=== PATIENT | female | born 1945 | race Caucasian/White ===

== ENCOUNTER 2020-12-08 10:28 | Inpatient (IN) | payer MEDICARE, BC, SELFPAY ==
[2020-12-08] VITALS (13 sets, daily range): BP systolic 113–149; BP diastolic 56–76; PULSE 54–79; RESP 14–18; TEMP 36.4–36.5; O2SAT 93–100; BMI 27.1
--- NOTE | 2020-12-08 | SCC_ITS ---
Procedure Done: Close reduction percutaneous screw fixation of right femoral neck fracture. 56.6 seconds of fluoroscopic guidance, for a cumulative dose of 3.97 mGy, was provided to Dr. Chadwick by the radiology department. C-arm images of the RIGHT hip were saved for the patient's permanent record. [employer]
--- NOTE | 2020-12-08 10:31 | ED_ITS ---
HPI - Fall General: Stated Complaint: RIGHT HIP PAIN S/P FALL Time Seen by Provider: 12/08/20 10:30 Coding Level of Care Code ED Store Assistant for Darshan Perez
--- NOTE | 2020-12-08 10:54 | ECG_ITS ---
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 Measurements Intervals [place] Rate: 53 P: -30 AK: 131 QRS: 72 QRSD: 101 T: 127 QT: 462 QTc: 434 Interpretive Statements SINUS BRADYCARDIA WITH OCCASIONAL SUPRAVENTRICULAR PREMATURE COMPLEXES NONSPECIFIC T-WAVE ABNORMALITY No previous ECG available for comparison Electronically Signed On 12-08-2020 15:29:36 CDT by Alejandro Warren M.D. [email or web address]/[email or web address]/[id number]
--- NOTE | 2020-12-08 10:58 | ED_ITS ---
HPI - Fall General: Chief Complaint: Fall Stated Complaint: RIGHT HIP PAIN S/P FALL Time Seen by Provider: 12/08/20 10:30 History of Present Illness: HPI Narrative: The patient is a 75-year-old female who was at [employer] today and tripped going up a step to her seat and fell. She complains of severe right hip pain since the fall. She did not blackout them but parishioners got her up in a chair and the pain was so severe she passed out for a few seconds. She has a history of vagal episodes in the past and she recovered spontaneously. EMS noted a systolic pressure of 90 and gave her a small fluid bolus. On arrival to the ER she is alert and oriented x4 with blood pressure 148/73. She complains of severe right hip pain with any movement at all. MD complaint: fall Fall from: standing Fall witnessed: yes, by family Prolonged down time: no Symptoms prior to fall: none Context: tripped/slipped Severity scale (1-10): 10 Quality: sharp Associated symptoms-after fall: Reports no associated symptoms; Denies abdominal pain, chest pain, confusion, difficulty walking, headache(s) or neck pain Review of Systems General: Reports: 10 or more systems reviewed and unremarkable except in HPI and below Const: Denies: fatigue Eyes: Denies: change in vision, blurry vision or eye redness ENMT: Denies: throat pain, swelling of lips/tongue, ear or mastoid pain or nasal congestion Card: Denies: chest pain, palpitations, irregular heart rhythm, edema, dyspnea on exertion or orthopnea Resp: Denies: dyspnea, productive cough or non-productive cough GI: Denies: abdominal pain, diarrhea or GI cramping : Denies: flank pain, difficulty voiding, urinary frequency or urinary urg ency Musc: Reports: joint pain; Denies: neck pain, back pain, extremity pain, joint redness, limited range of motion or muscle weakness Skin/Breast: Denies: rash, pruritus, erythema, skin pain or skin tenderness Neuro: Denies: headache(s), numbness in extremities, weakness in extremities, sensory changes, difficulty walking, dizziness, confusion or Slurred speech present Psych: Denies: anxiety or depression Endo: Denies: polyuria All/Imm: Denies: urticaria, throat swelling or tongue swelling PFS ED PFSH: Social History (Updated 12/08/20 @ 10:40 by Jorge L Naidu RN) Smoking and tobacco status: never smoked Alcohol intake: never Substance/Drug Use: never Physical Exam Const: COMMON NORMALS: no acute distress, average body habitus, patient oriented x3, no limitations, healthy appearing, alert and well nourished GENERAL APPEARANCE: cooperative, comfortable, well kempt and well developed ORIENTATION/CONSCIOUSNESS: Yes awake, Yes oriented to person, Yes oriented to place and Yes oriented to time HENMT: COMMON NORMALS: normocephalic, external ears normal and Normal external nose present HEAD & SCALP: normal to inspection and normocephalic NOSE: Normal external nose present EXTERNAL EAR: Yes external ears normal MOUTH: Normal oral and palatal mucosa present THROAT: posterior oropharynx normal Eye: COMMON NORMALS: Equal, round and reactive pupils present and EOMs intact bilaterally GENERAL EYE: appearance normal, both eyes and all related structures PUPIL: Yes Equal, round and reactive pupils present Neck/C-Spine: COMMON NORMALS: full ROM, no lymphadenopathy, no meningeal signs and no JVD GENERAL: Yes normal visual inspection Lymph: LYMPHATIC: no lymphadenopathy noted Chest: COMMONS NORMALS: normal inspection of the chest and normal palpation of entire chest wall Resp: COMMON NORMALS: normal respiratory effort, No retractions, No use of accessory muscles, clear to auscultation bilaterally and percussion normal EFFORT & INSPECTION: Yes able to speak in complete sentences AUSCULTATION: clear to auscultation bilaterally PERCUSSION: percussion normal Cardio: COMMON NORMALS: no JVD, regular rate, regular rhythm, S1 normal heart sound present, S2 normal heart sound present and Peripheral pulses 2+ throughout RATE: regular rate RHYTHM: regular rhythm HEART SOUNDS: S1 normal heart sound present and S2 normal heart sound present PERIPHERAL PULSES: Peripheral pulses 2+ throughout GI: COMMON NORMALS: Normal to inspection, nondistended, normoactive bowel sounds present, Soft to palpation, non-tender and no masses INSPECTION: Yes normal to inspection PALPATION: Yes Soft to palpation : COMMON NORMALS: Yes no CVA tenderness BLADDER/KIDNEY EXAM: Yes no CVA tenderness Back/Pelvis: COMMON NORMALS: no CVA tenderness, thoracic and lumbar spine normal to inspection, no thoracic nor lumbar tenderness and thoraco-lumbar ROM normal Extremity: COMMON NORMALS: normal to inspection, full ROM, capillary refill normal, no joint enlargement and no pedal edema NARRATIVE EXTREMITY EXAM: Severe right hip pain with any movement. Did not examine in depth because of her severe pain. Will view the x-ray GENERAL: Yes normal exam except as noted Neuro: COMMON NORMALS: patient oriented x3, CN's II-XII intact bilaterally, moves all extremities, no focal motor deficits, no sensory deficits noted and gait normal SENSORIUM/ORIENTATION: Yes alert, Yes oriented to person, Yes oriented to place and Yes oriented to time MENINGEAL SIGNS: Yes no meningeal signs Psych: COMMON NORMALS: mental status grossly normal, Normal thought process present, cooperative, normal affect and speech normal APPEARANCE: Yes well kempt ATTITUDE: Yes calm SPEECH: Yes normal speech THOUGHT PROCESS: Normal thought process present Skin: COMMON NORMALS: no rashes or lesions noted GENERAL SKIN EXAM: no rashes or lesions noted Course Vital Signs: Vital signs: Vital Signs Temperature 97.5 F L 12/08/20 10:33 Pulse Rate 55 L 12/08/20 12:51 Respiratory Rate 15 12/08/20 10:33 Blood Pressure 148/73 12/08/20 10:33 Pulse Oximetry 95 12/08/20 12:51 MDM - Fall MDM Narrative: Medical decision making narrative: The patient has a right hip fracture seen on x-ray. She was given pain control in the ED and discussed with Dr. Chadwick who will likely operate this afternoon. She is n.p.o. Last eating or drinking at approximately 8:[address] Lomeli who accepts for admission Lab Data: Labs: Lab Results 12/08/20 12/08/20 12/08/20 Range/Units 10:16 10:16 10:16 WBC 7.6 (4.0-10.0) 10^3/ uL RBC 4.37 (4.1-5.3) 10^6/u L Hgb 13.8 (11.5-15.3) g/dL Hct 43.0 (37.0-47.0) % MCV 98.4 (81-99) fL MCH 31.6 (28.0-34.0) pg MCHC 32.1 (30.0-36.0) g/dL RDW 12.9 (12.1-15.1) % Plt Count 176 (130-400) 10^3/c mm MPV 12.9 H (7.4-10.4) fL Neut % (Auto) 61.0 % Lymph % (Auto) 27.0 % [place] % (Auto) 8.9 % Eos % (Auto) 1.8 % Baso % (Auto) 0.9 % Neut # (Auto) 4.65 (1.8-7.7) 10^3/u L Lymph # (Auto) 2.1 (0.8-4.8) 10^3/u L [place] # (Auto) 0.7 (0.2-0.9) 10^3/u L Eos # (Auto) 0.1 (0.0-0.8) 10^3/u L Baso # (Auto) 0.1 (0.0-0.1) 10^3/u L Nucleated RBC % (a uto) 0 % Nucleated RBCs # 0.0 /100WBC Sodium 137 (136-145) mmol/L Potassium 5.0 (3.5-5.1) mmol/L Chloride 101 (98-107) mmol/L Carbon Dioxide 26 (22-29) mmol/L Anion Gap 15.0 (5-19) BUN 28 H (8-23) mg/dL Creatinine 1.0 H (0.5-0.9) mg/dL GFR Calculation Not Reportable Glucose 90 (65-115) mg/dL Calculated Osmolal ity 289 (285-295) mOsm/k g Calcium 9.2 (8.5-10.5) mg/dL Total Bilirubin 0.4 (0.15-1.2) mg/dL AST 16 (0-32) U/L ALT 15 (0-33) U/L Alkaline Phosphata se 63 (35-105) IU/L Troponin T Baselin e 71 H (0-10) ng/L Total Protein 6.2 L (6.6-8.7) g/dL Albumin 4.5 (3.5-5.2) g/dL Globulin 1.7 (1.3-4.6) g/dL Discharge Plan Discharge Patient Disposition: Admitted As Inpatient Admit Provider: Jose Alberto Lomeli Clinical Impression: Closed fracture of right hip Condition: Stable Coding Level of Care Code ED Sas Developer Analyst for g Fwd Exam Comprehensive
[2020-12-08 11:13] LABS: Basophils # 0.1 10^3/uL (0.0-0.1); Basophils % 0.9 %; Eosinophils # 0.1 10^3/uL (0.0-0.8); Eosinophils % 1.8 %; Hemoglobin 13.8 g/dL (11.5-15.3); Lymphocytes # 2.1 10^3/uL (0.8-4.8); Mean Corpuscular HGB Conc 32.1 g/dL (30.0-36.0); Mean Corpuscular Hemoglobin 31.6 pg (28.0-34.0); Mean Corpuscular Volume 98.4 fL (81-99); Mean Platelet Volume 12.9 fL (7.4-10.4); Monocytes # 0.7 10^3/uL (0.2-0.9); Monocytes % 8.9 %; Neutrophils # 4.65 10^3/uL (1.8-7.7); Nucleated Red Blood Cells % 0 %; Platelet Count 176 10^3/cmm (130-400); Red Blood Count 4.37 10^6/uL (4.1-5.3); Red Cell Distribution Width 12.9 % (12.1-15.1); White Blood Count 7.6 10^3/uL (4.0-10.0)
[2020-12-08] MEDS: HYDROmorphone 1 mg/mL INJ 1 mL 0.4 MG IVP (11:18)
--- NOTE | 2020-12-08 11:18 | XRR_ITS ---
PROCEDURE INFORMATION: Exam: XR Right Hip Exam date and time: 12/08/2020 11:32 AM Age: 75 years old Clinical indication: Injury or trauma; Fall; Blunt trauma (contusions or hematomas); Right; Hip; Additional info: Right hip pain TECHNIQUE: Imaging protocol: XR Right hip. Views: 1 view hip with pelvis when performed. COMPARISON: No relevant prior studies available. FINDINGS: Bones/joints: Irregularity of the capital/subcapital region of the right hip concerning for an impacted fracture. Consider CT if indicated. XR/XR hip RT 2-3V wo/w pel* [id number] IMPRESSION: Irregularity of the capital/subcapital region of the right hip concerning for an impacted fracture. Consider CT if indicated.
[2020-12-08 11:24] LABS: Alanine Aminotransferase 15 U/L (0-33); Albumin Level 4.5 g/dL (3.5-5.2); Alkaline Phosphatase 63 IU/L (35-105); Aspartate Amino Transferase 16 U/L (0-32); Blood Urea Nitrogen 28 mg/dL (8-23); Calcium 9.2 mg/dL (8.5-10.5); Carbon Dioxide 26 mmol/L (22-29); Chloride 101 mmol/L (98-107); Globulin 1.7 g/dL (1.3-4.6); Glucose 90 mg/dL (65-115); Osmolality Calculated 289 mOsm/kg (285-295); Sodium 137 mmol/L (136-145); Total Bilirubin 0.4 mg/dL (0.15-1.2); Total Protein 6.2 g/dL (6.6-8.7)
[2020-12-08 11:26] LABS: Troponin(5th) Baseline 71 ng/L (0-10)
[2020-12-08] MEDS: HYDROmorphone 1 mg/mL INJ 1 mL 0.5 MG IVP ×2 (12:33→14:02)
--- NOTE | 2020-12-08 13:30 | USCV_ITS ---
Narcisa Valle Age: 75 Gender: F : 1945 Exam Date: 12/08/2020 13:53 Ordering Phys: Jose Alberto Lomeli MD Technologist: Cornelia Jacinto Exam Location: [facility] [place] Indication: Preop, chest pain BP: 148 / 76 HR: 50 Rhythm: Sinus Technical Quality: Fair MEASUREMENTS (Male / Female) Normal Values 2D ECHO LV Diastolic Diameter PLAX 4.1 cm 4.2 - 5.9 / 3.9 - 5.3 cm LV Systolic Diameter PLAX 2.8 cm LV Chamber Size 4.0 cm IVS Diastolic Thickness 1.4 cm 0.6 - 1.0 / 0.6 - 0.9 cm IVS Systolic Thickness 1.6 cm LVPW Diastolic Thickness 0.8 cm 0.6 - 1.0 / 0.6 - 0.9 cm LVPW Systolic Thickness 1.3 cm RV Chamber Size 2.2 cm LVOT Diameter 1.8 cm LV Ejection Fraction 2D Teich 62.5 % LV Ejection Fraction MOD 2C 65.8 % LV Ejection Fraction 2C AL 67.3 % LA Diameter 2.4 cm LA Width 2.9 cm LA Height 4.2 cm RA Width 2.9 cm RA Height 3.7 cm Aorta at Sinotubular Diameter 2.0 cm M-MODE LV Diastolic Diameter MM 4.3 cm 4.2 - 5.9 / 3.9 - 5.3 cm LV Systolic Diameter MM 2.5 cm LV Ejection Fraction MM Teich 72.5 % IVS Diastolic Thickness MM 1.3 cm 0.6 - 1.0 / 0.6 - 0.9 cm IVS Systolic Thickness MM 1.5 cm LVPW Diastolic Thickness MM 0.9 cm 0.6 - 1.0 / 0.6 - 0.9 cm LVPW Systolic Thickness MM 1.5 cm Aortic Annulus Diameter 2.8 cm LA Ao Ratio MM 1.1 MV E Point Septal Separation 0.5 cm DOPPLER AV Peak Velocity 119.0 cm/s LVOT Peak Velocity 126.0 cm/s AV Area Cont Eq vti 2.7 cm squared AV Area Cont Eq pk 2.8 cm squared MV Area PHT 2.6 cm squared Mitral E to A Ratio 0.8 MV E' Velocity 44.5 cm/s Mitral E to MV E' Ratio 15.6 Mitral E to LV E' Lateral Ratio 17.6 Mitral E to LV E' Septal Ratio 14.1 TR Peak Velocity 283.5 cm/s TR Peak Gradient 32.1 mmHg TV Peak E Velocity 47.0 cm/s Right Atrial Pressure 8.0 mmHg Pulmonary Artery Systolic Pressu 40.1 mmHg PV Peak Velocity 68.0 cm/s RV Acceleration Time 0.2 s RV Ejection Time 0.3 s RV AcT/ET 0.5 FINDINGS Left Ventricle Normal left ventricular size. LV systolic function is normal with EF of 55-60%. No regional wall motion abnormalities. Grade 1 diastolic dysfunction Right Ventricle The right ventricle is normal in size and function. Right Atrium The right atrium is normal in size. Left Atrium The left atrium is normal in size. Mitral Valve Structurally normal mitral valve without significant stenosis or prolapse. There is no mitral regurgitation. Aortic Valve Structurally normal aortic valve without significant sclerosis or stenosis. There is no aortic regurgitation. Tricuspid Valve Structurally normal tricuspid valve without significant stenosis. Mild tricuspid regurgitation. RVSP is 35-40mmHg. Mild pulmonary hypertension Pulmonic Valve Structurally normal pulmonic valve without significant stenosis. There is no pulmonic regurgitation. Pericardium Normal pericardium without effusion. Aorta Normal ascending aorta dimension. CONCLUSIONS LV systolic function is normal with EF of 55-60% Grade 1 diastolic dysfunction Mild tricuspid regurgitation Mild pulmonary hypertension No comparison studies are available Alejandro Warren MD (Electronically Signed) Final Date: 08 December 2020 15:44 S
[2020-12-08 13:33] LABS: Glucose Urine UA Norm (Normal); Protein Urine Neg (Negative); Urine Appearance Clear (CLEAR); Urine Color Yellow (Yellow); pH Urine 8 (5-7)
[2020-12-08 13:34] LABS: Add Urine Culture? Yes; Add Urine Microscopic? YES; Bacteria Urine 2+ /hpf; Bilirubin Urine Neg (Negative); Blood Urine Neg (Negative); Ketones Urine 1+ (Negative); Leukocyte Esterase Urine 1+ (Negative); Nitrate Urine Negative (Negative); Urobilinogen Urine Norm (Negative); WBC Urine 15-25 /hpf (0-5)
[2020-12-08 13:44] LABS: Troponin 5 2HR 56.44 ng/L (0-10)
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
[2020-12-08 13:51] LABS: Troponin 5 2HR Delta -14.56 ABS# (0-10)
[2020-12-08] MEDS: ondansetron 2 mg/ML SDV 2 mL 4 MG IVP (14:02)
[2020-12-08] MEDS: heparin 5,000 unit/mL INJ 1 mL 5000 UNIT SUBCUT (14:03)
[2020-12-08] MEDS: dextrose 5%-sod chloride 0.45% 1,000 ML 75 ML IV ×2 (14:15→21:53)
[2020-12-08 14:28] LABS: NT Pro B Type Natriuretic Pept 1214 pg/mL (0-450)
--- NOTE | 2020-12-08 14:38 | PC.NURSE ---
surgery pt was taken to surgery.
--- NOTE | 2020-12-08 14:41 | P.ANESASSM_ITS ---
Pre-Anesthetic Assessment Pre-Anesthetic Assessment: Height/Weight: Height 1.55 m Weight 65.317 kg Temp Pulse Resp BP Pulse Ox 97.5 F L 56 L 18 148/76 95 12/08/20 10:33 12/08/20 13:16 12/08/20 14:02 12/08/20 13:16 12/08/20 13:16 Proposed Procedure: Operation Date: 12/08/20 15:00 Proposed Procedures p Hip Screw(Right) - Sanford H Netta, DO Was Beta Giselle taken within 24 hours: N/A Was Clonidine taken within 24 hours: N/A Last intake: 0900 coffee with cream and yogurt. Social: Social History: No alcohol and No tobacco Exam: Pre-Anes Outpt Exam: alert, oriented x 3, clear to auscultation bilaterally and regular rate & rhythm Airway: Submandibular: WNL Cervical ROM: WNL MP: 2 Dentition: Caps History/ROS: No significant history except as noted Pulmonary: Pulmonary: Sleep apnea (non-compliant) CV/HEM: CV/HEM: Arrythmia (bradycardia at times 48-52 range per daughter.) : : Chronic renal Insufficiency (stage 3) Hepatic: Hepatic: None reported GI: Comments: gastric ulcers Metabolic: Metabolic: Thyroid Comments: Shakeel's Disease Musc/skel: Musc/skel: Fibromyalgia and Lower Back Pain Neuropsych: Neuropsych: Anxiety, Depression, Neuropathy (lower extremity) and Syncope (vaso-vagal response for years.) Anesthetic Plan: ASA status: 3E Anesthesia: Anesthesia Evaluation and General Meds/Allergies Current Medications: Current Medications Generic Name Dose Route Start Last Admin Trade Name Freq PRN Reason Stop Dose Admin Heparin Sodium (Be ef Lung) 5,000 unit 12/08/20 13:48 12/08/20 14:03 Heparin 5,000 Un it/Ml Inj 1 Ml SUBCUT 5,000 unit Q12H ALAINA Administration Hydromorphone HCl 0.5 mg 12/08/20 13:48 12/08/20 14:02 Hydromorphone 1 Mg/Ml Inj 1 Ml IVP 0.5 mg Q4H PRN Administration pain Dextrose/Sodium Ch loride 1,000 mls @ 75 ml s/hr 12/08/20 13:48 12/08/20 14:15 Dextrose 5%-Sod Chloride 0.45% IV 75 mls/hr .[id number] ALAINA Administration Ondansetron HCl 4 mg 12/08/20 13:48 12/08/20 14:02 Ondansetron 2 Mg /Ml Sdv 2 Ml IVP 4 mg Q8H PRN Administration vomiting, or N/V if npo PFSH Anesthesia PFSH: Medical History (Updated 12/08/20 @ 13:50 by Jose Alberto Lomeli MD) Chronic kidney disease Mesenteric cyst Vasovagal syncope Surgical History (Updated 12/08/20 @ 13:50 by Jose Alberto Lomeli MD) History of laminectomy History of laparotomy Family History (Updated 12/08/20 @ 13:50 by Jose Alberto Lomeli MD) Father CAD (coronary artery disease) Alcoholism Mother CAD (coronary artery disease) Brother CAD (coronary artery disease) Social History (Updated 12/08/20 @ 13:50 by Jose Alberto Lomeli MD) Smoking and tobacco status: former smoker Alcohol intake: never Substance/Drug Use: never Data Anesthesia CBC & Chem 7: 12/08/20 10:16 12/08/20 10:16 Other Labs: Laboratory Results - last 48 hr 12/08/20 12/08/20 12/08/20 10:16 10:16 10:16 WBC 7.6 RBC 4.37 Hgb 13.8 Hct 43.0 MCV 98.4 MCH 31.6 MCHC 32.1 RDW 12.9 Plt Count 176 MPV 12.9 H Neut % (Auto) 61.0 Lymph % (Auto) 27.0 [place] % (Auto) 8.9 Eos % (Auto) 1.8 Baso % (Auto) 0.9 Neut # (Auto) 4.65 Lymph # (Auto) 2.1 [place] # (Auto) 0.7 Eos # (Auto) 0.1 Baso # (Auto) 0.1 Nucleated RBC % (auto) 0 Nucleated RBCs # 0.0 Sodium 137 Potassium 5.0 Chloride 101 Carbon Dioxide 26 Anion Gap 15.0 BUN 28 H Creatinine 1.0 H GFR Calculation Not Reportable Glucose 90 Calculated Osmolality 289 Calcium 9.2 Total Bilirubin 0.4 AST 16 ALT 15 Alkaline Phosphatase 63 Troponin T Baseline 71 H Troponin T 120 Minute Delta Troponin T NT-Pro-B Natriuret Pep Total Protein 6.2 L Albumin 4.5 Globulin 1.7 Urine Color Urine Appearance Urine pH Ur Specific [place] Urine Protein Urine Glucose (UA) Urine Ketones Urine Blood Urine Nitrate Urine Bilirubin Urine Urobilinogen Ur Leukocyte Esterase Urine RBC Urine WBC Ur Squamous Epith Cells Amorphous Sediment Urine Bacteria 12/08/20 12/08/20 12/08/20 12:48 13:00 13:15 WBC RBC Hgb Hct MCV MCH MCHC RDW Plt Count MPV Neut % (Auto) Lymph % (Auto) [place] % (Auto) Eos % (Auto) Baso % (Auto) Neut # (Auto) Lymph # (Auto) [place] # (Auto) Eos # (Auto) Baso # (Auto) Nucleated RBC % (auto) Nucleated RBCs # Sodium Potassium Chloride Carbon Dioxide Anion Gap BUN Creatinine GFR Calculation Glucose Calculated Osmolality Calcium Total Bilirubin AST ALT Alkaline Phosphatase Troponin T Baseline Troponin T 120 Minute 56.44 H Delta Troponin T -14.56 L NT-Pro-B Natriuret Pep 1214 H Total Protein Albumin Globulin Urine Color Yellow Urine Appearance Clear Urine pH 8 H Ur Specific [place] 1.010 Urine Protein Neg Urine Glucose (UA) Norm Urine Ketones 1+ H Urine Blood Neg Urine Nitrate Negative Urine Bilirubin Neg Urine Urobilinogen Norm Ur Leukocyte Esterase 1+ H Urine RBC None Urine WBC 15-25 H Ur Squamous Epith Cells 5-10 H Amorphous Sediment Not Reportable Urine Bacteria 2+ H Cardiac Studies: No Data to Display
[2020-12-08 14:53] LABS: Thyroid Stimulating Hormone 1.48 uIU/mL (0.27-4.20)
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
--- NOTE | 2020-12-08 15:04 | W.PM.OPSUD ---
Surgery/Procedure H&P Update DATE OF PROCEDURE: December 08, 2020 DATE H&P PERFORMED: 12/08/20 PLANNED PROCEDURE: Operation Date: 12/08/20 15:00 Proposed Procedures p Hip Screw(Right) - Sanford Chadwick DO
--- NOTE | 2020-12-08 16:03 | PM.OP ---
Operative Report Date of procedure: December 08, 2020 Pre-op Diagnosis: right femoral neck fracture Post-op diagnosis: same Procedure Done: Close reduction percutaneous screw fixation of right femoral neck fracture. Procedure: Close reduction percutaneous screw fixation of right femoral neck fractur Patient is brought to the operative suite placed in the supine position after undergoing spinal anesthesia patient was positioned on the Maxwell table. All areas impingement were well-padded. C-arm was brought in to ensure the fracture was in good position. It was. At this point patient was prepped and draped normal sterile fashion. Skin is made in the lateral aspect of the lateral thigh. Guidewires inserted in the center inferior position as well as anterior and posterior superior position. In a reverse triangle. Guidewires were measured and 3 screws were placed partially-threaded. AP lateral fluoroscopy ensured fracture and hardware were in preposition. Wounds were irrigated. Wound was then closed with Vicryl and feli. And patient was transferred to the PACU in stable condition.
--- NOTE | 2020-12-08 16:05 | ANE.PACU2 ---
Inpatient post-anesthesia follow up: Airway intact: Yes Vital signs: Temperature 97.5 F Pulse Rate [Left R adial] 57 Pulse Rate 74 Respiratory Rate 14 Blood Pressure [Le ft Arm] 148/73 Blood Pressure 130/56 Pulse Oximetry 98 Oxygen Delivery Me thod Room Air Oxygen Flow Rate Fraction of Inspir ed Oxygen Hydration adequate: No Nausea and vomiting: No Pain level: 1 Mental status: Baseline
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
--- NOTE | 2020-12-08 17:37 | ECG_ITS ---
[facility] ED Test Date: 2020-12-08 Pat Name: Narcisa Valle Department: Room: 272 Gender: Female Non Destructive Testing Inspector: : 1945 Requested By: Khang Vargas Order Number: [id number] Sommer MD: Heena Holland M.D. Measurements Intervals [place] Rate: 70 P: 79 WV: 164 QRS: 58 QRSD: 97 T: 150 QT: 406 QTc: 441 Interpretive Statements SINUS RHYTHM [address] DEVIATION AND MODERATE T-WAVE ABNORMALITY, CONSIDER ANTERIOR ISCHEMIA [-0.1+ mV T WAVE IN V3/V4] Compared to ECG 12/08/2020 12:46:26 Possible ischemia now present Sinus bradycardia no longer present T-wave abnormality still present Electronically Signed On 12-15-2020 10:58:46 CDT by Heena Holland M.D. [email or web address] olive branch hospitalInform Technologieskettering health – so[facility] medical center.[place]/store/OM/[id number]
[2020-12-08] MEDS: LORazepam 0.5 mg Tablet PO (17:41)
[2020-12-08 18:41] LABS: Troponin 5 6HR 44.44 ng/L (0-10)
[2020-12-08] MEDS: ketorolac 30 mg/mL INJ IVP (19:12)
[2020-12-08] MEDS: baclofen 10 mg Tablet PO (21:12)
[2020-12-08] MEDS: buPROPion SR (12 HR) 100 mg Tablet PO (21:12)
[2020-12-09] VITALS (11 sets, daily range): BP systolic 116–175; BP diastolic 64–85; PULSE 40–52; RESP 16–18; TEMP 36.2–37.2; O2SAT 95–98
[2020-12-09] MEDS: heparin 5,000 unit/mL INJ 1 mL 5000 UNIT SUBCUT ×2 (01:24→14:52)
[2020-12-09] MEDS: ketorolac 30 mg/mL INJ IVP (04:02)
--- NOTE | 2020-12-09 07:07 | PM.PN ---
Subjective Subjective: Interval history: pain controlled doing well Vitals/I&O/Wt Last Vital Signs Temp 98.4 F 12/09/20 04:00 Pulse 49 L 12/09/20 06:00 Resp 18 12/09/20 04:00 BP 125/73 12/09/20 04:00 Pulse Ox 97 12/09/20 04:00 12/08/20 12/09/20 12/09/20 22:59 06:59 14:59 Intake Total 622.5 / 622.5 50 / 672.5 Output Total 200 / 205 Balance 617.5 / 617.5 -150 / 467.5 Weight last 48 hrs Weight 144 lb Physical Exam Narrative: EXAM NARRATIVE: resting in bed able to range hip with minimal pain Urinary Catheter Management^: Barbour: Cath Placed During This Visit: yes, but has since been removed by the nurse Reason for Continuing Indwelling Catheter: Decision to DC Catheter Urinary Catheter Date of Insertion: 12/08/20 Urinary Catheter Time of Insertion: 12:45 Date Urinary Catheter Removed: 12/09/20 Time Urinary Catheter Discontinued: 06:29 Data : 12/08/20 10:16 12/08/20 10:16 A&P Assessment and plan (1) Closed fracture of right hip: POD #1 CRPP UP with PT Status: Acute Attestations Medical Necessity Statement*: medical management of syncope Coding Level of Care Code Acute Civil Engineering Project Manager for Darshan Peerz Diagnoses Closed fracture of right hip S72.001A
[2020-12-09 07:59] LABS: Basophils % 0.4 %; Eosinophils # 0.1 10^3/uL (0.0-0.8); Eosinophils % 1.8 %; Hematocrit 35.9 % (37.0-47.0); Hemoglobin 11.7 g/dL (11.5-15.3); Lymphocytes # 0.9 10^3/uL (0.8-4.8); Lymphocytes % 12.8 %; Mean Corpuscular HGB Conc 32.6 g/dL (30.0-36.0); Mean Corpuscular Hemoglobin 31.8 pg (28.0-34.0); Mean Corpuscular Volume 97.6 fL (81-99); Monocytes # 0.7 10^3/uL (0.2-0.9); Monocytes % 9.4 %; Neutrophils # 5.56 10^3/uL (1.8-7.7); Neutrophils % 75.5 %; Nucleated Red Blood Cells % 0 %; Platelet Count 129 10^3/cmm (130-400); Red Blood Count 3.68 10^6/uL (4.1-5.3); White Blood Count 7.4 10^3/uL (4.0-10.0)
[2020-12-09 08:21] LABS: Alanine Aminotransferase 12 U/L (0-33); Albumin Level 3.6 g/dL (3.5-5.2); Alkaline Phosphatase 43 IU/L (35-105); Anion Gap 12.6 (5-19); Aspartate Amino Transferase 14 U/L (0-32); Blood Urea Nitrogen 22 mg/dL (8-23); Calcium 8.1 mg/dL (8.5-10.5); Carbon Dioxide 24 mmol/L (22-29); Chloride 100 mmol/L (98-107); Glucose 106 mg/dL (65-115); Magnesium 2.1 mg/dL (1.7-2.3); Osmolality Calculated 280 mOsm/kg (285-295); Phosphorus 2.9 mg/dL (2.5-4.5); Potassium 3.6 mmol/L (3.5-5.1); Sodium 133 mmol/L (136-145); Total Bilirubin 0.5 mg/dL (0.15-1.2); Total Protein 5.6 g/dL (6.6-8.7)
--- NOTE | 2020-12-09 08:50 | ECG_ITS ---
[facility] ED Test Date: 2020-12-09 Pat Name: Narcisa Valle Department: Room: 272 Gender: Female Grocery Deliverer: : 1945 Requested By: Roxana Stein Order Number: [id number] Kemal MD: Heena Holland M.D. Measurements Intervals [place] Rate: 50 P: 72 RI: 155 QRS: 47 QRSD: 92 T: 147 QT: 449 QTc: 412 Interpretive Statements SINUS BRADYCARDIA ST DEVIATION AND MODERATE T-WAVE ABNORMALITY, CONSIDER ANTERIOR ISCHEMIA Compared to ECG 12/08/2020 16:31:25 Sinus rhythm no longer present Electronically Signed On 12-15-2020 10:40:14 CDT by Heena Holland M.D. [email or web address] sunflower medical centerYingke Industrialohiohealth [facility].[employer]/store/OM/[id number]/ecg/[id number]
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
[2020-12-09] MEDS: docusate sodium 100 mg Capsule PO ×2 (09:22→17:36)
[2020-12-09] MEDS: calcium carbonate 500 mg Chew Tablet 1000 MG PO ×2 (09:48→20:38)
[2020-12-09 10:17] LABS: Troponin(5th) Baseline 59 ng/L (0-10)
[2020-12-09] MEDS: LORazepam 0.5 mg Tablet PO (14:52)
[2020-12-09] MEDS: dextrose 5%-sod chloride 0.45% 1,000 ML 75 ML IV (16:06)
[2020-12-09] MEDS: acetaminophen 325 mg Tablet 650 MG PO (17:36)
[2020-12-09] MEDS: baclofen 10 mg Tablet PO (20:39)
[2020-12-09] MEDS: sennosides 8.6 mg Tablet PO (20:40)
[2020-12-09] MEDS: oxyCODONE-APAP 5-325 mg Tablet 1 TAB PO (20:41)
[2020-12-09] MEDS: buPROPion SR (12 HR) 100 mg Tablet PO (20:48)
[2020-12-10] VITALS (12 sets, daily range): BP systolic 96–157; BP diastolic 58–83; PULSE 45–69; RESP 16–18; TEMP 36.5–36.7; O2SAT 95–100
[2020-12-10] MEDS: heparin 5,000 unit/mL INJ 1 mL 5000 UNIT SUBCUT ×2 (01:23→12:28)
[2020-12-10 02:27] LABS: Basophils % 0.6 %; Eosinophils # 0.3 10^3/uL (0.0-0.8); Eosinophils % 5.3 %; Hematocrit 34.6 % (37.0-47.0); Hemoglobin 11.2 g/dL (11.5-15.3); Lymphocytes # 1.4 10^3/uL (0.8-4.8); Lymphocytes % 21.3 %; Mean Corpuscular HGB Conc 32.4 g/dL (30.0-36.0); Mean Corpuscular Hemoglobin 31.5 pg (28.0-34.0); Mean Corpuscular Volume 97.5 fL (81-99); Mean Platelet Volume 12.3 fL (7.4-10.4); Monocytes # 0.7 10^3/uL (0.2-0.9); Monocytes % 10.5 %; Neutrophils # 4.02 10^3/uL (1.8-7.7); Neutrophils % 62.1 %; Nucleated Red Blood Cells % 0 %; Platelet Count 118 10^3/cmm (130-400); Red Blood Count 3.55 10^6/uL (4.1-5.3); Red Cell Distribution Width 12.8 % (12.1-15.1); White Blood Count 6.5 10^3/uL (4.0-10.0)
[2020-12-10] MEDS: oxyCODONE-APAP 5-325 mg Tablet 1 TAB PO ×4 (04:30→23:33)
[2020-12-10] MEDS: dextrose 5%-sod chloride 0.45% 1,000 ML 75 ML IV ×2 (06:17→17:31)
[2020-12-10] MEDS: docusate sodium 100 mg Capsule PO ×2 (08:35→17:10)
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
--- NOTE | 2020-12-10 10:48 | PM.DCS ---
Discharge Providers Date of Admission: 12/08/20 12:22 Date of Discharge: December 11, 2020 Attending Provider at Admission: Jose Alberto Lomeli MD Attending Provider at Discharge: Roxana Stein MD Consults: Dr. Chadwick Primary Care Provider: Tess Breen DO Diagnoses at Discharge Discharge Diagnosis (1) Fall: Status: Resolved Qualifiers: Encounter type: initial encounter Qualified Code(s): W19.XXXA - Unspecified fall, initial encounter (2) Vasovagal syncope: Status: Resolved (3) Elevated troponin: Status: Acute (4) History of reduction of closed fracture: Status: Acute (5) Closed fracture of right hip: Status: Resolved Qualifiers: Encounter type: initial encounter Qualified Code(s): S72.001A - Fracture of unspecified part of neck of right femur, initial encounter for closed fracture (6) Bradycardia: Status: Acute (7) Depression: Status: Chronic Qualifiers: Depression Type: unspecified Qualified Code(s): F32.9 - Major depressive disorder, single episode, unspecified (8) History of stress test: Status: Chronic Permanent problem details: 1. Small size perfusion abnormality of mild severity of apical loredo with subtle reversibility in apical septal wall on stress images. 2. This may represent old myocardial infarction or scarring in left anterior descending artery territory with minimal uche-infarct ischemia. 3. Overall left ventricular systolic function is normal with apical hypokinesis 4. The left ventricular ejection fraction is normal with a value of 63%. Reason for Visit Reason for Visit: RIGHT HIP PAIN S/P FALL Hospital Course Hospital Course Mrs. Valle had a mechanical fall at [facility]. This was followed by a syncopal episode with attempted movement. Was described as having a vasovagal event per EMS and ER as well as eyewitness descriptions. She sustained right femoral neck fracture. Work-up in the emergency room revealed an elevated troponin and EKG with some nonspecific changes. Echocardiogram showed normal ejection fraction without any wall motion abnormalities. Patient was taken to surgery and had spinal anesthesia. She tolerated closed reduction with screw fixation of the femoral neck fracture well. Postoperatively she actually did remarkably well with therapy. She continued to have some intermittent nausea. Review of EKG showed continued changes in V2 to V4 that were nonspecific. In addition it was noted that she was bradycardic. She did not complain of chest pain and did not have increase in symptoms with exertion. No prior history of cardiac disease. Looking at the complete picture decision was made to proceed with stress testing prior to discharge to ensure she would be safe for ongoing rehabilitation. This did show a small size perfusion abnormality as described below. Thought is that she may have had a previous myocardial infarction or scarring in the LAD distribution with some minimal uche-infarct changes noted. Without any changes to medical management, her nausea improved. Repeat cardiac enzymes showed a troponin in the low 30s. It did not fully normalize. EKG did not show any progression of changes. Recommendation was for initiation of some aspirin therapy along with some isosorbide. Prescriptions were provided for these. She will follow-up with cardiology in a couple of weeks. She will also be following up with Dr. Chadwick from an orthopedic standpoint. All of this was discussed with both the patient and her daughter. Both were given an opportunity to ask questions. The daughter did note that the bradycardia is longstanding. She has also had previous vasovagal events although not many. Physical Exam Narrative: EXAM NARRATIVE: Awake and alert. No acute distress. Lungs are clear. Regular rhythm currently in the 60s. Abdomen is soft. Large bruise around the area where she fell more posteriorly. Dressing is clean without expansion of marked areas of bleeding, remains intact. Doing well with position changes. Urinary Catheter Management^: Barbour: Cath Placed During This Visit: yes, but has since been removed by the nurse Reason for Continuing Indwelling Catheter: Decision to DC Catheter Urinary Catheter Date of Insertion: 12/08/20 Urinary Catheter Time of Insertion: 12:45 Date Urinary Catheter Removed: 12/09/20 Time Urinary Catheter Discontinued: 06:29 Discharge Data Data Completed and Pending: Completed Studies During Hospitalization Category Date Time Status XR hip RT 2-3V wo /w pel* [id number] Rout ine Exams 12/08/20 16:46 Completed XR hip RT 2-3V wo /w pel* [id number] Stat Exams 12/08/20 11:18 Completed CV echo complete* [id number] Stat Ultrasound 12/08/20 13:30 Completed Had stress test Myocardial perfusion portion 1. Small size perfusion abnormality of mild severity of apical loredo with subtle reversibility in apical septal wall on stress images. 2. This may represent old myocardial infarction or scarring in left anterior descending artery territory with minimal uche-infarct ischemia. 3. Overall left ventricular systolic function is normal with apical hypokinesis 4. The left ventricular ejection fraction is normal with a value of 63%. 5. No prior similar studies to compare. EKG portion Blood pressure at the end of the recovery phase was 175/90 mmHg, oxygen saturation 98% with a heart rate of 84 beats per minute. CONCLUSION: 1. No significant EKG changes with the LexiScan infusion. 2. No LexiScan induced chest pain or cardiac arrhythmia. 3. Normal blood pressure and heart rate response. 4. Sestamibi/sestamibi perfusion scan pending; see separate report. Laboratory Last Values WBC 5.9 10^3/uL (4.0- 10.0) 12/11/20 02:25 RBC 3.48 10^6/uL (4.1 -5.3) L 12/11/20 02:25 Hgb 11.1 g/dL (11.5-1 5.3) L 12/11/20 02:25 Hct 34.9 % (37.0-47.0 ) L 12/11/20 02:25 MCV 100.3 fL (81-99) H 12/11/20 02:25 MCH 31.9 pg (28.0-34. 0) 12/11/20 02:25 MCHC 31.8 g/dL (30.0-3 6.0) 12/11/20 02:25 RDW 13.1 % (12.1-15.1 ) 12/11/20 02:25 Plt Count 120 10^3/cmm (130 -400) L 12/11/20 02:25 MPV 12.1 fL (7.4-10.4 ) H 12/11/20 02:25 Neut % (Auto) 49.9 % 12/11/20 02:25 Lymph % (Auto) 29.5 % 12/11/20 02:25 [place] % (Auto) 13.5 % 12/11/20 02:25 Eos % (Auto) 6.2 % 12/11/20 02:25 Baso % (Auto) 0.7 % 12/11/20 02:25 Neut # (Auto) 2.97 10^3/uL (1.8 -7.7) 12/11/20 02:25 Lymph # (Auto) 1.8 10^3/uL (0.8- 4.8) 12/11/20 02:25 [place] # (Auto) 0.8 10^3/uL (0.2- 0.9) 12/11/20 02:25 Eos # (Auto) 0.4 10^3/uL (0.0- 0.8) 12/11/20 02:25 Baso # (Auto) 0.0 10^3/uL (0.0- 0.1) 12/11/20 02:25 Nucleated RBC % (a uto) 0 % 12/11/20 02:25 Nucleated RBCs # 0.0 /100WBC 12/11/20 02:25 Sodium 133 mmol/L (136-1 45) L 12/09/20 06:24 Potassium 3.6 mmol/L (3.5-5 .1) 12/09/20 06:24 Chloride 100 mmol/L (98-10 7) 12/09/20 06:24 Carbon Dioxide 24 mmol/L (22-29) 12/09/20 06:24 Anion Gap 12.6 (5-19) 12/09/20 06:24 BUN 22 mg/dL (8-23) 12/09/20 06:24 Creatinine 0.7 mg/dL (0.5-0. 9) 12/09/20 06:24 GFR Calculation Not Reportable 12/09/20 06:24 Glucose 106 mg/dL (65-115 ) 12/09/20 06:24 Calculated Osmolal ity 280 mOsm/kg (285- 295) L 12/09/20 06:24 Calcium 8.1 mg/dL (8.5-10 .5) L 12/09/20 06:24 Phosphorus 2.9 mg/dL (2.5-4. 5) 12/09/20 06:24 Magnesium 2.1 mg/dL (1.7-2. 3) 12/09/20 06:24 Total Bilirubin 0.5 mg/dL (0.15-1 .2) 12/09/20 06:24 AST 14 U/L (0-32) 12/09/20 06:24 ALT 12 U/L (0-33) 12/09/20 06:24 Alkaline Phosphata se 43 IU/L (35-105) 12/09/20 06:24 Troponin T Baselin e 35 ng/L (0-10) H 12/10/20 13:17 Troponin T 120 Min [place] 36.75 ng/L (0-10) H 12/10/20 15:25 Delta Troponin T 1.75 ABS# (0-10) 12/10/20 15:25 Troponin T Hi Sens 6Hr 37.52 ng/L (0-10) H 12/10/20 19:07 Troponin T Hi Sens 6Hr Delta 2.52 ng/L (0-12) 12/10/20 19:07 NT-Pro-B Natriuret Pep 1214 pg/mL (0-450 ) H 12/08/20 13:00 Total Protein 5.6 g/dL (6.6-8.7 ) L 12/09/20 06:24 Albumin 3.6 g/dL (3.5-5.2 ) 12/09/20 06:24 Globulin 2.0 g/dL (1.3-4.6 ) 12/09/20 06:24 Triglycerides 68 mg/dL (0-150) 12/11/20 02:25 Cholesterol 155 mg/dL (0-200) 12/11/20 02:25 LDL Cholesterol, C alc 83 mg/dL (50-129) 12/11/20 02:25 HDL Cholesterol 58 mg/dL (60-100) L 12/11/20 02:25 LDL/HDL Ratio 1.43 RATIO (0.00- 3.22) 12/11/20 02:25 Cholesterol/HDL Ra john 2.67 mg/dL (0.0-4 .40) 12/11/20 02:25 TSH 1.48 uIU/mL (0.27 -4.20) 12/08/20 13:00 Urine Color Yellow (Yellow) 12/08/20 12:48 Urine Appearance Clear (CLEAR) 12/08/20 12:48 Urine pH 8 (5-7) H 12/08/20 12:48 Ur Specific Gravit y 1.010 (1.005-1.0 30) 12/08/20 12:48 Urine Protein Neg (Negative) 12/08/20 12:48 Urine Glucose (UA) Norm (Normal) 12/08/20 12:48 Urine Ketones 1+ (Negative) H 12/08/20 12:48 Urine Blood Neg (Negative) 12/08/20 12:48 Urine Nitrate Negative (Negati ve) 12/08/20 12:48 Urine Bilirubin Neg (Negative) 12/08/20 12:48 Urine Urobilinogen Norm mg/dL (Negat tuan) 12/08/20 12:48 Ur Leukocyte Natasha ase 1+ (Negative) H 12/08/20 12:48 Urine RBC None /hpf (0-2) 12/08/20 12:48 Urine WBC 15-25 /hpf (0-5) H 12/08/20 12:48 Ur Squamous Epith Cells 5-10 /hpf (0-5) H 12/08/20 12:48 Amorphous Sediment Not Reportable 12/08/20 12:48 Urine Bacteria 2+ /hpf (NONE) H 12/08/20 12:48 Blood Type O Positive 12/08/20 13:00 Rho(D) Type Positive / 4+ 12/08/20 13:00 Antibody Screen Negative 12/08/20 13:00 Imaging^: Echo: Radiologist's impression: CONCLUSIONS LV systolic function is normal with EF of 55-60% Grade 1 diastolic dysfunction Mild tricuspid regurgitation Mild pulmonary hypertension Vitals: Last Vital Signs Temp 98.0 F 12/10/20 07:39 Pulse 51 L 12/10/20 07:39 Resp 18 12/10/20 07:39 BP 149/81 12/10/20 07:39 Pulse Ox 96 12/10/20 07:39 Discharge Plan Discharge Patient Disposition: Home Condition: Stable Prescriptions: New Senna Lax 8.6 mg Tablet 8.6 mg PO BEDTIME Qty: 30 RF: 0 acetaminophen 325 mg Tablet 650 mg PO Q6H PRN (Reason: Mild Pain) Qty: 100 RF: 0 oxycodone-acetaminophen 5-325 mg Tablet 1 tab PO Q6H PRN (Reason: Moderate To Severe Pain) Qty: 20 RF: 0 DOK 100 mg Capsule 100 mg PO BID Qty: 60 RF: 0 Lovenox 40 mg/0.4 mL syringe 40 mg SUBCUT DAILY Qty: 5.6 RF: 0 Adult Low Dose Aspirin 81 mg tablet,delayed release (DR/EC) 81 mg PO DAILY Qty: 30 RF: 0 isosorbide mononitrate 10 mg tablet 10 mg PO BID Qty: 60 RF: 0 Continued bupropion HCl 100 mg tablet sustained-release 12 hr 100 mg PO DAILY@2130 RF: 0 lorazepam 0.5 mg tablet 0.5 mg PO DAILY PRN (Reason: Anxiety) RF: 0 Discontinued baclofen 10 mg tablet 10 mg PO DAILY@2129 RF: 0 Discharge Orders: Discharge Order (Routine); Ordered 12/11/20 Ordered By: Roxana Stein Other Ambulatory Orders: Complete Blood Count w/Auto (Routine) Timeframe: 3 Days Location: Determined by Patient Ordered By: Roxana Stein DME: Walker (Order) Location: None Selected Ordered By: Roxana Stein Referrals: [facility] [Outside] [facility] [Outside] Sanford Chadwick DO [Physician] - 12/24/20 2:30 pm Adam Blankenship MD [Physician] - 2 weeks (Case discussed with Dr. Blankenship while patient in hospital and he recommended follow up outpatient in couple weeks) Tess Breen DO [Primary Care Provider] - 12/13/20 11:00 am (CBC) Discharge Diet: Advance as tolerated Discharge Activity: As per PT/OT instructions Patient Instructions: Oxycodone/Acetaminophen (By mouth), Aspirin (By mouth), Laxative, Stool Softeners (By mouth), Enoxaparin (Injection), Isosorbide Mononitrate (By mouth), Opioid Safety Activity Restrictions/Additional Instructions: You are being discharged from the hospital today during which time you have been under the care of Dr. Chadwick. You had a femoral neck fracture on the right. You were treated for this injury with cannulated screws percutaneously. You may resume you normal diet (including any special diets as directed by your primary doctor) as well as your home medications. You should follow up with you primary doctor if you have any questions regarding medication you took prior to your stay in the hospital. You may take your pain medication as prescribed. After the first few days, take your pain medication as needed. Do not drive or drink alcohol while taking your pain medication. Your injury may increase your risk of developing a blood clot,or DVT, in your arm or leg. This could potentially dislodge and travel to your lungs and become a life threatening condition called a pulmonary embolus,or PE. You have been prescribed Lovenox to be taken to prevent this. Frequent movement of the knees and ankles will also help prevent this from occurring. If you develop any new or worsening cough, chest pain, bloody sputum or shortness of breath, call 911 or go to the EmergencyRoom. Always keep your surgical incision/dressing clean and dry. If you experience increasing pain at your incision site, redness, swelling, increasing discharge, foul odors, or fevers (greater than 100.4), night sweats or chills you should call the office at the above number. If you feel this is an emergency you should be evaluated in the Emergency Department of a nearby hospital. Orthopedic Patient Instructions Summary: Weight Bearing: Weight-bear as tolerated on the right lower extremity Activity: Weight-bear as tolerated. Diet: Regular. Splint Care: Keep splint clean and dry. Cover with a plastic bag for bathing. Wound Care: Keep dressing clean and dry. Anticoagulation: Lovenox Pain Medication: Take only as needed. Ice, rest and elevation will be of great benefit. Please plan to follow[facility] Chadwick in 2 weeks. You will need to call the clinic [phone] to schedule this visit. Thank you far allowing me to participate in your care. Do not hesitate to call the office with any questions or concerns. Hospitalist instructions: As noted above in Dr. Chadwick's instructions, you have been prescribed Lovenox. I will be for the next 2 weeks. It is at prophylactic dosing to prevent formation of DVTs or blood clots after surgery. Your platelet count was around 120 which is low prior to discharge. Your blood count her hemoglobin dropped a little bit while here but it is not unexpected after surgery. Should you start to notice any bleeding or excessive bruising, stop Lovenox. I have ordered for a CBC to be rechecked later this week. Physical therapy has been ordered. A walker has been ordered. You did have a syncopal episode brief described after your fall when you sustained her injury. You had some elevation in heart enzymes. He also had some nonspecific changes on EKGs. Echocardiogram was normal. He did not complain of any chest pain. You did have some nausea while here. I suspect that some of this is a combination of pain medications and constipation. Consideration was given to cardiac source of your symptoms. Echocardiogram was done and showed normal ejection fraction without wall motion abnormalities. Ultimately stress testing was done. There was a small perfusion abnormality of mild severity at the apical loredo with very subtle reversibility in the apical septal wall on stress images. [place] to likely represent an old infarction or scarring in the left anterior descending artery territory. This was discussed with cardiology who at this point in time based on lack of exertional symptoms recommended initiation of aspirin and some isosorbide and follow-up to cardiology. No indication for cardiac catheterization at this point in time. Should you have chest pain, recurrent episode of syncope, dizziness, unexplained events, increasing shortness of breath, persistent nausea and vomiting without another etiology, please return to the emergency room. Baclofen had recently been started due to discomfort after that accident. I have held this presently since it was a new medication. I ordered some oxycodone for moderate to severe pain. You can take [id number] Tylenol for mild pain. I would currently avoid NSAIDs such as ibuprofen, Motrin, Aleve while you are on anticoagulation. Discharge Attestations Time Spent in Discharge Care*: greater than 30 min Specific Discharge Activities: educating patient, educating and/or supporting family/caregiver, discussing with pcp/other providers, discussing with case packer and sealer/social workers/dc planners, documenting/other paperwork and evaluating patient/reviewing data Status at Discharge: Cognitive status at discharge: cognitively intact, Behavioral status at discharge: cooperative, Functional status at discharge: uses cane/walker Overall status at discharge: patient is progressing back to baseline Quality Metrics Clinical Quality Measures During this hospital stay, did patient experience: None Coding Level of Care Code Acute g DC note Diagnoses Fall W19.XXXA Encounter type: initial encounter Vasovagal syncope R55 Elevated troponin R77.8 History of reduction of closed fracture Z87.81 Closed fracture of right hip S72.001A Encounter type: initial encounter Bradycardia R00.1 Depression F32.9 Depression Type: unspecified History of stress test Z92.89
--- NOTE | 2020-12-10 11:58 | ECG_ITS ---
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 Interpretive Statements NAME OF STUDY: LEXISCAN SESTAMIBI STRESS TEST INDICATION: Positive Troponin; Syncope; EKG changes; Persistent Nausea PROCEDURE: At the baseline, the blood pressure was 202/90 mmHg, oxygen saturation 97% with a heart rate of 54 beats per. The electrocardiogram showed sinus bradycardia, normal axis. T wave inversion in anterior leads, consider anterior ischemia. The Lexiscan was infused over a period of 20 seconds. A total of 0.4 milligrams of Lexiscan was infused. The stress phase was continued for a total of 5 minutes. Heart rate at the end of the stress phase was 88 bpm, oxygen saturation 98% with a blood pressure of 177/89 mmHg. The EKG at the peak infusion revealed sinus rhythm with no significant ST-T wave changes. The study was terminated due to protocol completion. Sestamibi was injected 20 seconds after the Lexiscan infusion. Blood pressure at the end of the recovery phase was 175/90 mmHg, oxygen saturation 98% with a heart rate of 84 beats per minute. CONCLUSION: 1. No significant EKG changes with the LexiScan infusion. 2. No LexiScan induced chest pain or cardiac arrhythmia. 3. Normal blood pressure and heart rate response. 4. Sestamibi/sestamibi perfusion scan pending; see separate report. Electronically Signed On 12-11-2020 15:08:00 CDT by Heena Holland M.D. [email or web address]
--- NOTE | 2020-12-10 12:05 | P.PN_ITS ---
Subjective Subjective: Interval history: Patient has had some persistent nausea today. She has not eaten very much. States that she is not fond of the food here. She did have a bowel movement this morning. She is doing well with therapy and has been standby assist. Denies chest pain or shortness of breath, even with exertion. Original plan today had been for discharge home. During my discussion with her she had multiple episodes of belching and persistent nausea. Frankly I am concerned that there might be an underlying cardiac abnormality. Repeat troponin yesterday was consistent with prior values however above normal in a patient without significant history known. Review of all EKGs shows nonspecific changes in V2 to V4. She has had a couple of events over the last few weeks that are unusual. While she denies any preceding symptoms cannot rule out that there is something going on. She was better yesterday afternoon clinically but has been in more consistent bradycardia. That along with the GI symptoms today have me even more concerned about possibility of an anginal equivalent in this 75-year-old female. I discussed all of this with Mrs. Valle and she is in agree ment. Vitals/I&O/Wt Last Vital Signs Temp 97.8 F 12/10/20 11:26 Pulse 69 12/10/20 11:26 Resp 16 12/10/20 11:34 BP 96/58 12/10/20 11:26 Pulse Ox 100 12/10/20 11:26 12/09/20 12/10/20 12/10/20 22:59 06:59 14:59 Intake Total 170 / 1220 1000 / 2220 240 / 240 Output Total 1100 / 1100 550 / 1650 300 / 300 Balance -930 / 120 450 / 570 -60 / -60 Physical Exam Narrative: EXAM NARRATIVE: Awake and alert, nauseated, some belching, Lungs are clear to auscultation bilaterally Cardiovascular exam reveals a bradycardic but regular rhythm Abdomen is soft Surgical site looks good with same degree of swelling around it Able to sit stand from a sitting position with standby assist using walker remarkably well given her recent surgery Urinary Catheter Management^: Barbour: Cath Placed During This Visit: yes, but has since been removed by the nurse Reason for Continuing Indwelling Catheter: Decision to DC Catheter Urinary Catheter Date of Insertion: 12/08/20 Urinary Catheter Time of Insertion: 12:45 Date Urinary Catheter Removed: 12/09/20 Time Urinary Catheter Discontinued: 06:29 Data : 12/10/20 02:12 12/09/20 06:24 Micro: Microbiology 12/08/20 12:48 Urine Culture - Final Urine,Clean Catch A&P Assessment and plan (1) Fall: Mechanical without any preceding symptoms reported, tripped over stairs Status: Acute Qualifiers: Encounter type: initial encounter Qualified Code(s): W19.XXXA - Unspecified fall, initial encounter (2) Vasovagal syncope: After getting up from fall, did have transient loss of consciousness, hypotension Status: Acute (3) Elevated troponin: Currently of unclear significance. Initially was suspected to be due to vasovagal event and hypotension, likely type II process under the circumstances but with much more clear evidence of bradycardia, persistent GI symptoms and such we could be looking at something else. Perioperatively she had a spinal and was awake during the procedure rather than being placed under general anesthesia. No personal or family history of known coronary artery disease. Echocardiogram is really unremarkable. EKG combined with troponins and nonspecific signs and symptoms plus accidental events last couple of weeks create a concerning picture Status: Acute (4) History of reduction of closed fracture: Postop day 2 from closed reduction and screw fixation of right femoral neck fracture Status: Acute (5) Closed fracture of right hip: Status: Acute Qualifiers: Encounter type: initial encounter Qualified Code(s): S72.001A - Fracture of unspecified part of neck of right femur, initial encounter for closed fracture Additional A&P Information Drop in platelets noted Persistent nausea Urinalysis looks consistent with contamination Continue telemetry monitoring Add baby aspirin Check lipid panel Repeat serial cardiac enzymes Stress test ordered for in the morning as long as troponins do not show contin ued elevation and EKGs do not show additional changes Add Pepcid, has times Continue occupational and physical therapy Continue pain control Subcu heparin ordered for DVT prophylaxis Watch platelets for further drop, cbc in the morning Supportive care otherwise Plans were discussed with patient and she was given an opportunity to ask questions Also reviewed with nursing staff and case management Home health versus outpatient physical therapy will be required upon discharge Walker has been ordered Disposition pending stress test tomorrow Attestations Medical Necessity Statement*: Requires ongoing inpatient stay to definitively evaluate potential cardiac abnormalities. She is actually doing well from a postoperative standpoint orthopedically but continues to have GI symptoms and bradycardia suspicious for potential indicators of coronary artery disease, particularly in light of elevated troponins and EKG changes noted. Her lack of classic symptoms in the setting of several accidents last few weeks which are concerning combined with nonspecific abnormalities here and lack of any comparative studies necessitates further evaluation to ensure clinical stability after discharge and ability to continue good recovery after the surgery. Coding Level of Care Code Acute Tape Cutting Machine Operator for Chg Fwd Diagnoses Fall W19.XXXA Encounter type: initial encounter Vasovagal syncope R55 Elevated troponin R77.8 History of reduction of closed fracture Z87.81 Closed fracture of right hip S72.001A Encounter type: initial encounter
--- NOTE | 2020-12-10 12:16 | ECG_ITS ---
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 Measurements Intervals [place] Rate: 54 P: 71 LA: 146 QRS: 60 QRSD: 86 T: 94 QT: 488 QTc: 465 Interpretive Statements SINUS BRADY[address]IA ST DEVIATION AND MODERATE T-WAVE ABNORMALITY, CONSIDER ANTERIOR ISCHEMIA [-0.1+ mV T WAVE IN V3/V4] Compared to ECG 12/09/2020 09:07:44 Possible ischemia now present T-wave abnormality still present Electronically Signed On 12-15-2020 10:39:36 CDT by Heena Holland M.D. [email or web address]/store/[id number]
[2020-12-10] MEDS: famotidine 20 mg Tablet PO ×2 (12:28→17:10)
[2020-12-10] MEDS: aspirin 81 mg EC Tablet PO (12:29)
[2020-12-10 13:55] LABS: Troponin(5th) Baseline 35 ng/L (0-10)
--- NOTE | 2020-12-10 14:16 | ECG_ITS ---
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 Measurements Intervals [place] Rate: 49 P: 76 CO: 152 QRS: 61 QRSD: 79 T: 62 QT: 512 QTc: 464 Interpretive Statements SINUS BRADYCARDIA MODERATE T-WAVE ABNORMALITY, CONSIDER ANTERIOR ISCHEMIA [-0.1+ mV T WAVE IN V3/V4] Compared to ECG 12/10/2020 12:43:17 No significant changes Electronically Signed On 12-15-2020 10:56:56 CDT by Heena Holland M.D. [email or web address].[email or web address]/store/[id number]
[2020-12-10] MEDS: ondansetron 2 mg/ML SDV 2 mL 4 MG IVP (15:20)
[2020-12-10 16:08] LABS: Troponin 5 2HR 36.75 ng/L (0-10); Troponin 5 2HR Delta 1.75 ABS# (0-10)
[2020-12-10] MEDS: calcium carbonate 500 mg Chew Tablet 1000 MG PO (17:10)
--- NOTE | 2020-12-10 18:31 | PC.NURSE ---
SHIFT SUMMARY PATIENT HAS DONE WELL TODAY. PAIN WELL CONTROLLED. PATIENT AMBULATED AND WORKED WITH PT AND OT. GOOD URINE OUTPUT. PATIENT BRADYCARDIC, BUT ASYMPTOMATIC. PATIENT REQUIRED NAUSEA MEDICINE ONCE TODAY AND TUMS ONCE TODAY. PLAN FOR STRESS TEST TOMORROW.
[2020-12-10 19:36] LABS: Troponin 5 6HR 37.52 ng/L (0-10); Troponin 5 6HR Delta 2.52 ng/L (0-12)
[2020-12-10] MEDS: sennosides 8.6 mg Tablet PO (20:14)
[2020-12-10] MEDS: baclofen 10 mg Tablet PO (20:14)
[2020-12-10] MEDS: buPROPion SR (12 HR) 100 mg Tablet PO (21:48)
[2020-12-11] VITALS (10 sets, daily range): BP systolic 137–175; BP diastolic 68–90; PULSE 50–84; RESP 16–18; TEMP 36.4–36.8; O2SAT 96–98
[2020-12-11] MEDS: heparin 5,000 unit/mL INJ 1 mL 5000 UNIT SUBCUT ×2 (01:52→14:24)
[2020-12-11 02:32] LABS: Basophils % 0.7 %; Eosinophils # 0.4 10^3/uL (0.0-0.8); Eosinophils % 6.2 %; Hematocrit 34.9 % (37.0-47.0); Hemoglobin 11.1 g/dL (11.5-15.3); Lymphocytes # 1.8 10^3/uL (0.8-4.8); Lymphocytes % 29.5 %; Mean Corpuscular HGB Conc 31.8 g/dL (30.0-36.0); Mean Corpuscular Hemoglobin 31.9 pg (28.0-34.0); Mean Corpuscular Volume 100.3 fL (81-99); Mean Platelet Volume 12.1 fL (7.4-10.4); Monocytes # 0.8 10^3/uL (0.2-0.9); Monocytes % 13.5 %; Neutrophils # 2.97 10^3/uL (1.8-7.7); Neutrophils % 49.9 %; Nucleated Red Blood Cells % 0 %; Platelet Count 120 10^3/cmm (130-400); Red Blood Count 3.48 10^6/uL (4.1-5.3); Red Cell Distribution Width 13.1 % (12.1-15.1); White Blood Count 5.9 10^3/uL (4.0-10.0)
[2020-12-11 02:53] LABS: Chol HDL Ratio 2.67 mg/dL (0.0-4.40); Cholesterol 155 mg/dL (0-200); HDL Cholesterol 58 mg/dL (60-100); LDL Cholesterol Calculated 83 mg/dL (50-129); LDL HDL Ratio 1.43 RATIO (0.00-3.22); Triglycerides 68 mg/dL (0-150)
--- NOTE | 2020-12-11 08:35 | PC.OT ---
OT note: Attempted OT but pt is going to have stress test today. She requested hold as she has not been able to eat in preparation for this and doesn't feel well due to this.
--- NOTE | 2020-12-11 11:00 | NMCV_ITS ---
NM brien perf SPECT r/s* [id number] Narcisa Valle Age: 75 Gender: F : 1945 Exam Date: 12/11/2020 11:00 Ordering Phys: Roxana Stein MD Technologist: JAMIE Singh Exam Location: [facility] Indications: Abnormal troponins STRESS TEST Please see separate stress test report in [facility] for full findings IMAGE PROTOCOL Rest/Stress 1 Lexiscan Day Radiopharmaceutical Dose (mCi) Administration Site Administered by Rest: Tc-99m 10.9 IV JAMIE Ng Sestamibi Stress:Tc-99m 32.0 IV JAMIE Singh Sestamijuan Rest: 11-Dec-2020 60 Discovery 630 Stress: 11-Dec-2020 45 Discovery 630 0.4mg Lexiscan. Supine position only as patient was unable to lay prone. SPECT RESULTS Technical Quality: Good Raw Data Analysis: Normal Image Corrections: No attenuation or motion correction applied Summed Stress Score: 4 Summed Rest Score: 5 Summed Difference Score: 1 PERFUSION FINDINGS Small size perfusion abnormality of mild severity of apical anterior, inferior, septal and apical loredo on rest images with subtle reversibility in apical septal wall on stress images. FUNCTIONAL RESULTS (calculated via Gated SPECT) Stress Image LV EF (%): 63 Stress EDV (mL):91 TID: 0.89 Stress ESV (mL):34 FUNCTIONAL FINDINGS: The left ventricle is normal in size. Transient Ischemia Dilatation of 0.89. There is normal left ventricular systolic function. The left ventricular ejection fraction is normal with a value of 63%. There is normal left ventricular wall thickening with apical hypokinesis. IMPRESSIONS 1. Small size perfusion abnormality of mild severity of apical loredo with subtle reversibility in apical septal wall on stress images. 2. This may represent old myocardial infarction or scarring in left anterior descending artery territory with minimal uche-infarct ischemia. 3. Overall left ventricular systolic function is normal with apical hypokinesis 4. The left ventricular ejection fraction is normal with a value of 63%. 5. No prior similar studies to compare. Heena Holland MD (Electronically Signed) Final Date: 11 December 2020 17:29 S
--- NOTE | 2020-12-11 11:04 | PC.SOCIAL ---
IMM Update Pg.2 of IMM updated and reviewed with patient who verbalized understanding. Copy provided.
[2020-12-11] MEDS: regadenoson 0.4 Mg/5 ml Syringe IVP (13:25)
[2020-12-11] MEDS: aspirin 81 mg EC Tablet PO (14:24)
[2020-12-11] MEDS: famotidine 20 mg Tablet PO ×2 (14:24→17:43)
[2020-12-11] MEDS: docusate sodium 100 mg Capsule PO ×2 (14:24→17:43)
[2020-12-11] MEDS: oxyCODONE-APAP 5-325 mg Tablet 1 TAB PO (14:33)
[2020-12-11] MEDS: LORazepam 0.5 mg Tablet PO (15:21)
--- NOTE | 2020-12-11 18:25 | PC.NURSE ---
Discharge instructions given to patient and daughter, verbalize understanding and all questions answered. IV catheter removed, tip intact. Patient tolerated well. Discharged at this time in stable condition.
== END 2020-12-11 18:26 | disposition home or self-care (01) | DRG 482 ==
LOC: ER 11:45 → MEDSURG 13:01
PROVIDERS: Orthopaedic Surgery; Admitting Provider Family Medicine; Emergency Provider Family Medicine; PCP Family Medicine; Visit Provider Hospitalist
PROC: 0QS604Z Reposition Right Upper Femur with Internal Fixation Device, Open Approach (ICD-10-PCS; CPT 27236; principal; 2020-12-08 15:00)
DX: S72.001A Fracture of unspecified part of neck of right femur, initial encounter for closed fracture (principal); W01.0XXA Fall on same level from slipping, tripping and stumbling without subsequent striking against object, initial encounter; F32.9 Major depressive disorder, single episode, unspecified; N18.9 Chronic kidney disease, unspecified; Z87.891 Personal history of nicotine dependence; R55 Syncope and collapse; K66.8 Other specified disorders of peritoneum; Z82.49 Family history of ischemic heart disease and other diseases of the circulatory system; I25.2 Old myocardial infarction; R00.1 Bradycardia, unspecified; R77.8 Other specified abnormalities of plasma proteins
CPT/HCPCS: 36415; 51702; 73502; 76000; 78452; 80053; 80061; 81001; 83735; 83880; 84100; 84443; 84484; 85025; 86850; 86900; 87086; 93005; 93017; 93306; 94664; 96372; 96374; 96376; 97110; 97161; 97165; 97530; 97535; 99285; A9281; A9500; C1713; J0690; J1170; J1644; J1885; J2405; J2704; J2785; J3490; J7799

== ENCOUNTER 2020-12-13 13:19 | Outpatient (CLI) | payer MEDICARE, BC, SELFPAY ==
--- NOTE | 2020-12-13 13:26 | USCV_ITS ---
Leonard Narcisa Age: 75 Gender: F : 1945 Exam Date: 12/13/2020 13:43 Ordering Phys: Ritu Cedeno Technologist: Nicki Flood Exam Location: [facility] [place] Indication: SWELLING HISTORY: Lower extremity swelling. PROCEDURES: Venous duplex imaging was performed in only the right lower extremity. The following venous structures were evaluated: common femoral vein, profunda vein, proximal portion of the greater saphenous vein, superficial femoral vein, and the popliteal vein. In addition, the posterior tibial and peroneal trunk were evaluated. Serial compression, augmentation maneuvers, and spectral Doppler flow evaluation were performed. FINDINGS: Normal 2-D Doppler and augmentation and compressibility throughout the lower extremity venous structures. Additional imaging through the proximal calf veins also reveals no thrombus. Limited evaluation of the greater saphenous vein is patent with no thrombus. CONCLUSIONS No DVT right lower extremity. Dr. Yee Busch DO (Electronically Signed) Final Date: 13 December 2020 16:25 S
== END 2020-12-13 13:20 | disposition home or self-care (01) ==
LOC: RAD 13:23
PROVIDERS: PCP Family Medicine; Visit Provider Registered Nurse
DX: Z98.890 Other specified postprocedural states (principal); R10.31 Right lower quadrant pain; M25.561 Pain in right knee; M79.604 Pain in right leg; M79.89 Other specified soft tissue disorders
CPT/HCPCS: 93971

== ENCOUNTER 2021-01-03 00:59 | Emergency (ER) | payer MEDICARE, BC, SELFPAY ==
[2021-01-03 01:01] VITALS: BMI 23.8
--- NOTE | 2021-01-03 01:04 | ECG_ITS ---
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 Measurements Intervals [place] Rate: 55 P: 30 [place]: 145 QRS: 69 QRSD: 94 T: 108 QT: 497 QTc: 478 Interpretive Statements SINUS BRADYCARDIA ST DEVIATION AND MODERATE T-WAVE ABNORMALITY, CONSIDER ANTERIOR ISCHEMIA [-0.1+ mV T WAVE IN V3/V4] Compared to ECG 12/10/2020 14:46:10 No significant changes Electronically Signed On 01-05-2021 12:15:27 CDT by Heena Holland M.D. [id number]
--- NOTE | 2021-01-03 01:04 | XRR_ITS ---
PROCEDURE INFORMATION: Exam: XR Chest Exam date and time: 01/03/2021 1:05 AM Age: 75 years old Clinical indication: Patient HX: Chest pain with indigestion. ; Additional info: Cp TECHNIQUE: Imaging protocol: XR of the chest. Views: 1 view. COMPARISON: No relevant prior studies available. FINDINGS: Lungs: Unremarkable. No consolidation. Pleural spaces: Unremarkable. No pleural effusion. No pneumothorax. Heart/Mediastinum: There is mild cardiomegaly. Bones/joints: Unremarkable. XR/XR chest 1V portable [id number] IMPRESSION: Mild cardiomegaly.
--- NOTE | 2021-01-03 01:05 | ED_ITS ---
HPI - Chest Pain General: Chief Complaint: Chest Pain Stated Complaint: CHEST PAIN Time Seen by Provider: 01/03/21 01:00 Source: patient and EMS Mode of arrival: EMS Limitations: no limitations History of Present Illness: HPI narrative: 75-year-old female states that tonight it 9:00 she ate a pizza roughly 1 hour later she started having epigastric bowel pain that radiated to her chest. She states she is concerned about the pain in her chest. She is it was a sharp pain that initially started epigastric and did radiate. She called EMS and by time EMS arrived she has been pain-free. States she feels fine currently. She denies any vomiting or diarrhea. She states she has had indigestion in the past. She had a stress test here after a hip surgery 3 weeks ago. MD complaint: chest pain Associated symptoms: Deny abdominal pain, dyspnea, fever(s), nausea or vomiting Review of Systems Const: Denies: fever(s), chills, body aches or change in appetite Eyes: Denies: blurry vision or eye discomfort ENMT: Denies: throat pain or dental pain Card: Reports: chest pain Resp: Denies: dyspnea GI: Denies: abdominal pain, nausea, vomiting or diarrhea : Denies: dysuria Musc: Denies: neck pain or back pain Skin/Breast: Denies: rash Neuro: Denies: headache(s) Psych: Denies: depression Zbigniew/Lymph: Denies: easy bruising All/Imm: Denies: urticaria PFSH ED PFSH: Medical History Anxiety Bradycardia Chronic kidney disease by history Closed fracture of right hip Depression History of stress test (12/11/20) 1. Small size perfusion abnormality of mild severity of apical loredo with subtle reversibility in apical septal wall on stress images. 2. This may represent old myocardial infarction or scarring in left anterior descending artery territory with minimal uche-infarct ischemia. 3. Overall left ventricular systolic function is normal with apical hypokinesis 4. The left ventricular ejection fraction is normal with a value of 63%. Mesenteric cyst Surgical History History of laminectomy History of laparotomy History of reduction of closed fracture (~11/2020) Family History Father CAD (coronary artery disease) Alcoholism Mother CAD (coronary artery disease) Brother CAD (coronary artery disease) Social History Smoking and tobacco status: former smoker Alcohol intake: never Physical Exam Const: COMMON NORMALS: no acute distress, patient oriented x3 and healthy appearing HENMT: COMMON NORMALS: normocephalic and atraumatic HEAD & SCALP: normocephalic and atraumatic Eye: COMMON NORMALS: Equal, round and reactive pupils present and EOMs intact bilaterally PUPIL: Yes Equal, round and reactive pupils present Neck/C-Spine: COMMON NORMALS: full ROM and supple Chest: COMMONS NORMALS: normal inspection of the chest and normal palpation of entire chest wall Resp: COMMON NORMALS: normal respiratory effort, No retractions, No use of accessory muscles and clear to auscultation bilaterally AUSCULTATION: clear to auscultation bilaterally Cardio: COMMON NORMALS: regular rate, regular rhythm and No murmurs present (Cardio) RATE: regular rate RHYTHM: regular rhythm GI: COMMON NORMALS: Normal to inspection, nondistended, normoactive bowel sounds present, Soft to palpation, non-tender and no masses PALPATION: Yes Soft to palpation Extremity: COMMON NORMALS: normal to inspection and full ROM Neuro: COMMON NORMALS: patient oriented x3, moves all extremities and no focal motor deficits Psych: COMMON NORMALS: mental status grossly normal, Normal thought process present and cooperative THOUGHT PROCESS: Normal thought process present Skin: COMMON NORMALS: no rashes or lesions noted and no wounds GENERAL SKIN EXAM: no rashes or lesions noted Course Vital Signs: Vital signs: Vital Signs Temperature 98.4 F 01/03/21 01:06 Pulse Rate 66 01/03/21 03:15 Respiratory Rate 24 H 01/03/21 03:15 Blood Pressure 154/71 01/03/21 03:15 Pulse Oximetry 100 01/03/21 03:15 MDM - Chest Pain MDM Narrative: Medical decision making narrative: Patient presents here with chest pain is very atypical in nature. Is likely indigestion and her repeat troponin here shows no change. She been well-appearing has no signs of acute coronary syndrome. She is stable for discharge return if worsening. Lab Data: Labs: Lab Results 01/03/21 01/03/21 01/03/21 Range/Units 01:04 01:04 01:04 WBC 6.9 (4.0-10.0) 10^3/ uL RBC 3.86 L (4.1-5.3) 10^6/u L Hgb 12.4 (11.5-15.3) g/dL Hct 38.8 (37.0-47.0) % MCV 100.5 H (81-99) fL MCH 32.1 (28.0-34.0) pg MCHC 32.0 (30.0-36.0) g/dL RDW 13.0 (12.1-15.1) % Plt Count 160 (130-400) 10^3/c mm MPV 12.2 H (7.4-10.4) fL Neut % (Auto) 51.5 % Lymph % (Auto) 31.7 % [place] % (Auto) 10.8 % Eos % (Auto) 4.8 % Baso % (Auto) 0.9 % Neut # (Auto) 3.58 (1.8-7.7) 10^3/u L Lymph # (Auto) 2.2 (0.8-4.8) 10^3/u L [place] # (Auto) 0.8 (0.2-0.9) 10^3/u L Eos # (Auto) 0.3 (0.0-0.8) 10^3/u L Baso # (Auto) 0.1 (0.0-0.1) 10^3/u L Nucleated RBC % (a uto) 0 % Nucleated RBCs # 0.0 /100WBC Sodium 139 (136-145) mmol/L Potassium 4.1 (3.5-5.1) mmol/L Chloride 104 (98-107) mmol/L Carbon Dioxide 27 (22-29) mmol/L Anion Gap 12.1 (5-19) BUN 30 H (8-23) mg/dL Creatinine 0.9 (0.5-0.9) mg/dL GFR Calculation Not Reportable Glucose 89 (65-115) mg/dL Calculated Osmolal ity 294 (285-295) mOsm/k g Calcium 9.5 (8.5-10.5) mg/dL Total Bilirubin 0.4 (0.15-1.2) mg/dL AST 13 (0-32) U/L ALT 10 (0-33) U/L Alkaline Phosphata se 79 (35-105) IU/L Troponin T Baselin e 27 H (0-10) ng/L Troponin T 120 Min yocha dehe (0-10) ng/L Delta Troponin T (0-10) ABS# Total Protein 5.7 L (6.6-8.7) g/dL Albumin 3.9 (3.5-5.2) g/dL Globulin 1.8 (1.3-4.6) g/dL Lipase (13-60) U/L 01/03/21 01/03/21 Range/Units 01:04 02:42 WBC (4.0-10.0) 10^3/ uL RBC (4.1-5.3) 10^6/u L Hgb (11.5-15.3) g/dL Hct (37.0-47.0) % MCV (81-99) fL MCH (28.0-34.0) pg MCHC (30.0-36.0) g/dL RDW (12.1-15.1) % Plt Count (130-400) 10^3/c mm MPV (7.4-10.4) fL Neut % (Auto) % Lymph % (Auto) % [place] % (Auto) % Eos % (Auto) % Baso % (Auto) % Neut # (Auto) (1.8-7.7) 10^3/u L Lymph # (Auto) (0.8-4.8) 10^3/u L Berrien # (Auto) (0.2-0.9) 10^3/u L Eos # (Auto) (0.0-0.8) 10^3/u L Baso # (Auto) (0.0-0.1) 10^3/u L Nucleated RBC % (a uto) % Nucleated RBCs # /100WBC Sodium (136-145) mmol/L Potassium (3.5-5.1) mmol/L Chloride (98-107) mmol/L Carbon Dioxide (22-29) mmol/L Anion Gap (5-19) BUN (8-23) mg/dL Creatinine (0.5-0.9) mg/dL GFR Calculation Glucose (65-115) mg/dL Calculated Osmolal ity (285-295) mOsm/k g Calcium (8.5-10.5) mg/dL Total Bilirubin (0.15-1.2) mg/dL AST (0-32) U/L ALT (0-33) U/L Alkaline Phosphata se (35-105) IU/L Troponin T Baselin e (0-10) ng/L Troponin T 120 Min yocha dehe 28.38 H (0-10) ng/L Delta Troponin T 1.38 (0-10) ABS# Total Protein (6.6-8.7) g/dL Albumin (3.5-5.2) g/dL Globulin (1.3-4.6) g/dL Lipase 26 (13-60) U/L Imaging Data^: CXR: Attestation: I personally reviewed and interpreted this imaging study as follows: My impression: no acute abnormality EKG Data^: EKG 1: Attestation: I personally reviewed and interpreted this EKG as follows: EKG interpretation date: 01/03/21 EKG interpretation time: 01:05 Interpretation: sinus segundo hr [address] elevation t wave inversion v1-v3 unchanged from previous qrs 94 qtc 486 Discharge Plan Discharge Patient Disposition: Home Clinical Impression: Chest pain Qualifiers: Chest pain type: unspecified Qualified Code(s): R07.9 - Chest pain, unspecified Condition: Stable Prescriptions: New Protonix 40 mg tablet,delayed release (DR/EC) 40 mg PO DAILY Qty: 60 RF: 0 No Action oxybutynin chloride 5 mg tablet 5 mg PO DAILY RF: 0 cholecalciferol (vitamin D3) 25 mcg (1,000 unit) capsule 25 mcg PO DAILY RF: 0 coenzyme Q10 [Co Q-10] 100 mg capsule 100 mg PO DAILY RF: 0 hydroxychloroquine 200 mg tablet 200 mg PO BID RF: 0 oxycodone-acetaminophen 5-325 mg tablet 1 tab PO Q6H PRN (Reason: Moderate To Severe Pain) 7 Days Qty: 30 RF: 0 bupropion HCl 100 mg tablet sustained-release 12 hr 100 mg PO DAILY@2130 RF: 0 lorazepam 0.5 mg tablet 0.5 mg PO DAILY PRN (Reason: Anxiety) RF: 0 acetaminophen 325 mg Tablet 650 mg PO Q6H PRN (Reason: Mild Pain) Qty: 100 RF: 0 DOK 100 mg Capsule 100 mg PO BID Qty: 60 RF: 0 Adult Low Dose Aspirin 81 mg tablet,delayed release (DR/EC) 81 mg PO DAILY Qty: 30 RF: 0 isosorbide mononitrate 10 mg tablet 10 mg PO BID Qty: 60 RF: 0 Discharge Orders: Discharge ED (Routine); Ordered 01/03/21 Ordered By: Lyndsay Neely Referrals: Tess Breen DO [Primary Care Provider] - 1-3 days Discharge Diet: Advance as tolerated Discharge Activity: Resume usual activity Patient Instructions: Chest Pain (ED) Coding Level of Care Code ED Nicker And Breaker for Darshan Fwkiran Exam Comprehensive
[2021-01-03 01:06] VITALS: BP 198/115; PULSE 57; RESP 17; TEMP 36.9; O2SAT 100
[2021-01-03 01:14] LABS: Basophils # 0.1 10^3/uL (0.0-0.1); Basophils % 0.9 %; Eosinophils # 0.3 10^3/uL (0.0-0.8); Eosinophils % 4.8 %; Hematocrit 38.8 % (37.0-47.0); Hemoglobin 12.4 g/dL (11.5-15.3); Lymphocytes # 2.2 10^3/uL (0.8-4.8); Lymphocytes % 31.7 %; Mean Corpuscular Hemoglobin 32.1 pg (28.0-34.0); Mean Corpuscular Volume 100.5 fL (81-99); Mean Platelet Volume 12.2 fL (7.4-10.4); Monocytes # 0.8 10^3/uL (0.2-0.9); Monocytes % 10.8 %; Neutrophils # 3.58 10^3/uL (1.8-7.7); Neutrophils % 51.5 %; Nucleated Red Blood Cells % 0 %; Platelet Count 160 10^3/cmm (130-400); Red Blood Count 3.86 10^6/uL (4.1-5.3); White Blood Count 6.9 10^3/uL (4.0-10.0)
[2021-01-03 01:27] LABS: Alanine Aminotransferase 10 U/L (0-33); Albumin Level 3.9 g/dL (3.5-5.2); Alkaline Phosphatase 79 IU/L (35-105); Anion Gap 12.1 (5-19); Aspartate Amino Transferase 13 U/L (0-32); Blood Urea Nitrogen 30 mg/dL (8-23); Calcium 9.5 mg/dL (8.5-10.5); Carbon Dioxide 27 mmol/L (22-29); Chloride 104 mmol/L (98-107); Globulin 1.8 g/dL (1.3-4.6); Glucose 89 mg/dL (65-115); Osmolality Calculated 294 mOsm/kg (285-295); Potassium 4.1 mmol/L (3.5-5.1); Sodium 139 mmol/L (136-145); Total Bilirubin 0.4 mg/dL (0.15-1.2); Total Protein 5.7 g/dL (6.6-8.7)
[2021-01-03 01:30] LABS: Troponin(5th) Baseline 27 ng/L (0-10)
[2021-01-03 01:42] LABS: Lipase 26 U/L (13-60)
[2021-01-03 02:35] VITALS: BP 139/67; PULSE 66; RESP 17; O2SAT 98
[2021-01-03 03:15] VITALS: BP 154/71; PULSE 66; RESP 24; O2SAT 100
[2021-01-03 03:18] LABS: Troponin 5 2HR 28.38 ng/L (0-10); Troponin 5 2HR Delta 1.38 ABS# (0-10)
[2021-01-03 03:33] VITALS: BP 154/71; PULSE 55; RESP 24; TEMP 36.9; O2SAT 97
== END 2021-01-03 03:35 | disposition home or self-care (01) ==
PROVIDERS: Emergency Provider Emergency Medicine; PCP Family Medicine
DX: R07.9 Chest pain, unspecified (principal); Z79.82 Long term (current) use of aspirin; Z87.891 Personal history of nicotine dependence
CPT/HCPCS: 71045; 80053; 83690; 84484; 85025; 93005; 99284

== ENCOUNTER → 2021-01-14 16:23 | Outpatient (BNVA) | payer MEDICARE, BC, SELFPAY | PROVIDERS: PCP Family Medicine; Visit Provider Orthopaedic Surgery | DX: Z87.81 Personal history of (healed) traumatic fracture (principal) | CPT/HCPCS: 73502 ==

== ENCOUNTER → 2021-02-25 08:52 | Outpatient (BNVA) | payer MEDICARE, BC, SELFPAY | PROVIDERS: PCP Family Medicine; Visit Provider Orthopaedic Surgery | DX: Z47.89 Encounter for other orthopedic aftercare (principal); S72.009A Fracture of unspecified part of neck of unspecified femur, initial encounter for closed fracture; Z87.81 Personal history of (healed) traumatic fracture; X58.XXXA Exposure to other specified factors, initial encounter | CPT/HCPCS: 73502 ==

== ENCOUNTER 2021-07-03 08:07 | Emergency (ER) | payer MEDICARE, BC, SELFPAY ==
--- NOTE | 2021-07-03 08:15 | XR_ITS ---
WS: [id number] Portable AP upright chest, 07/03/2021 Clinical Data: weakness Comparison: Portable chest, 01/03/2021. Findings: No nodules, masses or effusions are seen. The heart is normal. The pulmonary vascularity is not increased. No pneumonia or pneumothorax is seen. The aortic arch and descending thoracic aorta s hows mild tortuosity. XR/XR chest 1V portable [id number] Impression: Atherosclerosis.
[2021-07-03 08:17] VITALS: BP 148/83; PULSE 56; RESP 16; TEMP 36.6; O2SAT 100
--- NOTE | 2021-07-03 08:28 | CT_ITS ---
WS: [id number] CT ABDOMEN PELVIS TECHNIQUE: Contrast-enhanced CT of the abdomen and pelvis with coronal and sagittal reformatted image s. CLINICAL INFORMATION: L abdominal pain; black stools COMPARISON: None. DLP: 972.[address] scans at [facility] use at least one of these dose optimization techniques: automated e xposure control; mA and/or kV adjustment per patient size (includes targeted exams where dose is matc hed to clinical indication); or iterative reconstruction. FINDINGS: Normal liver. Normal gallbladder. Normal portal vein and splenic vein. Normal pancreatic parenchymal enhancement. Normal gallbladder. Adrenal glands are normal. Normal renal parenchymal enhancement. No hydronephrosis. Left renal atrophy. Small bilateral renal cysts. Lung bases are well aerated. Normal sigmoid colon. Mild sigmoid constipation. Mild transverse colon c onstipation. Celiac and SMA are patent. No periaortic lymphadenopathy. No pelvic or inguinal lymphade nopathy. Mild disc space narrowing L4-L5 and L5-S1. Cannulated screw fixation right hip CT/CT abdomen pelvis w con* [id number] IMPRESSION: 1. No acute abdominal or pelvic findings. 2. Mild sigmoid and transverse colon constipation. No evidence of high-grade s mall or large bowel obstruction. 3. Mild left renal cortical atrophy. 4. Small bilateral renal cysts.
--- NOTE | 2021-07-03 08:29 | W.ED.GIBLEED ---
Documented by User: DAVID Paiz 07/03/21 10:54 HPI - GI Bleed General: Chief complaint: Abdominal Pain Stated complaint: BLACK STOOL,WEAKNESS,HX BLEEDING ULCERS,PALE Time Seen by Provider: 07/03/21 08:15 Source: patient and family (daughter) Mode of arrival: ambulatory Limitations: no limitations History of Present Illness: HPI Narrative: Patient is a nice 75-year-old female who presents to ED today along with her daughter for concerns of dark/black stools. Patient tells me in the middle of the night she went to the restroom and noticed black stools. She states she has subsequently had 3 more stools similar. She describes the stool as mostly watery. Daughter is concerned because several years ago she was diagnosed with gastric ulcers and had similar symptoms at that time. She underwent endoscopy and was subsequently placed on Protonix and Nexium. Daughter states she has not had any issues in several years. She has had some intermittent mild discomfort to her left abdomen over the past few days. No nausea or vomiting. No fevers. Patient states she does not take any NSAIDs. No alcohol use. She is not on anticoagulation. She states she has felt weak and fatigued since she awoke this morning. complaint: melena Onset (ago): hour(s) Pain Consistency: intermittent Severity: mild Context: history of GI bleed Associated symptoms: Reports abdominal pain; Denies chills, fever(s), headache(s), nausea, rash or vomiting Review of Systems Const: Denies: fever(s), chills or body aches Eyes: Denies: change in vision Card: Denies: chest pain Resp: Denies: dyspnea GI: Reports: abdominal pain and other (reports black watery stool); Denies: nausea, vomiting, hematemesis, pain on defecation or white/light colored stool : Denies: flank pain or dysuria Musc: Denies: neck pain or back pain Skin/Breast: Denies: rash Neuro: Denies: headache(s) or dizziness PFS ED PFSH: Medical History Anxiety Bradycardia Chronic kidney disease by history Closed fracture of right hip Depression History of stress test (12/11/20) 1. Small size perfusion abnormality of mild severity of apical loredo with subtle reversibility in apical septal wall on stress images. 2. This may represent old myocardial infarction or scarring in left anterior descending artery territory with minimal uche-infarct ischemia. 3. Overall left ventricular systolic function is normal with apical hypokinesis 4. The left ventricular ejection fraction is normal with a value of 63%. Mesenteric cyst Surgical History History of laminectomy History of laparotomy History of reduction of closed fracture (~11/2020) Family History Father CAD (coronary artery disease) Alcoholism Mother CAD (coronary artery disease) Brother CAD (coronary artery disease) Social History Smoking and tobacco status: former smoker Alcohol intake: never Physical Exam Const: COMMON NORMALS: no acute distress, average body habitus, patient oriented x3, no limitations, healthy appearing, alert and well nourished Resp: COMMON NORMALS: normal respiratory effort GI: COMMON NORMALS: Normal to inspection, nondistended, normoactive bowel sounds present, Soft to palpation, No hepatosplenomegaly present and no masses PALPATION: Yes Soft to palpation, Yes Tenderness to palpation present (GI) (very mild throughout L side) and Yes No hepatosplenomegaly present RECTAL EXAM: heme negative stool and other (skin tags) OTHER: midline previous surgical scar-reports previous large mesenteric cyst : COMMON NORMALS: Yes no CVA tenderness BLADDER/KIDNEY EXAM: Yes no CVA tenderness Back/Pelvis: COMMON NORMALS: no CVA tenderness Neuro: COMMON NORMALS: patient oriented x3 SENSORIUM/ORIENTATION: Yes alert Skin: COMMON NORMALS: no rashes or lesions noted NARRATIVE SKIN EXAM: patient is not pale or diaphoretic GENERAL SKIN EXAM: no rashes or lesions noted Course Vital Signs: Vital signs: Vital Signs Temperature 97.9 F 07/03/21 08:17 Pulse Rate 51 L 07/03/21 11:16 Respiratory Rate 16 07/03/21 08:17 Blood Pressure 174/85 07/03/21 11:16 Pulse Oximetry 99 07/03/21 11:16 MDM - GI Bleed MDM Narrative: Medical decision making narrative: Patient is a pleasant 75-year-old female here with her daughter for concerns of diarrhea that was dark/possibly black in color and concern for a GI bleed as she has had a GI bleed several years/decades ago. Daughter states she does take Dexilant daily. Clinically patient appears in no acute distress. Her hemoccult was negative. She has a normal hemoglobin. Vital signs are stable. Daughter does report patient chronically has bradycardia. She has normal coags. Remainder of labs are overall non-concerning. She has very mild elevations to her LFTs that they were made aware of and can be rechecked through PCP. She has not had any episodes of diarrhea or stool while here. CT essentially normal. At this time I think patient is stable for discharge with follow-up with PCP. Strict return to ED precautions given. Lab Data: Labs: Lab Results 07/03/21 07/03/21 07/03/21 08:40 08:40 08:40 WBC 5.9 10^3/uL 10^3/ uL (4.0-10.0) RBC 4.01 10^6/uL L 10 ^6/uL (4.1-5.3) Hgb 13.4 g/dL g/dL (11.5-15.3) Hct 40.4 % % (37.0-47.0) MCV 100.7 fl H fl (81-99) MCH 33.4 pg pg (28.0-34.0) MCHC 33.2 g/dL g/dL (30.0-36.0) RDW 14.3 % % (12.1-15.1) Plt Count 177 10^3/cmm 10^3 /cmm (130-400) MPV 11.9 fL H fL (7.4-10.4) Neut % (Auto) 63.7 % % Lymph % (Auto) 22.4 % % Mercer % (Auto) 10.1 % % Eos % (Auto) 2.6 % % Baso % (Auto) 0.9 % % Neut # (Auto) 3.73 10^3/uL 10^3 /uL (1.8-7.7) Lymph # (Auto) 1.3 10^3/uL 10^3/ uL (0.8-4.8) Mercer # (Auto) 0.6 10^3/uL 10^3/ uL (0.2-0.9) Eos # (Auto) 0.2 10^3/uL 10^3/ uL (0.0-0.8) Baso # (Auto) 0.1 10^3/uL 10^3/ uL (0.0-0.1) Nucleated RBC % (a uto) 0 % % Nucleated RBCs # 0.0 /100WBC /100W BC PT Cancelled INR Cancelled APTT Cancelled Sodium Cancelled Potassium Cancelled Chloride Cancelled Carbon Dioxide Cancelled Anion Gap Cancelled BUN Cancelled Creatinine Cancelled GFR Calculation Cancelled Glucose Cancelled Calculated Osmolal ity Cancelled Calcium Cancelled Total Bilirubin Cancelled AST Cancelled ALT Cancelled Alkaline Phosphata se Cancelled Total Protein Cancelled Albumin Cancelled Globulin Cancelled Urine Color Urine Appearance Urine pH Ur Specific Gravit y Urine Protein Urine Glucose (UA) Urine Ketones Urine Blood Urine Nitrate Urine Bilirubin Urine Urobilinogen Ur Leukocyte Natasha ase Urine RBC Urine WBC Ur Squamous Epith Cells Amorphous Sediment Urine Bacteria 07/03/21 07/03/21 07/03/21 08:58 09:11 09:11 WBC RBC Hgb Hct MCV MCH MCHC RDW Plt Count MPV Neut % (Auto) Lymph % (Auto) Mercer % (Auto) Eos % (Auto) Baso % (Auto) Neut # (Auto) Lymph # (Auto) Mercer # (Auto) Eos # (Auto) Baso # (Auto) Nucleated RBC % (a uto) Nucleated RBCs # PT 12.90 SECONDS SEC ONDS (12.1-14.9) INR 0.95 (0.8-1.2) APTT 25.9 SECONDS SECO NDS (23.9-36.7) Sodium 139 mmol/L mmol/L (136-145) Potassium 4.2 mmol/L mmol/L (3.5-5.1) Chloride 102 mmol/L mmol/L (98-107) Carbon Dioxide 25 mmol/L mmol/L (22-29) Anion Gap 16.2 (5-19) BUN 25 mg/dL H mg/dL (8-23) Creatinine 0.6 mg/dL mg/dL (0.5-0.9) GFR Calculation Not Reportable Glucose 80 mg/dL mg/dL (65-115) Calculated Osmolal ity 291 mOsm/kg mOsm/ kg (285-295) Calcium 9.6 mg/dL mg/dL (8.5-10.5) Total Bilirubin 0.7 mg/dL mg/dL (0.15-1.2) AST 42 U/L H U/L (0-32) ALT 60 U/L H U/L (0-33) Alkaline Phosphata se 56 IU/L IU/L (35-105) Total Protein 6.1 g/dL L g/dL (6.6-8.7) Albumin 4.2 g/dL g/dL (3.5-5.2) Globulin 1.9 g/dL g/dL (1.3-4.6) Urine Color Yellow (Yellow) Urine Appearance Clear (CLEAR) Urine pH 5 (5-7) Ur Specific Gravit y 1.015 (1.005-1.030) Urine Protein Neg (Negative) Urine Glucose (UA) Norm (Normal) Urine Ketones Negative (Negative) Urine Blood Neg (Negative) Urine Nitrate Negative (Negative) Urine Bilirubin Neg (Negative) Urine Urobilinogen Norm mg/dL mg/dL (Negative) Ur Leukocyte Natasha ase Trace H (Negative) Urine RBC 5-10 /hpf H /hpf (0-2) Urine WBC 0-4 /hpf H /hpf (0-5) Ur Squamous Epith Cells 5-10 /hpf H /hpf (0-5) Amorphous Sediment Not Reportable Urine Bacteria Trace /hpf /hpf (NONE) Imaging Data^: CXR: Radiologist's impression: [address] [address]BBfa ReportSigned Patient: Narcisa Valle #: [id number]: 5Acct#:[id number]/Sex: 75 / FADM Date: 07/03/21Loc: ERRoom/Bed:Attending Dr: Ordering Provider/Ordering MD: Ting Enriquez Date of Service: 07/03/21 Procedure(s): XR chest 1V portable [id number] Accession Number(s): [id number] Report Number: [id number] WS: [id number] Portable AP upright chest, 07/03/2021 Clinical Data: weakness Comparison: Portable chest, 01/03/2021. Findings: No nodules, masses or effusions are seen. The heart is normal. The pulmonary vascularity is not increased. No pneumonia or pneumothorax is seen. The aortic arch and descending thoracic aorta shows mild tortuosity. XR/XR chest 1V portable [id number] Impression: Atherosclerosis. Dictated By:Isela Buckley MDSigned By:Isela Buckley MDSigned Date/Time:07/03/2132DD/ 0 CT Abd/Pel: Radiologist's impression: [facility] [place], [place] [address]BO Scan ReportSigned Patient: Narcisa Valel #: [id number]: [id number]#:[id number]/Sex: 75 / FADM Date: 07/03/21Loc: ERRoom/Bed:Attending Dr: Ordering Provider/Ordering MD: Ting Enriquez Date of Service: 07/03/21 Procedure(s): CT abdomen pelvis w con* [id number] Accession Number(s): [id number] Report Number: [id number] WS: [id number] CT ABDOMEN PELVIS TECHNIQUE: Contrast-enhanced CT of the abdomen and pelvis with coronal and sagittal reformatted images. CLINICAL INFORMATION: L abdominal pain; black stools COMPARISON: None. DLP: 972.[address] scans at [facility] use at least one of these dose optimization techniques: automated exposure control; mA and/or kV adjustment per patient size (includes targeted exams where dose is matched to clinical indication); or iterative reconstruction. FINDINGS: Normal liver. Normal gallbladder. Normal portal vein and splenic vein. Normal pancreatic parenchymal enhancement. Normal gallbladder. Adrenal glands are normal. Normal renal parenchymal enhancement. No hydronephrosis. Left renal atrophy. Small bilateral renal cysts. Lung bases are well aerated. Normal sigmoid colon. Mild sigmoid constipation. Mild transverse colon constipation. Celiac and SMA are patent. No periaortic lymphadenopathy. No pelvic or inguinal lymphadenopathy. Mild disc space narrowing L4-L5 and L5-S1. Cannulated screw fixation right hip CT/CT abdomen pelvis w con* [id number] IMPRESSION: 1. No acute abdominal or pelvic findings. 2. Mild sigmoid and transverse colon constipation. No evidence of high-grade small or large bowel obstruction. 3. Mild left renal cortical atrophy. 4. Small bilateral renal cysts. Dictated By:Justin Colmenares MDSigned By:Justin Colmenares MDSigned Date/Time:07/03/21 1032DD/ 1025 Discharge Plan Discharge Patient Disposition: Home Clinical Impression: Diarrhea Qualifiers: Diarrhea type: unspecified type Qualified Code(s): R19.7 - Diarrhea, unspecified Condition: Stable Prescriptions: No Action oxybutynin chloride 5 mg tablet 5 mg PO DAILY RF: 0 cholecalciferol (vitamin D3) 25 mcg (1,000 unit) capsule 25 mcg PO DAILY RF: 0 coenzyme Q10 [Co Q-10] 100 mg capsule 100 mg PO DAILY RF: 0 hydroxychloroquine 200 mg tablet 200 mg PO BID RF: 0 oxycodone-acetaminophen 5-325 mg tablet 1 tab PO Q6H PRN (Reason: Moderate To Severe Pain) 7 Days Qty: 30 RF: 0 Protonix 40 mg tablet,delayed release (DR/EC) 40 mg PO DAILY Qty: 60 RF: 0 bupropion HCl 100 mg tablet sustained-release 12 hr 100 mg PO DAILY@2130 RF: 0 lorazepam 0.5 mg tablet 0.5 mg PO DAILY PRN (Reason: Anxiety) RF: 0 acetaminophen 325 mg Tablet 650 mg PO Q6H PRN (Reason: Mild Pain) Qty: 100 RF: 0 DOK 100 mg Capsule 100 mg PO BID Qty: 60 RF: 0 Adult Low Dose Aspirin 81 mg tablet,delayed release (DR/EC) 81 mg PO DAILY Qty: 30 RF: 0 isosorbide mononitrate 10 mg tablet 10 mg PO BID Qty: 60 RF: 0 Discharge Orders: Discharge ED (Routine); Ordered 07/03/21 Ordered By: Ting Enriquez Referrals: Tess Breen DO [Primary Care Provider] - Activity Restrictions/Additional Instructions: As we discussed patient may follow-up with her primary care provider. Return to the emergency department for worsening or severe abdominal pain, severe diarrhea, obviously bloody diarrhea, continued or darkening stools, severe fatigue/weakness, fevers, or any other concerns you may have. Coding Level of Care Code ED Pedicurist for Chg Fwd Exam Detailed Documented by User: Juan Carlos Cole DO 07/04/21 17:53 HPI - GI Bleed General: Chief complaint: Abdominal Pain Stated complaint: BLACK STOOL,WEAKNESS,HX BLEEDING ULCERS,PALE Time Seen by Provider: 07/03/21 08:15 PFSH ED PFSH: Medical History Anxiety Bradycardia Chronic kidney disease by history Closed fracture of right hip Depression History of stress test (12/11/20) 1. Small size perfusion abnormality of mild severity of apical loredo with subtle reversibility in apical septal wall on stress images. 2. This may represent old myocardial infarction or scarring in left anterior descending artery territory with minimal uche-infarct ischemia. 3. Overall left ventricular systolic function is normal with apical hypokinesis 4. The left ventricular ejection fraction is normal with a value of 63%. Mesenteric cyst Surgical History History of laminectomy History of laparotomy History of reduction of closed fracture (~11/2020) Family History Father CAD (coronary artery disease) Alcoholism Mother CAD (coronary artery disease) Brother CAD (coronary artery disease) Social History Smoking and tobacco status: former smoker Alcohol intake: never Course Vital Signs: Vital signs: Vital Signs Temperature 97.9 F 07/03/21 08:17 Pulse Rate 51 L 07/03/21 11:16 Respiratory Rate 16 07/03/21 08:17 Blood Pressure 174/85 07/03/21 11:16 Pulse Oximetry 99 07/03/21 11:16 MDM - GI Bleed MDM Narrative: Medical decision making narrative: Chart reviewed with midlevel agree with assessment and plan Lab Data: Labs: Lab Results 07/03/21 07/03/21 07/03/21 08:40 08:40 08:40 WBC 5.9 10^3/uL 10^3/ uL (4.0-10.0) RBC 4.01 10^6/uL L 10 ^6/uL (4.1-5.3) Hgb 13.4 g/dL g/dL (11.5-15.3) Hct 40.4 % % (37.0-47.0) MCV 100.7 fl H fl (81-99) MCH 33.4 pg pg (28.0-34.0) MCHC 33.2 g/dL g/dL (30.0-36.0) RDW 14.3 % % (12.1-15.1) Plt Count 177 10^3/cmm 10^3 /cmm (130-400) MPV 11.9 fL H fL (7.4-10.4) Neut % (Auto) 63.7 % % Lymph % (Auto) 22.4 % % Mercer % (Auto) 10.1 % % Eos % (Auto) 2.6 % % Baso % (Auto) 0.9 % % Neut # (Auto) 3.73 10^3/uL 10^3 /uL (1.8-7.7) Lymph # (Auto) 1.3 10^3/uL 10^3/ uL (0.8-4.8) Mercer # (Auto) 0.6 10^3/uL 10^3/ uL (0.2-0.9) Eos # (Auto) 0.2 10^3/uL 10^3/ uL (0.0-0.8) Baso # (Auto) 0.1 10^3/uL 10^3/ uL (0.0-0.1) Nucleated RBC % (a uto) 0 % % Nucleated RBCs # 0.0 /100WBC /100W BC PT Cancelled INR Cancelled APTT Cancelled Sodium Cancelled Potassium Cancelled Chloride Cancelled Carbon Dioxide Cancelled Anion Gap Cancelled BUN Cancelled Creatinine Cancelled GFR Calculation Cancelled Glucose Cancelled Calculated Osmolal ity Cancelled Calcium Cancelled Total Bilirubin Cancelled AST Cancelled ALT Cancelled Alkaline Phosphata se Cancelled Total Protein Cancelled Albumin Cancelled Globulin Cancelled Urine Color Urine Appearance Urine pH Ur Specific Gravit y Urine Protein Urine Glucose (UA) Urine Ketones Urine Blood Urine Nitrate Urine Bilirubin Urine Urobilinogen Ur Leukocyte Natasha ase Urine RBC Urine WBC Ur Squamous Epith Cells Amorphous Sediment Urine Bacteria 07/03/21 07/03/21 07/03/21 08:58 09:11 09:11 WBC RBC Hgb Hct MCV MCH MCHC RDW Plt Count MPV Neut % (Auto) Lymph % (Auto) Mercer % (Auto) Eos % (Auto) Baso % (Auto) Neut # (Auto) Lymph # (Auto) Mercer # (Auto) Eos # (Auto) Baso # (Auto) Nucleated RBC % (a uto) Nucleated RBCs # PT 12.90 SECONDS SEC ONDS (12.1-14.9) INR 0.95 (0.8-1.2) APTT 25.9 SECONDS SECO NDS (23.9-36.7) Sodium 139 mmol/L mmol/L (136-145) Potassium 4.2 mmol/L mmol/L (3.5-5.1) Chloride 102 mmol/L mmol/L (98-107) Carbon Dioxide 25 mmol/L mmol/L (22-29) Anion Gap 16.2 (5-19) BUN 25 mg/dL H mg/dL (8-23) Creatinine 0.6 mg/dL mg/dL (0.5-0.9) GFR Calculation Not Reportable Glucose 80 mg/dL mg/dL (65-115) Calculated Osmolal ity 291 mOsm/kg mOsm/ kg (285-295) Calcium 9.6 mg/dL mg/dL (8.5-10.5) Total Bilirubin 0.7 mg/dL mg/dL (0.15-1.2) AST 42 U/L H U/L (0-32) ALT 60 U/L H U/L (0-33) Alkaline Phosphata se 56 IU/L IU/L (35-105) Total Protein 6.1 g/dL L g/dL (6.6-8.7) Albumin 4.2 g/dL g/dL (3.5-5.2) Globulin 1.9 g/dL g/dL (1.3-4.6) Urine Color Yellow (Yellow) Urine Appearance Clear (CLEAR) Urine pH 5 (5-7) Ur Specific Gravit y 1.015 (1.005-1.030) Urine Protein Neg (Negative) Urine Glucose (UA) Norm (Normal) Urine Ketones Negative (Negative) Urine Blood Neg (Negative) Urine Nitrate Negative (Negative) Urine Bilirubin Neg (Negative) Urine Urobilinogen Norm mg/dL mg/dL (Negative) Ur Leukocyte Natasha ase Trace H (Negative) Urine RBC 5-10 /hpf H /hpf (0-2) Urine WBC 0-4 /hpf H /hpf (0-5) Ur Squamous Epith Cells 5-10 /hpf H /hpf (0-5) Amorphous Sediment Not Reportable Urine Bacteria Trace /hpf /hpf (NONE) Discharge Plan Discharge Patient Disposition: Home Clinical Impression: Diarrhea Qualifiers: Diarrhea type: unspecified type Qualified Code(s): R19.7 - Diarrhea, unspecified Condition: Stable Prescriptions: No Action oxybutynin chloride 5 mg tablet 5 mg PO DAILY RF: 0 cholecalciferol (vitamin D3) 25 mcg (1,000 unit) capsule 25 mcg PO DAILY RF: 0 coenzyme Q10 [Co Q-10] 100 mg capsule 100 mg PO DAILY RF: 0 hydroxychloroquine 200 mg tablet 200 mg PO BID RF: 0 oxycodone-acetaminophen 5-325 mg tablet 1 tab PO Q6H PRN (Reason: Moderate To Severe Pain) 7 Days Qty: 30 RF: 0 Protonix 40 mg tablet,delayed release (DR/EC) 40 mg PO DAILY Qty: 60 RF: 0 bupropion HCl 100 mg tablet sustained-release 12 hr 100 mg PO DAILY@2130 RF: 0 lorazepam 0.5 mg tablet 0.5 mg PO DAILY PRN (Reason: Anxiety) RF: 0 acetaminophen 325 mg Tablet 650 mg PO Q6H PRN (Reason: Mild Pain) Qty: 100 RF: 0 DOK 100 mg Capsule 100 mg PO BID Qty: 60 RF: 0 Adult Low Dose Aspirin 81 mg tablet,delayed release (DR/EC) 81 mg PO DAILY Qty: 30 RF: 0 isosorbide mononitrate 10 mg tablet 10 mg PO BID Qty: 60 RF: 0 Discharge Orders: Discharge ED (Routine); Ordered 07/03/21 Ordered By: Ting Enriquez Referrals: Tess Breen DO [Primary Care Provider] - Activity Restrictions/Additional Instructions: As we discussed patient may follow-up with her primary care provider. Return to the emergency department for worsening or severe abdominal pain, severe diarrhea, obviously bloody diarrhea, continued or darkening stools, severe fatigue/weakness, fevers, or any other concerns you may have. Coding Level of Care Code ED Pedicurist for Chg Fwd Exam Detailed
[2021-07-03 08:37] VITALS: BP 177/88; PULSE 50; O2SAT 99
[2021-07-03 08:53] LABS: Basophils # 0.1 10^3/uL (0.0-0.1); Basophils % 0.9 %; Eosinophils # 0.2 10^3/uL (0.0-0.8); Eosinophils % 2.6 %; Hematocrit 40.4 % (37.0-47.0); Hemoglobin 13.4 g/dL (11.5-15.3); Lymphocytes # 1.3 10^3/uL (0.8-4.8); Lymphocytes % 22.4 %; Mean Corpuscular HGB Conc 33.2 g/dL (30.0-36.0); Mean Corpuscular Hemoglobin 33.4 pg (28.0-34.0); Mean Corpuscular Volume 100.7 fl (81-99); Mean Platelet Volume 11.9 fL (7.4-10.4); Monocytes # 0.6 10^3/uL (0.2-0.9); Monocytes % 10.1 %; Neutrophils # 3.73 10^3/uL (1.8-7.7); Neutrophils % 63.7 %; Nucleated Red Blood Cells % 0 %; Platelet Count 177 10^3/cmm (130-400); Red Blood Count 4.01 10^6/uL (4.1-5.3); Red Cell Distribution Width 14.3 % (12.1-15.1); White Blood Count 5.9 10^3/uL (4.0-10.0)
[2021-07-03 09:01] VITALS: BP 151/90; PULSE 52; O2SAT 99
[2021-07-03 09:28] LABS: Add Urine Microscopic? YES; Bilirubin Urine Neg (Negative); Blood Urine Neg (Negative); Glucose Urine UA Norm (Normal); Ketones Urine Negative (Negative); Leukocyte Esterase Urine Trace (Negative); Nitrate Urine Negative (Negative); Protein Urine Neg (Negative); Specific Gravity, Urine 1.015 (1.005-1.030); Urine Appearance Clear (CLEAR); Urine Color Yellow (Yellow); Urobilinogen Urine Norm (Negative); pH Urine 5 (5-7)
[2021-07-03 09:29] LABS: WBC Urine 0-4 /hpf (0-5)
[2021-07-03 09:30] LABS: Add Urine Culture? No; Bacteria Urine TRACE /hpf
[2021-07-03 09:37] VITALS: BP 135/71; PULSE 51; O2SAT 96
[2021-07-03 09:49] LABS: INR 0.95 (0.8-1.2); Partial Thromboplastin Time 25.9 SECONDS (23.9-36.7)
[2021-07-03 09:53] LABS: Alanine Aminotransferase 60 U/L (0-33); Albumin Level 4.2 g/dL (3.5-5.2); Alkaline Phosphatase 56 IU/L (35-105); Anion Gap 16.2 (5-19); Aspartate Amino Transferase 42 U/L (0-32); Blood Urea Nitrogen 25 mg/dL (8-23); Calcium 9.6 mg/dL (8.5-10.5); Carbon Dioxide 25 mmol/L (22-29); Chloride 102 mmol/L (98-107); Globulin 1.9 g/dL (1.3-4.6); Glucose 80 mg/dL (65-115); Osmolality Calculated 291 mOsm/kg (285-295); Potassium 4.2 mmol/L (3.5-5.1); Sodium 139 mmol/L (136-145); Total Bilirubin 0.7 mg/dL (0.15-1.2); Total Protein 6.1 g/dL (6.6-8.7)
[2021-07-03 10:03] VITALS: BP 155/74; PULSE 47; O2SAT 95
[2021-07-03] MEDS: iodixanol 320 mg/mL 100mL Btl IV (10:13)
[2021-07-03 11:16] VITALS: BP 174/85; PULSE 51; O2SAT 99
== END 2021-07-03 11:20 | disposition home or self-care (01) ==
PROVIDERS: Emergency Provider Physician Assistant; PCP Family Medicine
DX: R19.7 Diarrhea, unspecified (principal); Z79.891 Long term (current) use of opiate analgesic; Z79.82 Long term (current) use of aspirin; Z87.891 Personal history of nicotine dependence
CPT/HCPCS: 71045; 74177; 80053; 81001; 85025; 85610; 85730; 99283; Q9967

== ENCOUNTER → 2022-01-20 14:58 | Outpatient (BNVA) | payer MEDICARE, BC, SELFPAY | PROVIDERS: PCP Family Medicine; Referring Provider Registered Nurse; Visit Provider Orthopaedic Surgery | DX: M54.6 Pain in thoracic spine (principal); M48.062 Spinal stenosis, lumbar region with neurogenic claudication; M85.88 Other specified disorders of bone density and structure, other site | CPT/HCPCS: 72072; 72100; 99203; 99204 ==

== ENCOUNTER → 2022-02-10 07:54 | Outpatient (BNVA) | payer MEDICARE, BC, SELFPAY | PROVIDERS: PCP Family Medicine; Visit Provider Otolaryngology | DX: T17.320A Food in larynx causing asphyxiation, initial encounter (principal); K21.9 Gastro-esophageal reflux disease without esophagitis; X58.XXXA Exposure to other specified factors, initial encounter | CPT/HCPCS: 31575; 99204 ==

== ENCOUNTER 2022-03-04 06:00 | Outpatient (RCR) | payer MEDICARE, BC, SELFPAY | END 2022-03-29 23:59 | disposition home or self-care (01) | LOC: SPT 06:00 | PROVIDERS: PCP Family Medicine; Referring Provider Orthopaedic Surgery; Visit Provider Orthopaedic Surgery | DX: M54.50 Low back pain, unspecified (principal) | CPT/HCPCS: 97161 ==

== ENCOUNTER 2022-03-12 15:32 | Outpatient (CLI) | payer MEDICARE, BC, SELFPAY ==
--- NOTE | 2022-03-12 16:00 | MR_ITS ---
WS: [id number] MRI LUMBAR SPINE NONCONTRAST TECHNIQUE: Sagittal T1, T2 and STIR imaging. Axial T1 and T2 imaging. CLINICAL INFORMATION: back pain COMPARISON: None. FINDINGS: Mild lumbar curve. No acute compression. No high-grade central canal stenosis. Slight anterolisthesis L4 on L5. L1-L2: Normal. L2-L3: Mild disc bulging with slight effacement of ventral thecal sac. Slight impingement traversing L3 nerve roots bilaterally. Mild facet arthropathy. LEFT foraminal protrusion impinges the exiting LE FT L2 nerve root with moderate LEFT foraminal narrowing. RIGHT foramen is patent. Mild facet arthropa thy. L3-L4: Mild annular bulging with slight impingement on the subarticular recess bilaterally and catia sing L4 nerve roots. Mild facet arthropathy. Mild LEFT greater than RIGHT foraminal narrowing. L4-L5: Mild disc bulging and osteophytic ridging. Slight impingement traversing L5 nerve roots bilate rally. Mild facet arthropathy. RIGHT foraminal protrusion impinges the exiting RIGHT L4 nerve root wi th moderate RIGHT foraminal narrowing. Mild LEFT foraminal narrowing. L5-S1: Shallow central disc protrusion with tiny annular fissure. Slight effacement of ventral thecal sac. LEFT eccentric disc osteophyte complex with mild LEFT foraminal narrowing. RIGHT foramen is pat ent. Mild facet arthropathy. Small RIGHT renal cysts. MR/MR lumbar spine wo con* [id number] IMPRESSION: 1. Mild lumbar curve. No acute compression. No high-grade central canal stenos is. 2. RIGHT foraminal protrusion L4-L5 impinges the exiting RIGHT L4 nerve root w ith moderate RIGHT foraminal narrowing. Correlation for RIGHT L4 nerve root sym ptoms. 3. Small LEFT foraminal protrusion L2-L3 impinges the exiting LEFT L2 nerve ro ot with moderate LEFT foraminal narrowing. 4. Mild LEFT L5-S1 bony foraminal narrowing. 5. Mild disc bulging with narrowing of the subarticular recess L2-L3, L3-L4, a nd L4-L5 described above.
== END 2022-03-12 15:33 | disposition home or self-care (01) ==
LOC: RAD 15:33
PROVIDERS: PCP Family Medicine; Visit Provider Orthopaedic Surgery
DX: M54.6 Pain in thoracic spine (principal); M48.062 Spinal stenosis, lumbar region with neurogenic claudication; N28.1 Cyst of kidney, acquired
CPT/HCPCS: 72148

== ENCOUNTER → 2022-04-13 07:38 | Outpatient (BNVA) | payer MEDICARE, BC, SELFPAY | PROVIDERS: PCP Family Medicine; Visit Provider Otolaryngology | DX: H69.83 Other specified disorders of Eustachian tube, bilateral (principal); K21.9 Gastro-esophageal reflux disease without esophagitis; R05.3 Chronic cough; J31.0 Chronic rhinitis; R09.82 Postnasal drip | CPT/HCPCS: 99214 ==

== ENCOUNTER 2022-04-29 03:55 | Inpatient (IN) | payer MEDICARE, BC, SELFPAY ==
[2022-04-29] VITALS (26 sets, daily range): BP systolic 109–200; BP diastolic 55–130; PULSE 43–66; RESP 9–24; TEMP 36.5–37.1; O2SAT 96–100; BMI 29.0; BMI 27.6
--- NOTE | 2022-04-29 04:04 | CTR_ITS ---
PROCEDURE INFORMATION: Exam: CT Head Without Contrast Exam date and time: 04/29/2022 4:14 AM Age: 76 years old Clinical indication: Pain; Headache; Patient HX: SHANKS with BP of 200 systolic on monitor. TECHNIQUE: Imaging protocol: Computed tomography of the head without contrast. Radiation optimization: All CT scans at this facility use at least one of these dose optimization techniques: automated exposure control; mA and/or kV adjustment per patient size (includes targeted exams where dose is matched to clinical indication); or iterative reconstruction. COMPARISON: No relevant prior studies available. RADIATION DOSE METRICS: Total DLP (mGy-cm): 954.48 FINDINGS: Brain: No acute intracranial hemorrhage identified. No large territorial ischemic infarcts identified. Focal area of hypoattenuation in the anterior limb of the right internal capsule along the lateral margin of the right caudate head (series 4 image 18-19), measuring up to 12 mm. Somewhat oval-shaped area of in the posteroinferior right frontal lobe (series 4, image 14) 9 mm. Subcortical and periventricular white matter hypoattenuation likely consistent with mild chronic microvascular ischemic disease. Cerebral ventricles: The ventricles are within normal limits. Paranasal sinuses: The visualized sinuses are unremarkable. Mastoid air cells: The visualized mastoid air cells are well aerated. Bones/joints: The osseous structures are intact. Soft tissues: Unremarkable. CT/CT head wo con* [id number] IMPRESSION: 1. No acute intracranial hemorrhage identified. 2. No large territorial infarcts. 3. Focal area of hypoattenuation in the anterior limb of the right internal capsule concerning for possible focal infarct versus chronic microvascular ischemic disease. Recommend MRI for further evaluation.
--- NOTE | 2022-04-29 04:04 | ECG_ITS ---
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 Measurements Intervals [place] Rate: 44 P: 76 AR: 154 QRS: 43 QRSD: 93 T: 41 QT: 529 QTc: 454 Interpretive Statements SINUS BRADYCARDIA POSSIBLE RIGHT VENTRICULAR CONDUCTION DELAY [RSR (QR) IN V1/V2] PROLONGED QT INTERVAL Compared to ECG 01/03/2021 01:05:10 Prolonged QT interval now present T-wave abnormality no longer present Possible ischemia no longer present Electronically Signed On 04-29-2022 16:21:33 CDT by Heena Holland M.D. [email or web address]/[id number] f
--- NOTE | 2022-04-29 04:04 | XRR_ITS ---
PROCEDURE INFORMATION: Exam: XR Chest Exam date and time: 04/29/2022 4:07 AM Age: 76 years old Clinical indication: Other: Weakness/bradycardia; Patient HX: General weakness with bradycardia on monitor. TECHNIQUE: Imaging protocol: Radiologic exam of the chest. Views: 1 view. COMPARISON: CR XR chest 1V portable [id number] 07/03/2021 8:25 AM FINDINGS: Lungs: The lung parenchyma is clear. Pleural spaces: No pneumothorax. No pleural effusion. Heart/Mediastinum: The cardiomediastinal silhouette is within normal limits. Bones/joints: Unremarkable. XR/XR chest 1V portable [id number] IMPRESSION: No acute cardiopulmonary abnormality.
--- NOTE | 2022-04-29 04:06 | W.ED.WEAKNES ---
HPI - Weakness General: Chief complaint: Weakness Stated complaint: WEAKNESS Time Seen by Provider: 04/29/22 03:56 Source: patient and EMS Mode of arrival: EMS Limitations: no limitations History of Present Illness: 76-year-old female states that over the last 2 to 3 days she has been having some weakness noticing that her heart rate has been slow. States she also has a headache but states she has chronic headaches headaches currently 7 out of 10. Patient is bradycardic here in the 40s she has had a history of bradycardia along with near syncope in the past. She denies any chest pain denies any abdominal pain denies any fever or cough. Associated symptoms: Reports headache(s); Denies chest pain, dysuria, easy bruising, nausea or vomiting Review of Systems Const: Reports: fatigue and malaise Eyes: Denies: blurry vision or eye discomfort ENMT: Denies: throat pain or dental pain Card: Denies: chest pain Resp: Denies: dyspnea GI: Denies: abdominal pain, nausea, vomiting or diarrhea : Denies: dysuria Musc: Denies: neck pain or back pain Skin/Breast: Denies: rash Neuro: Reports: headache(s) Psych: Denies: depression Zbigniew/Lymph: Denies: easy bruising All/Imm: Denies: urticaria PFSH ED PFSH: Medical History Anxiety Bradycardia Chronic kidney disease by history Closed fracture of right hip Dementia Depression History of stress test (12/11/20) 1. Small size perfusion abnormality of mild severity of apical loredo with subtle reversibility in apical septal wall on stress images. 2. This may represent old myocardial infarction or scarring in left anterior descending artery territory with minimal uche-infarct ischemia. 3. Overall left ventricular systolic function is normal with apical hypokinesis 4. The left ventricular ejection fraction is normal with a value of 63%. Mesenteric cyst Surgical History History of laminectomy History of laparotomy History of reduction of closed fracture (~11/2020) Family History Father CAD (coronary artery disease) Alcoholism Mother CAD (coronary artery disease) Brother CAD (coronary artery disease) Social History Smoking and tobacco status: never smoked Alcohol intake: never Physical Exam Const: COMMON NORMALS: patient oriented x3 HENMT: COMMON NORMALS: normocephalic and atraumatic HEAD & SCALP: normocephalic and atraumatic Eye: COMMON NORMALS: Equal, round and reactive pupils present and EOMs intact bilaterally PUPIL: Yes Equal, round and reactive pupils present Neck/C-Spine: COMMON NORMALS: full ROM and supple Chest: COMMONS NORMALS: normal inspection of the chest and normal palpation of entire chest wall Resp: COMMON NORMALS: normal respiratory effort, No retractions, No use of accessory muscles and clear to auscultation bilaterally AUSCULTATION: clear to auscultation bilaterally Cardio: COMMON NORMALS: regular rhythm and No murmurs present (Cardio) RATE: bradycardic RHYTHM: regular rhythm GI: COMMON NORMALS: Normal to inspection, nondistended, normoactive bowel sounds present, Soft to palpation, non-tender and no masses PALPATION: Yes Soft to palpation Extremity: COMMON NORMALS: normal to inspection and full ROM Neuro: COMMON NORMALS: patient oriented x3, moves all extremities and no focal motor deficits Psych: COMMON NORMALS: mental status grossly normal, Normal thought process present and cooperative THOUGHT PROCESS: Normal thought process present Skin: COMMON NORMALS: no rashes or lesions noted and no wounds GENERAL SKIN EXAM: no rashes or lesions noted Course Vital Signs: Vital signs: Vital Signs Temperature 98.8 F 04/29/22 04:00 Pulse Rate 44 L 04/29/22 04:35 Respiratory Rate 18 04/29/22 04:35 Blood Pressure 160/130 04/29/22 04:35 Pulse Oximetry 98 04/29/22 04:00 Oxygen Delivery Me thod 04/29/22 04:00 MDM - Weakness Medical Decision Making Patient presents with generalized weakness along with bradycardia when she first got here her heart rate was in the 30s family states that she has been dipping the 30s at home and been symptomatic and having lightheadedness and weakness. Her heart rate here is improve family is quite concerned will admit for observation at this time. Lab Data : 04/29/22 04:05 04/29/22 04:05 Radiology Impressions Chest X-Ray 04/29/22 04:04 IMPRESSION: No acute cardiopulmonary abnormality. Head CT 04/29/22 04:04 IMPRESSION: 1. No acute intracranial hemorrhage identified. 2. No large territorial infarcts. 3. Focal area of hypoattenuation in the anterior limb of the right internal capsule concerning for possible focal infarct versus chronic microvascular ischemic disease. Recommend MRI for further evaluation. ADDENDUM: 04/29/22 0509 THIS REPORT CONTAINS FINDINGS THAT MAY BE CRITICAL TO PATIENT CARE. The findings were verbally communicated via telephone conference with HOA Cooper at 5:07 AM CDT on 04/29/2022. The findings were acknowledged and understood. Laboratory Results WBC 6.4 10^3/uL (4.0-10.0) 04/29/22 04:05 RBC 3.47 10^6/uL (4.1-5.3) L 04/29/22 04:05 Hgb 11.9 g/dL (11.5-15.3) 04/29/22 04:05 Hct 35.9 % (37.0-47.0) L 04/29/22 04:05 MCV 103.5 fl (81-99) H 04/29/22 04:05 MCH 34.3 pg (28.0-34.0) H 04/29/22 04:05 MCHC 33.1 g/dL (30.0-36.0) 04/29/22 04:05 RDW 13.8 % (12.1-15.1) 04/29/22 04:05 Plt Count 148 10^3/cmm (130-400) 04/29/22 04:05 MPV 11.9 fL (7.4-10.4) H 04/29/22 04:05 Neut % (Auto) 49.1 % 04/29/22 04:05 Lymph % (Auto) 37.0 % 04/29/22 04:05 [place] % (Auto) 9.9 % 04/29/22 04:05 Eos % (Auto) 3.0 % 04/29/22 04:05 Baso % (Auto) 0.8 % 04/29/22 04:05 Neut # (Auto) 3.14 10^3/uL (1.8-7.7) 04/29/22 04:05 Lymph # (Auto) 2.4 10^3/uL (0.8-4.8) 04/29/22 04:05 [place] # (Auto) 0.6 10^3/uL (0.2-0.9) 04/29/22 04:05 Eos # (Auto) 0.2 10^3/uL (0.0-0.8) 04/29/22 04:05 Baso # (Auto) 0.1 10^3/uL (0.0-0.1) 04/29/22 04:05 Nucleated RBC % (auto) 0 % 04/29/22 04:05 Nucleated RBCs # 0.0 /100WBC 04/29/22 04:05 PT 12.50 SECONDS (12.1-14.9) 04/29/22 04:05 INR 0.90 (0.8-1.2) 04/29/22 04:05 Sodium 139 mmol/L (136-145) 04/29/22 04:05 Potassium 4.2 mmol/L (3.5-5.1) 04/29/22 04:05 Chloride 105 mmol/L (98-107) 04/29/22 04:05 Carbon Dioxide 26 mmol/L (22-29) 04/29/22 04:05 Anion Gap 12.2 (5-19) 04/29/22 04:05 BUN 21 mg/dL (8-23) 04/29/22 04:05 Creatinine 0.9 mg/dL (0.5-0.9) 04/29/22 04:05 GFR Calculation Not Reportable 04/29/22 04:05 Glucose 75 mg/dL (65-115) 04/29/22 04:05 Calculated Osmolality 290 mOsm/kg (285-295) 04/29/22 04:05 Calcium 9.1 mg/dL (8.5-10.5) 04/29/22 04:05 Total Bilirubin 0.4 mg/dL (0.15-1.2) 04/29/22 04:05 AST 20 U/L (0-32) 04/29/22 04:05 ALT 16 U/L (0-33) 04/29/22 04:05 Alkaline Phosphatase 72 U/L (35-105) 04/29/22 04:05 Troponin T Baseline 11 ng/L (0-10) H 04/29/22 04:05 Total Protein 5.8 g/dL (6.6-8.7) L 04/29/22 04:05 Albumin 3.6 g/dL (3.5-5.2) 04/29/22 04:05 Globulin 2.2 g/dL (1.3-4.6) 04/29/22 04:05 TSH 2.49 uIU/mL (0.27-4.20) 04/29/22 04:05 Urine Color Colorless (Yellow) 04/29/22 04:30 Urine Appearance Clear (CLEAR) 04/29/22 04:30 Urine pH 8 (5-7) H 04/29/22 04:30 Ur Specific [place] 1.015 (1.005-1.030) 04/29/22 04:30 Urine Protein Neg (Negative) 04/29/22 04:30 Urine Glucose (UA) Norm (Normal) 04/29/22 04:30 Urine Ketones Negative (Negative) 04/29/22 04:30 Urine Blood Trace (Negative) H 04/29/22 04:30 Urine Nitrate Negative (Negative) 04/29/22 04:30 Urine Bilirubin Neg (Negative) 04/29/22 04:30 Prot Sulfosalicylic Acd Negative (Negative) 04/29/22 04:30 Urine Urobilinogen Norm mg/dL (Negative) 04/29/22 04:30 Ur Leukocyte Esterase Negative (Negative) 04/29/22 04:30 Urine RBC 0-4 /hpf (0-2) H 04/29/22 04:30 Urine WBC None /hpf (0-5) 04/29/22 04:30 Ur Squamous Epith Cells 0-4 /hpf (0-5) H 04/29/22 04:30 Ur Transition Epith Cell None /hpf 04/29/22 04:30 Ur Renal Epithelial Cell N /hpf 04/29/22 04:30 Calcium Oxalate Crystal None /hpf 04/29/22 04:30 Amorphous Sediment Not Reportable 04/29/22 04:30 Urine Bacteria None /hpf (NONE) 04/29/22 04:30 Urine Mucus N /hpf 04/29/22 04:30 EKG Data EKG 1: I personally reviewed and interpreted this EKG as follows: EKG interpretation date: 04/29/22 EKG interpretation time: 04:01 Interpretation: sinus segundo hr [address] or t wave abnormalities qrs 93 qtc 479 Discharge Plan Discharge Patient Disposition: Placed in Observation Clinical Impression: Bradycardia, Weakness Coding Level of Care Code ED 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
[2022-04-29 04:13] LABS: Basophils # 0.1 10^3/uL (0.0-0.1); Basophils % 0.8 %; Eosinophils # 0.2 10^3/uL (0.0-0.8); Hematocrit 35.9 % (37.0-47.0); Hemoglobin 11.9 g/dL (11.5-15.3); Lymphocytes # 2.4 10^3/uL (0.8-4.8); Mean Corpuscular HGB Conc 33.1 g/dL (30.0-36.0); Mean Corpuscular Hemoglobin 34.3 pg (28.0-34.0); Mean Corpuscular Volume 103.5 fl (81-99); Mean Platelet Volume 11.9 fL (7.4-10.4); Monocytes # 0.6 10^3/uL (0.2-0.9); Monocytes % 9.9 %; Neutrophils # 3.14 10^3/uL (1.8-7.7); Neutrophils % 49.1 %; Nucleated Red Blood Cells % 0 %; Platelet Count 148 10^3/cmm (130-400); Red Blood Count 3.47 10^6/uL (4.1-5.3); Red Cell Distribution Width 13.8 % (12.1-15.1); White Blood Count 6.4 10^3/uL (4.0-10.0)
[2022-04-29] MEDS: hyDRALAzine 20 mg/mL INJ 1 mL 10 MG IVP (04:29)
[2022-04-29 04:38] LABS: Troponin(5th) Baseline 11 ng/L (0-10)
[2022-04-29 04:49] LABS: Alanine Aminotransferase 16 U/L (0-33); Albumin Level 3.6 g/dL (3.5-5.2); Alkaline Phosphatase 72 U/L (35-105); Aspartate Amino Transferase 20 U/L (0-32); Blood Urea Nitrogen 21 mg/dL (8-23); Calcium 9.1 mg/dL (8.5-10.5); Carbon Dioxide 26 mmol/L (22-29); Chloride 105 mmol/L (98-107); Globulin 2.2 g/dL (1.3-4.6); Glucose 75 mg/dL (65-115); Osmolality Calculated 290 mOsm/kg (285-295); Sodium 139 mmol/L (136-145); Thyroid Stimulating Hormone 2.49 uIU/mL (0.27-4.20); Total Bilirubin 0.4 mg/dL (0.15-1.2); Total Protein 5.8 g/dL (6.6-8.7)
[2022-04-29 04:50] LABS: Add Urine Microscopic? YES; Bilirubin Urine Neg (Negative); Blood Urine Trace (Negative); Glucose Urine UA Norm (Normal); Ketones Urine Negative (Negative); Leukocyte Esterase Urine Negative (Negative); Nitrate Urine Negative (Negative); Protein Urine Neg (Negative); Specific Gravity, Urine 1.015 (1.005-1.030); Sulfosalicylic Acid Urine Negative (Negative); Urine Appearance Clear (CLEAR); Urine Color Colorless (Yellow); Urobilinogen Urine Norm (Negative); pH Urine 8 (5-7)
[2022-04-29 04:51] LABS: Add Urine Culture? No; Mucus Urine N /hpf; RBC Urine 0-4 /hpf (0-2); Renal Epithelial Cells Urine N /hpf; Squamous Epithelial Cell Urine 0-4 /hpf (0-5)
[2022-04-29 04:55] LABS: Anion Gap 12.2 (5-19); Potassium 4.2 mmol/L (3.5-5.1)
--- NOTE | 2022-04-29 05:38 | ECG_ITS ---
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 Measurements Intervals [place] Rate: 60 P: 86 CA: 151 QRS: 71 QRSD: 80 T: 25 QT: 472 QTc: 472 Interpretive Statements SINUS RHYTHM PROLONGED QT INTERVAL Compared to ECG 04/29/2022 04:01:44 Sinus bradycardia no longer present Electronically Signed On 04-29-2022 16:37:39 CDT by Heena Holland M.D. [email or web address]
--- NOTE | 2022-04-29 06:23 | PM.HP ---
Providers/Chief Complaint Admitting Physician: Adam Prasad MD Primary Care Provider: Tess Breen DO Chief Complaint: WEAKNESS History of Present Illness Narcisa Valle is a 76 year old female who was supposed to see Dr. Diamond on this Wednesday, was seeing Dr. Lange for bradycardia she has finished her Holter monitoring, she was not experiencing any symptoms with her bradycardia however in last few days she has been experiencing recurrent falls chest discomfort, fatigue, shortness of breath on exertion, generalized weakness. She lives in the basement of her daughter's home, daughter stating that now she is not able to take stairs and, up stairs without getting short of breath. She extremely fatigued and tired. She is getting very anxious and get tremulous sometimes with anxiety. Today around midnight she started experiencing chest discomfort along diaphoresis when she called her daughter who called 911 At that time her heart rate was in low 30s however in the ER her heart rate has been between 50s to low 60s blood pressure is stable she is very anxious, I had to give her 0.5 mg IV Ativan she is complaining of chest discomfort EKG showing sinus bradycardia, troponin not significantly elevated She will be monitored in ICU cardiology will be consulted ER physician spoke with Dr. Holland QTc 472 with bradycardia Review of Systems Const: Reports: chills, body aches and fatigue Eyes: Denies: change in vision ENMT: Denies: throat pain Card: Reports: chest pain Resp: Reports: dyspnea GI: Denies: abdominal pain : Denies: flank pain Musc: Denies: neck pain Skin/Breast: Denies: rash Neuro: Denies: headache(s) Psych: Reports: anxiety Endo: Denies: polyuria Zbigniew/Lymph: Denies: easy bruising All/Imm: Denies: urticaria Medications/Allergies Home Medications Medication Instructions Recorded Confirmed Last Taken Type lorazepam 0.5 mg tablet 0.5 mg PO DAILY PRN Anxiety 12/08/20 04/13/22 12/07/20 History acetaminophen 325 mg tablet 650 mg PO Q6H PRN Mild Pain #100 12/10/20 04/13/22 Unknown Rx tabs cholecalciferol (vitamin D3) 25 25 mcg PO DAILY 12/26/20 04/13/22 Unknown History mcg (1,000 unit) capsule coenzyme Q10 100 mg capsule (Co 100 mg PO DAILY 12/26/20 04/13/22 Unknown History Q-10) dexlansoprazole 30 mg 30 mg PO DAILY 07/08/21 04/13/22 Unknown History capsule,biphase delayed release (Dexilant) methotrexate sodium 2.5 mg tablet 2.5 mg PO .MTRF 07/08/21 04/13/22 Unknown History vitamin B complex (B 1 tab PO DAILY 07/08/21 04/13/22 Unknown History Complex-Vitamin B12) eszopiclone 2 mg tablet (Lunesta) 2 mg PO .HS PRN 09/04/21 04/13/22 Unknown History cephalexin 250 mg capsule 250 mg PO BID 02/10/22 04/13/22 Unknown History omeprazole 20 mg capsule,delayed 20 mg PO DAILY 3 months #90 caps 02/10/22 04/13/22 Unknown Rx release amitriptyline 10 mg tablet 10 mg PO DAILY #300 tabs 04/13/22 04/13/22 Unknown Rx donepezil 5 mg tablet (Aricept) 5 mg PO DAILY 04/13/22 04/13/22 Unknown History fluticasone propionate 50 2 spray intranasal DAILY 6 months 04/13/22 04/13/22 Unknown Rx mcg/actuation nasal #16 grams spray,suspension Allergies Allergy/AdvReac Type Severity Reaction Status Date / Time codeine Allergy Intermediate ALGY-Rash Verified 04/13/22 07:58 PFSH Acute PFSH: Medical History Anxiety Bradycardia Chronic kidney disease by history Closed fracture of right hip Dementia Depression History of stress test (12/11/20) 1. Small size perfusion abnormality of mild severity of apical loredo with subtle reversibility in apical septal wall on stress images. 2. This may represent old myocardial infarction or scarring in left anterior descending artery territory with minimal uche-infarct ischemia. 3. Overall left ventricular systolic function is normal with apical hypokinesis 4. The left ventricular ejection fraction is normal with a value of 63%. Mesenteric cyst Surgical History History of laminectomy History of laparotomy History of reduction of closed fracture (~11/2020) Family History Father CAD (coronary artery disease) Alcoholism Mother CAD (coronary artery disease) Brother CAD (coronary artery disease) Social History Smoking and tobacco status: never smoked Alcohol intake: never Vitals/I&O/Wt Last Vital Signs Temp 97.7 F 04/29/22 05:43 Pulse 66 04/29/22 05:43 Resp 20 H 04/29/22 05:43 BP 159/80 04/29/22 05:43 Pulse Ox 98 04/29/22 05:43 O2 Del Method 04/29/22 05:43 Weight last 48 hrs Weight 69.853 kg Physical Exam Narrative: Anxious appearing female Hemodynamically stable Heart rate in low 50s S1, S2 Breath sounds are clear Currently on room air Abdomen soft No signs of dehydration of fluid overload Nonfocal neuro exam EOMI, RACHAEL Daughter is at the bedside Data : 04/29/22 04:05 04/29/22 04:05 A&P Assessment and plan (1) Bradycardia: Status: Acute (2) Weakness: Status: Acute (3) Chronic GERD: Status: Acute (4) Chronic cough: Status: Acute (5) Lumbar stenosis with neurogenic claudication: Status: Acute Plan Symptomatic bradycardia QTC prolonged Sinus bradycardia Will request magnesium, TSH Troponin not significantly elevated Patient is endorsing chest discomfort, fatigue, lethargy I will discontinue her amitriptyline that can also cause bradycardia I will hold her donepezil for now We will keep her n.p.o. in case she would require pacemaker Although she is symptomatic currently she is hemodynamically stable Dr. Holland has been consulted by the ER physician DVT prophylaxis with SCDs Full code N.p.o. for now Monitor in ICU By pacer pads Atropine for as needed use no need of dopamine for now Cardiac stress test 2020 unremarkable Attestations Medical Necessity Statement*: Anticipating discharge within 48 hours if she does not require a pacemaker Time Spent in Patient Care: 40 Coding Level of Care Code Acute Mental Health Therapist for Chg Fwd Diagnoses Bradycardia R00.1 Weakness R53.1 Chronic GERD K21.9 Chronic cough R05.3 Lumbar stenosis with neurogenic claudication M48.062
--- NOTE | 2022-04-29 06:24 | USCV_ITS ---
Narcisa Valle Age: 76 Gender: F : 1945 Exam Date: 04/29/2022 06:50 Ordering Phys: Adam Prasad MD Technologist: Star Mast [place] [facility] [place]: chest pain BP: 139 / 74 HR: 62 Rhythm: Sinus Technical Quality: Adequate MEASUREMENTS (Male / Female) Normal Values 2D ECHO LV Diastolic Diameter PLAX 3.3 cm 4.2 - 5.9 / 3.9 - 5.3 cm LV Systolic Diameter PLAX 2.3 cm IVS Diastolic Thickness 1.0 cm 0.6 - 1.0 / 0.6 - 0.9 cm IVS Systolic Thickness 1.5 cm LVPW Diastolic Thickness 0.9 cm 0.6 - 1.0 / 0.6 - 0.9 cm LVPW Systolic Thickness 1.2 cm LVOT Diameter 2.0 cm LV Ejection Fraction 2D Teich 56.5 % LV Ejection Fraction MOD 2C 71.0 % LV Ejection Fraction 2C AL 70.8 % LA Diameter 3.6 cm Aorta at Sinotubular Diameter 2.0 cm IVC Diameter 1.7 cm M-MODE Aortic Annulus Diameter 2.9 cm LA Ao Ratio MM 1.4 MV E Point Septal Separation 0.8 cm DOPPLER AV Peak Velocity 147.0 cm/s LVOT Peak Velocity 140.0 cm/s AV Area Cont Eq vti 2.8 cm squared AV Area Cont Eq pk 3.0 cm squared MV Area PHT 5.0 cm squared Mitral E to A Ratio 1.0 MV E' Velocity 55.5 cm/s Mitral E to MV E' Ratio 12.3 Mitral E to LV E' Lateral Ratio 12.9 Mitral E to LV E' Septal Ratio 11.7 TR Peak Velocity 131.0 cm/s TR Peak Gradient 6.9 mmHg TV Peak E Velocity 77.0 cm/s Right Atrial Pressure 3.0 mmHg Pulmonary Artery Systolic Pressu 9.9 mmHg PV Peak Velocity 115.0 cm/s FINDINGS Left Ventricle Normal left ventricular size, systolic function and wall thickness, with no regional wall motion abnormalities. Left ventricular ejection fraction is estimated at 60 %. Grade I/IV diastolic dysfunction (abnormal relaxation filling pattern), normal to mildly elevated filling pressures. Right Ventricle Normal right ventricular size and systolic function. Right Atrium The right atrium is normal in size. Left Atrium The left atrium is normal in size. Mitral Valve Structurally normal mitral valve without significant stenosis or prolapse. There is no mitral regurgitation. Aortic Valve Structurally normal aortic valve without significant sclerosis or stenosis. There is no aortic regurgitation. Tricuspid Valve Structurally normal tricuspid valve without significant stenosis or regurgitation. Pulmonary artery systolic pressure is normal. Pulmonic Valve Pulmonic valve not well visualized. Pericardium Normal pericardium without effusion. Aorta Normal ascending aorta dimension. IVC The inferior vena cava appears normal. CONCLUSIONS Normal left ventricular size, systolic function and wall thickness, with no regional wall motion abnormalities. Left ventricular ejection fraction is estimated at 60 %. Grade I/IV diastolic dysfunction (abnormal relaxation filling pattern), normal to mildly elevated filling pressures. No significant change since the prior echocardiogram study of 12/08/20 Dr. Maurice Ventura MD (Electronically Signed) Final Date: 29 April 2022 07:40 S
[2022-04-29] MEDS: sodium chloride 0.9% 1,000 ML 75 ML IV ×2 (06:48→21:05)
[2022-04-29] MEDS: LORazepam 0.5 mg Tablet PO (06:48)
[2022-04-29 06:49] LABS: Troponin 5 2HR 10.93 ng/L (0-10)
[2022-04-29 06:53] LABS: Troponin 5 2HR Delta -0.07 ABS# (0-10)
--- NOTE | 2022-04-29 08:02 | PC.NURSE ---
HR dropped to the 30s, became very nauseous and lethargic. HR improved without intervention and patient improved
[2022-04-29] MEDS: sennosides-docusate Tablet 1 TAB PO (08:21)
[2022-04-29] MEDS: ondansetron 2 mg/ML SDV 2 mL 4 MG IVP (08:21)
[2022-04-29] MEDS: pantoprazole DR 40 mg Tablet PO (08:21)
--- NOTE | 2022-04-29 08:59 | PC.PHAR ---
pts daughter rafa madrigal [phone] verified pts medications-states on 04/17/22 they dced the amitriptyline-notes are made in the pharmacy comments
--- NOTE | 2022-04-29 09:35 | PM.CONSULT ---
Providers/Reason For Consult Consulting Physician/Specialty*: Dr. Holland, Cardiology Reason for Consult*: Bradycardia. evaluation for PPM Attending Physician: Radha Lopez MD Primary Care Provider: eTss Breen DO History of Present Illness History of Present Illness Narcisa Valle is a 76 year old female with h/o vasovagal syncope, h/o chronic bradycardia, Shakeel's thyroiditis, laryngal pharyngeal reflux found on flexible laryngoscopy, GERD, ?h/o esophageal narrowing on prior EGD per patient and recurrent bouts of prolonged coughing and anxiety/depression and dementia. She was evaluated by Dr. Blankenship for bradycardia and wore monitor in 07/2021 that did not reveal any pauses. HR 38-120 and avg HR 57 bpm. She has had recurrent vasovagal syncope over past several years in different situations and places. Patient's daughter is at bedside today at the time of evaluation. For last 2 weeks, she has been experiencing chest discomfort retrosternal 4/10 described as pressure like without radiation, fatigue, exertional SOB and generalized weakness and near syncopal episodes. No traumas. She was at [facility] ER about 10 days back with similar symptoms and CT head and MRI brain did not show any acute infarcts. She lives in the basement of her daughter's home, daughter stating that now she is not able to take stairs and, up stairs without getting short of breath.? Yesterday midnight, she started experiencing chest discomfort when she called her daughter who called 911. Lowest heart rate at home has been in mid 30s. Heart rate in ICU has been between 50s - 70s and occasionally dipping in 30's. Episode of near syncope last night and nausea and vomiting this morning with no correlating bradyarrhythmias. Baseline troponin T 11-->10.9-->10. Normal TSH, UA negative. EKG showed sinus bradycardia with PAC's with no significant ST-T wave changes. Review of Systems Const: Reports: fatigue Eyes: Denies: change in vision ENMT: Denies: throat pain Card: Reports: chest pain, lightheadedness, pre-syncope and dyspnea on exertion; Denies: irregular heart rhythm, edema, swelling of feet/ankles, syncope or orthopnea Resp: Reports: dyspnea; Denies: productive cough, non-productive cough or wheezing GI: Denies: abdominal pain, hematochezia or melena : Denies: flank pain or hematuria Musc: Denies: neck pain Skin/Breast: Denies: rash Neuro: Denies: headache(s) Psych: Reports: anxiety and depression Endo: Denies: polyuria Zbigniew/Lymph: Denies: easy bruising, easy bleeding, petechiae or purpura All/Imm: Denies: urticaria Medications/Allergies Home Medications Medication Instructions Recorded Confirmed Last Taken Type lorazepam 0.5 mg tablet 0.5 mg PO DAILY PRN Anxiety 12/08/20 04/29/22 12/07/20 History methotrexate sodium 2.5 mg tablet See Rx Instructions .Route .COMPLEX 07/08/21 04/29/22 Unknown History eszopiclone 2 mg tablet (Lunesta) 2 mg PO BEDTIME 09/04/21 04/29/22 Unknown History fluticasone propionate 50 2 spray intranasal DAILY 6 months 04/13/22 04/29/22 Unknown Rx mcg/actuation nasal #16 grams spray,suspension acetaminophen 500 mg tablet 500 - 1,000 mg PO .UP TO TWICE A 04/29/22 04/29/22 Unknown History DAY calcium carbonate 200 mg calcium 400 mg PO BEDTIME 04/29/22 04/29/22 Unknown History (500 mg) chewable tablet (Tums) cholecalciferol (vitamin D3) 1,250 50,000 unit PO Q7D 04/29/22 04/29/22 Unknown History mcg (50,000 unit) tablet citalopram 20 mg tablet 20 mg PO BEDTIME 04/29/22 04/29/22 Unknown History cyanocobalamin (vitamin B-12) 1,000 mcg PO QAM 04/29/22 04/29/22 Unknown History 1,000 mcg tablet (Vitamin B-12) donepezil 10 mg tablet (Aricept) 10 mg PO QAM 04/29/22 04/29/22 Unknown History omeprazole 20 mg capsule,delayed 20 mg PO QAM 04/29/22 04/29/22 Unknown History release pantoprazole 40 mg tablet,delayed 40 mg PO DAILY PRN Acid Reflux 04/29/22 04/29/22 Unknown History release tacrolimus 0.03 % topical ointment See Rx Instructions .Route .COMPLEX 04/29/22 04/29/22 Unknown History Allergies Allergy/AdvReac Type Severity Reaction Status Date / Time codeine Allergy Intermediate ALGY-Rash Verified 04/29/22 08:38 amitriptyline Allergy Unknown Verified 04/29/22 08:58 Current Medications Generic Name Dose Route Start Last Admin Trade Name Freq PRN Reason Stop Dose Admin Sodium Chloride 1,000 mls @ 75 mls/hr 04/29/22 06:30 04/29/22 06:48 Sodium Chloride 0.9% IV 75 mls/hr .[id number] ALAINA Administration Lorazepam 0.5 mg 04/29/22 06:31 04/29/22 06:48 Lorazepam 0.5 Mg Tablet PO 0.5 mg DAILY PRN Administration Anxiety Ondansetron HCl 4 mg 04/29/22 06:23 04/29/22 08:21 Ondansetron 2 Mg/Ml Sdv 2 Ml IVP 4 mg Q6H PRN Administration NAUSEA AND VOMITING Pantoprazole Sodium 40 mg 04/29/22 09:00 04/29/22 08:[address] 40 Mg Tablet PO 40 mg DAILY ALAINA Administration Senna/Docusate Sodium 1 tab 04/29/22 09:00 04/29/22 08:21 Sennosides-Docusate Tablet PO 1 tab DAILY ALAINA Administration PFSH Acute PFSH: Medical History (Updated 04/29/22 @ 19:42 by Heena Holland MD) Anxiety Bradycardia Chronic kidney disease by history Closed fracture of right hip Dementia Depression History of stress test (12/11/20) 1. Small size perfusion abnormality of mild severity of apical loredo with subtle reversibility in apical septal wall on stress images. 2. This may represent old myocardial infarction or scarring in left anterior descending artery territory with minimal uche-infarct ischemia. 3. Overall left ventricular systolic function is normal with apical hypokinesis 4. The left ventricular ejection fraction is normal with a value of 63%. Mesenteric cyst Surgical History History of laminectomy History of laparotomy History of reduction of closed fracture (~11/2020) Family History Father CAD (coronary artery disease) Alcoholism Mother CAD (coronary artery disease) Brother CAD (coronary artery disease) Social History Smoking and tobacco status: never smoked Alcohol intake: never Vitals/I&O/Wt Last Vital Signs Temp 97.7 F 04/29/22 05:43 Pulse 49 L 04/29/22 08:49 Resp 18 04/29/22 08:49 BP 159/80 04/29/22 05:43 Pulse Ox 100 04/29/22 08:49 O2 Del Method 04/29/22 08:49 O2 Flow Rate 2 04/29/22 08:49 Weight last 48 hrs Weight 146 lb 9.6 oz Weight 154 lb Physical Exam Narrative: Gen: elderly woman sitting in bed, NAD HEENT: EOMI, No pallor or icterus RS: CTAB/L, No wheezes or rales CVS: S1, S2 regular, No murmur, rub or gallop PA: soft, NTND, BS2+ ALLIANCE CONSULTANT: AAOx3, No FND Ext: No edema, cyanosis or clubbing Data : 04/29/22 04:05 04/29/22 04:05 Other data: Lexiscan sestamibi Stress test (12/11/20) 1. Small size perfusion abnormality of mild severity of apical loredo with subtle reversibility in apical septal wall on stress images. 2.? This may represent old myocardial infarction or scarring in left anterior descending artery territory with minimal uche-infarct ischemia. 3. Overall left ventricular systolic function is normal with apical hypokinesis 4. The left ventricular ejection fraction is normal with a value of 63%. TTE (04/28/22) CONCLUSIONS ?Normal left ventricular size, systolic function and wall ?thickness, with no regional wall motion abnormalities. Left ?ventricular ejection fraction is estimated at 60 %. Grade I/IV ?diastolic dysfunction (abnormal relaxation filling pattern), ?normal to mildly elevated filling pressures. ?No significant change since the prior echocardiogram study of ?12/08/20 CT head (04/28/22) IMPRESSION: 1. No acute intracranial hemorrhage identified. 2. No large territorial infarcts. 3. Focal area of hypoattenuation in the anterior limb of the right internal capsule concerning for possible focal infarct versus chronic microvascular ischemic disease. Recommend MRI for further evaluation. A&P Assessment and plan (1) Dizziness: Orthostatic negative. Status: Acute (2) Bradycardia: Lowest HR is 30's. No pauses since arrival or on last monitor. Will plan for exercise sestamibi stress test to assess for chronotropic incompetence and CAD. Further recommendations, based on further testing and clinical progression. Status: Acute (3) Chest pressure: Status: Acute (4) Chronic GERD: Status: Acute (5) Lumbar stenosis with neurogenic claudication: Status: Acute (6) Chronic cough: Status: Acute (7) Dementia: Status: Acute Consult Attestations Time Spent in Patient Care: Greater than 35 minutes Coding Level of Care Code Acute [facility] Fwd Diagnoses Dizziness R42 Bradycardia R00.1 Chest pressure R07.89 Chronic GERD K21.9 Lumbar stenosis with neurogenic claudication M48.062 Chronic cough R05.3 Dementia F03.90
[2022-04-29 10:45] LABS: Troponin 5 6HR 10.12 ng/L (0-10)
[2022-04-29 10:50] LABS: Troponin 5 6HR Delta -0.88 ng/L (0-12)
--- NOTE | 2022-04-29 11:05 | ECG_ITS ---
[facility] Test Date: 2022-04-29 Pat Name: Narcisa Valle Department: Room: ICU09 Gender: Female Business Consult: : 1945 Requested By: Lyndsay Neely Order Number: [id number] Kemal MD: Heena Holland M.D. Measurements Intervals [place] Rate: 52 P: MS: QRS: 62 QRSD: 89 T: 48 QT: 494 QTc: 463 Interpretive Statements SINUS BRADYCARDIA WITH FREQUENT ECTOPIC ATRIAL BEATS POSSIBLE RIGHT VENTRICULAR CONDUCTION DELAY [RSR (QR) IN V1/V2] PROLONGED QT INTERVAL Compared to ECG 04/29/2022 05:38:07 Sinus rhythm no longer present Electronically Signed On 04-29-2022 16:29:28 CDT by Heena Holland M.D. [id number]
--- NOTE | 2022-04-29 11:16 | ECG_ITS ---
[facility] Test Date: 2022-04-30 Pat Name: Narcisa Valle Department: Room: ICU09 Gender: Female Osd Clerk: : 1945 Requested By: Heena Holland Order Number: [id number] Kemal MD: Heena Holland M.D. Interpretive Statements NAME OF STUDY: LEXISCAN SESTAMIBI STRESS TEST INDICATION: Chest Pressure PROCEDURE: At the baseline, the blood pressure was 100/59 mmHg with a heart rate of 41 bpm and oxygen saturation 93%. The electrocardiogram showed sinus bradycardia at 41 bpm, normal axis with normal ST and T's. The Lexiscan was infused over a period of 20 seconds. A total of 0.4 milligrams of Lexiscan was infused. The stress phase was continued for a total of 5 minutes. Heart rate at the end of the stress phase was 63 bpm, oxygen saturation 98% with a blood pressure of 96/45 mmHg. The EKG at the peak infusion revealed sinus rhythm with no significant ST-T wave changes. The study was terminated due to protocol completion. Intermittent frequent junctional/low atrial beats noted during Lexiscan infusion. Sestamibi was injected 20 seconds after the Lexiscan infusion. Blood pressure at the end of the recovery phase was 118/58 mmHg, oxygen saturation 98% with a heart rate of 54 beats per minute. CONCLUSION: 1. No significant EKG changes with the LexiScan infusion. 2. No LexiScan induced chest pain or cardiac arrhythmia. 3. Normal blood pressure and heart rate response. Heart rate ranged from 41- 79 bpm with frequent junctional/low atrial beats. 4. Sestamibi/sestamibi perfusion scan pending; see separate report. Electronically Signed On 04-30-2022 18:10:16 CDT by Heena Holland M.D. [id number]
--- NOTE | 2022-04-29 13:23 | PC.CHAP ---
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 stove bottom worker visit [] Patient/Family/Request visit [] Outpatient visit [] Follow-up visit [] Physician referral [] Code/Alert [x] Routine visit [] Staff referral [] Actively dying [] Patient sleeping [] Family support [] [] Out of room [] Palliative care [] [] Receiving care in room [] Pre-surgical visit [] Trauma [] Long length of stay [x] ICU visit [] Other: Relational/Emotional Strength [] Patient feels connected with others/family/visitors/staff [] Distress [] Loneliness/isolation [] Abandonment Spirituality of Patient [] Person of Unique [] Attends Mu-Ism of their Unique [] Believes in Prayer [] Reads Bible or Christianity materials [] There are Spiritual issues to be addressed Dental Internship Interventions [x] Prayer [] Active listening [] Non-anxious presence [] Spiritual/emotional support [] Crisis/trauma care [] Spiritual counseling [] Bereavement support [] Provided bereavement packet [] Provided Bible/devotional materials [] Provided toy/stuffed animal, coloring book to patient or family member [] Provided Communion [] Anointing/[place] [] Salvation [x] Completed spiritual assessment [] Other: Impact on Illness or Injury [] Angry [] Fearful [] Anxious [] Often cries [] Exhaustion [] Unable to work [] Unable to attend roman catholic [] Unable to walk/stand [] Unable to read [] Unable to drive [] Unable to eat/drink [] Unable to sleep [] Unable to be with family [] Patient intubated [] Other: Summary Time spent with patient5 min
[2022-04-29] MEDS: acetaminophen 500 mg Tablet PO (18:11)
[2022-04-29] MEDS: morphine IR 15 mg Tablet PO (23:15)
[2022-04-30] VITALS (23 sets, daily range): BP systolic 118–166; BP diastolic 58–85; PULSE 40–67; RESP 13–23; TEMP 36.6–36.8; O2SAT 93–99
[2022-04-30 03:59] LABS: Basophils % 0.6 %; Eosinophils # 0.1 10^3/uL (0.0-0.8); Eosinophils % 1.8 %; Hematocrit 34.7 % (37.0-47.0); Hemoglobin 11.3 g/dL (11.5-15.3); Lymphocytes # 2.4 10^3/uL (0.8-4.8); Lymphocytes % 34.8 %; Mean Corpuscular HGB Conc 32.6 g/dL (30.0-36.0); Mean Corpuscular Hemoglobin 34.1 pg (28.0-34.0); Mean Corpuscular Volume 104.8 fl (81-99); Mean Platelet Volume 12.1 fL (7.4-10.4); Monocytes # 0.7 10^3/uL (0.2-0.9); Monocytes % 9.7 %; Nucleated Red Blood Cells % 0 %; Platelet Count 135 10^3/cmm (130-400); Red Blood Count 3.31 10^6/uL (4.1-5.3); Red Cell Distribution Width 14.1 % (12.1-15.1); White Blood Count 6.8 10^3/uL (4.0-10.0)
[2022-04-30 04:23] LABS: Anion Gap 8.3 (5-19); Blood Urea Nitrogen 20 mg/dL (8-23); Calcium 8.8 mg/dL (8.5-10.5); Carbon Dioxide 26 mmol/L (22-29); Chloride 105 mmol/L (98-107); Glucose 90 mg/dL (65-115); Osmolality Calculated 282 mOsm/kg (285-295); Potassium 4.3 mmol/L (3.5-5.1); Sodium 135 mmol/L (136-145)
--- NOTE | 2022-04-30 07:02 | PC.NURSE ---
patient off unit with Nuc Med
--- NOTE | 2022-04-30 07:47 | P.PN_ITS ---
Subjective Subjective: Patient had stress test today. Results are pending. She has not had any more symptoms. She feels well otherwise today. Daughter will be updated via phone on stress test results. Vitals/I&O/Wt Last Vital Signs Temp 98.1 F 04/30/22 04:00 Pulse 43 L 04/30/22 05:04 Resp 22 H 04/30/22 01:15 BP 133/65 04/30/22 01:15 Pulse Ox 93 04/30/22 01:15 O2 Del Method 04/29/22 08:49 O2 Flow Rate 2 04/29/22 08:49 04/29/22 04/30/22 04/30/22 22:59 06:59 14:59 Intake Total 1480 / 1780 260 / 2040 480 / 480 Balance 1480 / 1780 260 / 2040 480 / 480 Weight last 48 hrs Weight 66.497 kg Weight 69.853 kg Physical Exam Narrative: Gen: elderly woman laying in bed, NAD HEENT: EOMI RS: CTAB/L, No wheezes or rales CVS: S1, S2 regular, No murmur Abdomen: soft, NTND, BS2+ PRODUCT ACCOUNTANT: AAOx3, No FND Ext: No edema, cyanosis or clubbing Data : 04/30/22 03:47 04/30/22 03:47 A&P Assessment and plan (1) Lumbar stenosis with neurogenic claudication: Status: Acute (2) Bradycardia: Status: Acute (3) Dementia: Status: Acute (4) Chronic GERD: Status: Acute (5) Depression: Status: Chronic Qualifiers: Depression Type: unspecified Qualified Code(s): F32.9 - Major depressive disorder, single episode, unspecified Plan #Symptomatic bradycardia #Weakness #GERD #Chronic cough #Lumbar stenosis, chronic #History of lacunar infarct #History of Shakeel's thyroiditis #Dementia ? TSH normal. Troponin not significantly elevated. Delta Trope negative ? Stress test today. Further recommendations to be made by cardiology after results. ? Manage electrolytes ? Continue to monitor on telemetry ? Cardiology consult appreciated. ? Hold donepezil for now ? Continue citalopram, Protonix DVT prophylaxis: Heparin subcu Attestations Medical Necessity Statement*: Requires continued hospitalization for work-up and management of symptomatic bradycardia. Stress test results are pending. Coding Level of Care Code Acute Technical Proposal Writer for [facility] Fwd Diagnoses Lumbar stenosis with neurogenic claudication M48.062 Bradycardia R00.1 Dementia F03.90 Chronic GERD K21.9 Depression F32.9 Depression Type: unspecified
[2022-04-30] MEDS: regadenoson 0.4 Mg/5 ml Syringe IVP (07:55)
[2022-04-30] MEDS: morphine IR 15 mg Tablet PO (09:08)
[2022-04-30] MEDS: pantoprazole DR 40 mg Tablet PO (09:08)
--- NOTE | 2022-04-30 10:28 | PC.CHAP ---
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 chef saucier visit [] Patient/Family/Request visit [] Outpatient visit [] Follow-up visit [] Physician referral [] Code/Alert [x] Routine visit [] Staff referral [] Actively dying [] Patient sleeping [x] Family support [] [] Out of room [] Palliative care [] [] Receiving care in room [] Pre-surgical visit [] Trauma [] Long length of stay [x] ICU visit [] Other: Relational/Emotional Strength [] Patient feels connected with others/family/visitors/staff [] Distress [] Loneliness/isolation [] Abandonment Spirituality of Patient [] Person of Unique [] Attends Catholic of their Unique [] Believes in Prayer [] Reads Bible or Nondenominational materials [] There are Spiritual issues to be addressed Seedling Sorter Interventions [x] Prayer [] Active listening [] Non-anxious presence [] Spiritual/emotional support [] Crisis/trauma care [] Spiritual counseling [] Bereavement support [] Provided bereavement packet [] Provided Bible/devotional materials [] Provided toy/stuffed animal, coloring book to patient or family member [] Provided Communion [] Anointing/[place] [] Salvation [x] Completed spiritual assessment [] Other: Impact on Illness or Injury [] Angry [] Fearful [] Anxious [] Often cries [] Exhaustion [] Unable to work [] Unable to attend spiritism [] Unable to walk/stand [] Unable to read [] Unable to drive [] Unable to eat/drink [] Unable to sleep [] Unable to be with family [] Patient intubated [] Other: Summary Time spent with patient
--- NOTE | 2022-04-30 11:16 | NMCV_ITS ---
NM brien perf SPECT r/s* [id number] Narcisa Valle Age: 76 Gender: F : 1945 Exam Date: 04/30/2022 06:50 Ordering Phys: Heena Holland MD ([email or web address]) Technologist: JAMIE Ng Exam Location: [facility] Indications: CHEST PAIN STRESS TEST Please see separate stress test report in [facility] for full findings IMAGE PROTOCOL Rest/Stress 1 Lexiscan Day Radiopharmaceutical Dose (mCi) Administration Site Administered by Rest: Tc-99m 10.7 IV JAIME Singh Sestamibi Stress:Tc-99m 32.8 IV JAMIE Singh Sestamibi Rest: 30-Apr-2022 60 Discovery 630 Stress: 30-Apr-2022 30 Discovery 630 0.4mg Lexiscan. Supine position only as patient was unable to lay prone. SPECT RESULTS Technical Quality: Excellent Raw Data Analysis: Breast attenuation artifact Image Corrections: No attenuation or motion correction applied Summed Stress Score: 1 Summed Rest Score: 0 Summed Difference Score: 1 PERFUSION FINDINGS SPECT images demonstrate homogeneous tracer distribution throughout the myocardium. FUNCTIONAL RESULTS (calculated via Gated SPECT) Stress Image LV EF (%): 84 Stress EDV (mL):77 TID: 1.07 Stress ESV (mL):12 FUNCTIONAL FINDINGS: The left ventricle is normal in size. Transient Ischemia Dilatation of 1.1. The left ventricular ejection fraction is normal with a value of 84%. There is hyperdynamic left ventricular wall thickening. IMPRESSIONS 1. Myocardial perfusion imaging is normal. Breast attenuation artifact noted. 2. Overall left ventricular systolic function is normal without regional wall motion abnormalities, LVEF=84%. 3. EKG portion of the study will be reported separately. Heena Holland MD (Electronically Signed) Final Date: 30 April 2022 13:00 S
[2022-04-30] MEDS: heparin 5,000 unit/mL INJ 1 mL 5000 UNIT SUBCUT (12:54)
--- NOTE | 2022-04-30 13:02 | PM.PN ---
Subjective Subjective: Patient underwent stress test this morning. She stated she got tired while she was getting resting pictures and hence she could not walk for the stress test. Lowest HR noted was 38-39 bpm. No pauses noted. intermittent junctional beats. BP stable Medications: Reviewed: Yes Vitals/I&O/Wt Last Vital Signs Temp 98.1 F 04/30/22 04:00 Pulse 54 L 04/30/22 08:05 Resp 20 H 04/30/22 09:08 BP 118/85 04/30/22 08:05 Pulse Ox 99 04/30/22 09:08 O2 Del Method 04/29/22 08:49 O2 Flow Rate 2 04/29/22 08:49 04/29/22 04/30/22 04/30/22 22:59 06:59 14:59 Intake Total 1480 / 1780 260 / 2040 480 / 480 Balance 1480 / 1780 260 / 2040 480 / 480 Weight last 48 hrs Weight 146 lb 9.6 oz Weight 154 lb Physical Exam Narrative: Gen: elderly woman sitting in bed, NAD HEENT: EOMI, No pallor or icterus RS: CTAB/L, No wheezes or rales CVS: S1, S2 regular, No murmur, rub or gallop PA: soft, NTND, BS2+ CARDIAC EXERCISE PHYSIOLOGIST: AAOx3, No FND Ext: No edema, cyanosis or clubbing Data : 04/30/22 03:47 05/01/22 03:13 A&P Assessment and plan (1) Dizziness: Orthostatic negative. Unclear etiology. I am not seeing a clear cut correlation between bradycardia and symptoms at this time. Sometime HR in 40's and she is asymptomatic and on another occasion she states she is feeling dizzy. Status: Acute (2) Bradycardia: Lowest HR is high 30's. No pauses since arrival or on last monitor. No ischemia on sestamibi stress test. Did not exercise to assess for chronotropic incompetence. I discussed with her that she does not qualify for PPM at this time. I will discharge her on 30 day event monitor. She is agreeable with the plan. -Follow up with me in 6-8 weeks Status: Acute (3) Chest pressure: None today normal stress test Status: Acute (4) Chronic GERD: Status: Acute (5) Lumbar stenosis with neurogenic claudication: Status: Acute (6) Chronic cough: More so after eating per patient. she is being evaluated by ENT Status: Acute (7) Dementia: Status: Acute Attestations Medical Necessity Statement*: As per primary team Coding Level of Care Code Acute Personal Care Aid for [place] Fwd Diagnoses Dizziness R42 Bradycardia R00.1 Chest pressure R07.89 Chronic GERD K21.9 Lumbar stenosis with neurogenic claudication M48.062 Chronic cough R05.3 Dementia F03.90
[2022-04-30] MEDS: sodium chloride 0.9% 1,000 ML 75 ML IV (22:11)
[2022-04-30] MEDS: LORazepam 0.5 mg Tablet PO (22:11)
[2022-05-01] VITALS (12 sets, daily range): BP systolic 136–178; BP diastolic 59–84; PULSE 40–65; RESP 12–20; TEMP 36.6–36.7; O2SAT 92–98
[2022-05-01] MEDS: heparin 5,000 unit/mL INJ 1 mL 5000 UNIT SUBCUT (00:39)
[2022-05-01 03:44] LABS: Anion Gap 10.9 (5-19); Blood Urea Nitrogen 17 mg/dL (8-23); Calcium 8.7 mg/dL (8.5-10.5); Carbon Dioxide 26 mmol/L (22-29); Chloride 106 mmol/L (98-107); Glucose 87 mg/dL (65-115); Magnesium 1.8 mg/dL (1.7-2.3); Osmolality Calculated 289 mOsm/kg (285-295); Potassium 3.9 mmol/L (3.5-5.1); Sodium 139 mmol/L (136-145)
--- NOTE | 2022-05-01 08:16 | PM.DCS ---
Discharge Providers Date of Admission: 04/30/22 18:55 Date of Discharge: May 01, 2022 Attending Provider at Admission: Adam Prasad MD Attending Provider at Discharge: Radha Lopez MD Primary Care Provider: Tess Breen DO Diagnoses at Discharge Discharge Diagnosis (1) Dizziness: Status: Acute (2) Bradycardia: Status: Acute (3) Chest pressure: Status: Acute (4) Chronic GERD: Status: Acute (5) Lumbar stenosis with neurogenic claudication: Status: Acute (6) Chronic cough: Status: Acute (7) Dementia: Status: Acute Reason for Visit Reason for Visit: WEAKNESS Brief History: Narcisa Valle is a 76 year old female who was supposed to see Dr. Diamond on this Wednesday, was seeing Dr. Lange for bradycardia she has finished her Holter monitoring, she was not experiencing any symptoms with her bradycardia however in last few days she has been experiencing recurrent falls chest discomfort, fatigue, shortness of breath on exertion, generalized weakness.? She lives in the basement of her daughter's home, daughter stating that now she is not able to take stairs and, up stairs without getting short of breath.? She extremely fatigued and tired.? She is getting very anxious and get tremulous sometimes with anxiety.? Today around midnight she started experiencing chest discomfort along diaphoresis when she called her daughter who called 911 At that time her heart rate was in low 30s however in the ER her heart rate has been between 50s to low 60s blood pressure is stable she is very anxious, I had to give her 0.5 mg IV Ativan she is complaining of chest discomfort EKG showing sinus bradycardia, troponin not significantly elevated She will be monitored in ICU cardiology will be consulted ER physician spoke with Dr. Holland QTc 472 with bradycardia Hospital Course Hospital Course Patient was admitted for symptomatic bradycardia. She has not had any more symptoms during hospital stay. She was seen by cardiology in consultation. Patient had a stress test on which did not show any evidence of ischemia. Cardiology recommended to place an event monitor for her and to follow-up as an outpatient. All of this was communicated to the patient and her daughter and they demonstrate understanding. The manager general Dr. Holland also discussed all of the above with the daughter and they are okay with the plan moving forward. Patient will be discharged home in stable condition. 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 echo complete* [id number] Routine Ultrasound 04/29/22 06:24 Completed Radiology Impressions Chest X-Ray 04/29/22 04:04 IMPRESSION: No acute cardiopulmonary abnormality. Head CT 04/29/22 04:04 IMPRESSION: 1. No acute intracranial hemorrhage identified. 2. No large territorial infarcts. 3. Focal area of hypoattenuation in the anterior limb of the right internal capsule concerning for possible focal infarct versus chronic microvascular ischemic disease. Recommend MRI for further evaluation. ADDENDUM: 04/29/22 0509 THIS REPORT CONTAINS FINDINGS THAT MAY BE CRITICAL TO PATIENT CARE. The findings were verbally communicated via telephone conference with HOA Cooper at 5:07 AM CDT on 04/29/2022. The findings were acknowledged and understood. Laboratory Results WBC 6.8 10^3/uL (4.0-10.0) 04/30/22 03:47 RBC 3.31 10^6/uL (4.1-5.3) L 04/30/22 03:47 Hgb 11.3 g/dL (11.5-15.3) L 04/30/22 03:47 Hct 34.7 % (37.0-47.0) L 04/30/22 03:47 MCV 104.8 fl (81-99) H 04/30/22 03:47 MCH 34.1 pg (28.0-34.0) H 04/30/22 03:47 MCHC 32.6 g/dL (30.0-36.0) 04/30/22 03:47 RDW 14.1 % (12.1-15.1) 04/30/22 03:47 Plt Count 135 10^3/cmm (130-400) 04/30/22 03:47 MPV 12.1 fL (7.4-10.4) H 04/30/22 03:47 Neut % (Auto) 53.0 % 04/30/22 03:47 Lymph % (Auto) 34.8 % 04/30/22 03:47 [place] % (Auto) 9.7 % 04/30/22 03:47 Eos % (Auto) 1.8 % 04/30/22 03:47 Baso % (Auto) 0.6 % 04/30/22 03:47 Neut # (Auto) 3.60 10^3/uL (1.8-7.7) 04/30/22 03:47 Lymph # (Auto) 2.4 10^3/uL (0.8-4.8) 04/30/22 03:47 [place] # (Auto) 0.7 10^3/uL (0.2-0.9) 04/30/22 03:47 Eos # (Auto) 0.1 10^3/uL (0.0-0.8) 04/30/22 03:47 Baso # (Auto) 0.0 10^3/uL (0.0-0.1) 04/30/22 03:47 Nucleated RBC % (auto) 0 % 04/30/22 03:47 Nucleated RBCs # 0.0 /100WBC 04/30/22 03:47 PT 12.50 SECONDS (12.1-14.9) 04/29/22 04:05 INR 0.90 (0.8-1.2) 04/29/22 04:05 Sodium 139 mmol/L (136-145) 05/01/22 03:13 Potassium 3.9 mmol/L (3.5-5.1) 05/01/22 03:13 Chloride 106 mmol/L (98-107) 05/01/22 03:13 Carbon Dioxide 26 mmol/L (22-29) 05/01/22 03:13 Anion Gap 10.9 (5-19) 05/01/22 03:13 BUN 17 mg/dL (8-23) 05/01/22 03:13 Creatinine 0.8 mg/dL (0.5-0.9) 05/01/22 03:13 GFR Calculation Not Reportable 05/01/22 03:13 Glucose 87 mg/dL (65-115) 05/01/22 03:13 Calculated Osmolality 289 mOsm/kg (285-295) 05/01/22 03:13 Calcium 8.7 mg/dL (8.5-10.5) 05/01/22 03:13 Magnesium 1.8 mg/dL (1.7-2.3) 05/01/22 03:13 Total Bilirubin 0.4 mg/dL (0.15-1.2) 04/29/22 04:05 AST 20 U/L (0-32) 04/29/22 04:05 ALT 16 U/L (0-33) 04/29/22 04:05 Alkaline Phosphatase 72 U/L (35-105) 04/29/22 04:05 Troponin T Baseline 11 ng/L (0-10) H 04/29/22 04:05 Troponin T 120 Minute 10.93 ng/L (0-10) H 04/29/22 06:17 Delta Troponin T -0.07 ABS# (0-10) L 04/29/22 06:17 Troponin T Hi Sens 6Hr 10.12 ng/L (0-10) H 04/29/22 10:15 Troponin T Hi Sens 6Hr Delta -0.88 ng/L (0-12) L 04/29/22 10:15 Total Protein 5.8 g/dL (6.6-8.7) L 04/29/22 04:05 Albumin 3.6 g/dL (3.5-5.2) 04/29/22 04:05 Globulin 2.2 g/dL (1.3-4.6) 04/29/22 04:05 TSH 2.49 uIU/mL (0.27-4.20) 04/29/22 04:05 Urine Color Colorless (Yellow) 04/29/22 04:30 Urine Appearance Clear (CLEAR) 04/29/22 04:30 Urine pH 8 (5-7) H 04/29/22 04:30 Ur Specific [place] 1.015 (1.005-1.030) 04/29/22 04:30 Urine Protein Neg (Negative) 04/29/22 04:30 Urine Glucose (UA) Norm (Normal) 04/29/22 04:30 Urine Ketones Negative (Negative) 04/29/22 04:30 Urine Blood Trace (Negative) H 04/29/22 04:30 Urine Nitrate Negative (Negative) 04/29/22 04:30 Urine Bilirubin Neg (Negative) 04/29/22 04:30 Prot Sulfosalicylic Acd Negative (Negative) 04/29/22 04:30 Urine Urobilinogen Norm mg/dL (Negative) 04/29/22 04:30 Ur Leukocyte Esterase Negative (Negative) 04/29/22 04:30 Urine RBC 0-4 /hpf (0-2) H 04/29/22 04:30 Urine WBC None /hpf (0-5) 04/29/22 04:30 Ur Squamous Epith Cells 0-4 /hpf (0-5) H 04/29/22 04:30 Ur Transition Epith Cell None /hpf 04/29/22 04:30 Ur Renal Epithelial Cell N /hpf 04/29/22 04:30 Calcium Oxalate Crystal None /hpf 04/29/22 04:30 Amorphous Sediment Not Reportable 04/29/22 04:30 Urine Bacteria None /hpf (NONE) 04/29/22 04:30 Urine Mucus N /hpf 04/29/22 04:30 Vitals Last Vital Signs Temp 98.1 F 05/01/22 04:00 Pulse 40 L 05/01/22 07:00 Resp 15 05/01/22 07:00 BP 158/70 05/01/22 07:00 Pulse Ox 94 05/01/22 07:00 O2 Del Method 05/01/22 07:00 O2 Flow Rate 2 04/29/22 08:49 Discharge Plan Discharge Patient Disposition: Home Condition: Stable Prescriptions: Continued eszopiclone [Lunesta] 2 mg tablet 2 mg PO BEDTIME methotrexate sodium 2.5 mg tablet See Rx Instructions .ROUTE .COMPLEX Rx Instructions: 2.5 mg orally on mon,,wed and fluticasone propionate 50 mcg/actuation spray,suspension 2 spray intranasal DAILY 180 Days Qty: 16 5RF Rx Instructions: administer into each nostril lorazepam 0.5 mg tablet 0.5 mg PO DAILY PRN (Reason: Anxiety) omeprazole 20 mg capsule,delayed release(DR/EC) 20 mg PO QAM donepezil [Aricept] 10 mg Tablet 10 mg PO QAM Vitamin B-12 1,000 mcg Tablet 1,000 mcg PO QAM acetaminophen 500 mg Tablet 500 - 1,000 mg PO .UP TO TWICE A DAY citalopram 20 mg tablet 20 mg PO BEDTIME pantoprazole 40 mg tablet,delayed release (DR/EC) 40 mg PO DAILY PRN (Reason: Acid Reflux) tacrolimus 0.03 % ointment See Rx Instructions .ROUTE .COMPLEX Rx Instructions: apply thin layer topically prn Tums 200 mg calcium (500 mg) Tablet,Chewable 400 mg PO BEDTIME Discontinued cholecalciferol (vitamin D3) 1,250 mcg (50,000 unit) Tablet 50,000 unit PO Q7D Rx Instructions: on wed Discharge Orders: Discharge Order (Routine); Ordered 05/01/22 Ordered By: Radha Lopez Other Ambulatory Orders: MCT/Event Monitor 21 Days (Routine) Timeframe: 1 Day Facility: [facility] - Location: Radiology Ordered By: Radha Lopez Referrals: Alejandro Warren M.D [Physician] - (will schedule appointment when seen by Linda Thomas APN nurse after visit) Linda Thomas FNP [Nurse Practitioner] - 4-7 days (Linda Thomas APN nurse appointment date april time of 12:45 pm . ) Tess Breen DO [Primary Care Provider] - 4-7 days (appointment scheduled : date: May 05, 2022, time of 1:00 pm ) Discharge Diet: Cardiac Discharge Activity: Increase activity as tolerated Patient Instructions: Syncope (DC), Fall Prevention for Older Adults (DC), Bradycardia (DC), Near Syncope (DC), Fall Prevention (DC), Chest Pain Stoplight, Opioid Safety Activity Restrictions/Additional Instructions: Please wear your event monitor and follow up with cardiology as outpatient. Please follow up with your primary care doctor within 4-7 days of discharge. Please return to ER if worsening symptoms occur including but not limited to dizziness, fainting, lightheadedness, chest pain, shortness of breath. upon discharge you are to go to medical office building for placement of event monitor Discharge Attestations Time Spent in Discharge Care*: greater than 30 min Status at Discharge: Cognitive status at discharge: cognitively intact, Behavioral status at discharge: cooperative, Quality Metrics Clinical Quality Measures [ No reported AMI, CVA or VTE this stay] Coding Level of Care Code Acute Chg FW DC note Diagnoses Dizziness R42 Bradycardia R00.1 Chest pressure R07.89 Chronic GERD K21.9 Lumbar stenosis with neurogenic claudication M48.062 Chronic cough R05.3 Dementia F03.90
[2022-05-01] MEDS: pantoprazole DR 40 mg Tablet PO (09:39)
[2022-05-01] MEDS: sennosides-docusate Tablet 1 TAB PO (09:39)
--- NOTE | 2022-05-01 10:34 | PC.CHAP ---
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 spiritual care coordinator visit [] Patient/Family/Request visit [] Outpatient visit [] Follow-up visit [] Physician referral [] Code/Alert [x] Routine visit [] Staff referral [] Actively dying [] Patient sleeping [] Family support [] [] Out of room [] Palliative care [] [] Receiving care in room [] Pre-surgical visit [] Trauma [] Long length of stay [x] ICU visit [] Other: Relational/Emotional Strength [] Patient feels connected with others/family/visitors/staff [] Distress [] Loneliness/isolation [] Abandonment Spirituality of Patient [] Person of Unique [] Attends Quaker of their Unique [] Believes in Prayer [] Reads Bible or Sikh materials [] There are Spiritual issues to be addressed Consumer Services Advisor Interventions [x] Prayer [] Active listening [] Non-anxious presence [] Spiritual/emotional support [] Crisis/trauma care [] Spiritual counseling [] Bereavement support [] Provided bereavement packet [] Provided Bible/devotional materials [] Provided toy/stuffed animal, coloring book to patient or family member [] Provided Communion [] Anointing/[place] [] Salvation [x] Completed spiritual assessment [] Other: Impact on Illness or Injury [] Angry [] Fearful [] Anxious [] Often cries [] Exhaustion [] Unable to work [] Unable to attend yarsani [] Unable to walk/stand [] Unable to read [] Unable to drive [] Unable to eat/drink [] Unable to sleep [] Unable to be with family [] Patient intubated [] Other: Summary PT feeling much better excited about being discharged and going home Time spent with patient
--- NOTE | 2022-05-01 12:29 | PM.PN ---
Subjective Subjective: No complains. Lowest HR 35 sinus bradycardia in telemetry Patient feels well. Medications: Reviewed: Yes Vitals/I&O/Wt Last Vital Signs Temp 98.1 F 05/01/22 04:00 Pulse 46 L 05/01/22 10:00 Resp 20 H 05/01/22 10:00 BP 143/84 05/01/22 10:00 Pulse Ox 98 05/01/22 09:00 O2 Del Method 05/01/22 10:00 O2 Flow Rate 2 04/29/22 08:49 04/30/22 05/01/22 05/01/22 22:59 06:59 14:59 Intake Total 520 / 2000 750 / 2750 1000 / 1000 Output Total 120 / 120 150 / 270 Balance 400 / 1880 600 / 2480 1000 / 1000 Weight last 48 hrs Weight 154 lb Physical Exam Narrative: Gen: elderly woman laying in bed, NAD HEENT: EOMI RS: CTAB/L, No wheezes or rales CVS: S1, S2 regular, No murmur Abdomen: soft, NTND, BS2+ APPLICATION SECURITY ENGINEER: AAOx3, No FND Ext: No edema, cyanosis or clubbing Data : 04/30/22 03:47 05/01/22 03:13 A&P Assessment and plan (1) Dizziness: Orthostatic negative. Unclear etiology. I am not seeing a clear cut correlation between bradycardia and symptoms at this time. Sometime HR in 40's and she is asymptomatic and on another occasion she states she is feeling dizzy. Status: Acute (2) Bradycardia: Lowest HR is mid 30's. No pauses since arrival or on last monitor. No ischemia on sestamibi stress test. Did not exercise to assess for chronotropic incompetence. I discussed with her that she does not qualify for PPM at this time. I will discharge her on 30 day event monitor. She is agreeable with the plan. -Follow up with Dr. Arvizu in 6 weeks per patient's daughter wishes to discuss about PPM. Status: Acute (3) Chest pressure: None today normal stress test Status: Acute (4) Chronic GERD: Status: Acute (5) Lumbar stenosis with neurogenic claudication: Status: Acute (6) Chronic cough: More so after eating per patient. she is being evaluated by ENT Status: Acute (7) Dementia: Status: Acute Attestations Medical Necessity Statement*: As per primary team Coding Level of Care Code Acute Lmsw for Chg Fwd Diagnoses Dizziness R42 Bradycardia R00.1 Chest pressure R07.89 Chronic GERD K21.9 Lumbar stenosis with neurogenic claudication M48.062 Chronic cough R05.3 Dementia F03.90
== END 2022-05-01 10:51 | disposition home or self-care (01) | DRG 310 ==
LOC: ER 05:08 → ICU 05:48
PROVIDERS: Admitting Provider Internal Medicine; Emergency Provider Emergency Medicine; PCP Family Medicine; Visit Provider Internal Medicine
DX: R00.1 Bradycardia, unspecified (principal); R42 Dizziness and giddiness; R07.89 Other chest pain; K21.9 Gastro-esophageal reflux disease without esophagitis; F41.9 Anxiety disorder, unspecified; R53.1 Weakness; F03.90 Unspecified dementia, unspecified severity, without behavioral disturbance, psychotic disturbance, mood disturbance, and anxiety; R05.3 Chronic cough; M48.062 Spinal stenosis, lumbar region with neurogenic claudication
CPT/HCPCS: 36415; 70450; 71045; 78452; 80048; 80053; 81001; 83735; 84443; 84484; 85025; 85610; 93005; 93017; 93306; 96372; 96374; 99285; A9500; G0378; J0360; J1644; J2405; J2785; J7030

== ENCOUNTER 2022-05-07 12:34 | Emergency (ER) | payer MEDICARE, BC, SELFPAY ==
[2022-05-07] VITALS (7 sets, daily range): BP systolic 144–173; BP diastolic 70–92; PULSE 40–45; RESP 16–20; TEMP 36.6; O2SAT 98–99; BMI 29.0
--- NOTE | 2022-05-07 12:38 | ED_ITS ---
HPI - Chest Pain General: Chief Complaint: Chest Pain Stated Complaint: chest pain, weak Time Seen by Provider: 05/07/22 12:38 History of Present Illness: Ms. Valle is a 76-year-old lady with history of recent hospitalization for symptomatic bradycardia who presents to the emergency department due to chest pain and generalized fatigue. She reports onset of symptoms with exertion earlier today. She describes pressure in the middle of her chest with radiation to the back associated with profound fatigue. No other typical cardiac features. She does note approximately 1 year history of bradycardia and currently has a monitor for heart rate on. During previous hospitalization she had an ischemic work-up using stress test which was reportedly negative. She is supposed to follow-up later this month however symptoms have continued to be profound. Worse with exertion and activity however does not go with rest. At worst severe in intensity though does vary. No other specific changes in health, exacerbating, or alleviating factors identified. Onset (ago): hour(s) Timing of current episode: constant Prior episodes: Yes Onset: during exertion Pain location: substernal Severity: moderate Quality: heaviness Exacerbating factors: exertion Review of Systems General: Reports: 10 or more systems reviewed and unremarkable except in HPI and below PFSH ED PFSH: Medical History Anxiety Bradycardia Chronic kidney disease by history Closed fracture of right hip Dementia Depression History of stress test (12/11/20) 1. Small size perfusion abnormality of mild severity of apical loredo with subtle reversibility in apical septal wall on stress images. 2. This may represent old myocardial infarction or scarring in left anterior descending artery territory with minimal uche-infarct ischemia. 3. Overall left ventricular systolic function is normal with apical hypokinesis 4. The left ventricular ejection fraction is normal with a value of 63%. Mesenteric cyst Surgical History History of laminectomy History of laparotomy History of reduction of closed fracture (~11/2020) Family History Father CAD (coronary artery disease) Alcoholism Mother CAD (coronary artery disease) Brother CAD (coronary artery disease) Social History Smoking and tobacco status: never smoked Alcohol intake: never Physical Exam Const: COMMON NORMALS: alert GENERAL APPEARANCE: cooperative and well developed HENMT: COMMON NORMALS: normocephalic and atraumatic HEAD & SCALP: normocephalic and atraumatic Eye: COMMON NORMALS: conjunctivae normal CONJUNCTIVA: Yes conjunctivae normal SCLERA: sclerae normal Neck/C-Spine: COMMON NORMALS: supple GENERAL: Yes trachea midline Resp: COMMON NORMALS: normal respiratory effort and clear to auscultation bilaterally EFFORT & INSPECTION: Yes able to speak in complete sentences AUSCULTATION: clear to auscultation bilaterally Cardio: COMMON NORMALS: regular rhythm RATE: bradycardic RHYTHM: regular rhythm GI: COMMON NORMALS: Soft to palpation PALPATION: Yes Soft to palpation and No Tenderness to palpation present (GI) Extremity: GENERAL: Yes normal exam except as noted and No edema Neuro: COMMON NORMALS: moves all extremities SENSORIUM/ORIENTATION: Yes alert and No Orientation impaired Psych: COMMON NORMALS: mental status grossly normal and Normal thought process present THOUGHT PROCESS: Normal thought process present Course Vital Signs: Vital signs: Vital Signs Temperature 97.8 F 05/07/22 12:36 Pulse Rate 43 L 05/07/22 15:31 Respiratory Rate 18 05/07/22 15:31 Blood Pressure 172/85 05/07/22 15:31 Pulse Oximetry 98 05/07/22 15:31 Oxygen Delivery Dc thod 05/07/22 15:31 MDM - Chest Pain Medical Decision Making 76-year-old lady with 1 year history of bradycardia becoming increasingly sy mptomatic. Patient had recent hospitalization for associated chest discomfort with negative stress test. Plan for outpatient pacemaker at the end of this month however patient symptoms seem to be worsening inhibiting ADLs. EKG shows sinus bradycardia. Labs and chest x-ray personally interpreted by me. No clear additional etiology identified on ED evaluation. Blood pressure adequate with bradycardia in the 40s, sinus or junctional rhythm noted. No significant pauses or reported history of syncope. Discussed with Dr. Murray as Dr. Arvizu is out of town, plan to possibly move up pacemaker placement if possible. Discussed possible options for disposition with the patient including transfer which to the patient declined. She is comfortable with discharge. Strict return precautions given. Medical Records I reviewed the patient's medical records. Lab Data I reviewed the patient's lab results. : 05/07/22 13:05 05/07/22 13:05 Radiology Impressions Chest X-Ray 05/07/22 12:51 Impression: Atherosclerosis. Laboratory Results WBC 5.5 10^3/uL (4.0-10.0) 05/07/22 13:05 RBC 3.59 10^6/uL (4.1-5.3) L 05/07/22 13:05 Hgb 12.5 g/dL (11.5-15.3) 05/07/22 13:05 Hct 37.7 % (37.0-47.0) 05/07/22 13:05 MCV 105.0 fl (81-99) H 05/07/22 13:05 MCH 34.8 pg (28.0-34.0) H 05/07/22 13:05 MCHC 33.2 g/dL (30.0-36.0) 05/07/22 13:05 RDW 13.8 % (12.1-15.1) 05/07/22 13:05 Plt Count 167 10^3/cmm (130-400) 05/07/22 13:05 MPV 11.7 fL (7.4-10.4) H 05/07/22 13:05 Neut % (Auto) 53.8 % 05/07/22 13:05 Lymph % (Auto) 27.3 % 05/07/22 13:05 [place] % (Auto) 15.4 % 05/07/22 13:05 Eos % (Auto) 2.6 % 05/07/22 13:05 Baso % (Auto) 0.7 % 05/07/22 13:05 Neut # (Auto) 2.94 10^3/uL (1.8-7.7) 05/07/22 13:05 Lymph # (Auto) 1.5 10^3/uL (0.8-4.8) 05/07/22 13:05 [place] # (Auto) 0.8 10^3/uL (0.2-0.9) 05/07/22 13:05 Eos # (Auto) 0.1 10^3/uL (0.0-0.8) 05/07/22 13:05 Baso # (Auto) 0.0 10^3/uL (0.0-0.1) 05/07/22 13:05 Nucleated RBC % (auto) 0 % 05/07/22 13:05 Nucleated RBCs # 0.0 /100WBC 05/07/22 13:05 Sodium 136 mmol/L (136-145) 05/07/22 13:05 Potassium 4.2 mmol/L (3.5-5.1) 05/07/22 13:05 Chloride 102 mmol/L (98-107) 05/07/22 13:05 Carbon Dioxide 26 mmol/L (22-29) 05/07/22 13:05 Anion Gap 12.2 (5-19) 05/07/22 13:05 BUN 18 mg/dL (8-23) 05/07/22 13:05 Creatinine 1.0 mg/dL (0.5-0.9) H 05/07/22 13:05 GFR Calculation Not Reportable 05/07/22 13:05 Glucose 60 mg/dL (65-115) L 05/07/22 13:05 POC Glucose 124 mg/dL (70-110) H 05/07/22 15:02 Calculated Osmolality 282 mOsm/kg (285-295) L 05/07/22 13:05 Calcium 9.1 mg/dL (8.5-10.5) 05/07/22 13:05 Magnesium 2.0 mg/dL (1.7-2.3) 05/07/22 13:05 Total Bilirubin 0.4 mg/dL (0.15-1.2) 05/07/22 13:05 AST 20 U/L (0-32) 05/07/22 13:05 ALT 24 U/L (0-33) 05/07/22 13:05 Alkaline Phosphatase 83 U/L (35-105) 05/07/22 13:05 Troponin T Baseline 11 ng/L (0-10) H 05/07/22 13:05 Troponin T 120 Minute 10.28 ng/L (0-10) H 05/07/22 13:27 Delta Troponin T -0.72 ABS# (0-10) L 05/07/22 13:27 NT-Pro-B Natriuret Pep 208 pg/mL (0-450) 05/07/22 13:05 Total Protein 6.1 g/dL (6.6-8.7) L 05/07/22 13:05 Albumin 3.7 g/dL (3.5-5.2) 05/07/22 13:05 Globulin 2.4 g/dL (1.3-4.6) 05/07/22 13:05 TSH 0.65 uIU/mL (0.27-4.20) 05/07/22 13:05 Urine Color Yellow (Yellow) 05/07/22 13:20 Urine Appearance Clear (CLEAR) 05/07/22 13:20 Urine pH 6 (5-7) 05/07/22 13:20 Ur Specific [place] 1.005 (1.005-1.030) 05/07/22 13:20 Urine Protein Neg (Negative) 05/07/22 13:20 Urine Glucose (UA) Norm (Normal) 05/07/22 13:20 Urine Ketones Negative (Negative) 05/07/22 13:20 Urine Blood Neg (Negative) 05/07/22 13:20 Urine Nitrate Negative (Negative) 05/07/22 13:20 Urine Bilirubin Neg (Negative) 05/07/22 13:20 Urine Urobilinogen Norm mg/dL (Negative) 05/07/22 13:20 Ur Leukocyte Esterase Negative (Negative) 05/07/22 13:20 SARS-CoV-2 Ag (Rapid) Negative (Negative) 05/07/22 13:59 Discharge Plan Discharge Patient Disposition: Home Clinical Impression: Symptomatic sinus bradycardia, Chest pain Condition: Stable Prescriptions: No Action eszopiclone [Lunesta] 2 mg tablet 2 mg PO BEDTIME methotrexate sodium 2.5 mg tablet See Rx Instructions .ROUTE .COMPLEX Rx Instructions: 2.5 mg orally on wed,,wed and fluticasone propionate 50 mcg/actuation spray,suspension 2 spray intranasal DAILY 180 Days Qty: 16 5RF Rx Instructions: administer into each nostril lorazepam 0.5 mg tablet 0.5 mg PO DAILY PRN (Reason: Anxiety) omeprazole 20 mg capsule,delayed release(DR/EC) 20 mg PO QAM donepezil [Aricept] 10 mg Tablet 10 mg PO QAM cyanocobalamin (vitamin B-12) [Vitamin B-12] 1,000 mcg Tablet 1,000 mcg PO QAM acetaminophen 500 mg Tablet 500 - 1,000 mg PO Q12H PRN (Reason: Pain) citalopram 20 mg tablet 20 mg PO BEDTIME calcium carbonate [Tums] 200 mg calcium (500 mg) Tablet,Chewable 400 mg PO BEDTIME Super K 1 caplet PO DAILY tramadol 50 mg Tablet 50 mg PO Q6H PRN (Reason: Moderate Pain) Qty: 16 0RF sulfamethoxazole-trimethoprim 800-160 mg tablet 1 tab PO BID Qty: 6 0RF Discharge Orders: Discharge ED (Routine); Ordered 05/07/22 Ordered By: Rafy De La Fuente Referrals: Tess Breen DO [Primary Care Provider] - Discharge Diet: Usual diet Discharge Activity: Increase activity as tolerated Patient Instructions: Chest Pain (ED), Bradycardia (ED) Activity Restrictions/Additional Instructions: Thank you for visiting the emergency department. You were seen evaluated for chest pain with shortness of breath associated with slow heart rate. The exact cause of your symptoms is unclear though is likely related to slow heart rate. Given prior evaluation in combination with ED evaluation at this point, as discussed, I do not feel that hospitalization is needed. I discussed the case with Dr. Murray and you should be contacted either tomorrow or Wednesday hopefully regarding possibility of pacemaker placement next week. Please return to the emergency department for worsening symptoms, syncope, or anything else that you are concerned about and feel needs emergency department evaluation. Coding Level of Care Code ED Fibre Technologist for Darshan Perez Exam Comprehensive
--- NOTE | 2022-05-07 12:43 | ECG_ITS ---
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 Measurements Intervals [place] Rate: 43 P: 74 OR: 152 QRS: 39 QRSD: 87 T: 35 QT: 502 QTc: 426 Interpretive Statements SINUS BRADYCARDIA Compared to ECG 04/29/2022 11:05:11 Prolonged QT interval no longer present Electronically Signed On 05-08-2022 14:33:04 CDT by Alejandro Warren M.D. [email or web address] elyria medical [id number]
--- NOTE | 2022-05-07 12:51 | XR_ITS ---
WS: [id number] Portable AP upright chest, 05/07/2022 Clinical Data: cp Comparison: Portable chest, 04/29/2022. Findings: No nodules, masses or effusions are seen. The heart is normal. The pulmonary vascularity is not increased. No pneumonia or pneumothorax is seen. The aortic arch and descending thoracic aorta s how mild tortuosity. There are monitor leads over the chest wall. There is an electronic monitor over lying the left upper chest. XR/XR chest 1V portable [id number] Impression: Atherosclerosis.
[2022-05-07 13:15] LABS: Basophils % 0.7 %; Eosinophils # 0.1 10^3/uL (0.0-0.8); Eosinophils % 2.6 %; Hematocrit 37.7 % (37.0-47.0); Hemoglobin 12.5 g/dL (11.5-15.3); Lymphocytes # 1.5 10^3/uL (0.8-4.8); Lymphocytes % 27.3 %; Mean Corpuscular HGB Conc 33.2 g/dL (30.0-36.0); Mean Corpuscular Hemoglobin 34.8 pg (28.0-34.0); Mean Platelet Volume 11.7 fL (7.4-10.4); Monocytes # 0.8 10^3/uL (0.2-0.9); Monocytes % 15.4 %; Neutrophils # 2.94 10^3/uL (1.8-7.7); Neutrophils % 53.8 %; Nucleated Red Blood Cells % 0 %; Platelet Count 167 10^3/cmm (130-400); Red Blood Count 3.59 10^6/uL (4.1-5.3); Red Cell Distribution Width 13.8 % (12.1-15.1); White Blood Count 5.5 10^3/uL (4.0-10.0)
[2022-05-07 13:34] LABS: Add Urine Microscopic? NO; Charge for UA Resulting for Rev
[2022-05-07 13:38] LABS: Bilirubin Urine Neg (Negative); Blood Urine Neg (Negative); Glucose Urine UA Norm (Normal); Ketones Urine Negative (Negative); Leukocyte Esterase Urine Negative (Negative); Nitrate Urine Negative (Negative); Protein Urine Neg (Negative); Specific Gravity, Urine 1.005 (1.005-1.030); Urine Appearance Clear (CLEAR); Urine Color Yellow (Yellow); Urobilinogen Urine Norm (Negative); pH Urine 6 (5-7)
[2022-05-07 13:44] LABS: Troponin(5th) Baseline 11 ng/L (0-10)
[2022-05-07 13:52] LABS: Alanine Aminotransferase 24 U/L (0-33); Albumin Level 3.7 g/dL (3.5-5.2); Alkaline Phosphatase 83 U/L (35-105); Anion Gap 12.2 (5-19); Aspartate Amino Transferase 20 U/L (0-32); Blood Urea Nitrogen 18 mg/dL (8-23); Calcium 9.1 mg/dL (8.5-10.5); Carbon Dioxide 26 mmol/L (22-29); Chloride 102 mmol/L (98-107); Globulin 2.4 g/dL (1.3-4.6); Glucose 60 mg/dL (65-115); NT Pro B Type Natriuretic Pept 208 pg/mL (0-450); Osmolality Calculated 282 mOsm/kg (285-295); Potassium 4.2 mmol/L (3.5-5.1); Sodium 136 mmol/L (136-145); Thyroid Stimulating Hormone 0.65 uIU/mL (0.27-4.20); Total Bilirubin 0.4 mg/dL (0.15-1.2); Total Protein 6.1 g/dL (6.6-8.7)
--- NOTE | 2022-05-07 14:12 | PC.NURSE ---
Patient given apple juice for blood glucose will recheck
[2022-05-07 14:29] LABS: SARS Covid-2 Antigen Negative (Negative)
[2022-05-07 15:12] LABS: Glucose Point of Care 124 mg/dL (70-110)
[2022-05-07 16:05] LABS: Troponin 5 2HR 10.28 ng/L (0-10); Troponin 5 2HR Delta -0.72 ABS# (0-10)
== END 2022-05-07 16:08 | disposition home or self-care (01) ==
PROVIDERS: Emergency Provider Emergency Medicine; PCP Family Medicine
DX: R00.1 Bradycardia, unspecified (principal); R07.9 Chest pain, unspecified; Z20.822 Contact with and (suspected) exposure to COVID-19; F03.90 Unspecified dementia, unspecified severity, without behavioral disturbance, psychotic disturbance, mood disturbance, and anxiety
CPT/HCPCS: 36416; 71045; 80053; 81003; 82962; 83735; 83880; 84443; 84484; 85025; 87426; 93005; 99285

== ENCOUNTER 2022-05-18 20:42 | Observation (INO) | payer MEDICARE, BC, SELFPAY ==
[2022-05-15 14:44] VITALS: BMI 29.0
[2022-05-18] VITALS (23 sets, daily range): BP systolic 131–166; BP diastolic 62–105; PULSE 55–71; RESP 16–20; TEMP 36.3–36.9; O2SAT 95–100
--- NOTE | 2022-05-18 | SCC_ITS ---
Procedure done: Dual-chamber pacemaker implantation 335 seconds of fluoroscopic guidance, for a cumulative dose of 33.3 mGy, was provided to Dr. Murray by the radiology department. C-arm images of the chest were saved for the patient's permanent record. ROBERT
--- NOTE | 2022-05-18 10:32 | SC_ITS ---
WS: [id number] INTRAOPERATIVE TECHNIQUE: 2 Spot fluoroscopic images for intraoperative purposes. FLUOROSCOPY TIME: 335.0 seconds CLINICAL INFORMATION: Pacemaker implantation COMPARISON: None. FINDINGS: Fluoroscopy used for intraoperative 2 lead pacemaker placement. No visualized pneumothorax. SC/C-arm FL for Pacemaker IMPRESSION: Images obtained for intraoperative purposes.
[2022-05-18] MEDS: sodium chloride 0.9% 1,000 ML 30 ML IV (11:00)
--- NOTE | 2022-05-18 11:59 | ANES.PREANE2 ---
Pre-Anesthetic Assessment Height/Weight: Height 1.55 m Weight 69.853 kg Temp Pulse Resp BP Pulse Ox O2 Del Method 98.5 F 55 L 16 165/80 98 05/18/22 10:45 05/18/22 10:45 05/18/22 10:45 05/18/22 10:45 05/18/22 10:45 05/18/22 10:50 Preop Diagnosis: Sinus node dysfunction Operation Date: 05/18/22 12:00 Proposed Procedures p Pacemaker Insertion [id number],Rowan.1(Not Applicable) - Amilcar Murray MD Familial anesthetic complications: none Was Beta Giselle taken within 24 hours: N/A Was Clonidine taken within 24 hours: N/A Last intake: Intake Last Liquid Date 05/17/22 Last Liquid Time 19:30 Last Solid Date 05/17/22 Last Solid Time 19:30 Social No alcohol and No tobacco Exam alert, oriented x 3, clear to auscultation bilaterally and regular rate & rhythm Airway Mallampati: Class II Dentition: full CV/HEM Arrythmia Chronic Renal Insufficiency GI Gastroesophageal Reflux Disease Metabolic Thyroid Disease Anesthetic Plan ASA status: 4 Anesthesia: MAC Risk of > 500 ml blood loss (7ml/kg in children): No Medications/Allergies Home Medications Medication Instructions Recorded Confirmed Last Taken Type lorazepam 0.5 mg tablet 0.5 mg PO DAILY PRN Anxiety 12/08/20 05/18/22 1 Week Ago History ~05/11/22 methotrexate sodium 2.5 mg tablet See Rx Instructions .Route .COMPLEX 07/08/21 05/18/22 05/14/22 History eszopiclone 2 mg tablet (Lunesta) 2 mg PO BEDTIME 09/04/21 05/18/22 05/17/22 History fluticasone propionate 50 2 spray intranasal DAILY 6 months 04/13/22 05/18/22 1 Week Ago Rx mcg/actuation nasal #16 grams ~05/11/22 spray,suspension acetaminophen 500 mg tablet 500 - 1,000 mg PO Q12H PRN Pain 04/29/22 05/18/22 05/16/22 History calcium carbonate 200 mg calcium 400 mg PO BEDTIME 04/29/22 05/18/22 05/16/22 History (500 mg) chewable tablet (Tums) citalopram 20 mg tablet 20 mg PO BEDTIME 04/29/22 05/18/22 05/17/22 History cyanocobalamin (vitamin B-12) 1,000 mcg PO QAM 04/29/22 05/18/22 05/17/22 History 1,000 mcg tablet (Vitamin B-12) donepezil 10 mg tablet (Aricept) 10 mg PO QAM 04/29/22 05/18/22 05/17/22 History omeprazole 20 mg capsule,delayed 20 mg PO QAM 04/29/22 05/18/22 05/17/22 History release Super K 1 caplet PO DAILY 05/07/22 05/18/22 05/17/22 History Allergies Allergy/AdvReac Type Severity Reaction Status Date / Time codeine Allergy Intermediate ALGY-Rash Verified 05/18/22 10:43 amitriptyline Allergy Unknown Verified 05/18/22 10:43 Current Medications Generic Name Dose Route Start Last Admin Trade Name Freq PRN Reason Stop Dose Admin Sodium Chloride 1,000 mls @ 30 mls/hr 05/18/22 10:45 05/18/22 11:00 Sodium Chloride 0.9% IV 05/19/22 10:44 30 mls/hr .Q24H ALAINA Administration PFSH Anesthesia Medical History Anxiety Bradycardia Chronic kidney disease by history Closed fracture of right hip Dementia Depression History of stress test (12/11/20) 1. Small size perfusion abnormality of mild severity of apical loredo with subtle reversibility in apical septal wall on stress images. 2. This may represent old myocardial infarction or scarring in left anterior descending artery territory with minimal uche-infarct ischemia. 3. Overall left ventricular systolic function is normal with apical hypokinesis 4. The left ventricular ejection fraction is normal with a value of 63%. Mesenteric cyst Surgical History History of laminectomy History of laparotomy History of reduction of closed fracture (~11/2020) Family History Father CAD (coronary artery disease) Alcoholism Mother CAD (coronary artery disease) Brother CAD (coronary artery disease) Social History Smoking and tobacco status: never smoked Alcohol intake: never Data Anesthesia Cardiac Studies: Echocardiogram 04/29/22 Echocardiogram Ultrasound 12/08/20 Sestamibi Stress Test (Cardiology) 04/29/22 Cardiac Event Monitor 08/05/21
--- NOTE | 2022-05-18 12:18 | P.HP_ITS ---
Providers/Chief Complaint Admitting Physician: Dr. Murray Primary Care Provider: Tess Breen DO Chief Complaint: bradycardia History of Present Illness Narcisa Valle is a 76 year old female whom I been consulted to assist with pacemaker implantation due to what is felt to be progressively symptomatic bradycardia. She is originally been evaluated by Holter monitor and also kamilah luated by Dr. Holland. She was originally planned for consideration of pacemaker implantation by Dr. Arvizu, though he is currently out of [place]. Continued evaluations do not always correlate her symptoms with her bradycardic episodes though due to her age and what is felt to be progressive sinus node dysfunction, it is felt that dual-chamber pacemaker implantation is warranted. This was carefully discussed with Ms. Valle by Dr. Holland on her prior visit of May 12. I have again conferred with her and her daughter today and they are eager to proceed with pacemaker placement. Review of Systems Const: Reports: fatigue; Denies: fever(s) or chills Eyes: Denies: change in vision ENMT: Denies: throat pain or odynophagia Card: Reports: palpitations, edema and dyspnea on exertion; Denies: chest pain Resp: Denies: productive cough, non-productive cough or hemoptysis Musc: Reports: extremity swelling Neuro: Denies: headache(s), numbness in extremities or weakness in extremities Medications/Allergies Home Medications Medication Instructions Recorded Confirmed Last Taken Type lorazepam 0.5 mg tablet 0.5 mg PO DAILY PRN Anxiety 12/08/20 05/18/22 1 Week Ago History ~05/11/22 methotrexate sodium 2.5 mg tablet See Rx Instructions .Route .COMPLEX 07/08/21 05/18/22 05/14/22 History eszopiclone 2 mg tablet (Lunesta) 2 mg PO BEDTIME 09/04/21 05/18/22 05/17/22 History fluticasone propionate 50 2 spray intranasal DAILY 6 months 04/13/22 05/18/22 1 Week Ago Rx mcg/actuation nasal #16 grams ~05/11/22 spray,suspension acetaminophen 500 mg tablet 500 - 1,000 mg PO Q12H PRN Pain 04/29/22 05/18/22 05/16/22 History calcium carbonate 200 mg calcium 400 mg PO BEDTIME 04/29/22 05/18/22 05/16/22 History (500 mg) chewable tablet (Tums) citalopram 20 mg tablet 20 mg PO BEDTIME 04/29/22 05/18/22 05/17/22 History cyanocobalamin (vitamin B-12) 1,000 mcg PO QAM 04/29/22 05/18/22 05/17/22 History 1,000 mcg tablet (Vitamin B-12) donepezil 10 mg tablet (Aricept) 10 mg PO QAM 04/29/22 05/18/22 05/17/22 History omeprazole 20 mg capsule,delayed 20 mg PO QAM 04/29/22 05/18/22 05/17/22 History release Super K 1 caplet PO DAILY 05/07/22 05/18/22 05/17/22 History Allergies Allergy/AdvReac Type Severity Reaction Status Date / Time codeine Allergy Intermediate ALGY-Rash Verified 05/18/22 10:43 amitriptyline Allergy Unknown Verified 05/18/22 10:43 PFSH Acute PFSH: Medical History Anxiety Bradycardia Chronic kidney disease by history Closed fracture of right hip Dementia Depression History of stress test (12/11/20) 1. Small size perfusion abnormality of mild severity of apical loredo with subtle reversibility in apical septal wall on stress images. 2. This may represent old myocardial infarction or scarring in left anterior descending artery territory with minimal uche-infarct ischemia. 3. Overall left ventricular systolic function is normal with apical hypokinesis 4. The left ventricular ejection fraction is normal with a value of 63%. Mesenteric cyst Surgical History History of laminectomy History of laparotomy History of reduction of closed fracture (~11/2020) Family History Father CAD (coronary artery disease) Alcoholism Mother CAD (coronary artery disease) Brother CAD (coronary artery disease) Social History Smoking and tobacco status: never smoked Alcohol intake: never Vitals/I&O/Wt Last Vital Signs Temp 98.5 F 05/18/22 10:45 Pulse 55 L 05/18/22 10:45 Resp 16 05/18/22 10:45 BP 165/80 09/19/22 10:45 Pulse Ox 98 05/18/22 10:45 O2 Del Method 05/18/22 10:50 Physical Exam HENMT: COMMON NORMALS: normocephalic, atraumatic, hearing grossly normal bilaterally, external ears normal and Normal external nose present Eye: COMMON NORMALS: Equal, round and reactive pupils present and EOMs intact bilaterally Chest: COMMONS NORMALS: normal inspection of the chest and normal palpation of entire chest wall Resp: COMMON NORMALS: normal respiratory effort and clear to auscultation bilaterally Cardio: COMMON NORMALS: regular rhythm and S1 normal heart sound present RATE: bradycardic GI: COMMON NORMALS: Normal to inspection, nondistended, normoactive bowel sounds present Extremity: COMMON NORMALS: no clubbing, cyanosis or edema Neuro: COMMON NORMALS: patient oriented x3, moves all extremities, no focal motor deficits and no sensory deficits noted Psych: COMMON NORMALS: mental status grossly normal, Normal thought process present, cooperative and normal affect A&P Assessment and plan (1) Sinus node dysfunction: We will plan for dual-chamber pacemaker implantation. Rationale for this was carefully and frankly discussed with Ms. Valle and her daughter. All questions answered. Details and risks of the procedure were carefully and frankly discussed. Risks reviewed include the possibility of , stroke, heart attack, major bleeding, infection, pneumonia, pneumothorax requiring chest tube, migration of the leads requiring revision, infection to such a degree that it may require explantation of the entire system, organ failure, failure to benefit, prolonged hospital stay, pain after the procedure, need for further procedures, inability to complete the procedure, and possible need for long-term followup. All questions were answered. Appropriate consents have been provided for review and signature. We will plan for admission as outpatient in a bed. Status: Acute Attestations Medical Necessity Statement*: Sinus node dysfunction with progressively symptomatic bradycardia Coding Level of Care Code New Pt Acute Network Support Engineer for [facility] Patient Type New Diagnoses Sinus node dysfunction I49.5
[2022-05-18] MEDS: ceFAZolin 2,000 MG in sodium chloride 0.9% (plus) 50 ML 100 MG IV (12:20)
[2022-05-18] MEDS: ceFAZolin 1,000 mg SDV 1000 MG IRRIGATION (12:41)
[2022-05-18] MEDS: lidocaine 1% INJ 50 mL INJECTION (12:41)
--- NOTE | 2022-05-18 14:45 | PM.OP ---
Operative Report Date of procedure: May 18, 2022 Pre-op diagnosis: Preop Diagnosis Sinus node dysfunction Post-op diagnosis: same Procedure done: Dual-chamber pacemaker implantation Implants: 1. Pacing generator 2. Atrial and ventricular leads Pathology: none sent Surgeon: Amilcar Murray Complications: None: Post procedure chest x-ray pending Condition: stable Disposition: PACU Brief History: Ms. Valle is a 76-year-old female with progressive increasing fatigue and dyspnea with exertion and is found to be bradycardic with increasing intermittent symptoms. She is felt to have sinus node dysfunction and has been evaluated by Dr. Holland as well as been monitored with Holter. It is been recommended the dual-chamber pacemaker be implanted. Details of risk of the procedure were carefully and frankly discussed with Ms. Valle and her daughter. General conduct and postoperative course were also reviewed. All questions answered. Proper consents have been reviewed and signed. Procedure: Procedure: Ms. Valle was taken to the OR suite and placed in the supine position over a shoulder roll. She received conscious sedation with continuous anesthesia monitoring by. Her entire chest was sterilely prepped and draped. 1% lidocaine was infiltrated in the left subclavicular region. While in Trendelenburg position, utilizing modified seldinger technique, 2 guidewires were placed in the left subclavian vein. This was confirmed in position by fluoroscopy. Next, after infiltration with lidocaine, a subcutaneous pocket was created beginning from the exit point of the guidewire and extending laterally and inferiorly. Cautery was utilized to create the pocket just above the pectoralis musculature. Hemostasis was confirmed. An antibiotic-soaked sponge was placed in the wound. A dilator and tear-away sheath was placed over the first guidewire and advanced under fluoroscopy. Guidewire and dilator were removed. Next using a combination of curved and straight stylettes, the right ventricular lead was placed in position by fluoroscopy. The distal screw was extended. Interrogation was then performed confirming appropriate parameters. The tear-away sheath was then removed and the ventricular lead was sewn to the floor of the subcutaneous pocket. In a similar fashion dilator and tear-away sheath was placed over the 2nd guide wire and advanced under fluoroscopy. Guidewire and dilator were removed. Straight and curved stylettes were used to position the right atrial lead with fluoroscopy. Distal screw was extended. Interrogation was then performed. Tear-away sheath was then removed. Atrial lead was secured to the floor of the subcutaneous pocket. Pocket was irrigated with antibiotic solution and hemostasis again confirmed. Pacing generator was brought into the field, and after confirmation of hemostasis in the subcutaneous pocket, the leads were connected to the generator with appropriate capture. The entire system was interrogated by fluoroscopy. Leads and generator were secured in the pocket. Sponge and needle count was correct. The wound was then closed in 2 layers of 3-0 Vicryl suture. Skin was reapproximated in a subcuticular manner with 4-0 Monocryl suture. A pressure dressing was applied. The left arm was placed in a sling. The patient had equal breath sounds bilaterally. She was then transferred to the PACU, where chest x-ray is currently pending. I did camp head counselor with her daughter at the completion of the procedure. Following are the specifics of this system: Right ventricular lead is 52 cm and model 5076. Serial number [id number] Right atrial lead is 45 cm and is model 5076. Serial number [id number]. Ventricular lead had sensing of 8.6 mV with an impedance of 646 ohms. Threshold was 0.8 V Atrial lead had sensing of 1.3 mV with an impedance of 475 ohms. Threshold was 0.7 V. [employer] generator: Model # [id number] Serial # [id number]
--- NOTE | 2022-05-18 15:11 | ANE.PACU2 ---
Inpatient post-anesthesia follow up: Airway intact: Yes Vital signs: Temperature 98.4 F Pulse Rate 61 Respiratory Rate 18 Blood Pressure 166/81 Pulse Oximetry 98 Oxygen Delivery Me thod Room Air Oxygen Flow Rate Fraction of Inspir ed Oxygen Hydration adequate: Yes Nausea and vomiting: No Pain level: 1 Mental status: Baseline
--- NOTE | 2022-05-18 17:32 | SUR.EXTENDED ---
17:30 report to ALICE Waters PT TRANSPORTED TO 260. BEDSIDE REPORT GIVEN. PATIENT YURI CHEST PAIN OR DIZZINESS.A+O X 3. NO DYSPNEA.
--- NOTE | 2022-05-18 17:45 | XRR_ITS ---
PROCEDURE INFORMATION: Exam: XR Chest Exam date and time: 05/19/2022 6:57 AM Age: 76 years old Clinical indication: Device placement; Cardiac pacemaker placement or adjustment; Prior surgery; Surgery date: Post-operative (0-2 days); Surgery type: S/P pacemaker; Additional info: S/P pacemaker: Upon arrival to pacu TECHNIQUE: Imaging protocol: Radiologic exam of the chest. Views: 1 view. Total images: 1257 COMPARISON: CR XR chest 1V portable [id number] 05/07/2022 1:12 PM FINDINGS: Tubes, catheters and devices: A pacemaker device is present, its leads in appropriate position. No pneumothorax. Lungs: Unremarkable. No consolidation. Pleural spaces: See Tubes, catheters and devices finding. Heart/Mediastinum: Unremarkable. No cardiomegaly. Bones/joints: Unremarkable. XR/XR chest 1V portable [id number] IMPRESSION: 1. A pacemaker device is present, its leads in appropriate position. No pneumothorax. 2. No acute cardiopulmonary process.
[2022-05-18] MEDS: ceFAZolin 1,000 MG in sodium chloride 0.9% (plus) 50 ML 100 MG IV (19:19)
[2022-05-18] MEDS: TRAMadol 50 mg Tablet PO (19:32)
[2022-05-18] MEDS: citalopram 20 mg Tablet PO (21:23)
[2022-05-18] MEDS: calcium carbonate 500 mg Chew Tablet 400 MG PO (21:23)
[2022-05-19] VITALS: BP 145/72; PULSE 60; RESP 17; TEMP 36.4; O2SAT 96
[2022-05-19] MEDS: acetaminophen 500 mg Tablet PO (01:22)
[2022-05-19] MEDS: TRAMadol 50 mg Tablet PO (01:23)
[2022-05-19 02:01] LABS: Add Urine Microscopic? NO; Charge for UA Resulting for Rev
[2022-05-19 02:23] LABS: Bilirubin Urine Neg (Negative); Blood Urine Neg (Negative); Glucose Urine UA Norm (Normal); Ketones Urine Negative (Negative); Leukocyte Esterase Urine Negative (Negative); Nitrate Urine Negative (Negative); Protein Urine Neg (Negative); Urine Appearance Clear (CLEAR); Urine Color Yellow (Yellow); Urobilinogen Urine Norm (Negative); pH Urine 5 (5-7)
[2022-05-19] MEDS: ceFAZolin 1,000 MG in sodium chloride 0.9% (plus) 50 ML 100 MG IV ×2 (03:14→09:39)
[2022-05-19 04:00] VITALS: BP 148/75; PULSE 60; RESP 15; TEMP 36.4; O2SAT 97
[2022-05-19] MEDS: donepezil 5 MG Tablet 10 MG PO (05:34)
--- NOTE | 2022-05-19 06:40 | PM.DCS ---
Discharge Providers Date of Admission: 05/18/22 20:42 Date of Discharge: May 19, 2022 Attending Provider at Admission: Amilcar Murray MD Attending Provider at Discharge: Amilcar Murray MD Primary Care Provider: Tess Breen DO Diagnoses at Discharge Discharge Diagnosis (1) Sinus node dysfunction: Details from hospital stay: Ms. Valle is a 76-year-old female referred to our service by Dr. Mishra for pacemaker implantation after initial evaluation and Holter monitoring is suggestive of sinus node dysfunction. Patient's had increasing episodes of acute fatigue as well as dizziness. Dual-chamber pacemaker implantation was recommended. She was electively admitted as outpatient in a bed yesterday and underwent dual-chamber pacemaker implantation through a left subclavicular approach. Postoperatively, she has convalesced on the medical/surgical castillo where she has been doing well with minimal discomfort. Rhythm appears to be atrially paced at 61 bpm. Other than local incisional tenderness, she has no complaints. She will be discharged to home today in stable condition with scheduled follow-up in [facility] in 1 week. Discharge structures have been carefully reviewed with her. Status: Acute Reason for Visit Reason for Visit: bradycardia Physical Exam Const: COMMON NORMALS: patient oriented x3 Chest: COMMONS NORMALS: normal palpation of entire chest wall OTHER: Mild periincisional bruising on the left. No substantial swelling. No evidence for drainage. Surgical dressing was replaced. Resp: COMMON NORMALS: normal respiratory effort and clear to auscultation bilaterally AUSCULTATION: clear to auscultation bilaterally Cardio: COMMON NORMALS: regular rate, regular rhythm and S1 normal heart sound present RATE: regular rate RHYTHM: regular rhythm HEART SOUNDS: S1 normal heart sound present OTHER: Rhythm is paced atrially at 61 bpm GI: COMMON NORMALS: Normal to inspection, nondistended, normoactive bowel sounds present Extremity: COMMON NORMALS: no clubbing, cyanosis or edema Neuro: COMMON NORMALS: patient oriented x3, no focal motor deficits and no sensory deficits noted Discharge Data Studies Completed and Pending Pending at discharge Category Date Time Status CXRP [XR chest 1V portable [id number]] Routine Exams 05/18/22 17:45 Ordered Basic Metabolic Panel Routine Lab 05/18/22 10:32 Ordered Complete Blood Count w/Auto Routine Lab 05/18/22 10:32 Ordered Radiology Impressions C-Arm Fluoroscopy 05/18/22 10:32 IMPRESSION: Images obtained for intraoperative purposes. Laboratory Results Urine Color Yellow (Yellow) 05/19/22 01:30 Urine Appearance Clear (CLEAR) 05/19/22 01:30 Urine pH 5 (5-7) 05/19/22 01:30 Ur Specific [place] 1.020 (1.005-1.030) 05/19/22 01:30 Urine Protein Neg (Negative) 05/19/22 01:30 Urine Glucose (UA) Norm (Normal) 05/19/22 01:30 Urine Ketones Negative (Negative) 05/19/22 01:30 Urine Blood Neg (Negative) 05/19/22 01:30 Urine Nitrate Negative (Negative) 05/19/22 01:30 Urine Bilirubin Neg (Negative) 05/19/22 01:30 Urine Urobilinogen Norm mg/dL (Negative) 05/19/22 01:30 Ur Leukocyte Esterase Negative (Negative) 05/19/22 01:30 Procedures Performed Dual-chamber pacemaker implantation on May 18, 2022 Vitals Last Vital Signs Temp 97.6 F 05/19/22 04:00 Pulse 60 05/19/22 04:00 Resp 15 05/19/22 04:00 BP 148/75 05/19/22 04:00 Pulse Ox 97 05/19/22 04:00 O2 Del Method 05/18/22 20:13 Discharge Plan Discharge Patient Disposition: Home Condition: Stable Prescriptions: New tramadol 50 mg Tablet 50 mg PO Q6H PRN (Reason: Moderate Pain) Qty: 16 0RF sulfamethoxazole-trimethoprim 800-160 mg tablet 1 tab PO BID Qty: 6 0RF Continued eszopiclone [Lunesta] 2 mg tablet 2 mg PO BEDTIME methotrexate sodium 2.5 mg tablet See Rx Instructions .ROUTE .COMPLEX Rx Instructions: 2.5 mg orally on mon,,wed and th fluticasone propionate 50 mcg/actuation spray,suspension 2 spray intranasal DAILY 180 Days Qty: 16 5RF Rx Instructions: administer into each nostril lorazepam 0.5 mg tablet 0.5 mg PO DAILY PRN (Reason: Anxiety) omeprazole 20 mg capsule,delayed release(DR/EC) 20 mg PO QAM donepezil [Aricept] 10 mg Tablet 10 mg PO QAM cyanocobalamin (vitamin B-12) [Vitamin B-12] 1,000 mcg Tablet 1,000 mcg PO QAM acetaminophen 500 mg Tablet 500 - 1,000 mg PO Q12H PRN (Reason: Pain) citalopram 20 mg tablet 20 mg PO BEDTIME calcium carbonate [Tums] 200 mg calcium (500 mg) Tablet,Chewable 400 mg PO BEDTIME Super K 1 caplet PO DAILY Discharge Orders: Discharge Order (Routine); Ordered 05/19/22 Ordered By: Amilcar Murray Referrals: [facility] [Provider Group] - 1 week (Pacemaker Clinic) Discharge Diet: Usual diet Discharge Activity: Limit activity as instructed Patient Instructions: Opioid Safety Activity Restrictions/Additional Instructions: May remove bandage in 2 days May begin daily showers in 3 days No swimming or tub baths x 2 weeks No ointments on incision Do not raise left hand above eye level for 1 week No lifting or pulling more than 5 pounds with left arm x1 week May expect some bruising along incision for 2 - 3 weeks. Take antibiotics as prescribed until completed Glue over incision will slowly separate in the next 1 to 2 weeks Report drainage, redness, heat, increased pain, or swelling to clinic Discharge Attestations Time Spent in Discharge Care*: less than 30 min Specific Discharge Activities: educating patient, discussing with manager of case management/social workers/dc planners, documenting/other paperwork and evaluating patient/reviewing data Status at Discharge: Cognitive status at discharge: cognitively intact, Behavioral status at discharge: cooperative, Functional status at discharge: independent ambulation, Overall status at discharge: patient is back to baseline Quality Metrics Clinical Quality Measures [ No reported AMI, CVA or VTE this stay] Coding Level of Care Code Acute Chg DC note Diagnoses Sinus node dysfunction I49.5
[2022-05-19 08:00] VITALS: BP 150/79; PULSE 60; RESP 16; TEMP 36.8; O2SAT 96
--- NOTE | 2022-05-19 10:30 | PC.NURSE ---
Discharge Note Patient discharged to home via private vehicle accompanied by family. Discharge instructions reviewed with patient and/or merchandiser retail representative. Mobile pharmacy medications and/or prescriptions provided. Belongings/home medications returned.
[2022-05-19 11:26] VITALS: BP 150/79; PULSE 60; RESP 16; TEMP 36.8; O2SAT 96
== END 2022-05-19 11:27 | disposition home or self-care (01) ==
LOC: MEDSURG 22:56
PROVIDERS: Admitting Provider Thoracic Surgery (Cardiothoracic Vascular Surgery); PCP Family Medicine; Visit Provider Thoracic Surgery (Cardiothoracic Vascular Surgery)
PROC: (CPT 33208; principal; 2022-05-18 12:00)
DX: I49.5 Sick sinus syndrome (principal); K21.9 Gastro-esophageal reflux disease without esophagitis; F41.9 Anxiety disorder, unspecified; F03.90 Unspecified dementia, unspecified severity, without behavioral disturbance, psychotic disturbance, mood disturbance, and anxiety; N18.9 Chronic kidney disease, unspecified
CPT/HCPCS: 33208; 71045; 76000; 81003; C1779; C1786; G0378; J0690; J2704; J3010; J7030

== ENCOUNTER → 2022-05-26 14:45 | Outpatient (BNVA) | payer MEDICARE, BC, SELFPAY | PROVIDERS: PCP Family Medicine; Visit Provider Nurse Practitioner Family | DX: Z95.0 Presence of cardiac pacemaker (principal) | CPT/HCPCS: 93280; 99213 ==

== ENCOUNTER 2022-06-14 09:44 | Emergency (ER) | payer MEDICARE, BC, SELFPAY ==
[2022-06-14] VITALS (26 sets, daily range): BP systolic 158–166; BP diastolic 81–87; PULSE 67; RESP 16; TEMP 36.4; O2SAT 90–98; BMI 28.1
[2022-06-14 10:23] LABS: Add Urine Microscopic? NO; Charge for UA Resulting for Rev
--- NOTE | 2022-06-14 10:24 | ECG_ITS ---
[facility] Test Date: 2022-06-14 Pat Name: Narcisa Valle Department: Room: Gender: Female Proposal Writer: : 1945 Requested By: Americo Coyne Order Number: [id number] Kemal MD: Alejandro Warren M.D. Measurements Intervals [place] Rate: 60 P: 247 WA: 198 QRS: 40 QRSD: 86 T: 35 QT: 439 QTc: 439 Interpretive Statements ELECTRONIC ATRIAL PACEMAKER POSSIBLE RIGHT VENTRICULAR CONDUCTION DELAY [RSR (QR) IN V1/V2] Compared to ECG 05/07/2022 12:47:23 Sinus bradycardia no longer present Electronically Signed On 06-14-2022 21:58:37 CDT by Alejandro Warren M.D. [id number]
[2022-06-14 10:29] LABS: Bilirubin Urine Neg (Negative); Blood Urine Neg (Negative); Glucose Urine UA Norm (Normal); Ketones Urine Negative (Negative); Leukocyte Esterase Urine Negative (Negative); Nitrate Urine Negative (Negative); Protein Urine Neg (Negative); Urine Appearance Clear (CLEAR); Urine Color Yellow (Yellow); Urobilinogen Urine Norm (Negative); pH Urine 5 (5-7)
[2022-06-14] MEDS: acetaminophen 325 mg Tablet 975 MG PO (10:41)
--- NOTE | 2022-06-14 11:15 | ED_ITS ---
HPI - Weakness General: Chief complaint: Weakness Stated complaint: generalized weakness Time Seen by Provider: 06/14/22 09:49 History of Present Illness: 76-year-old female presenting today with 7 months of progressive weakness. Worsening weakness over the last 1 week. With even wo rse weakness over last 24 hours. Notes that her legs feel heavy. She feels global weakness. Notes anytime she gets up and moves around she has poor motivation. She denies fevers or chills. Denies nausea or vomiting. She denies night sweats. She denies weight loss. She notes she eats well. She denies abdominal pain. She denies dysuria or polyuria. She denies numbness tingling or unilateral weakness. She does note frequent headaches. Has had her headache now for approximately 10 days. Has previously been seen by ENT, neurology for the same. Patient was noted to have sinus bradycardia several weeks ago. And thought this was the cause of her weakness. Patient had a pacemaker placed at that time. Review of Systems General: Reports: 10 or more systems reviewed and unremarkable except in HPI and below PFSH ED PFSH: Medical History (Updated 06/14/22 @ 12:17 by Americo Coyne DO) Anxiety Bradycardia Chronic kidney disease by history Closed fracture of right hip Dementia Depression History of stress test (12/11/20) 1. Small size perfusion abnormality of mild severity of apical loredo with subtle reversibility in apical septal wall on stress images. 2. This may represent old myocardial infarction or scarring in left anterior descending artery territory with minimal uche-infarct ischemia. 3. Overall left ventricular systolic function is normal with apical hypokinesis 4. The left ventricular ejection fraction is normal with a value of 63%. Mesenteric cyst Pacemaker Surgical History History of laminectomy History of laparotomy History of reduction of closed fracture (~11/2020) Family History Father CAD (coronary artery disease) Alcoholism Mother CAD (coronary artery disease) Brother CAD (coronary artery disease) Social History Smoking and tobacco status: former smoker Alcohol intake: never Physical Exam Const: COMMON NORMALS: no acute distress, patient oriented x3 and alert GENERAL APPEARANCE: cooperative ORIENTATION/CONSCIOUSNESS: Yes awake, Yes oriented to person, Yes oriented to place and Yes oriented to time HENMT: COMMON NORMALS: normocephalic, atraumatic, external ears normal, Normal external nose present and moist oral mucous membranes HEAD & SCALP: normal to inspection, normocephalic and atraumatic NOSE: Normal external nose present GENERAL EAR: hearing grossly impaired EXTERNAL EAR: Yes external ears normal Eye: COMMON NORMALS: Equal, round and reactive pupils present, EOMs intact bilaterally, conjunctivae normal and no scleral icterus GENERAL EYE: appearance normal, both eyes and all related structures EYELID: eyelids normal CONJUNCTIVA: Yes conjunctivae normal SCLERA: sclerae normal PUPIL: Yes Equal, round and reactive pupils present Neck/C-Spine: COMMON NORMALS: full ROM, supple and no JVD GENERAL: Yes normal visual inspection Lymph: LYMPHATIC: no lymphadenopathy noted and no lymphedema noted Chest: COMMONS NORMALS: normal inspection of the chest Resp: COMMON NORMALS: normal respiratory effort, No retractions and No use of accessory muscles Cardio: COMMON NORMALS: no JVD, regular rate and regular rhythm RATE: regular rate RHYTHM: regular rhythm GI: COMMON NORMALS: Normal to inspection, nondistended, normoactive bowel sounds present : COMMON NORMALS: Yes no CVA tenderness BLADDER/KIDNEY EXAM: Yes no CVA tenderness Back/Pelvis: COMMON NORMALS: no CVA tenderness and thoracic and lumbar spine normal to inspection Extremity: COMMON NORMALS: normal to inspection, full ROM and capillary refill normal GENERAL: Yes normal exam except as noted Neuro: COMMON NORMALS: patient oriented x3, CN's II-XII intact bilaterally, moves all extremities, no focal motor deficits, no sensory deficits noted and gait normal SENSORIUM/ORIENTATION: Yes alert, Yes oriented to person, Yes oriented to place and Yes oriented to time Psych: COMMON NORMALS: mental status grossly normal, Normal thought process present, cooperative and normal affect THOUGHT PROCESS: Normal thought process present Skin: COMMON NORMALS: no rashes or lesions noted and no wounds GENERAL SKIN EXAM: no rashes or lesions noted Course Vital Signs: Vital signs: Vital Signs Temperature 97.6 F 06/14/22 09:57 Pulse Rate 67 06/14/22 09:57 Respiratory Rate 16 06/14/22 09:57 Blood Pressure 158/81 06/14/22 12:00 Pulse Oximetry 96 06/14/22 12:00 Oxygen Delivery Me thod 06/14/22 09:57 MDM - Weakness Medical Decision Making 76-year-old female presenting today with chronic weakness. CBC, CMP are unremarkable. Urinalysis is unremarkable. Vitals are unremarkable. Patient with troponin of 11. EKG is unremarkable. Repeat EKG is unremarkable. Repeat troponin without significant change. Weakness of uncertain etiology. But does not appear to be life-threatening at this time. Recommended routine follow-up with her primary care doctor. Patient was given strict return precautions and recommended routine outpatient follow-up. Lab Data : 06/14/22 11:10 06/14/22 11:10 Laboratory Results WBC 6.3 10^3/uL (4.0-10.0) 06/14/22 11:10 RBC 3.88 10^6/uL (4.1-5.3) L 06/14/22 11:10 Hgb 13.1 g/dL (11.5-15.3) 06/14/22 11:10 Hct 40.0 % (37.0-47.0) 06/14/22 11:10 MCV 103.1 fl (81-99) H 06/14/22 11:10 MCH 33.8 pg (28.0-34.0) 06/14/22 11:10 MCHC 32.8 g/dL (30.0-36.0) 06/14/22 11:10 RDW 12.3 % (12.1-15.1) 06/14/22 11:10 Plt Count 153 10^3/cmm (130-400) 06/14/22 11:10 MPV 11.6 fL (7.4-10.4) H 06/14/22 11:10 Neut % (Auto) 61.2 % 06/14/22 11:10 Lymph % (Auto) 26.2 % 06/14/22 11:10 [place] % (Auto) 8.9 % 06/14/22 11:10 Eos % (Auto) 2.7 % 06/14/22 11:10 Baso % (Auto) 0.8 % 06/14/22 11:10 Neut # (Auto) 3.84 10^3/uL (1.8-7.7) 06/14/22 11:10 Lymph # (Auto) 1.6 10^3/uL (0.8-4.8) 06/14/22 11:10 [place] # (Auto) 0.6 10^3/uL (0.2-0.9) 06/14/22 11:10 Eos # (Auto) 0.2 10^3/uL (0.0-0.8) 06/14/22 11:10 Baso # (Auto) 0.1 10^3/uL (0.0-0.1) 06/14/22 11:10 Nucleated RBC % (auto) 0 % 06/14/22 11:10 Nucleated RBCs # 0.0 /100WBC 06/14/22 11:10 Sodium 135 mmol/L (136-145) L 06/14/22 11:10 Potassium 4.2 mmol/L (3.5-5.1) 06/14/22 11:10 Chloride 99 mmol/L (98-107) 06/14/22 11:10 Carbon Dioxide 27 mmol/L (22-29) 06/14/22 11:10 Anion Gap 13.2 (5-19) 06/14/22 11:10 BUN 18 mg/dL (8-23) 06/14/22 11:10 Creatinine 0.9 mg/dL (0.5-0.9) 06/14/22 11:10 GFR Calculation Not Reportable 06/14/22 11:10 Glucose 74 mg/dL (65-115) 06/14/22 11:10 Calculated Osmolality 281 mOsm/kg (285-295) L 06/14/22 11:10 Calcium 9.5 mg/dL (8.5-10.5) 06/14/22 11:10 Magnesium 2.2 mg/dL (1.7-2.3) 06/14/22 11:10 Total Bilirubin 0.4 mg/dL (0.15-1.2) 06/14/22 11:10 AST 21 U/L (0-32) 06/14/22 11:10 ALT 18 U/L (0-33) 06/14/22 11:10 Alkaline Phosphatase 82 U/L (35-105) 06/14/22 11:10 Troponin T Baseline 11 ng/L (0-10) H 06/14/22 11:10 Total Protein 6.7 g/dL (6.6-8.7) 06/14/22 11:10 Albumin 4.0 g/dL (3.5-5.2) 06/14/22 11:10 Globulin 2.7 g/dL (1.3-4.6) 06/14/22 11:10 TSH 1.15 uIU/mL (0.27-4.20) 06/14/22 11:10 Urine Color Yellow (Yellow) 06/14/22 10:15 Urine Appearance Clear (CLEAR) 06/14/22 10:15 Urine pH 5 (5-7) 06/14/22 10:15 Ur Specific [place] 1.010 (1.005-1.030) 06/14/22 10:15 Urine Protein Neg (Negative) 06/14/22 10:15 Urine Glucose (UA) Norm (Normal) 06/14/22 10:15 Urine Ketones Negative (Negative) 06/14/22 10:15 Urine Blood Neg (Negative) 06/14/22 10:15 Urine Nitrate Negative (Negative) 06/14/22 10:15 Urine Bilirubin Neg (Negative) 06/14/22 10:15 Urine Urobilinogen Norm mg/dL (Negative) 06/14/22 10:15 Ur Leukocyte Esterase Negative (Negative) 06/14/22 10:15 Discharge Plan Discharge Patient Disposition: Home Clinical Impression: Weakness Condition: Stable Prescriptions: No Action eszopiclone [Lunesta] 2 mg tablet 2 mg PO BEDTIME methotrexate sodium 2.5 mg tablet See Rx Instructions .ROUTE .COMPLEX Rx Instructions: 2.5 mg orally on wed,,wed and fluticasone propionate 50 mcg/actuation spray,suspension 2 spray intranasal DAILY 180 Days Qty: 16 5RF Rx Instructions: administer into each nostril lorazepam 0.5 mg tablet 0.5 mg PO DAILY PRN (Reason: Anxiety) omeprazole 20 mg capsule,delayed release(DR/EC) 20 mg PO QAM donepezil [Aricept] 10 mg Tablet 10 mg PO QAM cyanocobalamin (vitamin B-12) [Vitamin B-12] 1,000 mcg Tablet 1,000 mcg PO QAM acetaminophen 500 mg Tablet 500 - 1,000 mg PO Q12H PRN (Reason: Pain) citalopram 20 mg tablet 20 mg PO BEDTIME calcium carbonate [Tums] 200 mg calcium (500 mg) Tablet,Chewable 400 mg PO BEDTIME Super K 1 caplet PO DAILY tramadol 50 mg Tablet 50 mg PO Q6H PRN (Reason: Moderate Pain) Qty: 16 0RF sulfamethoxazole-trimethoprim 800-160 mg tablet 1 tab PO BID Qty: 6 0RF Discharge Orders: Discharge ED (Routine); Ordered 06/14/22 Ordered By: Americo Coyne Referrals: Tess Breen DO [Primary Care Provider] - Patient Instructions: Weakness (ED) Coding Level of Care Code ED Addressing Machine Operator for Chg Fwd Exam Comprehensive
[2022-06-14 11:19] LABS: Basophils # 0.1 10^3/uL (0.0-0.1); Basophils % 0.8 %; Eosinophils # 0.2 10^3/uL (0.0-0.8); Eosinophils % 2.7 %; Hemoglobin 13.1 g/dL (11.5-15.3); Lymphocytes # 1.6 10^3/uL (0.8-4.8); Lymphocytes % 26.2 %; Mean Corpuscular HGB Conc 32.8 g/dL (30.0-36.0); Mean Corpuscular Hemoglobin 33.8 pg (28.0-34.0); Mean Corpuscular Volume 103.1 fl (81-99); Mean Platelet Volume 11.6 fL (7.4-10.4); Monocytes # 0.6 10^3/uL (0.2-0.9); Monocytes % 8.9 %; Neutrophils # 3.84 10^3/uL (1.8-7.7); Neutrophils % 61.2 %; Nucleated Red Blood Cells % 0 %; Platelet Count 153 10^3/cmm (130-400); Red Blood Count 3.88 10^6/uL (4.1-5.3); Red Cell Distribution Width 12.3 % (12.1-15.1); White Blood Count 6.3 10^3/uL (4.0-10.0)
[2022-06-14] MEDS: ketorolac 30 mg/mL INJ 15 MG IM (11:32)
[2022-06-14 12:01] LABS: Troponin(5th) Baseline 11 ng/L (0-10)
--- NOTE | 2022-06-14 12:04 | ECG_ITS ---
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 Measurements Intervals [place] Rate: 60 P: 249 NM: 201 QRS: 72 QRSD: 87 T: 66 QT: 445 QTc: 447 Interpretive Statements ELECTRONIC ATRIAL PACEMAKER Compared to ECG 06/14/2022 10:24:36 No significant changes Electronically Signed On 06-14-2022 22:06:50 CDT by Alejandro Warren M.D. [email or web address], an [email or web address] [email or web address]/store/[id number]
[2022-06-14 12:10] LABS: Anion Gap 13.2 (5-19); Blood Urea Nitrogen 18 mg/dL (8-23); Carbon Dioxide 27 mmol/L (22-29); Chloride 99 mmol/L (98-107); Potassium 4.2 mmol/L (3.5-5.1); Sodium 135 mmol/L (136-145)
[2022-06-14 12:11] LABS: Alanine Aminotransferase 18 U/L (0-33); Alkaline Phosphatase 82 U/L (35-105); Aspartate Amino Transferase 21 U/L (0-32); Calcium 9.5 mg/dL (8.5-10.5); Globulin 2.7 g/dL (1.3-4.6); Glucose 74 mg/dL (65-115); Magnesium 2.2 mg/dL (1.7-2.3); Osmolality Calculated 281 mOsm/kg (285-295); Thyroid Stimulating Hormone 1.15 uIU/mL (0.27-4.20); Total Bilirubin 0.4 mg/dL (0.15-1.2); Total Protein 6.7 g/dL (6.6-8.7)
== END 2022-06-14 12:55 | disposition home or self-care (01) ==
PROVIDERS: Emergency Provider Emergency Medicine; PCP Family Medicine
DX: R53.1 Weakness (principal); Z87.891 Personal history of nicotine dependence; F03.90 Unspecified dementia, unspecified severity, without behavioral disturbance, psychotic disturbance, mood disturbance, and anxiety; Z95.0 Presence of cardiac pacemaker
CPT/HCPCS: 36415; 80053; 81003; 83735; 84443; 84484; 85025; 93005; 96372; 99284; J1885

== ENCOUNTER → 2022-06-19 08:26 | Outpatient (BNVA) | payer MEDICARE, BC, SELFPAY | PROVIDERS: PCP Family Medicine; Visit Provider Internal Medicine Cardiovascular Disease | DX: Z45.010 Encounter for checking and testing of cardiac pacemaker pulse generator [battery] (principal) | CPT/HCPCS: 93280 ==

== ENCOUNTER 2022-08-03 20:17 | Observation (INO) | payer MEDICARE, BC, SELFPAY ==
--- NOTE | 2022-08-03 20:17 | PC.NURSE ---
patient arrives via [facility] and taken immediately to CT scan
[2022-08-03 20:19] VITALS: BP 206/111; PULSE 70; RESP 18; TEMP 36.6; O2SAT 95; BMI 28.5
--- NOTE | 2022-08-03 20:20 | CTR_ITS ---
PROCEDURE INFORMATION: Exam: CT Head Without Contrast Exam date and time: 08/03/2022 8:16 PM Age: 76 years old Clinical indication: Stroke-like symptoms; Dizziness/giddiness; Right facial droop; RT upper extremity and RT lower extremity weakness; Additional info: CVA TECHNIQUE: Imaging protocol: Computed tomography of the head without contrast. Radiation optimization: All CT scans at this facility use at least one of these dose optimization techniques: automated exposure control; mA and/or kV adjustment per patient size (includes targeted exams where dose is matched to clinical indication); or iterative reconstruction. Other technique: STROKE PROTOCOL was implemented. COMPARISON: CT head wo con* [id number] 04/29/2022 4:14 AM RADIATION DOSE METRICS: Total DLP (mGy-cm): 962.08 FINDINGS: Brain: There is a focal area of hypodensity anterior limb of the right internal capsule not significantly changed, possibly chronic lacunar infarct. There is focal oval CSF density in the inferior right frontal lobe not significantly changed. There is moderate cortical atrophy. Low-density changes in the white matter are consistent with nonspecific small vessel chronic ischemic change. There is no intracranial mass, hemorrhage or edema. Cerebral ventricles: No ventriculomegaly. Paranasal sinuses: Visualized sinuses are unremarkable. No fluid levels. Mastoid air cells: Visualized mastoid air cells are well aerated. Bones/joints: Unremarkable. No acute fracture. Soft tissues: Unremarkable. 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 No acute intracranial finding. No significant change from 04/29/2022. ASSESSMENT: ASPECTS ([place] Stroke Program Early CT Score) is 10.
--- NOTE | 2022-08-03 20:20 | XRR_ITS ---
PROCEDURE INFORMATION: Exam: XR Chest Exam date and time: 08/03/2022 9:28 PM Age: 76 years old Clinical indication: Prior surgery; Surgery type: Pacemaker; Patient HX: Poss CVA. TECHNIQUE: Imaging protocol: Radiologic exam of the chest. Views: 1 view. COMPARISON: CR XR chest 1V portable [id number] 05/19/2022 6:57 AM FINDINGS: Tubes, catheters and devices: A pacemaker device is present, and its leads are in appropriate position. Lungs: Unremarkable. No consolidation. Pleural spaces: Unremarkable. No pleural effusion. No pneumothorax. Heart/Mediastinum: Unremarkable. No cardiomegaly. Bones/joints: Unremarkable. XR/XR chest 1V portable [id number] IMPRESSION: No acute findings.
[2022-08-03 20:29] VITALS: BP 187/76
--- NOTE | 2022-08-03 20:30 | CTR_ITS ---
PROCEDURE INFORMATION: Exam: CTA Head With Contrast, Arteriography Exam date and time: 08/03/2022 8:40 PM Age: 76 years old Clinical indication: Weakness; Additional info: CVA, RT side weakness TECHNIQUE: Imaging protocol: Computed tomographic angiography of the head with contrast. Exam focused on the arteries. 3D rendering (Not supervised by radiologist): MIP and/or 3D reconstructed images were created by the technologist. Radiation optimization: All CT scans at this facility use at least one of these dose optimization techniques: automated exposure control; mA and/or kV adjustment per patient size (includes targeted exams where dose is matched to clinical indication); or iterative reconstruction. Contrast material: OMNIPAQUE 350; Contrast volume: 75 ml; Contrast route: INTRAVENOUS (IV); COMPARISON: CT head wo con* [id number] 08/03/2022 8:16 PM RADIATION DOSE METRICS: Total DLP (mGy-cm): 438.91 FINDINGS: ANTERIOR CIRCULATION: Right internal carotid artery: Intracranial segment is patent with no significant stenosis. No aneurysm. Right middle cerebral artery: No occlusion or significant stenosis. No aneurysm. Right anterior cerebral artery: No occlusion or significant stenosis. No aneurysm. Left internal carotid artery: Intracranial segment is patent with no significant stenosis. No aneurysm. Left middle cerebral artery: No occlusion or significant stenosis. No aneurysm. Left anterior cerebral artery: No occlusion or significant stenosis. No aneurysm. POSTERIOR CIRCULATION: Right vertebral artery: The distal right vertebral artery is small, probably on a congenital basis. No stenosis or occlusion is identified. Left vertebral artery: Left vertebral artery is dominant. Basilar artery: No occlusion or significant stenosis. No aneurysm. Right posterior cerebral artery: No occlusion or significant stenosis. No aneurysm. Left posterior cerebral artery: No occlusion or significant stenosis. No aneurysm. Brain: Findings unchanged compared with the earlier noncontrast exam. No abnormal enhancement. Cerebral ventricles: No ventriculomegaly. Bones/joints: Unremarkable. No acute fracture. Soft tissues: Unremarkable. PROCEDURE INFORMATION: Exam: CTA Neck With Contrast Exam date and time: 08/03/2022 8:40 PM Age: 76 years old Clinical indication: Weakness; Additional info: CVA, RT side weakness TECHNIQUE: Imaging protocol: Computed tomographic angiography of the neck with contrast. 3D rendering (Not supervised by radiologist): MIP and/or 3D reconstructed images were created by the technologist. Radiation optimization: All CT scans at this facility use at least one of these dose optimization techniques: automated exposure control; mA and/or kV adjustment per patient size (includes targeted exams where dose is matched to clinical indication); or iterative reconstruction. Contrast material: OMNIPAQUE 350; Contrast volume: 75 ml; Contrast route: INTRAVENOUS (IV); COMPARISON: CT head wo tanja* [id number] 08/03/2022 8:16 PM RADIATION DOSE METRICS: Total DLP (mGy-cm): 438.91 FINDINGS: Right common carotid artery: No stenosis. No dissection or occlusion. Right internal carotid artery: There is some calcified atherosclerotic plaque in the proximal right internal carotid artery causing mild stenosis in the 20% range as measured according to the NASCET criteria. Right external carotid artery: No occlusion or stenosis of the origin. Left common carotid artery: No stenosis. No dissection or occlusion. Left internal carotid artery: There is some atherosclerotic calcification and plaque in the proximal left internal carotid artery without stenosis as measured according to the NASCET criteria. Left external carotid artery: No occlusion or stenosis of the origin. Right vertebral artery: No stenosis. No dissection or occlusion. Left vertebral artery: No stenosis. No dissection or occlusion. Soft tissues: Normal. No significant soft tissue swelling. Bones/joints: No acute fracture. 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 CT/CT angio headneck* [id number] IMPRESSION: There is no evidence of large vessel occlusion or intracranial aneurysm identified. IMPRESSION: Mild stenosis proximal right internal carotid artery. REFERENCES: NASCET CRITERIA. The degree of stenosis in the cervical segment of the internal carotid artery is based on NASCET criteria. Normal is no stenosis. Mild is less than 50% stenosis. Moderate is 50-69% stenosis. Severe is 70% to 99% stenosis. Total occlusion is no detectable patent lumen.
--- NOTE | 2022-08-03 20:34 | ECG_ITS ---
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 Measurements Intervals [place] Rate: 61 P: 161 MN: 202 QRS: 42 QRSD: 94 T: 36 QT: 457 QTc: 461 Interpretive Statements ELECTRONIC ATRIAL PACEMAKER POSSIBLE RIGHT VENTRICULAR CONDUCTION DELAY [RSR (QR) IN V1/V2] Compared to ECG 06/14/2022 12:03:13 No significant changes Electronically Signed On 08-04-2022 13:01:35 RADIOLOGIC TECHNOLOGY TEACHER by Heena Holland M.D. [id number]
[2022-08-03 20:40] LABS: Glucose Point of Care 103 mg/dL (70-110)
--- NOTE | 2022-08-03 20:41 | W.ED.NEUROSD ---
HPI - Neuro Symptoms/Deficit General: Chief Complaint: Neuro Symptoms/Deficit Stated Complaint: Stroke Time Seen by Provider: 08/03/22 20:19 Source: patient and EMS Mode of arrival: EMS Limitations: no limitations History of Present Illness: 76-year-old female is here with concern of a stroke. Per EMS family states patient's last known normal was 3 PM concerned that she had some slight right-sided facial droop slurred speech and right-sided weakness. Patient does have dementia history is difficult from her states she feels like her right leg is heavy she has no slurred speech here or facial droop she denies any headache denies any chest pain denies any other symptoms. Associated symptoms: Deny chest pain, nausea or vomiting Review of Systems Const: Denies: fever(s), chills, body aches or change in appetite Eyes: Denies: blurry vision or eye discomfort ENMT: Denies: throat pain or dental pain Card: Denies: chest pain Resp: Denies: dyspnea GI: Denies: abdominal pain, nausea, vomiting or diarrhea : Denies: dysuria Musc: Denies: neck pain or back pain Skin/Breast: Denies: rash Neuro: Reports: weakness in extremities Psych: Denies: depression Zbigniew/Lymph: Denies: easy bruising All/Imm: Denies: urticaria PFSH ED PFSH: Medical History Anxiety Bradycardia Chronic kidney disease by history Closed fracture of right hip Dementia Depression History of stress test (12/11/20) 1. Small size perfusion abnormality of mild severity of apical loredo with subtle reversibility in apical septal wall on stress images. 2. This may represent old myocardial infarction or scarring in left anterior descending artery territory with minimal uche-infarct ischemia. 3. Overall left ventricular systolic function is normal with apical hypokinesis 4. The left ventricular ejection fraction is normal with a value of 63%. Mesenteric cyst Pacemaker Surgical History History of laminectomy History of laparotomy History of reduction of closed fracture (~11/2020) Family History Father CAD (coronary artery disease) Alcoholism Mother CAD (coronary artery disease) Brother CAD (coronary artery disease) Social History Smoking and tobacco status: former smoker Alcohol intake: never NIH stroke score NIHSS: Level Of Consciousness - 1a: 0 Level Of Consciousness Questions - 1b: Both Correct Level Of Consciousness Commands - 1c: Both Correct Best Gaze - 2: Normal Visual Rodrigues - 3: No Visual Loss Facial Palsy - 4: Normal Motor Arm Right - 5: No Drift Motor Arm Left - 5: No Drift Motor Leg Right - 6: Drift Motor Leg Left - 6: No Drift Limb Ataxia - 7: Absent Sensory - 8: Mild To Moderate Loss Best Language - 9: No Aphasia Dysarthia - 10: Normal Extinction And Inattention - 11: 0 Score: Total Score: 2 Physical Exam Const: COMMON NORMALS: no acute distress, patient oriented x3 and healthy appearing HENMT: COMMON NORMALS: normocephalic and atraumatic HEAD & SCALP: normocephalic and atraumatic Eye: COMMON NORMALS: Equal, round and reactive pupils present and EOMs intact bilaterally PUPIL: Yes Equal, round and reactive pupils present Neck/C-Spine: COMMON NORMALS: full ROM and supple Chest: COMMONS NORMALS: normal inspection of the chest and normal palpation of entire chest wall Resp: COMMON NORMALS: normal respiratory effort, No retractions, No use of accessory muscles and clear to auscultation bilaterally AUSCULTATION: clear to auscultation bilaterally Cardio: COMMON NORMALS: regular rate, regular rhythm and No murmurs present (Cardio) RATE: regular rate RHYTHM: regular rhythm GI: COMMON NORMALS: Normal to inspection, nondistended, normoactive bowel sounds present, Soft to palpation, non-tender and no masses PALPATION: Yes Soft to palpation Extremity: COMMON NORMALS: normal to inspection and full ROM Neuro: COMMON NORMALS: patient oriented x3 and moves all extremities Psych: COMMON NORMALS: mental status grossly normal, Normal thought process present and cooperative THOUGHT PROCESS: Normal thought process present Skin: COMMON NORMALS: no rashes or lesions noted and no wounds GENERAL SKIN EXAM: no rashes or lesions noted Course Vital Signs: Vital signs: Vital Signs Temperature 97.9 F 08/03/22 20:19 Pulse Rate 60 08/03/22 21:44 Respiratory Rate 15 08/03/22 21:44 Blood Pressure 213/101 08/03/22 21:44 Pulse Oximetry 96 08/03/22 21:44 Oxygen Delivery Me thod 08/03/22 20:19 MDM - Neuro Symptoms/Deficit Medical Decision Making Patient presents here some slight right-sided weakness is very minimal in her right leg no other real deficits noted besides some decreased sensation her head CT along with CT angio normal her blood pressure here is improving she was started on lisinopril last week which she is stopped taking due to a cough and has not been taking any blood pressure medicine spoke to hospitalist will admit for observation. Lab Data 08/03/22 20:36 08/03/22 20:36 Radiology Impressions Chest X-Ray 08/03/22 20:20 IMPRESSION: No acute findings. Head CT 08/03/22 20:20 IMPRESSION: Atrophy and old lacunar disease. No acute intracranial finding. No significant change from 04/29/2022. ASSESSMENT: ASPECTS ([place] Stroke Program Early CT Score) is 10. Head/Neck CTA 08/03/22 20:30 IMPRESSION: There is no evidence of large vessel occlusion or intracranial aneurysm identified. IMPRESSION: Mild stenosis proximal right internal carotid artery. REFERENCES: NASCET CRITERIA. The degree of stenosis in the cervical segment of the internal carotid artery is based on NASCET criteria. Normal is no stenosis. Mild is less than 50% stenosis. Moderate is 50-69% stenosis. Severe is 70% to 99% stenosis. Total occlusion is no detectable patent lumen. Laboratory Results WBC 6.6 10^3/uL (4.0-10.0) 08/03/22 20:36 RBC 3.89 10^6/uL (4.1-5.3) L 08/03/22 20:36 Hgb 13.0 g/dL (11.5-15.3) 08/03/22 20:36 Hct 39.3 % (37.0-47.0) 08/03/22 20:36 MCV 101.0 fl (81-99) H 08/03/22 20:36 MCH 33.4 pg (28.0-34.0) 08/03/22 20:36 MCHC 33.1 g/dL (30.0-36.0) 08/03/22 20:36 RDW 13.4 % (12.1-15.1) 08/03/22 20:36 Plt Count 177 10^3/cmm (130-400) 08/03/22 20:36 MPV 10.7 fL (7.4-10.4) H 08/03/22 20:36 Neut % (Auto) 62.3 % 08/03/22 20:36 Lymph % (Auto) 26.8 % 08/03/22 20:36 [place] % (Auto) 8.9 % 08/03/22 20:36 Eos % (Auto) 0.9 % 08/03/22 20:36 Baso % (Auto) 0.9 % 08/03/22 20:36 Neut # (Auto) 4.11 10^3/uL (1.8-7.7) 08/03/22 20:36 Lymph # (Auto) 1.8 10^3/uL (0.8-4.8) 08/03/22 20:36 [place] # (Auto) 0.6 10^3/uL (0.2-0.9) 08/03/22 20:36 Eos # (Auto) 0.1 10^3/uL (0.0-0.8) 08/03/22 20:36 Baso # (Auto) 0.1 10^3/uL (0.0-0.1) 08/03/22 20:36 Nucleated RBC % (auto) 0 % 08/03/22 20:36 Nucleated RBCs # 0.0 /100WBC 08/03/22 20:36 PT 12.80 SECONDS (12.1-14.9) 08/03/22 20:36 INR 0.93 (0.8-1.2) 08/03/22 20:36 Sodium 136 mmol/L (136-145) 08/03/22 20:36 Potassium 4.2 mmol/L (3.5-5.1) 08/03/22 20:36 Chloride 100 mmol/L (98-107) 08/03/22 20:36 Carbon Dioxide 27 mmol/L (22-29) 08/03/22 20:36 Anion Gap 13.2 (5-19) 08/03/22 20:36 BUN 26 mg/dL (8-23) H 08/03/22 20:36 Creatinine 1.2 mg/dL (0.5-0.9) H 08/03/22 20:36 GFR Calculation Not Reportable 08/03/22 20:36 Glucose 107 mg/dL (65-115) 08/03/22 20:36 POC Glucose 103 mg/dL (70-110) 08/03/22 20:33 Calculated Osmolality 287 mOsm/kg (285-295) 08/03/22 20:36 Calcium 9.4 mg/dL (8.5-10.5) 08/03/22 20:36 Total Bilirubin 0.4 mg/dL (0.15-1.2) 08/03/22 20:36 AST 32 U/L (0-32) 08/03/22 20:36 ALT 43 U/L (0-33) H 08/03/22 20:36 Alkaline Phosphatase 96 U/L (35-105) 08/03/22 20:36 Troponin T Baseline 12 ng/L (0-10) H 08/03/22 20:36 Troponin T 120 Minute 11.36 ng/L (0-10) H 08/03/22 21:46 Delta Troponin T -0.64 ABS# (0-10) L 08/03/22 21:46 Total Protein 6.7 g/dL (6.6-8.7) 08/03/22 20:36 Albumin 4.0 g/dL (3.5-5.2) 08/03/22 20:36 Globulin 2.7 g/dL (1.3-4.6) 08/03/22 20:36 Urine Color Yellow (Yellow) 08/03/22 21:30 Urine Appearance Clear (CLEAR) 08/03/22 21:30 Urine pH 6 (5-7) 08/03/22 21:30 Ur Specific [place] 1.015 (1.005-1.030) 08/03/22 21:30 Urine Protein Neg (Negative) 08/03/22 21:30 Urine Glucose (UA) Norm (Normal) 08/03/22 21:30 Urine Ketones Negative (Negative) 08/03/22 21:30 Urine Blood Neg (Negative) 08/03/22 21:30 Urine Nitrate Negative (Negative) 08/03/22 21:30 Urine Bilirubin Neg (Negative) 08/03/22 21:30 Urine Urobilinogen Norm mg/dL (Negative) 08/03/22 21:30 Ur Leukocyte Esterase Negative (Negative) 08/03/22 21:30 EKG Data EKG 1: I personally reviewed and interpreted this EKG as follows: EKG interpretation date: 08/03/22 EKG interpretation time: 20:34 Interpretation: paced hr [address] or t wave abnormalities qrs 94 qtc 459 Discharge Plan Discharge Patient Disposition: Placed in Observation Admit Provider: Adam Prasad Clinical Impression: Right sided weakness, Hypertension Coding Level of Care Code ED Diamond Finishing Supervisor for Chg Fwd Exam Comprehensive
[2022-08-03 20:42] LABS: Basophils # 0.1 10^3/uL (0.0-0.1); Basophils % 0.9 %; Eosinophils # 0.1 10^3/uL (0.0-0.8); Eosinophils % 0.9 %; Hematocrit 39.3 % (37.0-47.0); Lymphocytes # 1.8 10^3/uL (0.8-4.8); Lymphocytes % 26.8 %; Mean Corpuscular HGB Conc 33.1 g/dL (30.0-36.0); Mean Corpuscular Hemoglobin 33.4 pg (28.0-34.0); Mean Platelet Volume 10.7 fL (7.4-10.4); Monocytes # 0.6 10^3/uL (0.2-0.9); Monocytes % 8.9 %; Neutrophils # 4.11 10^3/uL (1.8-7.7); Neutrophils % 62.3 %; Nucleated Red Blood Cells % 0 %; Platelet Count 177 10^3/cmm (130-400); Red Blood Count 3.89 10^6/uL (4.1-5.3); Red Cell Distribution Width 13.4 % (12.1-15.1); White Blood Count 6.6 10^3/uL (4.0-10.0)
--- NOTE | 2022-08-03 20:42 | PC.NURSE ---
patient transported back to CT scan for CT angio
[2022-08-03] MEDS: iohexol 350 mg/mL 500 mL Btl (per mL) IV (20:55)
[2022-08-03 20:59] LABS: INR 0.93 (0.8-1.2)
[2022-08-03 21:08] LABS: Troponin(5th) Baseline 12 ng/L (0-10)
[2022-08-03 21:11] LABS: Alanine Aminotransferase 43 U/L (0-33); Alkaline Phosphatase 96 U/L (35-105); Anion Gap 13.2 (5-19); Aspartate Amino Transferase 32 U/L (0-32); Blood Urea Nitrogen 26 mg/dL (8-23); Calcium 9.4 mg/dL (8.5-10.5); Carbon Dioxide 27 mmol/L (22-29); Chloride 100 mmol/L (98-107); Globulin 2.7 g/dL (1.3-4.6); Glucose 107 mg/dL (65-115); Osmolality Calculated 287 mOsm/kg (285-295); Potassium 4.2 mmol/L (3.5-5.1); Sodium 136 mmol/L (136-145); Total Bilirubin 0.4 mg/dL (0.15-1.2); Total Protein 6.7 g/dL (6.6-8.7)
[2022-08-03 21:44] VITALS: BP 213/101; PULSE 60; RESP 15; O2SAT 96
[2022-08-03] MEDS: hyDRALAzine 20 mg/mL INJ 1 mL 10 MG IVP (21:54)
[2022-08-03 21:58] LABS: Add Urine Microscopic? NO; Charge for UA Resulting for Rev
[2022-08-03 22:14] LABS: Bilirubin Urine Neg (Negative); Blood Urine Neg (Negative); Glucose Urine UA Norm (Normal); Ketones Urine Negative (Negative); Leukocyte Esterase Urine Negative (Negative); Nitrate Urine Negative (Negative); Protein Urine Neg (Negative); Specific Gravity, Urine 1.015 (1.005-1.030); Urine Appearance Clear (CLEAR); Urine Color Yellow (Yellow); Urobilinogen Urine Norm (Negative); pH Urine 6 (5-7)
[2022-08-03 22:18] LABS: Troponin 5 2HR 11.36 ng/L (0-10); Troponin 5 2HR Delta -0.64 ABS# (0-10)
--- NOTE | 2022-08-03 22:37 | PM.HP ---
Providers/Chief Complaint Primary Care Provider: Tess Breen DO Chief Complaint: Stroke History of Present Illness Narcisa Valle is a 76 year old female with history of dementia, previous history of lacunar infarct presented with chief complaint for concern of stroke. Patient is stating that she woke up really tired she could not finish much today, she was stating that everything was an effort she was very fatigued and lethargic however she did not notice any nausea, vomiting, chest pain, shortness of breath but she is endorsing headache. After supper she started feeling dizzy, her daughter got concerned when she noticed slurred speech and right-sided weakness of her face, right leg weakness. However in the ER there were no such findings noted by the ER physician she was not a tPA candidate last known well time was around 3 PM. NIH 2 for paresthesia of right leg and slight weakness CTA head and neck 20% stenosis right ICA CT head unremarkable She is hypertensive her blood pressure improved which improved her symptoms, initial blood pressure 213/101mmhg Review of Systems Const: Denies: fever(s) Eyes: Denies: change in vision ENMT: Denies: throat pain Card: Denies: chest pain Resp: Denies: dyspnea GI: Denies: abdominal pain : Denies: flank pain Musc: Reports: extremity pain Skin/Breast: Denies: rash Neuro: Reports: headache(s) Psych: Reports: anxiety Endo: Denies: polyuria Zbigniew/Lymph: Denies: easy bruising All/Imm: Denies: urticaria Medications/Allergies Home Medications Medication Instructions Recorded Confirmed Last Taken Type lorazepam 0.5 mg tablet 0.5 mg PO DAILY PRN Anxiety 12/08/20 05/26/22 1 Week Ago History ~05/11/22 methotrexate sodium 2.5 mg tablet See Rx Instructions .Route .COMPLEX 07/08/21 05/26/22 05/14/22 History eszopiclone 2 mg tablet (Lunesta) 2 mg PO BEDTIME 09/04/21 05/26/22 05/17/22 History fluticasone propionate 50 2 spray intranasal DAILY 6 months 04/13/22 05/26/22 1 Week Ago Rx mcg/actuation nasal #16 grams ~05/11/22 spray,suspension acetaminophen 500 mg tablet 500 - 1,000 mg PO Q12H PRN Pain 04/29/22 05/26/22 05/16/22 History calcium carbonate 200 mg calcium 400 mg PO BEDTIME 04/29/22 05/26/22 05/16/22 History (500 mg) chewable tablet (Tums) citalopram 20 mg tablet 20 mg PO BEDTIME 04/29/22 05/26/22 05/17/22 History cyanocobalamin (vitamin B-12) 1,000 mcg PO QAM 04/29/22 05/26/22 05/17/22 History 1,000 mcg tablet (Vitamin B-12) donepezil 10 mg tablet (Aricept) 10 mg PO QAM 04/29/22 05/26/22 05/17/22 History omeprazole 20 mg capsule,delayed 20 mg PO QAM 04/29/22 05/26/22 05/17/22 History release Super K 1 caplet PO DAILY 05/07/22 05/26/22 05/17/22 History sulfamethoxazole 800 1 tab PO BID #6 tabs 05/19/22 05/26/22 Unknown Rx mg-trimethoprim 160 mg tablet tramadol 50 mg tablet 50 mg PO Q6H PRN Moderate Pain #16 05/19/22 05/26/22 Unknown Rx tabs Allergies Allergy/AdvReac Type Severity Reaction Status Date / Time codeine Allergy Intermediate ALGY-Rash Verified 08/03/22 20:29 amitriptyline Allergy Unknown Verified 08/03/22 20:29 peanut Allergy ALGY-Anaphy Verified 08/03/22 20:29 laxis PFSH Acute PFSH: Medical History Anxiety Bradycardia Chronic kidney disease by history Closed fracture of right hip Dementia Depression History of stress test (12/11/20) 1. Small size perfusion abnormality of mild severity of apical loredo with subtle reversibility in apical septal wall on stress images. 2. This may represent old myocardial infarction or scarring in left anterior descending artery territory with minimal uche-infarct ischemia. 3. Overall left ventricular systolic function is normal with apical hypokinesis 4. The left ventricular ejection fraction is normal with a value of 63%. Mesenteric cyst Pacemaker Surgical History History of laminectomy History of laparotomy History of reduction of closed fracture (~11/2020) Family History Father CAD (coronary artery disease) Alcoholism Mother CAD (coronary artery disease) Brother CAD (coronary artery disease) Social History Smoking and tobacco status: former smoker Alcohol intake: never Vitals/I&O/Wt Last Vital Signs Temp 97.9 F 08/03/22 20:19 Pulse 60 08/03/22 21:44 Resp 15 08/03/22 21:44 BP 213/101 08/03/22 21:44 Pulse Ox 96 08/03/22 21:44 O2 Del Method 08/03/22 20:19 Weight last 48 hrs Weight 70.76 kg Physical Exam Narrative: Pleasant cooperative female NIH 0 No extremity weakness No paresthesia No facial asymmetry No slurring of speech No cerebellar signs Awake and alert S1, S2 Hemodynamically stable Currently on room air No audible stridor or wheezing Data 08/03/22 20:36 08/03/22 20:36 A&P Assessment and plan (1) Right sided weakness: (2) Hypertension: (3) Pacemaker: (4) Sinus node dysfunction: (5) Dementia: Plan TIA Hypertensive urgency Blood pressure improved with antihypertensive regimen Symptoms improved NIH 0 Not a candidate of tPA CTA head and neck unremarkable CT head unremarkable PT OT ST No need of MRI head Plan to discharge tomorrow morning Patient is currently stable Blood pressure is improving Patient developed side effect of cough with lisinopril, I have added hydralazine, amlodipine and chlorthalidone Full code Regular diet DVT prophylaxis on board Dementia without acute exacerbation Lives with her daughter LAUREN related to use of nephrotoxic agent such as lisinopril, nephrotoxic agents on hold bladder scan on as needed basis Attestations Medical Necessity Statement*: Anticipating discharge within 48 hours Time Spent in Patient Care: 40 Coding Level of Care Code Acute Curriculum Advisory Teacher for Chg Fwd Diagnoses Right sided weakness R53.1 Hypertension I10 Pacemaker Z95.0 Sinus node dysfunction I49.5 Dementia F03.90
[2022-08-03 22:46] VITALS: BP 176/82; PULSE 72; RESP 19; O2SAT 97
[2022-08-03] MEDS: aspirin 81 mg Chew Tablet 324 MG PO (22:55)
[2022-08-03] MEDS: heparin 5,000 unit/mL INJ 1 mL 5000 UNIT SUBCUT (22:56)
[2022-08-03 23:00] VITALS: BP 128/56; PULSE 62; RESP 17; O2SAT 97
--- NOTE | 2022-08-04 00:10 | PC.NURSE ---
Patient arrived on the med/surg unit at this time.
[2022-08-04 00:20] VITALS: BP 144/81; RESP 19; O2SAT 98
[2022-08-04 00:56] VITALS: BP 155/85; PULSE 77; RESP 18; TEMP 36.5; O2SAT 99
[2022-08-04 02:12] LABS: Basophils % 0.5 %; Eosinophils # 0.1 10^3/uL (0.0-0.8); Eosinophils % 0.7 %; Hematocrit 39.9 % (37.0-47.0); Hemoglobin 13.1 g/dL (11.5-15.3); Lymphocytes # 1.5 10^3/uL (0.8-4.8); Lymphocytes % 20.6 %; Mean Corpuscular HGB Conc 32.8 g/dL (30.0-36.0); Mean Corpuscular Hemoglobin 33.4 pg (28.0-34.0); Mean Corpuscular Volume 101.8 fl (81-99); Mean Platelet Volume 11.1 fL (7.4-10.4); Monocytes # 0.7 10^3/uL (0.2-0.9); Monocytes % 8.9 %; Neutrophils # 5.13 10^3/uL (1.8-7.7); Nucleated Red Blood Cells % 0 %; Platelet Count 188 10^3/cmm (130-400); Red Blood Count 3.92 10^6/uL (4.1-5.3); Red Cell Distribution Width 13.4 % (12.1-15.1); White Blood Count 7.4 10^3/uL (4.0-10.0)
[2022-08-04 02:32] LABS: Troponin 5 6HR 12.95 ng/L (0-10)
[2022-08-04 02:34] LABS: Blood Urea Nitrogen 24 mg/dL (8-23); Calcium 9.5 mg/dL (8.5-10.5); Carbon Dioxide 24 mmol/L (22-29); Chloride 101 mmol/L (98-107); Glucose 111 mg/dL (65-115); Magnesium 2.1 mg/dL (1.7-2.3); Osmolality Calculated 285 mOsm/kg (285-295); Sodium 135 mmol/L (136-145)
[2022-08-04 02:37] LABS: Troponin 5 6HR Delta 0.95 ng/L (0-12)
--- NOTE | 2022-08-04 03:48 | PC.NURSE ---
The original IV placed in the ER was in the right AC, and patient did not receive anything in this site in the ER per the nurse that took care of them during this time. The patient was took down to CT to have a scan with contrast dye injected into this site for the study. It was during this time the IV site infiltrated. When the patient came back to the ER room the IV at that site was removed by the nurse there. A new IV was started in the left wrist. The prior information is the account reported to this nurse by the nurse that took care of them in the ER. The infiltrated site on the right arm has been elevated and a warm compress applied. Patient does not report any pain at the site at this time.
[2022-08-04 03:50] LABS: Thyroid Stimulating Hormone 1.11 uIU/mL (0.27-4.20); Vitamin B12 579 pg/mL (232-1245)
[2022-08-04 04:00] VITALS: BP 158/82; PULSE 54; RESP 17; TEMP 36.6; O2SAT 95
[2022-08-04 04:04] VITALS: PULSE 75; RESP 18; O2SAT 98
[2022-08-04] MEDS: donepezil 5 MG Tablet 10 MG PO (05:27)
[2022-08-04] MEDS: pantoprazole DR 40 mg Tablet PO (05:27)
[2022-08-04 08:30] LABS: Chol HDL Ratio 2.74 mg/dL (0.0-4.40); Cholesterol 233 mg/dL (0-200); HDL Cholesterol 85 mg/dL (60-100); LDL Cholesterol Calculated 136 mg/dL (50-129); Triglycerides 59 mg/dL (0-150)
[2022-08-04] MEDS: chlorthalidone 25 mg Tablet 12.5 MG PO (09:46)
[2022-08-04] MEDS: aspirin 81 mg EC Tablet PO (09:46)
[2022-08-04] MEDS: hyDRALAzine 50 mg Tablet PO (09:46)
[2022-08-04] MEDS: clopidogrel 75 mg Tablet PO (09:46)
[2022-08-04] MEDS: amlodipine 5 mg Tablet PO (09:46)
[2022-08-04 09:51] VITALS: PULSE 73; RESP 17; O2SAT 98
--- NOTE | 2022-08-04 09:59 | PC.CHAP ---
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 ob gyn physician assistant visit [] Patient/Family/Request visit [] Outpatient visit [] Follow-up visit [] Physician referral [] Code/Alert [x] Routine visit [] Staff referral [] Actively dying [] Patient sleeping [] Family support [] [] Out of room [] Palliative care [] [x] Receiving care in room [] Pre-surgical visit [] Trauma [] Long length of stay [] ICU visit [] Other: Relational/Emotional Strength [] Patient feels connected with others/family/visitors/staff [] Distress [] Loneliness/isolation [] Abandonment Spirituality of Patient [] Person of Unique [] Attends Confucianism of their Unique [] Believes in Prayer [] Reads Bible or Jewish materials [] There are Spiritual issues to be addressed Client Hr Manager Interventions [] Prayer [] Active listening [] Non-anxious presence [] Spiritual/emotional support [] Crisis/trauma care [] Spiritual counseling [] Bereavement support [] Provided bereavement packet [] Provided Bible/devotional materials [] Provided toy/stuffed animal, coloring book to patient or family member [] Provided Communion [] Anointing/[place] [] Salvation [] Completed spiritual assessment [] Other: Impact on Illness or Injury [] Angry [] Fearful [] Anxious [] Often cries [] Exhaustion [] Unable to work [] Unable to attend hoahaoism [] Unable to walk/stand [] Unable to read [] Unable to drive [] Unable to eat/drink [] Unable to sleep [] Unable to be with family [] Patient intubated [] Other: Summary Time spent with patient
--- NOTE | 2022-08-04 10:05 | PM.DCS ---
Discharge Providers Date of Admission: 08/03/22 22:37 Date of Discharge: August 04, 2022 Attending Provider at Admission: Adam Prasad MD Attending Provider at Discharge: Toni Torres MD Primary Care Provider: Tess Breen DO Diagnoses at Discharge Discharge Diagnosis (1) Right sided weakness: Status: Acute (2) Hypertension: Status: Acute (3) Pacemaker: Status: Acute (4) Sinus node dysfunction: Status: Acute (5) Dementia: Status: Acute (6) TIA (transient ischemic attack): Status: Acute Reason for Visit Reason for Visit: Stroke Hospital Course Hospital Course Narcisa Valle is a 76-year-old female with a past medical history significant for lacunar infarction, anxiety, bradycardia, depression, dementia, and pacemaker who presented with lethargy and fatigue associated with right-sided weakness, found to have transient ischemic attack. Head CT and head neck CTA were negative for acute stroke. Imaging demonstrated known prior lacunar infarct. Unfortunately she was unable to have an MRI of her head due to pacemaker device. She was found to have dyslipidemia with elevated LDL. She is being treated with dual antiplatelet therapy for 21 days followed by aspirin therapy. She is placed on high intensity statin. She is to continue home health therapy services. She is discharged home in stable condition. She is to follow-up with her primary care provider within 1 week. Physical Exam Narrative: General: Patient is awake. No acute distress. Head: Normocephalic. Atraumatic. EOM intact. Neck: No JVD. Cardiovascular: RRR. No gallops. No murmurs. No peripheral edema. Lungs: Clear to auscultation, no use of accessory muscles, no crackles or wheezes. Skin: No jaundice. No rashes. Abdomen: Normal bowel sounds, abdomen soft and nontender. Genito Urinary: Genital exam not performed since complaints not related. Rectal: Rectal exam not performed since no symptoms indicated blood loss. Extremities: No cyanosis or clubbing. Musculoskeletal: No joint deformity Neurological: Moves all 4 extremities. No myoclonus. Discharge Data Studies Completed and Pending Completed Studies During Hospitalization Category Date Time Status CT head wo con* [id number] Stat Cat Scan 08/03/22 20:20 Completed CTA head neck [CT angio headneck* [id number]] Stat Cat Scan 08/03/22 20:30 Completed XR chest 1V portable [id number] Stat Exams 08/03/22 20:20 Completed Radiology Impressions Chest X-Ray 08/03/22 20:20 IMPRESSION: No acute findings. Head CT 08/03/22 20:20 IMPRESSION: Atrophy and old lacunar disease. No acute intracranial finding. No significant change from 04/29/2022. ASSESSMENT: ASPECTS ([place] Stroke Program Early CT Score) is 10. Head/Neck CTA 08/03/22 20:30 IMPRESSION: There is no evidence of large vessel occlusion or intracranial aneurysm identified. IMPRESSION: Mild stenosis proximal right internal carotid artery. REFERENCES: NASCET CRITERIA. The degree of stenosis in the cervical segment of the internal carotid artery is based on NASCET criteria. Normal is no stenosis. Mild is less than 50% stenosis. Moderate is 50-69% stenosis. Severe is 70% to 99% stenosis. Total occlusion is no detectable patent lumen. Laboratory Results WBC 7.4 10^3/uL (4.0-10.0) 08/04/22 02:03 RBC 3.92 10^6/uL (4.1-5.3) L 08/04/22 02:03 Hgb 13.1 g/dL (11.5-15.3) 08/04/22 02:03 Hct 39.9 % (37.0-47.0) 08/04/22 02:03 MCV 101.8 fl (81-99) H 08/04/22 02:03 MCH 33.4 pg (28.0-34.0) 08/04/22 02:03 MCHC 32.8 g/dL (30.0-36.0) 08/04/22 02:03 RDW 13.4 % (12.1-15.1) 08/04/22 02:03 Plt Count 188 10^3/cmm (130-400) 08/04/22 02:03 MPV 11.1 fL (7.4-10.4) H 08/04/22 02:03 Neut % (Auto) 69.0 % 08/04/22 02:03 Lymph % (Auto) 20.6 % 08/04/22 02:03 [place] % (Auto) 8.9 % 08/04/22 02:03 Eos % (Auto) 0.7 % 08/04/22 02:03 Baso % (Auto) 0.5 % 08/04/22 02:03 Neut # (Auto) 5.13 10^3/uL (1.8-7.7) 08/04/22 02:03 Lymph # (Auto) 1.5 10^3/uL (0.8-4.8) 08/04/22 02:03 [place] # (Auto) 0.7 10^3/uL (0.2-0.9) 08/04/22 02:03 Eos # (Auto) 0.1 10^3/uL (0.0-0.8) 08/04/22 02:03 Baso # (Auto) 0.0 10^3/uL (0.0-0.1) 08/04/22 02:03 Nucleated RBC % (auto) 0 % 08/04/22 02:03 Nucleated RBCs # 0.0 /100WBC 08/04/22 02:03 PT 12.80 SECONDS (12.1-14.9) 08/03/22 20:36 INR 0.93 (0.8-1.2) 08/03/22 20:36 Sodium 135 mmol/L (136-145) L 08/04/22 02:03 Potassium 4.0 mmol/L (3.5-5.1) 08/04/22 02:03 Chloride 101 mmol/L (98-107) 08/04/22 02:03 Carbon Dioxide 24 mmol/L (22-29) 08/04/22 02:03 Anion Gap 14.0 (5-19) 08/04/22 02:03 BUN 24 mg/dL (8-23) H 08/04/22 02:03 Creatinine 0.9 mg/dL (0.5-0.9) 08/04/22 02:03 GFR Calculation Not Reportable 08/04/22 02:03 Glucose 111 mg/dL (65-115) 08/04/22 02:03 POC Glucose 103 mg/dL (70-110) 08/03/22 20:33 Calculated Osmolality 285 mOsm/kg (285-295) 08/04/22 02:03 Calcium 9.5 mg/dL (8.5-10.5) 08/04/22 02:03 Magnesium 2.1 mg/dL (1.7-2.3) 08/04/22 02:03 Total Bilirubin 0.4 mg/dL (0.15-1.2) 08/03/22 20:36 AST 32 U/L (0-32) 08/03/22 20:36 ALT 43 U/L (0-33) H 08/03/22 20:36 Alkaline Phosphatase 96 U/L (35-105) 08/03/22 20:36 Troponin T Baseline 12 ng/L (0-10) H 08/03/22 20:36 Troponin T 120 Minute 11.36 ng/L (0-10) H 08/03/22 21:46 Delta Troponin T -0.64 ABS# (0-10) L 08/03/22 21:46 Troponin T Hi Sens 6Hr 12.95 ng/L (0-10) H 08/04/22 02:03 Troponin T Hi Sens 6Hr Delta 0.95 ng/L (0-12) 08/04/22 02:03 Total Protein 6.7 g/dL (6.6-8.7) 08/03/22 20:36 Albumin 4.0 g/dL (3.5-5.2) 08/03/22 20:36 Globulin 2.7 g/dL (1.3-4.6) 08/03/22 20:36 Triglycerides 59 mg/dL (0-150) 08/03/22 20:36 Cholesterol 233 mg/dL (0-200) H 08/03/22 20:36 LDL Cholesterol, Calc 136 mg/dL (50-129) H 08/03/22 20:36 HDL Cholesterol 85 mg/dL (60-100) 08/03/22 20:36 LDL/HDL Ratio 1.60 RATIO (0.00-3.22) 08/03/22 20:36 Cholesterol/HDL Ratio 2.74 mg/dL (0.0-4.40) 08/03/22 20:36 Vitamin B12 579 pg/mL (232-1245) 08/03/22 21:46 TSH 1.11 uIU/mL (0.27-4.20) 08/03/22 21:46 Urine Color Yellow (Yellow) 08/03/22 21:30 Urine Appearance Clear (CLEAR) 08/03/22 21:30 Urine pH 6 (5-7) 08/03/22 21:30 Ur Specific [place] 1.015 (1.005-1.030) 08/03/22 21:30 Urine Protein Neg (Negative) 08/03/22 21:30 Urine Glucose (UA) Norm (Normal) 08/03/22 21:30 Urine Ketones Negative (Negative) 08/03/22 21:30 Urine Blood Neg (Negative) 08/03/22 21:30 Urine Nitrate Negative (Negative) 08/03/22 21:30 Urine Bilirubin Neg (Negative) 08/03/22 21:30 Urine Urobilinogen Norm mg/dL (Negative) 08/03/22 21:30 Ur Leukocyte Esterase Negative (Negative) 08/03/22 21:30 Vitals Last Vital Signs Temp 98 F 08/04/22 04:00 Pulse 73 08/04/22 09:51 Resp 17 08/04/22 09:51 BP 158/82 08/04/22 04:00 Pulse Ox 98 08/04/22 09:51 O2 Del Method 08/04/22 09:51 Discharge Plan Discharge Patient Disposition: Home Health Service Condition: Stable Prescriptions: New atorvastatin 40 mg Tablet 40 mg PO BEDTIME 30 Days Qty: 30 0RF amlodipine 5 mg Tablet 5 mg PO DAILY 30 Days Qty: 30 0RF chlorthalidone 25 mg Tablet 12.5 mg PO DAILY 30 Days Qty: 30 0RF aspirin 81 mg Tablet,Delayed Release (Dr/Ec) 81 mg PO DAILY 30 Days Qty: 30 0RF clopidogrel 75 mg Tablet 75 mg PO DAILY 21 Days Qty: 21 0RF Continued eszopiclone [Lunesta] 2 mg tablet 2 mg PO BEDTIME methotrexate sodium 2.5 mg tablet See Rx Instructions .ROUTE .COMPLEX Rx Instructions: 2.5 mg orally on mon,,wed and fluticasone propionate 50 mcg/actuation spray,suspension 2 spray intranasal DAILY 180 Days Qty: 16 5RF Rx Instructions: administer into each nostril lorazepam 0.5 mg tablet 0.5 mg PO DAILY PRN (Reason: Anxiety) omeprazole 20 mg capsule,delayed release(DR/EC) 20 mg PO QAM donepezil [Aricept] 10 mg Tablet 10 mg PO QAM cyanocobalamin (vitamin B-12) [Vitamin B-12] 1,000 mcg Tablet 1,000 mcg PO QAM acetaminophen 500 mg Tablet 500 - 1,000 mg PO Q12H PRN (Reason: Pain) citalopram 20 mg tablet 20 mg PO BEDTIME calcium carbonate [Tums] 200 mg calcium (500 mg) Tablet,Chewable 400 mg PO BEDTIME PRN (Reason: Acid Reflux) Vitamin Patch 1 patch transdermal DAILY Discharge Orders: Discharge Order (Routine); Ordered 08/04/22 Ordered By: Toni Torres Referrals: Tess Breen DO [Primary Care Provider] - 4-7 days Discharge Diet: Advance as tolerated, Usual diet and Cardiac Discharge Activity: Resume usual activity and Increase activity as tolerated Patient Instructions: Opioid Safety, Pain Management Activity Restrictions/Additional Instructions: 1. Continue home health 2. Take medications as prescribed 3. Keep home blood pressure log 4. Follow up with PCP within one week Discharge Attestations Time Spent in Discharge Care*: greater than 30 min Status at Discharge: Cognitive status at discharge: cognitively intact, Behavioral status at discharge: cooperative, Quality Metrics Clinical Quality Measures [ No reported AMI, CVA or VTE this stay] Coding Level of Care Code Acute Chg FW DC note Diagnoses Right sided weakness R53.1 Hypertension I10 Pacemaker Z95.0 Sinus node dysfunction I49.5 Dementia F03.90 TIA (transient ischemic attack) G45.9
[2022-08-04 11:06] VITALS: PULSE 73; RESP 17; O2SAT 98
--- NOTE | 2022-08-04 11:58 | PC.OT ---
OT EVALUATION ORDERS RECEIVED. PATIENT DISCHARGED BEFORE EVALUATION COULD BE COMPLETED.
== END 2022-08-04 11:30 | disposition home health service (06) ==
LOC: ER 22:26 → MEDSURG 23:29
PROVIDERS: Admitting Provider Internal Medicine; Emergency Provider Emergency Medicine; PCP Family Medicine; Visit Provider Internal Medicine
DX: R53.1 Weakness (principal); I10 Essential (primary) hypertension; Z95.0 Presence of cardiac pacemaker; I49.5 Sick sinus syndrome; F03.90 Unspecified dementia, unspecified severity, without behavioral disturbance, psychotic disturbance, mood disturbance, and anxiety; G45.9 Transient cerebral ischemic attack, unspecified; F41.9 Anxiety disorder, unspecified; N18.9 Chronic kidney disease, unspecified; F32.A Depression, unspecified; Z87.891 Personal history of nicotine dependence; Z82.49 Family history of ischemic heart disease and other diseases of the circulatory system
CPT/HCPCS: 36415; 36416; 70450; 70496; 70498; 71045; 80048; 80053; 80061; 81003; 82607; 82962; 83735; 84443; 84484; 85025; 85610; 92523; 92610; 93005; 96372; 96374; 97530; 99285; G0378; J0360; J1644; Q9967

== ENCOUNTER → 2022-09-18 10:19 | Outpatient (BNVA) | payer MEDICARE, BC, SELFPAY | PROVIDERS: PCP Family Medicine; Visit Provider Internal Medicine Cardiovascular Disease | DX: Z45.010 Encounter for checking and testing of cardiac pacemaker pulse generator [battery] (principal) | CPT/HCPCS: 93280 ==

== ENCOUNTER 2022-12-04 07:31 | Emergency (ER) | payer MEDICARE, BC, SELFPAY ==
[2022-12-04 07:36] VITALS: BP 168/85; PULSE 63; RESP 16; TEMP 36.6; O2SAT 100
--- NOTE | 2022-12-04 08:27 | ECG_ITS ---
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 Measurements Intervals [place] Rate: 61 P: -46 TX: 208 QRS: 97 QRSD: 85 T: 100 QT: 451 QTc: 455 Interpretive Statements ELECTRONIC ATRIAL PACEMAKER BORDERLINE RIGHT AXIS DEVIATION [QRS AXIS > 90] LOW QRS VOLTAGE IN PRECORDIAL LEADS [QRS DEFLECTION < 1.0 mV IN CHEST LEADS] ABNORMAL RHYTHM ECG Compared to ECG 08/03/2022 20:34:49 Low QRS voltage now present Electronically Signed On 12-04-2022 21:23:30 CDT by Krishna Arvizu M.D. [email or web address]
--- NOTE | 2022-12-04 08:37 | XR_ITS ---
WS: [id number] XR chest 1V portable [id number] REASON FOR EXAM: dyspnea/cough FINDINGS: Cardiac device over the left chest with left subclavian lead to the right atrium and right ventricula r apex. Mild cardiomegaly. Moderately tortuous and ectatic aorta. Calcified granulomatous disease in both hemithoraces. No active pulmonary parenchymal or pleural disease. Mild degenerative spondylosis in the mid and lower thoracic spine. XR/XR chest 1V portable [id number] IMPRESSION: No acute chest abnormality.
[2022-12-04 08:40] LABS: Add Urine Microscopic? NO; Charge for UA Resulting for Rev
[2022-12-04 08:44] LABS: Glucose Urine UA Norm (Normal); Protein Urine Neg (Negative); Specific Gravity, Urine 1.015 (1.005-1.030); Urine Appearance Clear (CLEAR); Urine Color Yellow (Yellow); pH Urine 6.5 (5-7)
[2022-12-04 08:45] LABS: Bilirubin Urine Neg (Negative); Blood Urine Neg (Negative); Ketones Urine Negative (Negative); Leukocyte Esterase Urine Negative (Negative); Nitrate Urine Negative (Negative); Urobilinogen Urine Neg (Negative)
[2022-12-04 09:11] LABS: Basophils # 0.1 10^3/uL (0.0-0.1); Basophils % 0.7 %; Eosinophils # 0.1 10^3/uL (0.0-0.8); Eosinophils % 1.1 %; Hematocrit 35.1 % (37.0-47.0); Hemoglobin 11.6 g/dL (11.5-15.3); Lymphocytes # 1.7 10^3/uL (0.8-4.8); Lymphocytes % 22.9 %; Mean Corpuscular Hemoglobin 34.1 pg (28.0-34.0); Mean Corpuscular Volume 103.2 fl (81-99); Mean Platelet Volume 10.8 fL (7.4-10.4); Monocytes # 0.6 10^3/uL (0.2-0.9); Monocytes % 8.1 %; Neutrophils # 4.89 10^3/uL (1.8-7.7); Neutrophils % 66.9 %; Nucleated Red Blood Cells % 0 %; Platelet Count 178 10^3/cmm (130-400); Red Cell Distribution Width 14.1 % (12.1-15.1); White Blood Count 7.3 10^3/uL (4.0-10.0)
--- NOTE | 2022-12-04 09:32 | USCV_ITS ---
Leonard Narcisa Age: 77 Gender: F : 1945 Exam Date: 12/04/2022 10:07 Ordering Phys: Juan Carlos Cole DO Technologist: GANESH [place]am Location[place] [facility] [place]: Leg discomfort swelling PROCEDURES: The venous duplex Doppler examination of both lower extremities was performed in the standard fashion. FINDINGS: Normal 2-D Doppler and augmentation and compressibility throughout the lower extremity venous structures. Additional imaging through the proximal calf veins also reveals no thrombus. Limited evaluation of the greater saphenous vein is patent with no thrombus. CONCLUSIONS No DVT bilateral lower extremities. Dr. Yee Busch DO (Electronically Signed) Final Date: 04 December 2022 11:11 S
--- NOTE | 2022-12-04 09:32 | ED_ITS ---
HPI - SOB/Dyspnea General: Chief Complaint: Shortness of Breath/Dyspnea Stated Complaint: SOB, Weakness Time Seen by Provider: 12/04/22 07:37 Source: patient Mode of arrival: ambulatory History of Present Illness: HPI Narrative: 69-year-old female who presents to the emergency room with complaints of gene rally not feeling well a sensation of weakness in her lower extremities. She feels some heaviness he recently traveled she has not had any chest pain this morning for a brief time she felt short of breath but has not had any other issues today denies any radiation of discomfort into her neck or arms she has not had any fever sweats or chills, she has had a nonproductive cough for last several days. MD elicited complaint: shortness of breath Exacerbating factors: nothing Relieving factors: nothing Associated symptoms: Deny abdominal pain, chest congestion, chest pain, cough, diaphoresis, dizziness, extremity pain, fever(s), hemoptysis, lightheadedness, myalgias, nausea, orthopnea, palpitations, paresthesias, polydipsia, polyuria, rash, sense of impending doom, syncope or vomiting Treatment prior to arrival: none Review of Systems Const: Denies: fever(s) or diaphoresis ENMT: Denies: throat pain Card: Denies: chest pain, palpitations, lightheadedness, syncope or orthopnea Resp: Reports: dyspnea and non-productive cough; Denies: productive cough, wheezing, hemoptysis or chest congestion GI: Denies: abdominal pain, nausea or vomiting Musc: Denies: neck pain, back pain or extremity pain Neuro: Denies: dizziness Endo: Denies: polyuria or polydipsia [facility] ED PFSH: Medical History Anxiety Bradycardia Chronic kidney disease by history Closed fracture of right hip Dementia Depression History of stress test (12/11/20) 1. Small size perfusion abnormality of mild severity of apical loredo with subtle reversibility in apical septal wall on stress images. 2. This may represent old myocardial infarction or scarring in left anterior descending artery territory with minimal uche-infarct ischemia. 3. Overall left ventricular systolic function is normal with apical hypokinesis 4. The left ventricular ejection fraction is normal with a value of 63%. Mesenteric cyst Pacemaker Surgical History History of laminectomy History of laparotomy History of reduction of closed fracture (~11/2020) Family History Father CAD (coronary artery disease) Alcoholism Mother CAD (coronary artery disease) Brother CAD (coronary artery disease) Social History Smoking and tobacco status: former smoker Alcohol intake: never Physical Exam Const: COMMON NORMALS: no acute distress GENERAL APPEARANCE: cooperative and comfortable ORIENTATION/CONSCIOUSNESS: Yes awake, Yes oriented to person, Yes oriented to place and Yes oriented to time HENMT: COMMON NORMALS: normocephalic, atraumatic and hearing grossly normal bilaterally HEAD & SCALP: normocephalic and atraumatic Resp: COMMON NORMALS: normal respiratory effort, No retractions, No use of accessory muscles and clear to auscultation bilaterally AUSCULTATION: clear to auscultation bilaterally Cardio: COMMON NORMALS: regular rate, regular rhythm and No murmurs present (Cardio) RATE: regular rate RHYTHM: regular rhythm GI: COMMON NORMALS: Soft to palpation and No hepatosplenomegaly present AUSCULTATION: Yes normoactive bowel sounds PALPATION: Yes Soft to palpation, No Tenderness to palpation present (GI), No Guarding due to palpation present (GI) and Yes No hepatosplenomegaly present Extremity: COMMON NORMALS: normal to inspection, capillary refill normal, no clubbing, cyanosis or edema, no calf tenderness and no pedal edema Neuro: SENSORIUM/ORIENTATION: Yes oriented to person, Yes oriented to place and Yes oriented to time Skin: COMMON NORMALS: no rashes or lesions noted GENERAL SKIN EXAM: no rashes or lesions noted Course Vital Signs: Vital signs: Vital Signs Temperature 97.9 F 12/04/22 07:36 Pulse Rate 63 12/04/22 07:36 Respiratory Rate 16 12/04/22 07:36 Blood Pressure 168/85 12/04/22 07:36 Pulse Oximetry 100 12/04/22 07:36 Oxygen Delivery Me thod 12/04/22 07:36 MDM - SOB/Dyspnea Medical Decision Making Patient awake alert and oriented to respiratory rate heart rate are in the normal range actually mildly bradycardic there is no negative inotropes on her medication list. She is resting comfortably. She describes more of a weak feeling this morning because of her recent travel we did do a DVT of her lower extremities which was negative. Given her normal oxygen sats, respiratory rate and bradycardia -pulmonary embolism clinically can be excluded. Venous duplex lower extremities negative. Some of it may be's side effects from medications or she has no lymphocytopenia or other symptoms suggestive of COVID at this time. Viral respiratory infection from her recent travel. We will discharge patient home supportive cares recheck if any worsening or changing symptoms. Medical Records I reviewed the patient's medical records. Lab Data I reviewed the patient's lab results. 12/04/22 09:00 12/04/22 09:00 Labs/Radiology: Radiology Impressions Chest X-Ray 12/04/22 08:37 IMPRESSION: No acute chest abnormality. Laboratory Results WBC 7.3 10^3/uL (4.0-10.0) 12/04/22 09:00 RBC 3.40 10^6/uL (4.1-5.3) L 12/04/22 09:00 Hgb 11.6 g/dL (11.5-15.3) 12/04/22 09:00 Hct 35.1 % (37.0-47.0) L 12/04/22 09:00 MCV 103.2 fl (81-99) H 12/04/22 09:00 MCH 34.1 pg (28.0-34.0) H 12/04/22 09:00 MCHC 33.0 g/dL (30.0-36.0) 12/04/22 09:00 RDW 14.1 % (12.1-15.1) 12/04/22 09:00 Plt Count 178 10^3/cmm (130-400) 12/04/22 09:00 MPV 10.8 fL (7.4-10.4) H 12/04/22 09:00 Neut % (Auto) 66.9 % 12/04/22 09:00 Lymph % (Auto) 22.9 % 12/04/22 09:00 [place] % (Auto) 8.1 % 12/04/22 09:00 Eos % (Auto) 1.1 % 12/04/22 09:00 Baso % (Auto) 0.7 % 12/04/22 09:00 Neut # (Auto) 4.89 10^3/uL (1.8-7.7) 12/04/22 09:00 Lymph # (Auto) 1.7 10^3/uL (0.8-4.8) 12/04/22 09:00 [place] # (Auto) 0.6 10^3/uL (0.2-0.9) 12/04/22 09:00 Eos # (Auto) 0.1 10^3/uL (0.0-0.8) 12/04/22 09:00 Baso # (Auto) 0.1 10^3/uL (0.0-0.1) 12/04/22 09:00 Nucleated RBC % (auto) 0 % 12/04/22 09:00 Nucleated RBCs # 0.0 /100WBC 12/04/22 09:00 Sodium 139 mmol/L (136-145) 12/04/22 09:00 Potassium 4.2 mmol/L (3.5-5.1) 12/04/22 09:00 Chloride 105 mmol/L (98-107) 12/04/22 09:00 Carbon Dioxide 27 mmol/L (22-29) 12/04/22 09:00 Anion Gap 11.2 (5-19) 12/04/22 09:00 BUN 21 mg/dL (8-23) 12/04/22 09:00 Creatinine 1.0 mg/dL (0.5-0.9) H 12/04/22 09:00 GFR Calculation Not Reportable 12/04/22 09:00 Glucose 87 mg/dL (65-115) 12/04/22 09:00 Calculated Osmolality 290 mOsm/kg (285-295) 12/04/22 09:00 Calcium 8.9 mg/dL (8.5-10.5) 12/04/22 09:00 Total Bilirubin 0.6 mg/dL (0.15-1.2) 12/04/22 09:00 AST 18 U/L (0-32) 12/04/22 09:00 ALT 21 U/L (0-33) 12/04/22 09:00 Alkaline Phosphatase 104 U/L (35-105) 12/04/22 09:00 Total Protein 6.3 g/dL (6.6-8.7) L 12/04/22 09:00 Albumin 3.9 g/dL (3.5-5.2) 12/04/22 09:00 Globulin 2.4 g/dL (1.3-4.6) 12/04/22 09:00 Urine Color Yellow (Yellow) 12/04/22 08:38 Urine Appearance Clear (CLEAR) 12/04/22 08:38 Urine pH 6.5 (5-7) 12/04/22 08:38 Ur Specific [place] 1.015 (1.005-1.030) 12/04/22 08:38 Urine Protein Neg (Negative) 12/04/22 08:38 Urine Glucose (UA) Norm (Normal) 12/04/22 08:38 Urine Ketones Negative (Negative) 12/04/22 08:38 Urine Blood Neg (Negative) 12/04/22 08:38 Urine Nitrate Negative (Negative) 12/04/22 08:38 Urine Bilirubin Neg (Negative) 12/04/22 08:38 Urine Urobilinogen Neg mg/dL (Negative) 12/04/22 08:38 Ur Leukocyte Esterase Negative (Negative) 12/04/22 08:38 Discharge Plan Discharge Patient Disposition: Home Clinical Impression: Weakness Condition: Stable Prescriptions: No Action methotrexate sodium 2.5 mg tablet See Rx Instructions .ROUTE .COMPLEX Rx Instructions: 2.5 mg orally on mon,,wed and pantoprazole [Protonix] 40 mg tablet,delayed release (DR/EC) 40 mg PO DAILY 30 Days Qty: 30 2RF lorazepam 0.5 mg tablet 0.5 mg PO DAILY PRN (Reason: Anxiety) donepezil [Aricept] 10 mg Tablet 10 mg PO QAM acetaminophen 500 mg Tablet 500 - 1,000 mg PO Q12H PRN (Reason: Pain) citalopram 20 mg tablet 20 mg PO BEDTIME calcium carbonate [Tums] 200 mg calcium (500 mg) Tablet,Chewable 400 mg PO BEDTIME PRN (Reason: Acid Reflux) quetiapine 25 mg tablet 25 mg PO QPM atorvastatin 40 mg tablet 40 mg PO BEDTIME clopidogrel 75 mg tablet 75 mg PO DAILY [place] 180 mg Tablet 180 mg PO DAILY amlodipine 10 mg tablet 10 mg PO DAILY montelukast 10 mg tablet 10 mg PO QPM furosemide 20 mg tablet 10 mg PO DAILY PRN (Reason: Edema) Discharge Orders: Discharge ED (Routine); Ordered 12/04/22 Ordered By: Juan Carlos Cole Referrals: Tess Breen DO [Primary Care Provider] - Discharge Diet: Usual diet Discharge Activity: Resume usual activity Patient Instructions: Opioid Safety, Pain Management Activity Restrictions/Additional Instructions: You were seen today for weakness. Your laboratory test did not show any significant abnormalities there was no significant anemia. There was no blood clot in the legs. Your vital signs were stable. Some of the medicines that you have been prescribed can cause side effect of tiredness and weakness. There were no emergent conditions at this time. If your symptoms worsen or change you are welcome return to be reevaluated. Coding Level of Care Code ED Glass Melt Operator for Darshan Perez
[2022-12-04 09:33] LABS: Alanine Aminotransferase 21 U/L (0-33); Albumin Level 3.9 g/dL (3.5-5.2); Alkaline Phosphatase 104 U/L (35-105); Anion Gap 11.2 (5-19); Aspartate Amino Transferase 18 U/L (0-32); Blood Urea Nitrogen 21 mg/dL (8-23); Calcium 8.9 mg/dL (8.5-10.5); Carbon Dioxide 27 mmol/L (22-29); Chloride 105 mmol/L (98-107); Globulin 2.4 g/dL (1.3-4.6); Glucose 87 mg/dL (65-115); Osmolality Calculated 290 mOsm/kg (285-295); Potassium 4.2 mmol/L (3.5-5.1); Sodium 139 mmol/L (136-145); Total Bilirubin 0.6 mg/dL (0.15-1.2); Total Protein 6.3 g/dL (6.6-8.7)
== END 2022-12-04 11:51 | disposition home or self-care (01) ==
PROVIDERS: Emergency Provider Family Medicine; PCP Family Medicine
DX: R53.1 Weakness (principal); Z79.02 Long term (current) use of antithrombotics/antiplatelets; N18.9 Chronic kidney disease, unspecified; F03.90 Unspecified dementia, unspecified severity, without behavioral disturbance, psychotic disturbance, mood disturbance, and anxiety; Z95.0 Presence of cardiac pacemaker; Z87.891 Personal history of nicotine dependence
CPT/HCPCS: 71045; 80053; 81003; 85025; 93005; 93970; 99285

== ENCOUNTER 2022-12-04 21:05 | Inpatient (IN) | payer MEDICARE, BC, SELFPAY ==
[2022-12-04 21:10] VITALS: BP 124/70; PULSE 61; RESP 16; TEMP 36.4; O2SAT 98; BMI 28.1
--- NOTE | 2022-12-04 21:15 | XRR_ITS ---
PROCEDURE INFORMATION: Exam: XR Chest Exam date and time: 12/04/2022 9:29 PM Age: 77 years old Clinical indication: Other: Weakness; Prior surgery TECHNIQUE: Imaging protocol: Radiologic exam of the chest. Views: 1 view. COMPARISON: CR XR chest 1V portable [id number] 08/03/2022 9:28 PM FINDINGS: Tubes, catheters and devices: Left approach dual lead pacemaker. Lungs: Unremarkable. No consolidation. Pleural spaces: Unremarkable. No pleural effusion. No pneumothorax. Heart/Mediastinum: Unremarkable. No cardiomegaly. Bones/joints: Unremarkable. XR/XR chest 1V portable [id number] IMPRESSION: No acute abnormality.
--- NOTE | 2022-12-04 21:22 | CTR_ITS ---
PROCEDURE INFORMATION: Exam: CT Head Without Contrast Exam date and time: 12/04/2022 9:28 PM Age: 77 years old Clinical indication: Stroke-like symptoms; RT lower extremity weakness TECHNIQUE: Imaging protocol: Computed tomography of the head without contrast. Radiation optimization: All CT scans at this facility use at least one of these dose optimization techniques: automated exposure control; mA and/or kV adjustment per patient size (includes targeted exams where dose is matched to clinical indication); or iterative reconstruction. Other technique: STROKE PROTOCOL was implemented. REPORTING DATA: Count of CT and Cardiac NM exams in prior 12 months: This patient has received 4 known CTs and 0 known cardiac nuclear medicine studies in the 12 months prior to the current study. COMPARISON: CT head wo con* [id number] 08/03/2022 8:16 PM RADIATION DOSE METRICS: Total DLP (mGy-cm): 1082.2 FINDINGS: Brain: There are moderate periventricular and subcortical lucencies consistent with chronic microvascular ischemic changes. Chronic lacunar infarct in the right frontal lobe.The ortiz-white differentiation is maintained. No hemorrhage. No edema. Cerebral ventricles: No ventriculomegaly. Paranasal sinuses: Visualized sinuses are unremarkable. No fluid levels. Mastoid air cells: Visualized mastoid air cells are well aerated. Orbital cavities: Bilateral cataract surgery. Bones/joints: Unremarkable. No acute fracture. Soft tissues: Unremarkable. CT/CT head thrombolytic [id number] IMPRESSION: No acute intracranial abnormality. Chronic microvascular ischemic changes. ASSESSMENT: ASPECTS ([place] Stroke Program Early CT Score) is 10.
--- NOTE | 2022-12-04 21:28 | ED_ITS ---
HPI - Weakness General: Chief complaint: Weakness Stated complaint: left leg numbness/weakness Time Seen by Provider: 12/04/22 21:22 Source: patient Mode of arrival: ambulatory Limitations: no limitations History of Present Illness: 77-year-old female who has a history of TIAs in the past she seen here early this morning she is having some weakness she states that she went to bed tonight at 6 PM when she woke up at 830 she was having right leg weakness. Family states that she is shuffling with her gait and she does have a hard time lifting her right leg on the bed 7 some slight back pain as well. She denies any other symptoms denies headache she has no facial droop no slurred speech. Associated symptoms: Denies chest pain, chills, dysuria, easy bruising, fever(s), nausea or vomiting Review of Systems Const: Denies: fever(s), chills, body aches or change in appetite Eyes: Denies: blurry vision or eye discomfort ENMT: Denies: throat pain or dental pain Card: Denies: chest pain Resp: Denies: dyspnea GI: Denies: abdominal pain, nausea, vomiting or diarrhea : Denies: dysuria Musc: Denies: neck pain or back pain Skin/Breast: Denies: rash Neuro: Reports: weakness in extremities Psych: Denies: depression Zbigniew/Lymph: Denies: easy bruising All/Imm: Denies: urticaria PFSH ED PFSH: Medical History Anxiety Bradycardia Chronic kidney disease by history Closed fracture of right hip Dementia Depression History of stress test (12/11/20) 1. Small size perfusion abnormality of mild severity of apical loredo with subtle reversibility in apical septal wall on stress images. 2. This may represent old myocardial infarction or scarring in left anterior descending artery territory with minimal uche-infarct ischemia. 3. Overall left ventricular systolic function is normal with apical hypokinesis 4. The left ventricular ejection fraction is normal with a value of 63%. Mesenteric cyst Pacemaker Surgical History History of laminectomy History of laparotomy History of reduction of closed fracture (~11/2020) Family History Father CAD (coronary artery disease) Alcoholism Mother CAD (coronary artery disease) Brother CAD (coronary artery disease) Social History Smoking and tobacco status: former smoker Alcohol intake: never Physical Exam Const: COMMON NORMALS: no acute distress, patient oriented x3 and healthy appearing HENMT: COMMON NORMALS: normocephalic and atraumatic HEAD & SCALP: normocephalic and atraumatic Eye: COMMON NORMALS: Equal, round and reactive pupils present and EOMs intact bilaterally PUPIL: Yes Equal, round and reactive pupils present Neck/C-Spine: COMMON NORMALS: full ROM and supple Chest: COMMONS NORMALS: normal inspection of the chest and normal palpation of entire chest wall Resp: COMMON NORMALS: normal respiratory effort, No retractions, No use of accessory muscles and clear to auscultation bilaterally AUSCULTATION: clear to auscultation bilaterally Cardio: COMMON NORMALS: regular rate, regular rhythm and No murmurs present (Cardio) RATE: regular rate RHYTHM: regular rhythm GI: COMMON NORMALS: Normal to inspection, nondistended, normoactive bowel sounds present, Soft to palpation, non-tender and no masses PALPATION: Yes Soft to palpation Extremity: COMMON NORMALS: normal to inspection and full ROM Neuro: COMMON NORMALS: patient oriented x3 and moves all extremities OTHER: right leg weakness Psych: COMMON NORMALS: mental status grossly normal, Normal thought process present and cooperative THOUGHT PROCESS: Normal thought process present Skin: COMMON NORMALS: no rashes or lesions noted and no wounds GENERAL SKIN EXAM: no rashes or lesions noted Course Vital Signs: Vital signs: Vital Signs Temperature 97.6 F 12/04/22 21:10 Pulse Rate 60 12/04/22 22:30 Respiratory Rate 17 12/04/22 22:00 Blood Pressure 132/69 12/04/22 22:30 Pulse Oximetry 94 12/04/22 22:30 Oxygen Delivery Me thod 12/04/22 22:30 MDM - Weakness Medical Decision Making Patient presents here with right leg weakness she is able to lift her leg does have a drift she had a previous stroke and TIA she has had some slight improvement while here patient was evaluated by neurology who felt she was not a tPA candidate at this time she has no other deficits she is able to ambulate here I spoke to hospitalist kate admit for observation. Lab Data 12/04/22 21:43 12/04/22 21:43 Radiology Impressions Chest X-Ray 12/04/22 21:15 IMPRESSION: No acute abnormality. Head CT 12/04/22 21:22 IMPRESSION: No acute intracranial abnormality. Chronic microvascular ischemic changes. ASSESSMENT: ASPECTS ([place] Stroke Program Early CT Score) is 10. Laboratory Results WBC 8.0 10^3/uL (4.0-10.0) 12/04/22 21:43 RBC 3.78 10^6/uL (4.1-5.3) L 12/04/22 21:43 Hgb 12.6 g/dL (11.5-15.3) 12/04/22 21:43 Hct 38.6 % (37.0-47.0) 12/04/22 21:43 MCV 102.1 fl (81-99) H 12/04/22 21:43 MCH 33.3 pg (28.0-34.0) 12/04/22 21:43 MCHC 32.6 g/dL (30.0-36.0) 12/04/22 21:43 RDW 14.0 % (12.1-15.1) 12/04/22 21:43 Plt Count 195 10^3/cmm (130-400) 12/04/22 21:43 MPV 10.7 fL (7.4-10.4) H 12/04/22 21:43 Neut % (Auto) 63.0 % 12/04/22 21:43 Lymph % (Auto) 26.6 % 12/04/22 21:43 [place] % (Auto) 8.4 % 12/04/22 21:43 Eos % (Auto) 0.9 % 12/04/22 21:43 Baso % (Auto) 0.8 % 12/04/22 21:43 Neut # (Auto) 5.05 10^3/uL (1.8-7.7) 12/04/22 21:43 Lymph # (Auto) 2.1 10^3/uL (0.8-4.8) 12/04/22 21:43 [place] # (Auto) 0.7 10^3/uL (0.2-0.9) 12/04/22 21:43 Eos # (Auto) 0.1 10^3/uL (0.0-0.8) 12/04/22 21:43 Baso # (Auto) 0.1 10^3/uL (0.0-0.1) 12/04/22 21:43 Nucleated RBC % (auto) 0 % 12/04/22 21:43 Nucleated RBCs # 0.0 /100WBC 12/04/22 21:43 PT 12.50 SECONDS (12.1-14.9) 12/04/22 21:43 INR 0.91 (0.8-1.2) 12/04/22 21:43 Sodium 135 mmol/L (136-145) L 12/04/22 21:43 Potassium 4.2 mmol/L (3.5-5.1) 12/04/22 21:43 Chloride 99 mmol/L (98-107) 12/04/22 21:43 Carbon Dioxide 27 mmol/L (22-29) 12/04/22 21:43 Anion Gap 13.2 (5-19) 12/04/22 21:43 BUN 19 mg/dL (8-23) 12/04/22 21:43 Creatinine 1.0 mg/dL (0.5-0.9) H 12/04/22 21:43 GFR Calculation Not Reportable 12/04/22 21:43 Glucose 101 mg/dL (65-115) 12/04/22 21:43 POC Glucose 89 mg/dL (70-110) 12/04/22 21:23 Calculated Osmolality 282 mOsm/kg (285-295) L 12/04/22 21:43 Calcium 9.2 mg/dL (8.5-10.5) 12/04/22 21:43 Total Bilirubin 0.7 mg/dL (0.15-1.2) 12/04/22 21:43 AST 22 U/L (0-32) 12/04/22 21:43 ALT 23 U/L (0-33) 12/04/22 21:43 Alkaline Phosphatase 104 U/L (35-105) 12/04/22 21:43 Total Protein 7.0 g/dL (6.6-8.7) 12/04/22 21:43 Albumin 4.1 g/dL (3.5-5.2) 12/04/22 21:43 Globulin 2.9 g/dL (1.3-4.6) 12/04/22 21:43 Urine Color Light yellow (Yellow) 12/04/22 21:40 Urine Appearance Clear (CLEAR) 12/04/22 21:40 Urine pH 6 (5-7) 12/04/22 21:40 Ur Specific [place] 1.010 (1.005-1.030) 12/04/22 21:40 Urine Protein Neg (Negative) 12/04/22 21:40 Urine Glucose (UA) Norm (Normal) 12/04/22 21:40 Urine Ketones Negative (Negative) 12/04/22 21:40 Urine Blood Neg (Negative) 12/04/22 21:40 Urine Nitrate Negative (Negative) 12/04/22 21:40 Urine Bilirubin Neg (Negative) 12/04/22 21:40 Urine Urobilinogen Norm mg/dL (Negative) 12/04/22 21:40 Ur Leukocyte Esterase Negative (Negative) 12/04/22 21:40 Discharge Plan Discharge Patient Disposition: Admitted As Inpatient Clinical Impression: Right leg weakness Condition: Stable Coding Level of Care Code ED Certified Nurse Practitioner for Darshan Preez NIH stroke score NIHSS Level Of Consciousness - 1a: 0 Level Of Consciousness Questions - 1b: Both Correct Level Of Consciousness Commands - 1c: Both Correct Best Gaze - 2: Normal Visual Rodrigues - 3: No Visual Loss Facial Palsy - 4: Normal Motor Arm Right - 5: No Drift Motor Arm Left - 5: No Drift Motor Leg Right - 6: Drift Motor Leg Left - 6: No Drift Limb Ataxia - 7: Absent Sensory - 8: Normal Best Language - 9: No Aphasia Dysarthia - 10: Normal Extinction And Inattention - 11: 0 Score Total Score: 1
[2022-12-04 21:31] LABS: Glucose Point of Care 89 mg/dL (70-110)
--- NOTE | 2022-12-04 21:43 | ECG_ITS ---
[facility] Test Date: 2022-12-04 Pat Name: Narcisa Valle Department: Room: Gender: Female Filter Changer: : 1945 Requested By: Lyndsay Neely Order Number: [id number] Kemal MD: Krishna Arvizu M.D. Measurements Intervals [place] Rate: 65 P: 218 AR: 189 QRS: 55 QRSD: 86 T: 51 QT: 433 QTc: 450 Interpretive Statements ELECTRONIC ATRIAL PACEMAKER ABNORMAL RHYTHM ECG Compared to ECG 12/04/2022 08:27:47 No significant changes Electronically Signed On 12-05-2022 21:40:14 CDT by Krishna Arvizu M.D. [email or web address]
--- NOTE | 2022-12-04 21:50 | PC.NURSE ---
Daughter reports pt started c/o extreme exhaustion, took a nap at 1800, woke at 2030 with right leg jumping and felt heavy . Daughter also reported pt c/o head feeling swirly and seeing colors . States this same thing happened 3-4 months ago, pt had PT and symptoms resolved in 2-3 weeks.
[2022-12-04 21:53] VITALS: BP 153/78; PULSE 60; RESP 16; O2SAT 96
[2022-12-04 21:57] LABS: Add Urine Microscopic? NO; Charge for UA Resulting for Rev
[2022-12-04 22:00] VITALS: BP 139/76; PULSE 62; RESP 17; O2SAT 97
--- NOTE | 2022-12-04 22:01 | PC.NURSE ---
Pt talking to teleneuro with daughter at bedside
[2022-12-04 22:02] LABS: Basophils # 0.1 10^3/uL (0.0-0.1); Basophils % 0.8 %; Eosinophils # 0.1 10^3/uL (0.0-0.8); Eosinophils % 0.9 %; Hematocrit 38.6 % (37.0-47.0); Hemoglobin 12.6 g/dL (11.5-15.3); Lymphocytes # 2.1 10^3/uL (0.8-4.8); Lymphocytes % 26.6 %; Mean Corpuscular HGB Conc 32.6 g/dL (30.0-36.0); Mean Corpuscular Hemoglobin 33.3 pg (28.0-34.0); Mean Corpuscular Volume 102.1 fl (81-99); Mean Platelet Volume 10.7 fL (7.4-10.4); Monocytes # 0.7 10^3/uL (0.2-0.9); Monocytes % 8.4 %; Neutrophils # 5.05 10^3/uL (1.8-7.7); Nucleated Red Blood Cells % 0 %; Platelet Count 195 10^3/cmm (130-400); Red Blood Count 3.78 10^6/uL (4.1-5.3)
[2022-12-04 22:06] LABS: Bilirubin Urine Neg (Negative); Blood Urine Neg (Negative); Glucose Urine UA Norm (Normal); Ketones Urine Negative (Negative); Leukocyte Esterase Urine Negative (Negative); Nitrate Urine Negative (Negative); Protein Urine Neg (Negative); Urine Appearance Clear (CLEAR); Urine Color Light yellow (Yellow); Urobilinogen Urine Norm (Negative); pH Urine 6 (5-7)
[2022-12-04 22:09] LABS: INR 0.91 (0.8-1.2)
[2022-12-04 22:13] LABS: Alanine Aminotransferase 23 U/L (0-33); Albumin Level 4.1 g/dL (3.5-5.2); Alkaline Phosphatase 104 U/L (35-105); Anion Gap 13.2 (5-19); Aspartate Amino Transferase 22 U/L (0-32); Blood Urea Nitrogen 19 mg/dL (8-23); Calcium 9.2 mg/dL (8.5-10.5); Carbon Dioxide 27 mmol/L (22-29); Chloride 99 mmol/L (98-107); Globulin 2.9 g/dL (1.3-4.6); Glucose 101 mg/dL (65-115); Osmolality Calculated 282 mOsm/kg (285-295); Potassium 4.2 mmol/L (3.5-5.1); Sodium 135 mmol/L (136-145); Total Bilirubin 0.7 mg/dL (0.15-1.2)
[2022-12-04 22:30] VITALS: BP 132/69; PULSE 60; O2SAT 94
[2022-12-04 23:00] VITALS: BP 142/84; PULSE 60; RESP 15; O2SAT 95
[2022-12-04 23:30] VITALS: BP 112/69; PULSE 60; RESP 15; O2SAT 96
[2022-12-05] VITALS (7 sets, daily range): BP systolic 109–136; BP diastolic 62–74; PULSE 61–68; RESP 14–16; TEMP 36.5–36.8; O2SAT 93–98; BMI 29.0
--- NOTE | 2022-12-05 01:56 | PM.HP ---
Providers/Chief Complaint Admitting Physician: Radha Lopez MD Primary Care Provider: Tess Breen DO Chief Complaint: left leg numbness/weakness History of Present Illness Narcisa Valle is a 77 year old female with past medical history of bradycardia, CKD, dementia, depression, pacemaker presented to the hospital for concerns of stroke. She had a previous stroke in the past as well which was lacunar infarct. She says normally she has right leg weakness however this time the weakness was way worse compared to before and therefore she was very concerned. Her daughter brought her to the hospital. At this time when seen her symptoms are resolved. She was not a tPA candidate on arrival to ER. Telestroke service from [facility] saw the patient and recommended an MRI since she has not had 1. NIH was 1. Family did report that patient had some shuffling gait and she had hard time lifting her leg on the bed on arrival to ER however when I saw her she was able to lift her leg off the bed. Her symptoms from ER arrival have completely resolved at this point. She is able to ambulate as well. Chest x-ray shows no acute abnormality, head CT shows no acute intracranial abnormality either. WBC 8.0, hemoglobin 12.6, platelet 195, INR 1.91, sodium 135, potassium 4.2, chloride 99, BUN 19, creatinine 1.0, AST 22, ALT 23. Medications/Allergies Home Medications Medication Instructions Recorded Confirmed Last Taken Type lorazepam 0.5 mg tablet 0.5 mg PO DAILY PRN Anxiety 12/08/20 12/04/22 1 Week Ago History ~05/11/22 methotrexate sodium 2.5 mg tablet See Rx Instructions .Route .COMPLEX 07/08/21 12/04/22 12/02/22 History acetaminophen 500 mg tablet 500 - 1,000 mg PO Q12H PRN Pain 04/29/22 12/04/22 05/16/22 History calcium carbonate 200 mg calcium 400 mg PO BEDTIME PRN Acid Reflux 04/29/22 12/04/22 05/16/22 History (500 mg) chewable tablet (Tums) citalopram 20 mg tablet 20 mg PO BEDTIME 04/29/22 12/04/22 12/03/22 History donepezil 10 mg tablet (Aricept) 10 mg PO QAM 04/29/22 12/04/22 12/03/22 History pantoprazole 40 mg tablet,delayed 40 mg PO DAILY 30 days #30 tabs 10/09/22 12/04/22 12/03/22 Rx release (Protonix) amlodipine 10 mg tablet 10 mg PO DAILY 12/04/22 12/04/22 12/03/22 History atorvastatin 40 mg tablet 40 mg PO BEDTIME 12/04/22 12/04/22 12/03/22 History clopidogrel 75 mg tablet 75 mg PO DAILY 12/04/22 12/04/22 12/03/22 History fexofenadine 180 mg tablet 180 mg PO DAILY 12/04/22 12/04/22 12/03/22 History furosemide 20 mg tablet 10 mg PO DAILY PRN Edema 12/04/22 12/04/22 Unknown History montelukast 10 mg tablet 10 mg PO QPM 12/04/22 12/04/22 12/03/22 History quetiapine 25 mg tablet 25 mg PO QPM 12/04/22 12/04/22 12/03/22 History Allergies Allergy/AdvReac Type Severity Reaction Status Date / Time codeine Allergy Intermediate ALGY-Rash Verified 12/04/22 09:32 amitriptyline Allergy Unknown Verified 12/04/22 09:32 lisinopril Allergy ADR-Cough Verified 12/04/22 09:32 peanut Allergy ALGY-Anaphy Verified 12/04/22 09:32 laxis PFSH Acute PFSH: Medical History Anxiety Bradycardia Chronic kidney disease by history Closed fracture of right hip Dementia Depression History of stress test (12/11/20) 1. Small size perfusion abnormality of mild severity of apical loredo with subtle reversibility in apical septal wall on stress images. 2. This may represent old myocardial infarction or scarring in left anterior descending artery territory with minimal uche-infarct ischemia. 3. Overall left ventricular systolic function is normal with apical hypokinesis 4. The left ventricular ejection fraction is normal with a value of 63%. Mesenteric cyst Pacemaker Surgical History History of laminectomy History of laparotomy History of reduction of closed fracture (~11/2020) Family History Father CAD (coronary artery disease) Alcoholism Mother CAD (coronary artery disease) Brother CAD (coronary artery disease) Social History Smoking and tobacco status: former smoker Alcohol intake: never Vitals/I&O/Wt Last Vital Signs Temp 97.7 F 12/05/22 00:17 Pulse 63 12/05/22 00:17 Resp 16 12/05/22 00:17 BP 119/73 12/05/22 00:17 Pulse Ox 97 12/05/22 00:17 O2 Del Method 12/05/22 00:47 Weight last 48 hrs Weight 69.853 kg Weight 69.853 kg Physical Exam Narrative: General: Alert oriented x3, patient seen laying in bed appearing comfortable at this time. Seems to be a little forgetful. HEENT: Normocephalic, atraumatic, EOMI, no acute respiratory distress Cardio: Regular rate rhythm, normal S1-S2 Respiratory: Clear to auscultation bilaterally GI: Abdomen soft, nontender, bowel sounds + Behavior: Appropriate and cooperative Extremities: No edema Neuro: Cranial nerve II to XII intact, strength upper extremity 5 out of 5, lower extremity 4 out of 5 left lower extremity, 3 out of 5 right lower extremity. She says this is her baseline. No cerebellar signs. Data 12/04/22 21:43 12/04/22 21:43 A&P Assessment and plan (1) Weakness: (2) TIA (transient ischemic attack): (3) Hypertension: (4) Pacemaker: (5) Dementia: (6) Chronic GERD: (7) Depression: Qualifiers: Depression Type: unspecified Qualified Code(s): F32.9 - Major depressive disorder, single episode, unspecified (8) Right leg weakness: Plan #TIA #History of previous lacunar infarct #History of dementia #Hypertension #GERD #Chronic cough #Lumbar stenosis, chronic #History of Shakeel's thyroiditis -Evaluated by [place] telestroke service. Not a candidate for tPA at this time. Symptoms have resolved. CTA head and neck done in July did not show any vessel occlusions. I will repeat a carotid Doppler at this time. ? Check MRI brain without contrast in a.m. ? Neurology follow-up at discharge ? Continue on Plavix. I will add aspirin 325 daily ? Head CT reviewed no evidence of acute bleed ? Chest x-ray image reviewed personally. No evidence of pneumonia ? Neuro check every 4 hours -She may complete rest of work-up as an outpatient. Full code SCDs, heparin SQ twice daily Attestations Medical Necessity Statement*: observation overnight for TIA Other Coding Information Focused coding review requested Diagnoses Weakness R53.1 TIA (transient ischemic attack) G45.9 Hypertension I10 Pacemaker Z95.0 Dementia F03.90 Chronic GERD K21.9 Depression F32.9 Depression Type: unspecified Right leg weakness R29.898
--- NOTE | 2022-12-05 02:22 | USR_ITS ---
PROCEDURE INFORMATION: Exam: US Duplex Bilateral Extracranial Arteries, Carotid Arteries Exam date and time: 12/05/2022 2:51 AM Age: 77 years old Clinical indication: Visual disturbance; Additional info: TIA TECHNIQUE: Imaging protocol: Real-time Duplex ultrasound scan of the bilateral carotid and vertebral arteries combining ortiz scale, color Doppler and spectral waveform analysis. Bilateral exam. Exam focused on the carotid arteries. COMPARISON: CT angio headneck* [id number] 08/03/2022 8:40 PM FINDINGS: Right common carotid artery: Unremarkable. No occlusion or stenosis. Waveforms are normal. Right internal carotid artery: Moderate volume of mostly hypoechoic smoothly marginated plaque in the proximal segment. No occlusion or significant stenosis. Waveforms are normal. Right ICA/CCA ratio: Within normal limits. Right external carotid artery: No stenosis in the origin. Right vertebral artery: Unremarkable. Antegrade flow. Left common carotid artery: Unremarkable. No occlusion or stenosis. Waveforms are normal. Left internal carotid artery: Moderate volume of mostly hypoechoic smoothly marginated plaque in the proximal segment. No occlusion or significant stenosis. Waveforms are normal. Left ICA/CCA ratio: Within normal limits. Left external carotid artery: No stenosis in the origin. Left vertebral artery: Unremarkable. Antegrade flow. US/CV carotid duplex BI* [id number] IMPRESSION: 1. Less than 50% bilateral internal carotid artery stenosis. 2. Bilateral carotid artery atherosclerotic plaque. REFERENCES: SRU CRITERIA. The degree of internal carotid artery stenosis is based on criteria defined by the Society of Radiologists in Ultrasound (SRU). Normal is no stenosis. Mild is less than 50% stenosis. Moderate is 50-69% stenosis. Severe is greater than 69% stenosis to near occlusion. Near occlusion is a markedly narrowed lumen. Total occlusion is no detectable patent lumen.
[2022-12-05] MEDS: heparin 5,000 unit/mL INJ 1 mL 5000 UNIT SUBCUT ×2 (02:44→14:33)
[2022-12-05] MEDS: sodium chloride 0.9% 1,000 ML 75 ML IV ×2 (02:45→21:09)
[2022-12-05] MEDS: donepezil 5 MG Tablet 10 MG PO (05:12)
[2022-12-05 07:35] LABS: Thyroid Stimulating Hormone 0.89 uIU/mL (0.27-4.20)
[2022-12-05] MEDS: clopidogrel 75 mg Tablet PO (09:03)
[2022-12-05] MEDS: pantoprazole DR 40 mg Tablet PO (09:03)
[2022-12-05] MEDS: aspirin 81 mg EC Tablet PO (09:20)
--- NOTE | 2022-12-05 13:35 | PM.PN ---
Subjective Subjective: Patient was seen this morning she continues to complain of some heaviness in her right leg, denies any blurry vision, change in her vision, no paresthesias, no facial droop no slurring of her words no focal arm weakness, or paresthesias Vitals/I&O/Wt Last Vital Signs Temp 97.8 F 12/05/22 11:34 Pulse 68 12/05/22 11:34 Resp 16 12/05/22 11:34 BP 121/74 12/05/22 11:34 Pulse Ox 97 12/05/22 11:34 O2 Del Method 12/05/22 11:34 12/04/22 12/05/22 12/05/22 22:59 06:59 14:59 Intake Total 100 / 100 600 / 600 Balance 100 / 100 600 / 600 Weight last 48 hrs Weight 69.853 kg Weight 69.853 kg Physical Exam Const: COMMON NORMALS: no acute distress and patient oriented x3 Resp: COMMON NORMALS: normal respiratory effort, No retractions, No use of accessory muscles and clear to auscultation bilaterally AUSCULTATION: clear to auscultation bilaterally Cardio: COMMON NORMALS: regular rate, regular rhythm, S1 normal heart sound present and S2 normal heart sound present RATE: regular rate RHYTHM: regular rhythm HEART SOUNDS: S1 normal heart sound present and S2 normal heart sound present GI: COMMON NORMALS: Normal to inspection, nondistended, normoactive bowel sounds present and non-tender Extremity: COMMON NORMALS: no pedal edema Neuro: COMMON NORMALS: patient oriented x3, CN's II-XII intact bilaterally, moves all extremities, no focal motor deficits and no sensory deficits noted Psych: COMMON NORMALS: mental status grossly normal Data 12/04/22 21:43 12/04/22 21:43 A&P Assessment and plan (1) Weakness: (2) TIA (transient ischemic attack): (3) Hypertension: (4) Pacemaker: (5) Dementia: (6) Chronic GERD: (7) Depression: Qualifiers: Depression Type: unspecified Qualified Code(s): F32.9 - Major depressive disorder, single episode, unspecified (8) Right leg weakness: (9) CVA (cerebral vascular accident): Plan #CVA #History of previous lacunar infarct #History of dementia #Hypertension #GERD #Chronic cough #Lumbar stenosis, chronic #History of Shakeel's thyroiditis -Evaluated by [place] telestroke service. Not a candidate for tPA at this time. Symptoms have resolved. CTA head and neck done in July did not show any vessel occlusions. I will repeat a carotid Doppler at this time. -Continues to complain of right leg weakness, I cannot really discern any weakness on exam, no trouble Coordination ? Check MRI brain without contrast in a.m. ? Neurology follow-up at discharge ? Continue on Plavix. Aspirin 81 mg ? Head CT reviewed no evidence of acute bleed ? Chest x-ray image reviewed personally. No evidence of pneumonia ? Neuro check every 4 hours -Allow for permissive hypertension -IV fluids -PT OT, speech therapy eval -She may complete rest of work-up as an outpatient. Full code SCDs, heparin SQ twice daily Attestations Medical Necessity Statement*: Patient requires hospitalization inpatient, for concerns for acute CVA Diagnoses Weakness R53.1 TIA (transient ischemic attack) G45.9 Hypertension I10 Pacemaker Z95.0 Dementia F03.90 Chronic GERD K21.9 Depression F32.9 Depression Type: unspecified Right leg weakness R29.898 CVA (cerebral vascular accident) I63.9
--- NOTE | 2022-12-05 15:49 | PC.OT ---
OT evaluation completed. OT services not indicated at this time. Nursing notified.
[2022-12-05] MEDS: citalopram 20 mg Tablet PO (21:09)
[2022-12-05] MEDS: atorvastatin 40 mg Tablet PO (21:09)
[2022-12-06] MEDS: heparin 5,000 unit/mL INJ 1 mL 5000 UNIT SUBCUT (02:06)
[2022-12-06 03:22] VITALS: BP 113/61; PULSE 62; RESP 15; TEMP 36.6; O2SAT 97
[2022-12-06 04:04] LABS: Basophils # 0.1 10^3/uL (0.0-0.1); Basophils % 0.8 %; Eosinophils # 0.1 10^3/uL (0.0-0.8); Eosinophils % 1.2 %; Hematocrit 33.8 % (37.0-47.0); Hemoglobin 10.6 g/dL (11.5-15.3); Lymphocytes # 2.2 10^3/uL (0.8-4.8); Lymphocytes % 30.7 %; Mean Corpuscular HGB Conc 31.4 g/dL (30.0-36.0); Mean Corpuscular Hemoglobin 33.3 pg (28.0-34.0); Mean Corpuscular Volume 106.3 fl (81-99); Mean Platelet Volume 11.4 fL (7.4-10.4); Monocytes # 0.7 10^3/uL (0.2-0.9); Monocytes % 10.1 %; Neutrophils # 4.15 10^3/uL (1.8-7.7); Neutrophils % 56.9 %; Nucleated Red Blood Cells % 0 %; Platelet Count 166 10^3/cmm (130-400); Red Blood Count 3.18 10^6/uL (4.1-5.3); Red Cell Distribution Width 14.2 % (12.1-15.1); White Blood Count 7.3 10^3/uL (4.0-10.0)
[2022-12-06 04:26] LABS: Alanine Aminotransferase 16 U/L (0-33); Albumin Level 3.2 g/dL (3.5-5.2); Alkaline Phosphatase 102 U/L (35-105); Anion Gap 11.2 (5-19); Aspartate Amino Transferase 16 U/L (0-32); Blood Urea Nitrogen 27 mg/dL (8-23); Calcium 8.2 mg/dL (8.5-10.5); Carbon Dioxide 24 mmol/L (22-29); Chloride 107 mmol/L (98-107); Globulin 2.2 g/dL (1.3-4.6); Glucose 86 mg/dL (65-115); Magnesium 2.2 mg/dL (1.7-2.3); Osmolality Calculated 290 mOsm/kg (285-295); Phosphorus 3.3 mg/dL (2.5-4.5); Potassium 4.2 mmol/L (3.5-5.1); Sodium 138 mmol/L (136-145); Total Bilirubin 0.3 mg/dL (0.15-1.2); Total Protein 5.4 g/dL (6.6-8.7)
[2022-12-06] MEDS: donepezil 5 MG Tablet 10 MG PO (06:21)
[2022-12-06 08:00] VITALS: BP 109/64; PULSE 65; RESP 15; TEMP 36.5; O2SAT 97
[2022-12-06] MEDS: aspirin 81 mg EC Tablet PO (09:30)
[2022-12-06] MEDS: pantoprazole DR 40 mg Tablet PO (09:30)
[2022-12-06] MEDS: clopidogrel 75 mg Tablet PO (09:30)
[2022-12-06] MEDS: sodium chloride 0.9% 1,000 ML 75 ML IV (09:32)
[2022-12-06 12:00] VITALS: BP 127/68; PULSE 60; RESP 16; TEMP 36.7; O2SAT 97
--- NOTE | 2022-12-06 12:17 | P.DS_ITS ---
Discharge Providers Date of Admission: 12/05/22 17:45 Date of Discharge: December 06, 2022 Attending Provider at Admission: Radha Lopez MD Attending Provider at Discharge: Jose Alberto Lomeli MD Primary Care Provider: Tess Breen DO Diagnoses at Discharge Discharge Diagnosis (1) Weakness: Status: Acute (2) TIA (transient ischemic attack): Status: Acute (3) Hypertension: Status: Acute (4) Pacemaker: Status: Acute (5) Dementia: Status: Acute (6) Chronic GERD: Status: Acute (7) Depression: Status: Chronic Qualifiers: Depression Type: unspecified Qualified Code(s): F32.9 - Major depressive disorder, single episode, unspecified (8) Right leg weakness: Status: Acute (9) CVA (cerebral vascular accident): Status: Acute Reason for Visit Reason for Visit: left leg numbness/weakness Hospital Course Hospital Course Narcisa Valle is a 77 year old female with past medical history of bradycardia, CKD, dementia, depression, pacemaker presented to the hospital for concerns of stroke.? She had a previous stroke in the past as well which was lacunar infarct.? She says normally she has right leg weakness however this time the weakness was way worse compared to before and therefore she was very concerned.? Her daughter brought her to the hospital.? At this time when seen her symptoms are resolved.? She was not a tPA candidate on arrival to ER.? Telestroke service from [facility] saw the patient and recommended an MRI since she has not had 1.? NIH was 1.? Family did report that patient had some shuffling gait and she had hard time lifting her leg on the bed on arrival to ER however when I saw her she was able to lift her leg off the bed.? Her symptoms from ER arrival have completely resolved at this point.? She is able to ambulate as well.? Chest x- ray shows no acute abnormality, head CT shows no acute intracranial abnormality either.? WBC 8.0, hemoglobin 12.6, platelet 195, INR 1.91, sodium 135, potassium 4.2, chloride 99, BUN 19, creatinine 1.0, AST 22, ALT 23 Patient was admitted to [facility] for concerns for CVA, with right lower extremity weakness, telestroke [facility] evaluated, not a candidate for tPA, she was monitored as inpatient, her right lower extremity weakness resolved, received PT OT, ambulating without significant symptomatology no other focal neurologic deficits. On discharge continue Plavix. Discharged on 21 days of aspirin overlap. Continue statin. Follow-up with primary care provider this week for blood pressure check. Follow-up with neurology as outpatient. If any recurrent strokelike symptoms go to the emergency room. Physical Exam Const: COMMON NORMALS: no acute distress and patient oriented x3 Resp: COMMON NORMALS: normal respiratory effort, No retractions, No use of accessory muscles and clear to auscultation bilaterally AUSCULTATION: clear to auscultation bilaterally Cardio: COMMON NORMALS: regular rate, regular rhythm, S1 normal heart sound present and S2 normal heart sound present RATE: regular rate RHYTHM: regular rhythm HEART SOUNDS: S1 normal heart sound present and S2 normal heart sound present GI: COMMON NORMALS: Normal to inspection, nondistended, normoactive bowel sounds present and non-tender Extremity: COMMON NORMALS: no pedal edema Neuro: COMMON NORMALS: patient oriented x3, CN's II-XII intact bilaterally, moves all extremities, no focal motor deficits and no sensory deficits noted Psych: COMMON NORMALS: mental status grossly normal Discharge Data Studies Completed and Pending Completed Studies During Hospitalization Category Date Time Status CT head thrombolytic [id number] Stat Cat Scan 12/04/22 21:22 Completed XR chest 1V portable [id number] Stat Exams 12/04/22 21:15 Completed CV carotid duplex BI* [id number] Routine Ultrasound 12/05/22 02:22 Completed Pending at discharge Category Date Time Status MR head wo con* [id number] Routine MRI 12/05/22 02:22 Ordered Radiology Impressions Chest X-Ray 12/04/22 21:15 IMPRESSION: No acute abnormality. Head CT 12/04/22 21:22 IMPRESSION: No acute intracranial abnormality. Chronic microvascular ischemic changes. ASSESSMENT: ASPECTS ([place] Stroke Program Early CT Score) is 10. Carotid Doppler Study 12/05/22 02:22 IMPRESSION: 1. Less than 50% bilateral internal carotid artery stenosis. 2. Bilateral carotid artery atherosclerotic plaque. REFERENCES: SRU CRITERIA. The degree of internal carotid artery stenosis is based on criteria defined by the Society of Radiologists in Ultrasound (SRU). Normal is no stenosis. Mild is less than 50% stenosis. Moderate is 50-69% stenosis. Severe is greater than 69% stenosis to near occlusion. Near occlusion is a markedly narrowed lumen. Total occlusion is no detectable patent lumen. Laboratory Results WBC 7.3 10^3/uL (4.0-10.0) 12/06/22 02:59 RBC 3.18 10^6/uL (4.1-5.3) L 12/06/22 02:59 Hgb 10.6 g/dL (11.5-15.3) L 12/06/22 02:59 Hct 33.8 % (37.0-47.0) L 12/06/22 02:59 MCV 106.3 fl (81-99) H 12/06/22 02:59 MCH 33.3 pg (28.0-34.0) 12/06/22 02:59 MCHC 31.4 g/dL (30.0-36.0) 12/06/22 02:59 RDW 14.2 % (12.1-15.1) 12/06/22 02:59 Plt Count 166 10^3/cmm (130-400) 12/06/22 02:59 MPV 11.4 fL (7.4-10.4) H 12/06/22 02:59 Neut % (Auto) 56.9 % 12/06/22 02:59 Lymph % (Auto) 30.7 % 12/06/22 02:59 Crockett % (Auto) 10.1 % 12/06/22 02:59 Eos % (Auto) 1.2 % 12/06/22 02:59 Baso % (Auto) 0.8 % 12/06/22 02:59 Neut # (Auto) 4.15 10^3/uL (1.8-7.7) 12/06/22 02:59 Lymph # (Auto) 2.2 10^3/uL (0.8-4.8) 12/06/22 02:59 Crockett # (Auto) 0.7 10^3/uL (0.2-0.9) 12/06/22 02:59 Eos # (Auto) 0.1 10^3/uL (0.0-0.8) 12/06/22 02:59 Baso # (Auto) 0.1 10^3/uL (0.0-0.1) 12/06/22 02:59 Nucleated RBC % (auto) 0 % 12/06/22 02:59 Nucleated RBCs # 0.0 /100WBC 12/06/22 02:59 PT 12.50 SECONDS (12.1-14.9) 12/04/22 21:43 INR 0.91 (0.8-1.2) 12/04/22 21:43 Sodium 138 mmol/L (136-145) 12/06/22 02:59 Potassium 4.2 mmol/L (3.5-5.1) 12/06/22 02:59 Chloride 107 mmol/L (98-107) 12/06/22 02:59 Carbon Dioxide 24 mmol/L (22-29) 12/06/22 02:59 Anion Gap 11.2 (5-19) 12/06/22 02:59 BUN 27 mg/dL (8-23) H 12/06/22 02:59 Creatinine 1.0 mg/dL (0.5-0.9) H 12/06/22 02:59 GFR Calculation Not Reportable 12/06/22 02:59 Glucose 86 mg/dL (65-115) 12/06/22 02:59 POC Glucose 89 mg/dL (70-110) 12/04/22 21:23 Calculated Osmolality 290 mOsm/kg (285-295) 12/06/22 02:59 Calcium 8.2 mg/dL (8.5-10.5) L 12/06/22 02:59 Phosphorus 3.3 mg/dL (2.5-4.5) 12/06/22 02:59 Magnesium 2.2 mg/dL (1.7-2.3) 12/06/22 02:59 Total Bilirubin 0.3 mg/dL (0.15-1.2) 12/06/22 02:59 AST 16 U/L (0-32) 12/06/22 02:59 ALT 16 U/L (0-33) 12/06/22 02:59 Alkaline Phosphatase 102 U/L (35-105) 12/06/22 02:59 Total Protein 5.4 g/dL (6.6-8.7) L 12/06/22 02:59 Albumin 3.2 g/dL (3.5-5.2) L 12/06/22 02:59 Globulin 2.2 g/dL (1.3-4.6) 12/06/22 02:59 TSH 0.89 uIU/mL (0.27-4.20) 12/05/22 05:12 Urine Color Light yellow (Yellow) 12/04/22 21:40 Urine Appearance Clear (CLEAR) 12/04/22 21:40 Urine pH 6 (5-7) 12/04/22 21:40 Ur Specific Belle 1.010 (1.005-1.030) 12/04/22 21:40 Urine Protein Neg (Negative) 12/04/22 21:40 Urine Glucose (UA) Norm (Normal) 12/04/22 21:40 Urine Ketones Negative (Negative) 12/04/22 21:40 Urine Blood Neg (Negative) 12/04/22 21:40 Urine Nitrate Negative (Negative) 12/04/22 21:40 Urine Bilirubin Neg (Negative) 12/04/22 21:40 Urine Urobilinogen Norm mg/dL (Negative) 12/04/22 21:40 Ur Leukocyte Esterase Negative (Negative) 12/04/22 21:40 Vitals Last Vital Signs Temp 97.7 F 12/06/22 08:00 Pulse 65 12/06/22 08:00 Resp 15 12/06/22 08:00 BP 109/64 12/06/22 08:00 Pulse Ox 97 12/06/22 08:00 O2 Del Method 12/06/22 08:00 Discharge Plan Discharge Patient Disposition: Home Condition: Stable Prescriptions: New aspirin 81 mg Tablet,Delayed Release (Dr/Ec) 81 mg PO DAILY 21 Days Qty: 21 0RF Continued methotrexate sodium 2.5 mg tablet See Rx Instructions .ROUTE .COMPLEX Rx Instructions: 2.5 mg orally on wed,,wed and pantoprazole [Protonix] 40 mg tablet,delayed release (DR/EC) 40 mg PO DAILY 30 Days Qty: 30 2RF lorazepam 0.5 mg tablet 0.5 mg PO DAILY PRN (Reason: Anxiety) donepezil [Aricept] 10 mg Tablet 10 mg PO QAM acetaminophen 500 mg Tablet 500 - 1,000 mg PO Q12H PRN (Reason: Pain) citalopram 20 mg tablet 20 mg PO BEDTIME calcium carbonate [Tums] 200 mg calcium (500 mg) Tablet,Chewable 400 mg PO BEDTIME PRN (Reason: Acid Reflux) quetiapine 25 mg tablet 25 - 50 mg PO BEDTIME fexofenadine 180 mg Tablet 180 mg PO DAILY amlodipine 10 mg tablet 10 mg PO DAILY montelukast 10 mg tablet 10 mg PO QPM furosemide 20 mg tablet 10 mg PO DAILY PRN (Reason: Edema) atorvastatin 40 mg tablet 40 mg PO BEDTIME 30 Days Qty: 30 0RF clopidogrel 75 mg tablet 75 mg PO DAILY 30 Days Qty: 30 0RF Discharge Orders: Discharge Order (Routine); Ordered 12/06/22 Ordered By: Jose Alberto Lomeli Referrals: Shantel Hawthorne MD [Physician] - 2 weeks Tess Breen DO [Primary Care Provider] - Discharge Diet: Cardiac Discharge Activity: Resume usual activity Patient Instructions: Aspirin (By mouth), Transient Ischemic Attack (DC), Opioid Safety Activity Restrictions/Additional Instructions: - If any recurrent strokelike symptoms please call 911 -Follow-up with primary care provider next week -Follow-up with neurology in 2 weeks Discharge Attestations Time Spent in Discharge Care*: greater than 30 min Status at Discharge: Cognitive status at discharge: cognitively intact , Behavioral status at discharge: cooperative , Quality Metrics Clinical Quality Measures [ Cerebrovascular Accident { Contraindication to Antithrombotic: None; antithrombotic prescribed; Contraindication to Anticoagulation: Overlap treatment not indicated; Contraindication to Statin: None; Statin prescribed;}] Coding Level of Care Code 05830 Total time (in minutes) for Discharge: 40 Diagnoses Weakness R53.1 TIA (transient ischemic attack) G45.9 Hypertension I10 Pacemaker Z95.0 Dementia F03.90 Chronic GERD K21.9 Depression F32.9 Depression Type: unspecified Right leg weakness R29.898 CVA (cerebral vascular accident) I63.9
--- NOTE | 2022-12-06 15:39 | PC.NURSE ---
patient and daughter verbalized understanding of discharge instructions, home medications, and follow up appointments. patient daughter and DPOA requested to speak with Dr. Lomeli. Dr. Lomeli notified and given her name and phone number. patients daughter stated that she was comfortable with discharge knowing that dr lomeli was going to be calling.
[2022-12-06 15:47] VITALS: BP 127/68; PULSE 60; RESP 16; TEMP 36.7; O2SAT 97
== END 2022-12-06 14:30 | disposition home health service (06) | DRG 65 ==
LOC: ER 23:12 → MEDSURG 23:36
PROVIDERS: Admitting Provider Internal Medicine; Emergency Provider Emergency Medicine; PCP Family Medicine; Visit Provider Family Medicine
DX: I63.9 Cerebral infarction, unspecified (principal); F03.93 Unspecified dementia, unspecified severity, with mood disturbance; G81.91 Hemiplegia, unspecified affecting right dominant side; R29.701 NIHSS score 1; I12.9 Hypertensive chronic kidney disease with stage 1 through stage 4 chronic kidney disease, or unspecified chronic kidney disease; N18.9 Chronic kidney disease, unspecified; F32.9 Major depressive disorder, single episode, unspecified; R05.3 Chronic cough; M48.061 Spinal stenosis, lumbar region without neurogenic claudication; K21.9 Gastro-esophageal reflux disease without esophagitis; E06.3 Autoimmune thyroiditis; Z95.0 Presence of cardiac pacemaker; Z86.73 Personal history of transient ischemic attack (TIA), and cerebral infarction without residual deficits; Z79.02 Long term (current) use of antithrombotics/antiplatelets
CPT/HCPCS: 36415; 36416; 70450; 71045; 80053; 81003; 82962; 83735; 84100; 84443; 85025; 85610; 92523; 92610; 93005; 93880; 93970; 96372; 96374; 97161; 97165; 97530; 99285; G0378; J1644; J7030

== ENCOUNTER → 2023-02-02 08:32 | Outpatient (BNVA) | payer MEDICARE, BC, SELFPAY | PROVIDERS: PCP Family Medicine; Visit Provider Otolaryngology | DX: J31.0 Chronic rhinitis (principal); H69.82 Other specified disorders of Eustachian tube, left ear; J34.2 Deviated nasal septum; J34.1 Cyst and mucocele of nose and nasal sinus | CPT/HCPCS: 99214 ==

== ENCOUNTER 2023-02-08 07:59 | Outpatient (CLI) | payer MEDICARE, BC, SELFPAY ==
--- NOTE | 2023-02-08 08:30 | CT_ITS ---
WS: [id number] CT SINUSES TECHNIQUE: Noncontrast CT of the paranasal sinuses with coronal and sagittal reformatted images. CLINICAL INFORMATION: examination of the sinuses COMPARISON: None. DLP: 521.[address] scans at [facility] use at least one of these dose optimization techniques: automated e xposure control; mA and/or kV adjustment per patient size (includes targeted exams where dose is matc hed to clinical indication); or iterative reconstruction. FINDINGS: RIGHT to LEFT nasal septal deviation measuring 3.1 mm. Mild narrowing of the ostiomeatal units are pa tent. Frontal sinuses are patent. Mild mucosal thickening ethmoid air cells. Mild mucosal thickening RIGHT greater than LEFT maxillary sinuses measuring 2.2 mm RIGHT maxillary sinus. Sphenoid sinus is well aerated. Mild mucosal thickening along the sphenoid sinus ostia which are cameron nt. Mastoid air cells are well aerated. Normal posterior nasopharynx. Normal parapharyngeal fat. Pann us at the C1-C2 articulation. Moderate small vessel changes partially visualized intracranial content s. Small retention cyst or polyp posterior nasal cavity at the nasopharynx measuring 9.[address]/CT sinus wo con* [id number] IMPRESSION: 1. RIGHT to LEFT nasal septal deviation measuring 3.1 mm. 2. Mild narrowing of the ostiomeatal units which are patent. 3. Mild mucosal thickening RIGHT greater than LEFT maxillary sinus measuring 2 .2 mm RIGHT maxillary sinus. 4. Frontal sinuses are well aerated. Mild mucosal thickening ethmoid air cells . 5. Sphenoid sinuses are patent with mild mucosal thickening along the sphenoid sinus ostia 6. Small retention cyst or polyp posterior nasal cavity at the nasopharynx sandra suring 9.8 mm 7. Mastoid air cells well aerated.
== END 2023-02-08 08:00 | disposition home or self-care (01) ==
LOC: RAD 08:04
PROVIDERS: PCP Family Medicine; Visit Provider Otolaryngology
DX: J34.1 Cyst and mucocele of nose and nasal sinus (principal); J34.2 Deviated nasal septum
CPT/HCPCS: 70486

== ENCOUNTER → 2023-03-22 15:32 | Outpatient (BNVA) | payer MEDICARE, BC, SELFPAY | PROVIDERS: PCP Family Medicine; Visit Provider Otolaryngology | DX: J32.0 Chronic maxillary sinusitis (principal); J34.2 Deviated nasal septum; J34.3 Hypertrophy of nasal turbinates; J39.2 Other diseases of pharynx; J34.1 Cyst and mucocele of nose and nasal sinus | CPT/HCPCS: 99215 ==

== ENCOUNTER → 2023-04-13 10:50 | Outpatient (BNVA) | payer MEDICARE, BC, SELFPAY | PROVIDERS: PCP Family Medicine; Visit Provider Internal Medicine Cardiovascular Disease | DX: Z45.010 Encounter for checking and testing of cardiac pacemaker pulse generator [battery] (principal) | CPT/HCPCS: 93296 ==

== ENCOUNTER 2023-04-15 08:04 | Day surgery (SDC) | payer MEDICARE, BC, SELFPAY ==
[2023-03-31 10:17] VITALS: BMI 31.6
[2023-04-14 11:28] VITALS: BMI 31.6
[2023-04-15] VITALS (7 sets, daily range): BP systolic 108–147; BP diastolic 62–93; PULSE 63–82; RESP 16; TEMP 36.3–36.6; O2SAT 99–100
--- NOTE | 2023-04-15 08:25 | ECG_ITS ---
[facility] Test Date: 2023-04-15 Pat Name: Narcisa Valle Department: Room: Gender: Female Radiology Special Procedure Tech: : 1945 Requested By: Bolivar Cowart Order Number: [id number] Kemal MD: Alejandro Warren M.D. Measurements Intervals Cody Rate: 59 P: 118 VA: 209 QRS: 42 QRSD: 90 T: 42 QT: 467 QTc: 466 Interpretive Statements ELECTRONIC ATRIAL PACEMAKER Compared to ECG 12/04/2022 21:43:40 No significant changes Electronically Signed On 04-15-2023 15:17:28 CDT by Alejandro Warren M.D. [email or web address]
[2023-04-15 08:45] LABS: Basophils % 0.6 %; Eosinophils # 0.2 10^3/uL (0.0-0.8); Eosinophils % 2.4 %; Hematocrit 37.6 % (37.0-47.0); Hemoglobin 12.3 g/dL (11.5-15.3); Lymphocytes # 1.6 10^3/uL (0.8-4.8); Lymphocytes % 23.8 %; Mean Corpuscular HGB Conc 32.7 g/dL (30.0-36.0); Mean Corpuscular Hemoglobin 32.5 pg (28.0-34.0); Mean Corpuscular Volume 99.2 fl (81-99); Mean Platelet Volume 11.3 fL (7.4-10.4); Monocytes # 0.7 10^3/uL (0.2-0.9); Monocytes % 10.3 %; Neutrophils # 4.15 10^3/uL (1.8-7.7); Neutrophils % 62.6 %; Nucleated Red Blood Cells % 0 %; Platelet Count 156 10^3/cmm (130-400); Red Blood Count 3.79 10^6/uL (4.1-5.3); Red Cell Distribution Width 12.5 % (12.1-15.1); White Blood Count 6.6 10^3/uL (4.0-10.0)
--- NOTE | 2023-04-15 08:52 | W.PM.OPSUD ---
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
[2023-04-15] MEDS: sodium chloride 0.9% 1,000 ML 30 ML IV (08:57)
[2023-04-15 09:02] LABS: Anion Gap 10.8 (5-19); Blood Urea Nitrogen 28 mg/dL (8-23); Calcium 8.9 mg/dL (8.5-10.5); Carbon Dioxide 29 mmol/L (22-29); Chloride 102 mmol/L (98-107); Glucose 83 mg/dL (65-115); Osmolality Calculated 291 mOsm/kg (285-295); Potassium 3.8 mmol/L (3.5-5.1); Sodium 138 mmol/L (136-145)
[2023-04-15] MEDS: ceFAZolin 2,000 MG in sodium chloride 0.9% (plus) 50 ML 100 MG IV (10:07)
--- NOTE | 2023-04-15 10:08 | ANES.PREANE2 ---
Pre-Anesthetic Assessment Height/Weight: Height 1.52 m Weight 73.482 kg Temp Pulse Resp BP Pulse Ox O2 Del Method 97.3 F L 82 16 140/93 100 Room Air 04/15/23 08:19 04/15/23 08:19 04/15/23 08:19 04/15/23 08:19 04/15/23 08:19 04/15/23 08:19 Preop Diagnosis: Chronic sinusitis/deviated nasal septum/turbinate hypertrophy/nasopharyngea Operation Date: 04/15/23 09:45 [place] Procedures [place] [id number] - endoscopic bilateral antrostomy J39.2,J34,3 , J32.0,J34.1,J34.2(Bilateral) - Boston Zarate MD s Septoplasty(Bilateral) - Boston Zarate MD s Turbinate Reduction(Bilateral) - Boston Zarate MD s removal of nasopharyngeal cyst(Bilateral) - Boston Zarate MD Familial anesthetic complications: none Was Beta Giselle taken within 24 hours: N/A Was Clonidine taken within 24 hours: N/A Last intake: Intake Last Liquid Date 04/15/23 Last Liquid Time 06:00 Last Solid Date 04/15/23 Last Solid Time 04:00 Social No alcohol and No tobacco Exam alert, oriented x 3, clear to auscultation bilaterally and regular rate & rhythm Airway Submandibular: within normal limits Cervical ROM: within normal limits Mallampati: Class II Dentition: full CV/HEM Arrythmia and Hypertension Pacemaker GI Gastroesophageal Reflux Disease Musc/skel Lower Back Pain and Osteoarthritis/DJD Neuropsych Dementia and Depression Anesthetic Plan ASA status: 3 Anesthesia: General Medications/Allergies Home Medications Medication Instructions Recorded Confirmed Last Taken Type lorazepam 0.5 mg tablet 0.5 mg PO DAILY PRN Anxiety 12/08/20 04/14/23 04/15/23 History methotrexate sodium 2.5 mg tablet See Rx Instructions .Route .COMPLEX 07/08/21 04/15/23 04/15/23 History acetaminophen 500 mg tablet 500 - 1,000 mg PO Q12H PRN Pain 04/29/22 03/31/23 04/12/23 History citalopram 20 mg tablet 20 mg PO BEDTIME 04/29/22 04/14/23 04/14/23 History donepezil 10 mg tablet (Aricept) 10 mg PO QAM 04/29/22 04/14/23 04/14/23 History pantoprazole 40 mg tablet,delayed 40 mg PO DAILY 30 days #30 tabs 10/09/22 04/14/23 04/14/23 Rx release (Protonix) amlodipine 10 mg tablet 10 mg PO DAILY 12/04/22 04/14/23 04/15/23 History fexofenadine 180 mg tablet 180 mg PO DAILY 12/04/22 04/15/23 04/14/23 History furosemide 20 mg tablet 10 mg PO DAILY PRN Edema 12/04/22 03/31/23 03/09/23 History quetiapine 25 mg tablet 25 - 50 mg PO BEDTIME 12/04/22 04/14/23 04/14/23 History atorvastatin 40 mg tablet 40 mg PO BEDTIME 30 days #30 tabs 12/06/22 04/14/23 04/14/23 Rx clopidogrel 75 mg tablet 75 mg PO DAILY 30 days #30 tabs 12/06/22 03/31/23 04/10/23 Rx azelastine 137 mcg (0.1 %) nasal 137 ml intranasal 1XD 02/02/23 04/14/23 04/14/23 History spray aerosol fluticasone propionate 50 2 spray intranasal DAILY PRN nasal 02/02/23 04/14/23 04/14/23 Rx mcg/actuation nasal congestion 12 months #16 grams spray,suspension gabapentin 100 mg capsule 100 cap PO 2XD 02/02/23 04/14/23 04/14/23 History Allergies Allergy/AdvReac Type Severity Reaction Status Date / Time codeine Allergy Intermediate ALGY-Rash Verified 03/31/23 10:10 amitriptyline Allergy Unknown Verified 03/31/23 10:10 lisinopril Allergy ADR-Cough Verified 03/31/23 10:10 peanut Allergy ALGY-Anaphy Verified 03/31/23 10:10 laxis Current Medications Generic Name Dose Route Start Last Admin Trade Name Freq PRN Reason Stop Dose Admin Sodium Chloride 1,000 mls @ 30 mls/hr 04/15/23 08:15 04/15/23 08:57 Sodium Chloride 0.9% IV 04/16/23 08:14 30 mls/hr .Q24H ALAINA Administration PFSH Anesthesia Medical History Anxiety Bradycardia Chronic kidney disease by history Closed fracture of right hip Dementia Depression History of stress test (12/11/20) 1. Small size perfusion abnormality of mild severity of apical loredo with subtle reversibility in apical septal wall on stress images. 2. This may represent old myocardial infarction or scarring in left anterior descending artery territory with minimal uche-infarct ischemia. 3. Overall left ventricular systolic function is normal with apical hypokinesis 4. The left ventricular ejection fraction is normal with a value of 63%. Mesenteric cyst Pacemaker Surgical History History of laminectomy History of laparotomy History of reduction of closed fracture (~11/2020) Family History Father CAD (coronary artery disease) Alcoholism Mother CAD (coronary artery disease) Brother CAD (coronary artery disease) Social History Smoking and tobacco status: former smoker Alcohol intake: never Substance/Drug Use: never Data Anesthesia 04/15/23 08:35 04/15/23 08:35 Short CBC 04/15/23 Range/Units 08:35 WBC 6.6 (4.0-10.0) 10^3/uL Hgb 12.3 (11.5-15.3) g/dL Hct 37.6 (37.0-47.0) % MCV 99.2 H (81-99) fl Plt Count 156 (130-400) 10^3/cmm Neut % (Auto) 62.6 % Neut # (Auto) 4.15 (1.8-7.7) 10^3/uL BMP 04/15/23 08:35 Sodium 138 Potassium 3.8 Chloride 102 Carbon Dioxide 29 BUN 28 H Creatinine 1.2 H Glucose 83 Calcium 8.9 Cardiac Studies: Echocardiogram 04/29/22 Echocardiogram Ultrasound 12/08/20 Sestamibi Stress Test (Cardiology) 04/29/22 Cardiac Event Monitor 05/01/22
[2023-04-15] MEDS: neomycin-poly-bacitracin oint 28 gm 1 APPLIC TOPICAL (10:39)
[2023-04-15] MEDS: oxymetazoline 0.05% Nasal Spray 15 mL 1 SPRAY NOSTRIL-B (10:39)
[2023-04-15] MEDS: lidocaine-epi 2% 1.7mL Cartridge (OR Only) 10.4 ML XX (10:47)
--- NOTE | 2023-04-15 11:20 | PM.OP ---
Operative Report Date of procedure: April 15, 2023 Pre-op diagnosis: Preop Diagnosis Chronic sinusitis/deviated nasal septum/ turbinate hypertrophy/nasopharyngea Post-op diagnosis: Chronic sinusitis/deviated nasal septum/inferior turbinate hypertrophy/left nasopharyngeal cyst Post-op findings: Severely deviated nasal septum with large spur to the left side impinging into the inferior turbinate and middle meatus area. Cystic mass near choana on left side less than 1 cm. Inferior turbinates hypertrophic 3-4+ bilateral right side larger than left. Bilateral middle turbinate hypertrophy. Chronic bilateral maxillary sinusitis Procedure done: Endoscopic bilateral antrostomy. Septoplasty. Bilateral inferior turbinate intramural cauterization with outfracturing. Marsupialization and destruction of left nasopharyngeal cyst. Implants: 2 Telfa packs and 2 septal splints Specimens removed/disposition: Septal fragments and left maxillary sinus contents. Contents of right maxillary sinus. Pathology: See specimen Surgeon: Boston Zarate MD Anesthesia: General and Local Estimated blood loss: 50 mL Complications: No complications encountered Findings: Patient noted to have a significant septal spur to the left side into the inferior turbinate and middle meatus. Deformed uncinate process left side. 3-4+ hypertrophy of inferior turbinates right greater than left. Chronic sinusitis both maxillary sinuses. Cyst in the superior nasopharynx left side. Brief History: 77-year-old female patient with nasal dyspnea and chronic sinusitis refractory to time and medical therapy. She is noted to have a deviated septum severe to the left side with turbinate hypertrophy. She has chronic bilateral maxillary sinusitis changes and a cyst found on the face of the left sphenoid sinus area. Being brought to the operating room to undergo endoscopic bilateral antrostomy with septoplasty turbinate reduction and removal of the left nasopharyngeal cyst. The procedure its risks and complications were explained in detail. Informed consent was granted and witnessed. Risks discussed included bleeding infection numbness scarring swelling bruising septal hematoma abscess or perforation change in sense of smell nasal dryness recurrent problems need for additional treatment potential injury to orbit and orbital contents including loss of vision or blurred vision potential injury to teeth or teeth roots and more serious risks associated with anesthesia. Procedure: Description of procedure: The patient was placed on the operating table in the supine position. Adequate general endotracheal tube anesthesia was obtained. A timeout was accomplished identifying the patient date of plan procedure allergies fire risk and medications given. With all in agreement the procedure continued. Patient did receive Ancef IV for prophylaxis and Decadron to help with postoperative edema. The table was rotated 90 degrees. Her head was dropped 15 degrees to the horizontal. Her eyes were taped shut and a head drape was applied. A Audrey Abhi mouthgag was inserted over the endotracheal tube and tongue ensuring that the upper incisors were in the guard. This was opened and suspended from a rolled towel placed on her chest. A red rubber catheter was inserted in the left nares and used to elevate the palate. Mirror examination of the nasopharynx revealed these less than 1 cm cystic mass yellow in color at the superior aspect of the nasopharyngeal area just near the inlet to the choanal area on the left side. A suction cautery was used to marsupialize the face of the cystic mass and suction the contents which were mucoid in nature. The base was cauterized. Once that was accomplished and there was no evidence of any bleeding the mouthgag was released and removed along with the red rubber catheter. Patient's head was returned to the upright position. The table was repositioned into its neutral original position. She was then placed into a semirecumbent position. The patient's nose was then packed with 6 cottonoids soaked in 12-hour Afrin. Nasal hairs were trimmed with scissors. The septum middle meatus and turbinates were infiltrated with local utilizing a total of 10.2 mL of 2% Xylocaine with 1-100,000 epinephrine. The Afrin packs were reapplied to the nose and the patient was prepped and draped in usual fashion. The packs were once again removed from the nose. A Buckingham elevator was used to outfracture the inferior turbinates. A left hemitransfixion incision was created with a 15 blade carrying it down to the level of the septal cartilage. A mucoperichondrial and periosteal flap was then raised with a Buckingham elevator in all directions on the left side. An inferior strip of quadrangular cartilage off the crest to the left side was resected with a half round knife and Mike forceps. Then the quadrangular cartilage remnant was disarticulated from the perpendicular plate of the ethmoid and vomer. A posterior tunnel was then created on the right side. The large posterior bony spur was then resected with Mike forceps in a piecemeal fashion. A tear did occur at the apex of the spur which will serve as a drainage site to prevent hematoma formation postoperatively. With the septum straightened the inferior turbinates were addressed with outfracturing and intramural cauterization from anterior to posterior. The middle turbinate on the left side was then infractured with a Buckingham elevator. Using direct and endoscopic visualization with a 30 degree scope the uncinate process which was deformed on the left side was identified incised with a Anabell elevator and removed with Mike forceps. Then up-biting through-cutting forcep was used to enlarge the natural ostia to about 1 cm in diameter. Some of the lining of the maxillary sinus at that location was resected as well. Suctioning was accomplished with curved suction tip indicating there was nothing else in the sinus and nothing was palpable or visible with the scope. Attention was then turned to the right side where an identical procedure was performed however the uncinate process was of normal location and appearance. After both maxillary sinuses were suctioned clean and the septum was found to be in good midline position the middle turbinates were positioned appropriately so they were not blocking the antrostomy sites. The left hemitransfixion incision was closed loosely with interrupted 4-0 chromic suture. 2 septal splints were coated with Neosporin and 1 applied each side of the septum. These were then sutured in a through and through fashion with 3-0 Prolene. 2 Telfa packs were cut to size coated with Neosporin and 1 was applied each side of the nose extending from anterior to posterior. The face was then cleansed. The mouth and oropharynx were suctioned clean. An NG tube was placed to the stomach through the mouth with decompression occurring and no finding of any food or drink. No blood was found in the stomach. The NG tube was removed. The drapes were removed and the drip pad was applied to the undersurface of the nose on the upper lip and taped from cheek to cheek. The patient was returned to anesthesia for wake-up and extubation. The patient tolerated the procedure well had an estimated blood loss of 50 mL and arrived in recovery in stable condition.
[2023-04-15] MEDS: cetylpyridinium Lozenge 1 EACH MUCOUS MEM (12:37)
--- NOTE | 2023-04-15 13:28 | ANE.PACU2 ---
Inpatient post-anesthesia follow up: Airway intact: Yes Vital signs: Temperature 97.8 F Pulse Rate 63 Respiratory Rate 16 Blood Pressure 147/77 Pulse Oximetry 100 Oxygen Delivery Me thod Room Air Oxygen Flow Rate 6 Fraction of Inspir ed Oxygen Hydration adequate: Yes Nausea and vomiting: No Pain level: 4 Mental status: Baseline
== END 2023-04-15 13:38 | disposition home or self-care (01) ==
PROVIDERS: Anesthesiology; PCP Family Medicine; Visit Provider Otolaryngology
PROC: (CPT 30520; principal; 2023-04-15 09:35)
PROC: (CPT 30520; 2023-04-15 09:35)
PROC: (CPT 30520; 2023-04-15 09:35)
PROC: (CPT 30520; 2023-04-15 09:35)
DX: J32.0 Chronic maxillary sinusitis (principal); J34.2 Deviated nasal septum; J34.3 Hypertrophy of nasal turbinates; Z95.0 Presence of cardiac pacemaker; I10 Essential (primary) hypertension; K21.9 Gastro-esophageal reflux disease without esophagitis; Z87.891 Personal history of nicotine dependence
CPT/HCPCS: 30520; 30801; 31256; 36415; 80048; 85025; 88305; 93005; J0690; J1100; J2405; J2704; J2710; J3010; J3490; J7030

== ENCOUNTER → 2023-04-23 08:02 | Outpatient (BNVA) | payer MEDICARE, BC, SELFPAY | PROVIDERS: PCP Family Medicine; Visit Provider Otolaryngology | DX: Z48.810 Encounter for surgical aftercare following surgery on the sense organs (principal) | CPT/HCPCS: 99024 ==

== ENCOUNTER 2023-04-28 05:55 | Emergency (ER) | payer MEDICARE, BC, SELFPAY ==
[2023-04-28] VITALS (9 sets, daily range): BP systolic 108–154; BP diastolic 68–112; PULSE 60–75; RESP 14–20; TEMP 36.5; O2SAT 94–100; BMI 31.6
--- NOTE | 2023-04-28 06:05 | XRR_ITS ---
PROCEDURE INFORMATION: Exam: XR Chest Exam date and time: 04/28/2023 6:11 AM Age: 77 years old Clinical indication: Cough; Prior surgery; Surgery date: 6+ months; Surgery type: Pacer; Additional info: Dyspnea/cough TECHNIQUE: Imaging protocol: Radiologic exam of the chest. Views: 1 view. COMPARISON: CR XR chest 1V portable [id number] 12/04/2022 9:29 PM FINDINGS: Tubes, catheters and devices: Dual lead cardiac device implanted in left chest, unchanged. Lungs: A hazy opacity in the lateral left lung base is likely secondary to projection/technique. Pleural spaces: Unremarkable. No pleural effusion. No pneumothorax. Heart/Mediastinum: Unremarkable. No cardiomegaly. Bones/joints: Unremarkable. XR/XR chest 1V portable [id number] IMPRESSION: A hazy opacity in the lateral left lung base is likely secondary to projection/technique; however, a developing infiltrate or pneumonia could have this appearance.
--- NOTE | 2023-04-28 06:08 | CTR_ITS ---
PROCEDURE INFORMATION: Exam: CT Head Without Contrast Exam date and time: 04/28/2023 7:08 AM Age: 77 years old Clinical indication: Injury or trauma; Fall; Blunt trauma (contusions or hematomas); Dizziness and walking, difficulty; Injury details: Trauma, PT hit left side of her head, -loc, PT complains of headache and pain on lt side of face. HX of stroke TECHNIQUE: Imaging protocol: Computed tomography of the head without contrast. Radiation optimization: All CT scans at this facility use at least one of these dose optimization techniques: automated exposure control; mA and/or kV adjustment per patient size (includes targeted exams where dose is matched to clinical indication); or iterative reconstruction. REPORTING DATA: Count of CT and Cardiac NM exams in prior 12 months: This patient has received 6 known CTs and 0 known cardiac nuclear medicine studies in the 12 months prior to the current study. COMPARISON: CT head thrombolytic [id number] 12/04/2022 9:28 PM RADIATION DOSE METRICS: Total DLP (mGy-cm): 969.53 FINDINGS: Brain: No acute intracranial hemorrhage. No midline shift. Horton-white differentiation is maintained. No masses. There is mild age related horton matter atrophy. There is a small chronic infarct in the inferior posterior right frontal lobe. There is a small chronic infarct in the right basal ganglia Cerebral ventricles: No ventriculomegaly. Paranasal sinuses: Questionable mucosal thickening of the bilateral maxillary sinuses, incompletely imaged. Mucosal thickening and fluid layering in the left sphenoid sinus. Mastoid air cells: Mastoid air cells are clear. Bones/joints: Unremarkable. No acute fracture. Soft tissues: Soft tissues are normal. CT/CT head wo con* [id number] IMPRESSION: 1. No acute intracranial findings. 2. Chronic findings are not significantly changed from 12/04/2022.
--- NOTE | 2023-04-28 06:09 | ED_ITS ---
HPI - Weakness General: Chief complaint: Weakness Stated complaint: Weakness/ Covid exposure Time Seen by Provider: 04/28/23 05:56 Source: patient and family Mode of arrival: EMS History of Present Illness: 77-year-old female presents to the emergency room after a fall at home. She was sitting on the toilet and fell off evidently she tried to get up. She is complaining discomfort generally to the left side but not really anything specific. She struck her head when she fell she is on Plavix but no anticoagulants. There is no loss of consciousness. They are also concerned because generally she has been feeling weak having a little bit of a nonproductive cough and she was exposed to COVID approximately a week ago. Add itionally she had a nasal surgery done [address] Zarate notes in the chart were reviewed MD Complaint: generalized weakness Onset (ago): minute(s) Location: generalized Severity: moderate Quality: tingling Relieving factors: none Exacerbating factors: none Associated symptoms: Denies chest pain, chills, confusion, melena, decreased appetite, diaphoresis, dysuria, easy bruising, fever(s), headache(s), myalgias, nausea, rash, short of breath, syncope or vomiting Review of Systems Const: Reports: fatigue and malaise; Denies: fever(s), chills or diaphoresis ENMT: Denies: throat pain, ear or mastoid pain, nasal discharge or nasal congestion Card: Denies: chest pain or syncope Resp: Reports: non-productive cough; Denies: dyspnea or productive cough GI: Denies: abdominal pain, nausea, vomiting or melena : Denies: dysuria, urinary frequency or urinary urgency Skin/Breast: Denies: rash or pruritus Neuro: Denies: headache(s) or confusion Zbigniew/Lymph: Denies: easy bruising PFS ED PFSH: Medical History Anxiety Bradycardia Chronic kidney disease by history Closed fracture of right hip Dementia Depression History of stress test (12/11/20) 1. Small size perfusion abnormality of mild severity of apical loredo with subtle reversibility in apical septal wall on stress images. 2. This may represent old myocardial infarction or scarring in left anterior descending artery territory with minimal uche-infarct ischemia. 3. Overall left ventricular systolic function is normal with apical hypokinesis 4. The left ventricular ejection fraction is normal with a value of 63%. Mesenteric cyst Pacemaker Surgical History History of laminectomy History of laparotomy History of reduction of closed fracture (~11/2020) Hx of sinus surgery Family History Father CAD (coronary artery disease) Alcoholism Mother CAD (coronary artery disease) Brother CAD (coronary artery disease) Social History Smoking and tobacco status: former smoker Alcohol intake: never Substance/Drug Use: never Physical Exam Const: GENERAL APPEARANCE: cooperative and comfortable ORIENTATION/CONSCIOUSNESS: Yes awake; not oriented to person, not oriented to place and not oriented to time HENMT: COMMON NORMALS: normocephalic, atraumatic and hearing grossly normal bilaterally HEAD & SCALP: normocephalic and atraumatic Resp: COMMON NORMALS: normal respiratory effort, No retractions, No use of accessory muscles and clear to auscultation bilaterally AUSCULTATION: clear to auscultation bilaterally Cardio: COMMON NORMALS: regular rate, regular rhythm and No murmurs present (Cardio) RATE: regular rate RHYTHM: regular rhythm GI: COMMON NORMALS: Soft to palpation and No hepatosplenomegaly present AUSCULTATION: Yes normoactive bowel sounds PALPATION: Yes Soft to palpation, No Tenderness to palpation present (GI), No Guarding due to palpation present (GI) and Yes No hepatosplenomegaly present Extremity: COMMON NORMALS: normal to inspection, capillary refill normal, no clubbing, cyanosis or edema, no calf tenderness and no pedal edema Neuro: SENSORIUM/ORIENTATION: No oriented to person, No oriented to place and No oriented to time Skin: COMMON NORMALS: no rashes or lesions noted GENERAL SKIN EXAM: no rashes or lesions noted Course Vital Signs: Vital signs: Vital Signs Temperature 97.7 F 04/28/23 05:58 Pulse Rate 63 04/28/23 11:12 Respiratory Rate 16 04/28/23 11:12 Blood Pressure 154/112 04/28/23 11:12 Pulse Oximetry 95 04/28/23 11:12 Oxygen Delivery Me thod Room Air 04/28/23 07:30 MDM - Weakness Medical Decision Making Acute hypokalemia improved after oral replacement. There is also questionable mild right lower lobe pneumonia we will start on oral antibiotics she is oth erwise tolerating well and is stable. Will discharge home recheck with primary care doctor. Recommend repeat potassium check within the week. Potassium supplement given as well. Medical Records I reviewed the patient's medical records. Lab Data I reviewed the patient's lab results. 04/28/23 06:05 04/28/23 09:36 Radiology Impressions Chest X-Ray 04/28/23 06:05 IMPRESSION: A hazy opacity in the lateral left lung base is likely secondary to projection/technique; however, a developing infiltrate or pneumonia could have this appearance. Head CT 04/28/23 06:08 IMPRESSION: 1. No acute intracranial findings. 2. Chronic findings are not significantly changed from 12/04/2022. Laboratory Results WBC 8.78 10^3/uL (3.29-11.43) 04/28/23 06:05 RBC 4.07 10^6/uL (3.85-5.65) 04/28/23 06:05 Hgb 13.20 g/dL (11.27-16.99) 04/28/23 06:05 Hct 38.1 % (36-47) 04/28/23 06:05 MCV 93.6 fl (85-98) 04/28/23 06:05 MCH 32.4 pg (27-33) 04/28/23 06:05 MCHC 34.6 g/dL (30-55) 04/28/23 06:05 RDW 11.9 % (12.1-15.1) L 04/28/23 06:05 Plt Count 203 10^3/cmm (157-399) 04/28/23 06:05 MPV 10.2 fL (7.4-10.4) 04/28/23 06:05 Neut % (Auto) 78.8 % 04/28/23 06:05 Lymph % (Auto) 13.9 % 04/28/23 06:05 [place] % (Auto) 6.3 % 04/28/23 06:05 Eos % (Auto) 0.2 % 04/28/23 06:05 Baso % (Auto) 0.3 % 04/28/23 06:05 Neut # (Auto) 6.92 10^3/uL (1.8-7.7) 04/28/23 06:05 Lymph # (Auto) 1.2 10^3/uL (0.8-4.8) 04/28/23 06:05 [place] # (Auto) 0.6 10^3/uL (0.2-0.9) 04/28/23 06:05 Eos # (Auto) 0.0 10^3/uL (0.0-0.8) 04/28/23 06:05 Baso # (Auto) 0.0 10^3/uL (0.0-0.1) 04/28/23 06:05 Nucleated RBC % (auto) 0 % 04/28/23 06:05 Nucleated RBCs # 0.0 /100WBC 04/28/23 06:05 Sodium 132 mmol/L (136-145) L 04/28/23 09:36 Potassium 3.9 mmol/L (3.5-5.1) 04/28/23 09:36 Chloride 95 mmol/L (98-107) L 04/28/23 09:36 Carbon Dioxide 30 mmol/L (22-29) H 04/28/23 09:36 Anion Gap 10.9 (5-19) 04/28/23 09:36 BUN 18 mg/dL (8-23) 04/28/23 09:36 Creatinine 1.1 mg/dL (0.5-0.9) H 04/28/23 09:36 GFR Calculation Not Reportable 04/28/23 09:36 Glucose 107 mg/dL (65-115) 04/28/23 09:36 Calculated Osmolality 276 mOsm/kg (285-295) L 04/28/23 09:36 Calcium 8.7 mg/dL (8.5-10.5) 04/28/23 09:36 Total Bilirubin 0.6 mg/dL (0.15-1.2) 04/28/23 06:05 AST 22 U/L (0-32) 04/28/23 06:05 ALT 16 U/L (0-33) 04/28/23 06:05 Alkaline Phosphatase 120 U/L (35-105) H 04/28/23 06:05 Total Protein 6.9 g/dL (6.6-8.7) 04/28/23 06:05 Albumin 4.1 g/dL (3.5-5.2) 04/28/23 06:05 Globulin 2.8 g/dL (1.3-4.6) 04/28/23 06:05 Urine Color Yellow (Yellow) 04/28/23 06:36 Urine Appearance Clear (CLEAR) 04/28/23 06:36 Urine pH 7 (5-7) 04/28/23 06:36 Ur Specific [place] 1.015 (1.005-1.030) 04/28/23 06:36 Urine Protein Neg (Negative) 04/28/23 06:36 Urine Glucose (UA) Norm (Normal) 04/28/23 06:36 Urine Ketones Negative (Negative) 04/28/23 06:36 Urine Blood Neg (Negative) 04/28/23 06:36 Urine Nitrate Negative (Negative) 04/28/23 06:36 Urine Bilirubin Neg (Negative) 04/28/23 06:36 Urine Urobilinogen Norm mg/dL (Negative) 04/28/23 06:36 Ur Leukocyte Esterase Negative (Negative) 04/28/23 06:36 Coronavirus 229E (PCR) Not detected (NOT DETECT) 04/28/23 07:30 SARS-CoV-2 (PCR) Not detected (NOT DETECT) 04/28/23 07:30 Discharge Plan Discharge Patient Disposition: Home Clinical Impression: Acute hypokalemia, Pneumonia Condition: Stable Prescriptions: New levofloxacin 500 mg tablet 500 mg PO DAILY 7 Days Qty: 7 0RF potassium chloride 20 mEq tablet extended release 20 meq PO DAILY Qty: 10 0RF No Action gabapentin 100 mg capsule 100 cap PO 2XD pantoprazole [Protonix] 40 mg tablet,delayed release (DR/EC) 40 mg PO DAILY 30 Days Qty: 30 2RF lorazepam 0.5 mg tablet 0.5 mg PO DAILY PRN (Reason: Anxiety) donepezil [Aricept] 10 mg Tablet 10 mg PO QAM acetaminophen 500 mg Tablet 500 - 1,000 mg PO Q12H PRN (Reason: Pain) citalopram 20 mg tablet 20 mg PO BEDTIME quetiapine 25 mg tablet 25 - 50 mg PO BEDTIME amlodipine 10 mg tablet 10 mg PO DAILY furosemide 20 mg tablet 10 mg PO DAILY PRN (Reason: Edema) atorvastatin 40 mg tablet 40 mg PO BEDTIME 30 Days Qty: 30 0RF clopidogrel 75 mg tablet 75 mg PO DAILY 30 Days Qty: 30 0RF fluconazole 100 mg tablet 100 mg PO DAILY tramadol 50 mg tablet 50 mg PO Q6H PRN (Reason: Pain) Discharge Orders: Discharge ED (Routine); Ordered 04/28/23 Ordered By: Juan Carlos Cole Referrals: Miguel Arrieta DO [Primary Care Provider] - Discharge Diet: Usual diet Discharge Activity: Resume usual activity Patient Instructions: Opioid Safety, Pain Management Coding Level of Care Code ED Ocean Export Coordinator for Darshan Perez
[2023-04-28 06:15] LABS: Basophils % 0.3 %; Eosinophils % 0.2 %; Hematocrit 38.1 % (36-47); Lymphocytes # 1.2 10^3/uL (0.8-4.8); Lymphocytes % 13.9 %; Mean Corpuscular HGB Conc 34.6 g/dL (30-55); Mean Corpuscular Hemoglobin 32.4 pg (27-33); Mean Corpuscular Volume 93.6 fl (85-98); Mean Platelet Volume 10.2 fL (7.4-10.4); Monocytes # 0.6 10^3/uL (0.2-0.9); Monocytes % 6.3 %; Neutrophils # 6.92 10^3/uL (1.8-7.7); Neutrophils % 78.8 %; Nucleated Red Blood Cells % 0 %; Platelet Count 203 10^3/cmm (157-399); Red Blood Count 4.07 10^6/uL (3.85-5.65); Red Cell Distribution Width 11.9 % (12.1-15.1); White Blood Count 8.78 10^3/uL (3.29-11.43)
--- NOTE | 2023-04-28 06:27 | ECG_ITS ---
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 Measurements Intervals [place] Rate: 60 P: 247 GA: 204 QRS: 53 QRSD: 92 T: 44 QT: 357 QTc: 358 Interpretive Statements ELECTRONIC ATRIAL PACEMAKER NONSPECIFIC T-WAVE ABNORMALITY ABNORMAL RHYTHM ECG Compared to ECG 04/15/2023 08:46:34 T-wave abnormality now present Electronically Signed On 04-28-2023 8:40:21 CDT by Heena Holland M.D. [email or web address] medical [email or web address], ironton campusLotus Cars/store/OM/[id number]
[2023-04-28 06:33] LABS: Alanine Aminotransferase 16 U/L (0-33); Albumin Level 4.1 g/dL (3.5-5.2); Alkaline Phosphatase 120 U/L (35-105); Anion Gap 12.6 (5-19); Aspartate Amino Transferase 22 U/L (0-32); Blood Urea Nitrogen 20 mg/dL (8-23); Calcium 8.9 mg/dL (8.5-10.5); Carbon Dioxide 30 mmol/L (22-29); Chloride 91 mmol/L (98-107); Globulin 2.8 g/dL (1.3-4.6); Glucose 117 mg/dL (65-115); Osmolality Calculated 276 mOsm/kg (285-295); Sodium 131 mmol/L (136-145); Total Bilirubin 0.6 mg/dL (0.15-1.2); Total Protein 6.9 g/dL (6.6-8.7)
[2023-04-28 06:36] LABS: Potassium 2.6 mmol/L (3.5-5.1)
[2023-04-28 06:44] LABS: Add Urine Microscopic? NO; Charge for UA Resulting for Rev
[2023-04-28 06:51] LABS: Specific Gravity, Urine 1.015 (1.005-1.030); Urine Appearance Clear (CLEAR); Urine Color Yellow (Yellow); pH Urine 7 (5-7)
[2023-04-28 06:52] LABS: Bilirubin Urine Neg (Negative); Blood Urine Neg (Negative); Glucose Urine UA Norm (Normal); Ketones Urine Negative (Negative); Leukocyte Esterase Urine Negative (Negative); Nitrate Urine Negative (Negative); Protein Urine Neg (Negative); Urobilinogen Urine Norm (Negative)
[2023-04-28] MEDS: potassium chloride oral liq 20 mEq/15 mL UDC 40 MEQ PO ×2 (07:25→08:14)
[2023-04-28 09:25] LABS: Adenovirus Not Detected (NOT DETECT); Chlamydia Pneumoniae Not Detected (NOT DETECT); Coronavirus 229E,HKU1,NL63,OC4 Not Detected (NOT DETECT); Human Metapneumovirus Not Detected (NOT DETECT); Human Rhinovirus/Enterovirus Not Detected (NOT DETECT); Influenza A Not Detected (NOT DETECT); Influenza A H1 Not Detected (NOT DETECT); Influenza A H1-2009 Not Detected (NOT DETECT); Influenza A H3 Not Detected (NOT DETECT); Influenza B Not Detected (NOT DETECT); Mycoplasma Pneumoniae Not Detected (NOT DETECT); Parainfluenza Virus Type 1 Not Detected (NOT DETECT); Parainfluenza Virus Type 2 Not Detected (NOT DETECT); Parainfluenza Virus Type 3 Not Detected (NOT DETECT); Parainfluenza Virus Type 4 Not Detected (NOT DETECT); Respiratory Syncytial Virus A Not Detected (NOT DETECT); Respiratory Syncytial Virus B Not Detected (NOT DETECT); SARS-COV-2 Not Detected (NOT DETECT)
[2023-04-28 10:16] LABS: Anion Gap 10.9 (5-19); Blood Urea Nitrogen 18 mg/dL (8-23); Calcium 8.7 mg/dL (8.5-10.5); Carbon Dioxide 30 mmol/L (22-29); Chloride 95 mmol/L (98-107); Glucose 107 mg/dL (65-115); Osmolality Calculated 276 mOsm/kg (285-295); Potassium 3.9 mmol/L (3.5-5.1); Sodium 132 mmol/L (136-145)
== END 2023-04-28 11:13 | disposition home or self-care (01) ==
PROVIDERS: Emergency Provider Family Medicine; PCP Family Medicine
DX: J18.9 Pneumonia, unspecified organism (principal); E87.6 Hypokalemia; Z79.02 Long term (current) use of antithrombotics/antiplatelets; Z20.822 Contact with and (suspected) exposure to COVID-19; N18.9 Chronic kidney disease, unspecified; F03.90 Unspecified dementia, unspecified severity, without behavioral disturbance, psychotic disturbance, mood disturbance, and anxiety; Z95.0 Presence of cardiac pacemaker; Z87.891 Personal history of nicotine dependence
CPT/HCPCS: 36415; 70450; 71045; 80048; 80053; 81003; 85025; 87635; 93005; 99285

== ENCOUNTER → 2023-05-11 08:21 | Outpatient (BNVA) | payer MEDICARE, BC, SELFPAY | PROVIDERS: PCP Family Medicine; Visit Provider Otolaryngology | DX: Z48.810 Encounter for surgical aftercare following surgery on the sense organs (principal) | CPT/HCPCS: 99024 ==

== ENCOUNTER 2023-05-21 10:02 | Emergency (ER) | payer MEDICARE, BC, SELFPAY ==
[2023-05-21 10:09] VITALS: BP 138/80; PULSE 64; RESP 18; TEMP 36.3; O2SAT 98; BMI 28.8
--- NOTE | 2023-05-21 10:17 | ECG_ITS ---
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 Measurements Intervals [place] Rate: 61 P: 261 DC: 204 QRS: 47 QRSD: 85 T: 48 QT: 451 QTc: 457 Interpretive Statements ELECTRONIC ATRIAL PACEMAKER ABNORMAL RHYTHM ECG Compared to ECG 04/28/2023 06:27:22 T-wave abnormality no longer present Electronically Signed On 05-21-2023 19:06:34 CDT by Krishna Arvizu M.D. [id number] f
--- NOTE | 2023-05-21 10:17 | ECG_ITS ---
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 Measurements Intervals [place] Rate: 61 P: 261 [place]: 204 QRS: 47 QRSD: 85 T: 48 QT: 451 QTc: 457 Interpretive Statements ELECTRONIC ATRIAL PACEMAKER ABNORMAL RHYTHM ECG Compared to ECG 04/28/2023 06:27:22 T-wave abnormality no longer present Electronically Signed On 05-21-2023 19:06:48 CDT by Krishna Arvizu M.D. [email or web address]/store/[id number] f
--- NOTE | 2023-05-21 11:07 | XR_ITS ---
WS: [id number] XR chest 2V* [id number] REASON FOR EXAM: recent pneumonia, sob FINDINGS: Cardiac device over the left chest with trans left subclavian vein leads to the right atrium and righ t ventricular apex. Moderate tortuosity of the thoracic aorta. Normal heart size. Calcified granulomas disease in both hemithoraces. The previous reticular and interstitial lung base opacities seen on the examination of 04/28/2023 have resolved. No new acute or subacute pulmonary parenchymal or pleural abnormality is identified. The bony thorax is intact. IMPRESSION: Resolution of previous lung opacities. No acute chest abnormality.
[2023-05-21 11:27] LABS: Basophils # 0.1 10^3/uL (0.0-0.1); Basophils % 1.1 %; Eosinophils # 0.2 10^3/uL (0.0-0.8); Eosinophils % 3.3 %; Hematocrit 39.9 % (36-47); Lymphocytes # 1.4 10^3/uL (0.8-4.8); Lymphocytes % 25.8 %; Mean Corpuscular HGB Conc 32.6 g/dL (30-55); Mean Corpuscular Hemoglobin 32.7 pg (27-33); Mean Corpuscular Volume 100.5 fl (85-98); Mean Platelet Volume 10.5 fL (7.4-10.4); Monocytes # 0.5 10^3/uL (0.2-0.9); Monocytes % 9.1 %; Neutrophils # 3.31 10^3/uL (1.8-7.7); Neutrophils % 60.5 %; Nucleated Red Blood Cells % 0 %; Platelet Count 182 10^3/cmm (157-399); Red Blood Count 3.97 10^6/uL (3.85-5.65); Red Cell Distribution Width 13.2 % (12.1-15.1); White Blood Count 5.47 10^3/uL (3.29-11.43)
[2023-05-21 11:52] LABS: Troponin(5th) Baseline 11 ng/L (0-10)
[2023-05-21 12:13] LABS: Alanine Aminotransferase 17 U/L (0-33); Albumin Level 4.3 g/dL (3.5-5.2); Alkaline Phosphatase 133 U/L (35-105); Anion Gap 12.1 (5-19); Aspartate Amino Transferase 20 U/L (0-32); Blood Urea Nitrogen 24 mg/dL (8-23); Calcium 8.7 mg/dL (8.5-10.5); Carbon Dioxide 28 mmol/L (22-29); Chloride 104 mmol/L (98-107); Glucose 82 mg/dL (65-115); NT Pro B Type Natriuretic Pept 134 pg/mL (0-450); Osmolality Calculated 293 mOsm/kg (285-295); Potassium 4.1 mmol/L (3.5-5.1); Sodium 140 mmol/L (136-145); Total Bilirubin 0.3 mg/dL (0.15-1.2); Total Protein 6.3 g/dL (6.6-8.7)
[2023-05-21 13:03] VITALS: BP 142/98; PULSE 63; RESP 18; O2SAT 95
--- NOTE | 2023-05-21 13:14 | ECG_ITS ---
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 Measurements Intervals [place] Rate: 67 P: 256 [place]: 222 QRS: 51 QRSD: 88 T: 46 QT: 442 QTc: 467 Interpretive Statements ELECTRONIC ATRIAL PACEMAKER ABNORMAL RHYTHM ECG Compared to ECG 05/21/2023 10:17:29 No significant changes Electronically Signed On 05-21-2023 19:17:19 CDT by Krishna Arvizu M.D. [email or web address]/store/[id number]
[2023-05-21 13:21] LABS: Add Urine Microscopic? NO; Charge for UA Resulting for Rev
[2023-05-21 13:28] LABS: D Dimer 0.67 ug/mLFEU (0-0.59)
[2023-05-21 13:30] LABS: Bilirubin Urine Neg (Negative); Blood Urine Neg (Negative); Glucose Urine UA Norm (Normal); Ketones Urine Negative (Negative); Leukocyte Esterase Urine Negative (Negative); Nitrate Urine Negative (Negative); Protein Urine Neg (Negative); Specific Gravity, Urine 1.015 (1.005-1.030); Urine Appearance Clear (CLEAR); Urine Color Yellow (Yellow); Urobilinogen Urine Norm (Negative); pH Urine 6 (5-7)
[2023-05-21 13:46] LABS: Troponin 5 2HR 10.53 ng/L (0-10)
[2023-05-21 13:56] LABS: Troponin 5 2HR Delta -0.47 ABS# (0-10)
--- NOTE | 2023-05-21 14:02 | W.ED.SOB ---
HPI - SOB/Dyspnea General: Chief Complaint: Shortness of Breath/Dyspnea Stated Complaint: SOB/weakness Time Seen by Provider: 05/21/23 13:01 Source: patient Mode of arrival: ambulatory History of Present Illness: HPI Narrative: 77-year-old female presents emergency room with complaint of shortness of breath with exertion. She had this for the last couple of days. She has not had any chest pain associated with it no fever sweats chills nausea vomiting diarrhea cough or shortness of breath no anosmia. No known COVID exposures she has no known history of COPD. She has had intermittent shortness of breath for a time but seems to be worsening. MD elicited complaint: shortness of breath and cough Onset (ago): day(s) Timing: intermittent Exacerbating factors: exertion Relieving factors: rest Associated symptoms: Deny abdominal pain, chest congestion, chest pain, cough, diaphoresis, dizziness, extremity pain, fever(s), hemoptysis, lightheadedness, myalgias, nausea, orthopnea, palpitations, paresthesias, polydipsia, polyuria, rash, sense of impending doom, syncope or vomiting Treatment prior to arrival: none Review of Systems Const: Denies: fever(s) or diaphoresis Card: Denies: chest pain, palpitations, lightheadedness, syncope or orthopnea Resp: Reports: dyspnea and non-productive cough; Denies: hemoptysis or chest congestion GI: Denies: abdominal pain, nausea or vomiting Musc: Denies: extremity pain Neuro: Denies: dizziness Endo: Denies: polyuria or polydipsia PFS ED PFSH: Medical History Anxiety Bradycardia Chronic kidney disease by history Closed fracture of right hip Dementia Depression History of stress test (12/11/20) 1. Small size perfusion abnormality of mild severity of apical loredo with subtle reversibility in apical septal wall on stress images. 2. This may represent old myocardial infarction or scarring in left anterior descending artery territory with minimal uche-infarct ischemia. 3. Overall left ventricular systolic function is normal with apical hypokinesis 4. The left ventricular ejection fraction is normal with a value of 63%. Mesenteric cyst Pacemaker Surgical History History of laminectomy History of laparotomy History of reduction of closed fracture (~11/2020) Hx of sinus surgery Family History Father CAD (coronary artery disease) Alcoholism Mother CAD (coronary artery disease) Brother CAD (coronary artery disease) Social History Smoking and tobacco status: former smoker Alcohol intake: never Substance/Drug Use: never Physical Exam Const: GENERAL APPEARANCE: cooperative and comfortable ORIENTATION/CONSCIOUSNESS: Yes awake, Yes oriented to person, Yes oriented to place and Yes oriented to time HENMT: COMMON NORMALS: normocephalic, atraumatic and hearing grossly normal bilaterally HEAD & SCALP: normocephalic and atraumatic Resp: COMMON NORMALS: normal respiratory effort, No retractions, No use of accessory muscles and clear to auscultation bilaterally AUSCULTATION: clear to auscultation bilaterally Cardio: COMMON NORMALS: regular rate, regular rhythm and No murmurs present (Cardio) RATE: regular rate RHYTHM: regular rhythm GI: COMMON NORMALS: Soft to palpation and No hepatosplenomegaly present AUSCULTATION: Yes normoactive bowel sounds PALPATION: Yes Soft to palpation, No Tenderness to palpation present (GI), No Guarding due to palpation present (GI) and Yes No hepatosplenomegaly present Extremity: COMMON NORMALS: normal to inspection, capillary refill normal, no clubbing, cyanosis or edema, no calf tenderness and no pedal edema Neuro: SENSORIUM/ORIENTATION: Yes oriented to person, Yes oriented to place and Yes oriented to time Skin: COMMON NORMALS: no rashes or lesions noted GENERAL SKIN EXAM: no rashes or lesions noted Course Vital Signs: Vital signs: Vital Signs Temperature 97.4 F L 05/21/23 10:09 Pulse Rate 98 05/21/23 14:19 Respiratory Rate 18 05/21/23 14:19 Blood Pressure 174/86 05/21/23 14:19 Pulse Oximetry 100 05/21/23 14:29 Oxygen Delivery Me thod Room Air 05/21/23 14:19 MDM - SOB/Dyspnea Medical Decision Making Labs and imaging reviewed no acute findings noted. EKG showed nothing acute troponins negative. We will discharge patient home set up for outpatient Lexiscan sestamibi stress test. Medical Records I reviewed the patient's medical records. Lab Data I reviewed the patient's lab results. 05/21/23 11:20 05/21/23 11:20 Labs/Radiology: Laboratory Results WBC 5.47 10^3/uL (3.29-11.43) 05/21/23 11:20 RBC 3.97 10^6/uL (3.85-5.65) 05/21/23 11:20 Hgb 13.00 g/dL (11.27-16.99) 05/21/23 11:20 Hct 39.9 % (36-47) 05/21/23 11:20 MCV 100.5 fl (85-98) H 05/21/23 11:20 MCH 32.7 pg (27-33) 05/21/23 11:20 MCHC 32.6 g/dL (30-55) 05/21/23 11:20 RDW 13.2 % (12.1-15.1) 05/21/23 11:20 Plt Count 182 10^3/cmm (157-399) 05/21/23 11:20 MPV 10.5 fL (7.4-10.4) H 05/21/23 11:20 Neut % (Auto) 60.5 % 05/21/23 11:20 Lymph % (Auto) 25.8 % 05/21/23 11:20 Mccormick % (Auto) 9.1 % 05/21/23 11:20 Eos % (Auto) 3.3 % 05/21/23 11:20 Baso % (Auto) 1.1 % 05/21/23 11:20 Neut # (Auto) 3.31 10^3/uL (1.8-7.7) 05/21/23 11:20 Lymph # (Auto) 1.4 10^3/uL (0.8-4.8) 05/21/23 11:20 Mccormick # (Auto) 0.5 10^3/uL (0.2-0.9) 05/21/23 11:20 Eos # (Auto) 0.2 10^3/uL (0.0-0.8) 05/21/23 11:20 Baso # (Auto) 0.1 10^3/uL (0.0-0.1) 05/21/23 11:20 Nucleated RBC % (auto) 0 % 05/21/23 11:20 Nucleated RBCs # 0.0 /100WBC 05/21/23 11:20 D-Dimer 0.67 ug/mLFEU (0-0.59) H 05/21/23 11:20 Sodium 140 mmol/L (136-145) 05/21/23 11:20 Potassium 4.1 mmol/L (3.5-5.1) 05/21/23 11:20 Chloride 104 mmol/L (98-107) 05/21/23 11:20 Carbon Dioxide 28 mmol/L (22-29) 05/21/23 11:20 Anion Gap 12.1 (5-19) 05/21/23 11:20 BUN 24 mg/dL (8-23) H 05/21/23 11:20 Creatinine 1.1 mg/dL (0.5-0.9) H 05/21/23 11:20 GFR Calculation Not Reportable 05/21/23 11:20 Glucose 82 mg/dL (65-115) 05/21/23 11:20 Calculated Osmolality 293 mOsm/kg (285-295) 05/21/23 11:20 Calcium 8.7 mg/dL (8.5-10.5) 05/21/23 11:20 Total Bilirubin 0.3 mg/dL (0.15-1.2) 05/21/23 11:20 AST 20 U/L (0-32) 05/21/23 11:20 ALT 17 U/L (0-33) 05/21/23 11:20 Alkaline Phosphatase 133 U/L (35-105) H 05/21/23 11:20 Troponin T Baseline 11 ng/L (0-10) H 05/21/23 11:20 Troponin T 120 Minute 10.53 ng/L (0-10) H 05/21/23 13:24 Delta Troponin T -0.47 ABS# (0-10) L 05/21/23 13:24 NT-Pro-B Natriuret Pep 134 pg/mL (0-450) 05/21/23 11:20 Total Protein 6.3 g/dL (6.6-8.7) L 05/21/23 11:20 Albumin 4.3 g/dL (3.5-5.2) 05/21/23 11:20 Globulin 2.0 g/dL (1.3-4.6) 05/21/23 11:20 Urine Color Yellow (Yellow) 05/21/23 13:09 Urine Appearance Clear (CLEAR) 05/21/23 13:09 Urine pH 6 (5-7) 05/21/23 13:09 Ur Specific [place] 1.015 (1.005-1.030) 05/21/23 13:09 Urine Protein Neg (Negative) 05/21/23 13:09 Urine Glucose (UA) Norm (Normal) 05/21/23 13:09 Urine Ketones Negative (Negative) 05/21/23 13:09 Urine Blood Neg (Negative) 05/21/23 13:09 Urine Nitrate Negative (Negative) 05/21/23 13:09 Urine Bilirubin Neg (Negative) 05/21/23 13:09 Urine Urobilinogen Norm mg/dL (Negative) 05/21/23 13:09 Ur Leukocyte Esterase Negative (Negative) 05/21/23 13:09 All radiology interpretation(s) finalized by discharge Discharge Plan Discharge Patient Disposition: Home Clinical Impression: Dyspnea Condition: Stable Prescriptions: New aspirin 81 mg tablet,delayed release (DR/EC) 81 mg PO DAILY Qty: 30 0RF No Action pantoprazole [Protonix] 40 mg tablet,delayed release (DR/EC) 40 mg PO DAILY 360 Days Qty: 90 3RF gabapentin 100 mg capsule 100 cap PO 2XD lorazepam 0.5 mg tablet 0.5 mg PO DAILY PRN (Reason: Anxiety) donepezil [Aricept] 10 mg Tablet 10 mg PO QPM acetaminophen 500 mg Tablet 500 - 1,000 mg PO Q12H PRN (Reason: Pain) citalopram 20 mg tablet 20 mg PO BEDTIME quetiapine 25 mg tablet 25 - 50 mg PO BEDTIME amlodipine 10 mg tablet 10 mg PO DAILY furosemide 20 mg tablet 10 mg PO DAILY PRN (Reason: Edema) atorvastatin 40 mg tablet 40 mg PO BEDTIME 30 Days Qty: 30 0RF clopidogrel 75 mg tablet 75 mg PO DAILY 30 Days Qty: 30 0RF Discharge Orders: Discharge ED (Routine); Ordered 05/21/23 Ordered By: Juan Carlos Cole Referrals: Miguel Arrieta DO [Primary Care Provider] - Patient Instructions: Opioid Safety, Pain Management Activity Restrictions/Additional Instructions: You are seen today for shortness of breath your chest x-ray was normal the oxygen sat monitoring with ambulation was also normal you did not qualify for oxygen. Recommend you follow-up with your primary care doctor. We will have case management set you up for a Lexiscan sestamibi stress test as well. Cardiac enzymes and EKG done here in the emergency room were all normal. Coding Level of Care Code ED Solvent Process Extractor Operator for Darshan Perez
[2023-05-21 14:19] VITALS: BP 174/86; PULSE 98; RESP 18; O2SAT 94
[2023-05-21 14:29] VITALS: O2SAT 100; O2SAT 97
--- NOTE | 2023-05-24 09:02 | PC.SOCIAL ---
Lexiscan Orders for lexiscan faxed to [facility] scheduling at this time.
== END 2023-05-21 15:40 | disposition home or self-care (01) ==
PROVIDERS: Emergency Medicine; Emergency Provider Family Medicine; PCP Family Medicine
DX: R06.00 Dyspnea, unspecified (principal); Z79.02 Long term (current) use of antithrombotics/antiplatelets; Z87.891 Personal history of nicotine dependence; N18.9 Chronic kidney disease, unspecified; F03.90 Unspecified dementia, unspecified severity, without behavioral disturbance, psychotic disturbance, mood disturbance, and anxiety; Z95.0 Presence of cardiac pacemaker
CPT/HCPCS: 36415; 71046; 80053; 81003; 83880; 84484; 85025; 85378; 93005; 99285

== ENCOUNTER 2023-05-28 06:36 | Outpatient (CLI) | payer MEDICARE, BC, SELFPAY ==
[2023-05-28 06:44] VITALS: BMI 29.2
--- NOTE | 2023-05-28 06:46 | ECG_ITS ---
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 Interpretive Statements NAME OF STUDY: LEXISCAN SESTAMIBI STRESS TEST INDICATION: Shortness of Breath PROCEDURE: At the baseline, the blood pressure was 124/77 mmHg with a heart rate of 60 beats per min. The electrocardiogram showed sinus rhythm, normal axis with normal ST and T's. The Lexiscan was infused over a period of 20 seconds. A total of 0.4 milligrams of Lexiscan was infused. The stress phase was continued for a total of 5 minutes. Heart rate at the end of the stress phase was 71 bpm with a blood pressure 111 over 56 mm Hg. The EKG at the peak infusion revealed no significant ST-T wave changes. Sestamibi was injected 20 seconds after the Lexiscan infusion. Blood pressure at the end of the recovery phase was 120 over 58 mmHg with a heart rate of 72 beats per minute. CONCLUSION: 1. Normal EKG response to LexiScan infusion. 2. No LexiScan induced chest pain or cardiac arrhythmia. 3. Normal blood pressure and heart rate response. 4. Sestamibi/sestamibi perfusion scan pending; see separate report. Electronically Signed On 06-04-2023 13:45:11 CDT by Heena Holland M.D. [email or web address]
--- NOTE | 2023-05-28 06:47 | NMCV_ITS ---
NM brien perf SPECT r/s* [id number] Narcisa Valle Age: 77 Gender: F : 1945 Exam Date: 05/28/2023 07:07 Ordering Phys: Juan Carlos Cole DO Technologist: JAMIE Ng Exam Location: [facility] Indications: SHORTNESS OF BREATH STRESS TEST Please see separate stress test report in [facility] for full findings IMAGE PROTOCOL Rest/Stress 1 Lexiscan Day Radiopharmaceutical Dose (mCi) Administration Site Administered by Rest: Tc-99m 10.9 IV Abel Che, LAWN SPECIALIST Sestamibi Stress:Tc-99m 32.9 IV Abel Che, LAWN SPECIALIST Sestamibi Rest: 28-May-2023 60 Discovery 630 Stress: 28-May-2023 30 Discovery 630 0.4mg Lexiscan. Images obtained in supine and prone position. SPECT RESULTS Technical Quality: Excellent Raw Data Analysis: Normal Image Corrections: No attenuation or motion correction applied Summed Stress Score: 2 Summed Rest Score: 0 Summed Difference Score: 2 PERFUSION FINDINGS SPECT images demonstrate homogeneous tracer distribution throughout the myocardium. FUNCTIONAL RESULTS (calculated via Gated SPECT) Stress Image LV EF (%): 93 Stress EDV (mL):73 TID: 0.92 Stress ESV (mL):5 FUNCTIONAL FINDINGS: The left ventricle is normal in size. Transient Ischemia Dilatation of 0.92. The left ventricular ejection fraction is normal with a value of 93%. There is hyperdynamic left ventricular global systolic function. IMPRESSIONS 1. Myocardial perfusion imaging is normal. 2. Overall left ventricular systolic function is hyperdynamic without regional wall motion abnormalities, LVEF=93%. 3. EKG portion of the study will be reported separately. 4. Scan indicates low risk for cardiac events. Heena Holland MD (Electronically Signed) Final Date: 02 June 2023 13:32 S
[2023-05-28] MEDS: regadenoson 0.4 Mg/5 ml Syringe IVP (08:26)
[2023-05-28 08:43] VITALS: BP 114/56; PULSE 72
== END 2023-05-28 06:37 | disposition home or self-care (01) ==
LOC: CDL 06:37
PROVIDERS: PCP Family Medicine; Visit Provider Family Medicine
DX: R06.00 Dyspnea, unspecified (principal)
CPT/HCPCS: 36415; 78452; 93017; 96374; A9500; J2785

== ENCOUNTER → 2023-06-02 13:45 | Outpatient (BNVA) | payer MEDICARE, BC, SELFPAY | PROVIDERS: PCP Family Medicine; Visit Provider Internal Medicine Cardiovascular Disease | DX: Z95.0 Presence of cardiac pacemaker (principal); F03.90 Unspecified dementia, unspecified severity, without behavioral disturbance, psychotic disturbance, mood disturbance, and anxiety; Z87.891 Personal history of nicotine dependence; I12.9 Hypertensive chronic kidney disease with stage 1 through stage 4 chronic kidney disease, or unspecified chronic kidney disease; N18.9 Chronic kidney disease, unspecified | CPT/HCPCS: 99213 ==

== ENCOUNTER → 2023-08-05 08:24 | Outpatient (BNVA) | payer MEDICARE, BC, SELFPAY | PROVIDERS: PCP Family Medicine; Visit Provider Podiatrist Foot & Ankle Surgery | DX: M72.2 Plantar fascial fibromatosis; M24.572 Contracture, left ankle | CPT/HCPCS: 73630; 99203 ==

== ENCOUNTER → 2023-09-09 08:36 | Outpatient (BNVA) | payer MEDICARE, BC, SELFPAY | PROVIDERS: PCP Family Medicine; Visit Provider Podiatrist Foot & Ankle Surgery | DX: M24.572 Contracture, left ankle; M72.2 Plantar fascial fibromatosis | CPT/HCPCS: 20550; J1100; J3301 ==

== ENCOUNTER 2023-10-21 06:00 | Outpatient (CLI) | payer MEDICARE, BC, SELFPAY | END 2023-10-21 23:59 | disposition home or self-care (01) | LOC: SPT 10-22 08:31 | PROVIDERS: PCP Family Medicine; Visit Provider Podiatrist Foot & Ankle Surgery | DX: Z46.89 Encounter for fitting and adjustment of other specified devices (principal); M24.572 Contracture, left ankle; M72.2 Plantar fascial fibromatosis | CPT/HCPCS: 97760; 99213; L4397 ==

== ENCOUNTER → 2023-11-10 23:17 | Outpatient (BNVA) | payer MEDICARE, BC, SELFPAY | PROVIDERS: PCP Family Medicine; Visit Provider Internal Medicine | DX: Z45.010 Encounter for checking and testing of cardiac pacemaker pulse generator [battery] (principal) | CPT/HCPCS: 93296 ==

== ENCOUNTER → 2023-12-02 07:50 | Outpatient (BNVA) | payer MEDICARE, BC, SELFPAY | PROVIDERS: PCP Family Medicine; Visit Provider Podiatrist Foot & Ankle Surgery | DX: M72.2 Plantar fascial fibromatosis (principal); M24.572 Contracture, left ankle | CPT/HCPCS: 20550; J1100; J3301 ==

== ENCOUNTER → 2024-01-12 15:16 | Outpatient (BNVA) | payer MEDICARE, BC, SELFPAY | PROVIDERS: PCP Family Medicine; Visit Provider Internal Medicine | DX: I12.9 Hypertensive chronic kidney disease with stage 1 through stage 4 chronic kidney disease, or unspecified chronic kidney disease (principal); N18.9 Chronic kidney disease, unspecified; Z95.0 Presence of cardiac pacemaker; F03.90 Unspecified dementia, unspecified severity, without behavioral disturbance, psychotic disturbance, mood disturbance, and anxiety; Z87.891 Personal history of nicotine dependence | CPT/HCPCS: 99214 ==

== ENCOUNTER → 2024-02-03 15:28 | Outpatient (BNVA) | payer MEDICARE, BC, SELFPAY | PROVIDERS: PCP Family Medicine; Visit Provider Podiatrist Foot & Ankle Surgery | DX: M72.2 Plantar fascial fibromatosis; M24.572 Contracture, left ankle | CPT/HCPCS: 99213 ==

== ENCOUNTER → 2024-03-21 15:48 | Outpatient (BNVA) | payer MEDICARE, BC, SELFPAY | PROVIDERS: PCP Family Medicine; Visit Provider Podiatrist Foot & Ankle Surgery | DX: M79.672 Pain in left foot (principal) | CPT/HCPCS: 73630; 99213 ==

== ENCOUNTER → 2024-04-13 07:58 | Outpatient (BNVA) | payer MEDICARE, BC, SELFPAY | PROVIDERS: PCP Family Medicine; Visit Provider Podiatrist Foot & Ankle Surgery | DX: M19.072 Primary osteoarthritis, left ankle and foot | CPT/HCPCS: 99213 ==

== ENCOUNTER → 2024-05-24 08:44 | Outpatient (BNVA) | payer MEDICARE, BC, SELFPAY | PROVIDERS: PCP Family Medicine; Visit Provider Internal Medicine | DX: Z45.018 Encounter for adjustment and management of other part of cardiac pacemaker (principal) | CPT/HCPCS: 93296 ==

== ENCOUNTER → 2024-05-31 09:41 | Outpatient (BNVA) | payer MEDICARE, BC, SELFPAY | PROVIDERS: PCP Family Medicine; Visit Provider Nurse Practitioner Family | DX: I10 Essential (primary) hypertension (principal); Z95.0 Presence of cardiac pacemaker | CPT/HCPCS: 99214 ==

== ENCOUNTER 2025-01-01 00:56 | Inpatient (IN) | payer MEDICARE, BC, SELFPAY ==
[2025-01-01] VITALS (38 sets, daily range): BP systolic 98–195; BP diastolic 51–117; PULSE 60–82; RESP 11–22; TEMP 35.8–36.6; O2SAT 90–100; BMI 36.5
--- NOTE | 2025-01-01 | XR_ITS ---
WS: [id number] XR forearm RT 2V [id number] REASON FOR EXAM: MAYCOL PICS FINDINGS: Plate and screw fixation of comminuted distal metaphyseal transverse fracture of the right radius. Surgical appliances are intact and in proper position and alignment. Fracture fragments are in good apposition and alignment. Reduction of the distal diaphyseal left ulnar fracture to anatomic alignment. XR/XR forearm RT 2V [id number] IMPRESSION: Reduction and fixation of right wrist fracture as above.
--- NOTE | 2025-01-01 01:29 | XRR_ITS ---
PROCEDURE INFORMATION: Exam: XR Right Forearm Exam date and time: 01/01/2025 1:53 AM Age: 79 years old Clinical indication: Injury or trauma; Fall; Blunt trauma (contusions or hematomas); Arm, lower; Right; Additional info: Fall forearm FX TECHNIQUE: Imaging protocol: Radiologic exam of the right forearm. Views: 2 views. COMPARISON: No relevant prior studies available. FINDINGS: Bones/joints: Moderately displaced fracture deformity of the distal ulna diaphysis. Displaced ulnar styloid process fracture. Comminuted intra-articular fracture lucencies of the distal radius with severe displacement incompletely assessed. Demineralized bones. Soft tissues: Distal swelling. XR/XR forearm RT 2V [id number] IMPRESSION: 1. Right distal radius and ulna fractures of the wrist. 2. Recommend dedicated right wrist radiographic follow-up.
[2025-01-01] MEDS: ondansetron 2 mg/ML SDV 2 mL 4 MG IVP (01:35)
[2025-01-01] MEDS: morphine 4 mg/mL SDV 1 mL IVP ×2 (01:35→04:25)
--- NOTE | 2025-01-01 01:40 | ED_ITS ---
HPI - Extremity Problem 2 General: Chief complaint: Extremity Injury, Upper Stated complaint: FALL, WEAKNESS Time Seen by Provider: 01/01/25 01:04 History of Present Illness: 79-year-old female who fell in her bedro om on an outstretched hand. She complains of distal forearm pain. There is a small amount of bleeding present. There is deformity. She can feel her fingers and move her fingers. No other injury. She did not hit her head. She is not on anticoagulants. Related Data Home Medications ?Medication ?Instructions ?Recorded ?Confirmed lorazepam 0.5 mg tablet 0.5 mg PO DAILY PRN Anxiety 12/08/20 05/31/24 acetaminophen 500 mg tablet 500 - 1,000 mg PO Q12H PRN Pain 04/29/22 05/31/24 citalopram 20 mg tablet 20 mg PO BEDTIME 04/29/22 amlodipine 10 mg tablet 10 mg PO DAILY 12/04/22 1010/23 furosemide 20 mg tablet 10 mg PO DAILY PRN Edema 03/2105/31/24 quetiapine 25 mg tablet 25 - 50 mg PO BEDTIME 05/31/24 gabapentin 100 mg capsule 100 mg PO DAILY 01/12/2410/23 memantine 5 mg tablet 5 mg PO BID 01/12/24 4 Previous Rx's ?Medication ?Instructions ?Recorded atorvastatin 40 mg tablet 40 mg PO BEDTIME 30 days #30 tabs 12/06/22 clopidogrel 75 mg tablet 75 mg PO DAILY 30 days #30 t abs 12/06/22 pantoprazole 40 mg tablet,delayed 40 mg PO DAILY 12 mo [facility] #90 tabs 05/11/23 release (Protonix) aspirin 81 mg tablet,delayed 81 mg PO DAILY #30 tabs 0 05/21/23 release meloxicam 15 mg tablet 15 mg PO DAILY #10 tabs 12/0 03/21 night splint #1 ea 10/21/23 Allergies Allergy/AdvReac Type Severity Reaction Status Date / Time codeine Allergy Intermediate ALGY-Rash Verified 05/31/24 09:45 amitriptyline Allergy Unknown Verified 05/31/24 09:45 lisinopril Allergy ADR-Cough Verified 05/31/24 09:45 peanut Allergy ALGY-Anaphy Verified 05/31/24 09:45 laxis [facility] ED 2 PFSH: Medical History Sinus node dysfunction Pacemaker Dementia History of stress test (12/11/20) 1. Small size perfusion abnormality of mild severity of apical loredo with subtle reversibility in apical septal wall on stress images. 2. This may represent old myocardial infarction or scarring in left anterior descending artery territory with minimal uche-infarct ischemia. 3. Overall left ventricular systolic function is normal with apical hypokinesis 4. The left ventricular ejection fraction is normal with a value of 63%. Bradycardia Depression Anxiety Mesenteric cyst Chronic kidney disease by history Closed fracture of right hip Surgical History Hx of sinus surgery History of reduction of closed fracture (~11/2020) History of laminectomy History of laparotomy Family History Father CAD (coronary artery disease) Alcoholism Mother CAD (coronary artery disease) Brother CAD (coronary artery disease) Social History (Updated 01/01/25 @ 03:56 by Justin Monroy MD) Smoking and tobacco/nicotine status: former use of tobacco/nicotine Quit status (tobacco/nicotine): has quit using Year quit tobacco: 2004 Former quit date comment: Patient was unable to be specific on when she quit this is an estimate Alcohol intake: current Alcohol intake frequency: holidays/special occasions only Substance/Drug Use: never Additional social history: Patient lives in the basement apartment of her daughter's home patient wants full CODE STATUS Physical Exam 2 Const: COMMON NORMALS: no acute distress GENERAL APPEARANCE: cooperative; not ill appearing HENMT: COMMON NORMALS: normocephalic, atraumatic and Normal external nose present HEAD & SCALP: normocephalic and atraumatic FACE & SINUS: normal facial exam and face symmetric NOSE: Normal external nose present Eye: COMMON NORMALS: Equal, round and reactive pupils present and EOMs intact bilaterally PUPIL: Yes Equal, round and reactive pupils present Neck/C-Spine: GENERAL: Yes trachea midline Chest: CHEST: Yes Symmetrical chest wall rise Resp: COMMON NORMALS: normal respiratory effort, No retractions, No use of accessory muscles and clear to auscultation bilaterally AUSCULTATION: clear to auscultation bilaterally Cardio: COMMON NORMALS: regular rate and regular rhythm RATE: regular rate RHYTHM: regular rhythm Extremity: NARRATIVE EXTREMITY EXAM: Exam of the right upper extremity reveals a significant deformity of the distal forearm. There is tenderness and bruising over the area. Bruising is more volar than dorsal. Finger movements are intact. Capillary refill normal distally. Sensation is normal. Radial pulses normal. There is a small, very tiny, puncture wound over the volar wrist. Neuro: JOVI COMA SCALE: document GCS findings Jovi coma scale eye opening: Spontaneous Ailey coma scale verbal response: Orientated Jovi coma scale motor response: Obey commands Jovi coma scale total score: 15 S ENSORY EXAM: Yes extremities (intact) Psych: COMMON NORMALS: speech normal SPEECH: Yes normal speech Procedures Orthopedic Fracture Reduction Fracture #1: Time Out Performed: Yes Side: right Fracture Reduction Location: radius and ulna Analgesia: procedural sedation Technique: direct manipulation and traction/counter-traction Post Reduction X-rays Demonstrate: acceptable reduction Post-reduction neuro exam: intact Post-reduction vascular exam: intact Splint Applied: Yes Patient Tolerated Procedure: well and no complications Procedural Sedation Indication: fracture/dislocation reduction ASA Class: II Preparation: agronomy technician applied, pulse oximeter, supplemental O2 applied, suction/airway equipment at bedside and IV secured IV Propofol dose (mg): 80 Patient Tolerated Procedure: well and no complications Complications: none Course 2 Vital Signs: Vital signs: Vital Signs Temperature 96.4 F L 01/01/25 00:56 Pulse Rate 62 01/01/25 04:46 Respiratory Rate 16 01/01/25 04:46 Blood Pressure 113/68 01/01/25 04:46 Pulse Oximetry 92 01/01/25 04:46 Oxygen Delivery Me thod Nasal Cannula 01/01/25 02:46 Oxygen Flow Rate 4 01/01/25 02:50 MDM - Extremity (Nontraumatic) Medical Decision Making Given puncture wounds over fracture site, 1 must assume this is an open fracture. There is no air tracking down to bone by x-ray, however. Spoke with orthopedics. Recommendations are Ancef, admission, he will see later this morning for evaluation. She is in a splint. She is feeling better after reduction. Hospitalist alerted to admission and will see the patient in the ER. Lab Data 01/01/25 03:25 01/01/25 04:30 Radiology Impressions Forearm X-Ray 01/01/25 02:42 IMPRESSION: Right wrist fractures are partially reduced. Chest X-Ray 01/01/25 03:06 IMPRESSION: Negative for acute chest pathology. All radiology interpretation(s) finalized by discharge Discharge Plan Discharge Patient Disposition: Admitted As Inpatient Admit Provider: Justin Monroy Clinical Impression: Right wrist fracture Condition: Stable Coding Level of Care Code ED Hot Box Operator for Darshan Perez
[2025-01-01] MEDS: propofol 10 mg/mL SDV 20 mL 100 MG IVP (02:42)
--- NOTE | 2025-01-01 02:42 | XRR_ITS ---
PROCEDURE INFORMATION: Exam: XR Right Forearm Exam date and time: 01/01/2025 2:43 AM Age: 79 years old Clinical indication: Injury or trauma; Fall; Blunt trauma (contusions or hematomas); Arm, lower; Right; Additional info: Reduction TECHNIQUE: Imaging protocol: Radiologic exam of the right forearm. Views: 2 views. COMPARISON: CR (UP EXM, ) 01/01/2025 1:53 AM FINDINGS: Bones/joints: Distal radius and ulna fractures redemonstrated. There is improved alignment in both fractures. There is some residual displacement in both fractures. Bones are demineralized. Soft tissues: Soft tissue swelling. Other findings: Interval cast placement. XR/XR forearm RT 2V [id number] IMPRESSION: Right wrist fractures are partially reduced.
--- NOTE | 2025-01-01 03:06 | XRR_ITS ---
PROCEDURE INFORMATION: Exam: XR Chest Exam date and time: 01/01/2025 3:34 AM Age: 79 years old Clinical indication: Screening exam; Pre-operative exam; Other: FX wrist; Prior surgery; Surgery date: 6+ months; Surgery type: Pacemaker; Additional info: Pre-op TECHNIQUE: Imaging protocol: Radiologic exam of the chest. Views: 1 view. COMPARISON: CR XR chest 2V* [id number] 05/21/2023 11:23 AM FINDINGS: Tubes, catheters and devices: Stable left chest ICD positioning. Lungs: Unremarkable. No consolidation. Pleural spaces: Unremarkable. No pleural effusion. No pneumothorax. Heart/Mediastinum: Cardiac silhouette is grossly unremarkable. Bones/joints: Unremarkable. XR/XR chest 1V portable [id number] IMPRESSION: Negative for acute chest pathology.
--- NOTE | 2025-01-01 03:07 | ECG_ITS ---
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 Measurements Intervals [place] Rate: 60 P: 220 NC: 192 QRS: 44 QRSD: 85 T: 53 QT: 481 QTc: 481 Interpretive Statements ELECTRONIC ATRIAL PACEMAKER PROLONGED QT INTERVAL Compared to ECG 05/21/2023 13:14:00 Prolonged QT interval now present Electronically Signed On 01-01-2025 09:10:57 CDT by Alejandro Warren M.D. [email or web address]
[2025-01-01] MEDS: ceFAZolin 1,000 mg SDV 1000 MG IVP (03:18)
[2025-01-01 03:28] LABS: Basophils # 0.1 10^3/uL (0.0-0.1); Basophils % 0.6 %; Eosinophils % 0.2 %; Hematocrit 35.7 % (36-47); Lymphocytes # 1.2 10^3/uL (0.8-4.8); Lymphocytes % 13.7 %; Mean Corpuscular HGB Conc 31.4 g/dL (30-55); Mean Corpuscular Hemoglobin 32.1 pg (27-33); Mean Corpuscular Volume 102.3 fl (85-98); Mean Platelet Volume 11.1 fL (7.4-10.4); Monocytes # 0.6 10^3/uL (0.2-0.9); Monocytes % 6.5 %; Neutrophils # 7.09 10^3/uL (1.8-7.7); Neutrophils % 78.7 %; Nucleated Red Blood Cells % 0 %; Platelet Count 129 10^3/cmm (157-399); Red Blood Count 3.49 10^6/uL (3.85-5.65); Red Cell Distribution Width 13.6 % (12.1-15.1); White Blood Count 9.01 10^3/uL (3.29-11.43)
--- NOTE | 2025-01-01 03:51 | PM.HP ---
Providers/Chief Complaint Admitting Physician: Justin Monroy MD Primary Care Provider: Miguel Arrieta DO Chief Complaint: FALL, WEAKNESS History of Present Illness Narcisa Valle is a 79 year old female was at home and got up without her walker between the foot of the bed and the bureau and fell protecting her self with her right arm and broke her radius and ulna. She was sedated with propofol and partially reduced in the emergency department by Dr. Khan but this is an open comminuted fracture based on 2 pinhole bleeding skin breaks. She was referred to Dr. Vargas orthopedic surgery who will see the patient in the morning and plan for surgery. Patient has a pacemaker and a history of CVA so is on aspirin and Plavix which are now held. She does not recall ever having a heart attack. She denies clots in the legs or lungs. Patient denies chest pain lightheadedness or nausea. Review of Systems Narrative: General No fevers chills Cardiovascular positive for pacemaker no chest pain no palpitations or leg edema Lungs no shortness of breath cough wheezing GI no nausea vomiting diarrhea constipation she has 1-2 bowel movements a day negative Neuro she admits to some memory loss but denies confusion Medications/Allergies Home Medications ?Medication ?Instructions ?Recorded ?Confirmed ?Last Taken ?Type lorazepam 0.5 mg tablet 0.5 mg PO DAILY PRN Anxiety 12/08/20 05/31/24 04/15/23 History acetaminophen 500 mg tablet 500 - 1,000 mg PO Q12H PRN Pain 04/29/22 05/31/24 04/12/23 History citalopram 20 mg tablet 20 mg PO BEDTIME 04/29/22 05/31/24 05/20/23 History amlodipine 10 mg tablet 10 mg PO DAILY 12/04/22 05/31/24 05/21/23 History furosemide 20 mg tablet 10 mg PO DAILY PRN Edema 12/04/22 05/31/24 03/09/23 History quetiapine 25 mg tablet 25 - 50 mg PO BEDTIME 12/04/22 05/31/24 05/20/23 History atorvastatin 40 mg tablet 40 mg PO BEDTIME 30 days #30 tabs 12/06/22 05/31/24 05/20/23 Rx clopidogrel 75 mg tablet 75 mg PO DAILY 30 days #30 tabs 12/06/22 05/31/24 05/21/23 Rx pantoprazole 40 mg tablet,delayed 40 mg PO DAILY 12 months #90 tabs 05/11/23 05/31/24 05/21/23 Rx release (Protonix) aspirin 81 mg tablet,delayed 81 mg PO DAILY #30 tabs 05/21/23 05/31/24 Unknown Rx release meloxicam 15 mg tablet 15 mg PO DAILY #10 tabs 08/05/23 05/31/24 Unknown Rx night splint #1 ea 10/21/23 05/31/24 Unknown Rx gabapentin 100 mg capsule 100 mg PO DAILY 01/12/24 05/31/24 Unknown History memantine 5 mg tablet 5 mg PO BID 01/12/24 05/31/24 Unknown History Allergies Allergy/AdvReac Type Severity Reaction Status Date / Time codeine Allergy Intermediate ALGY-Rash Verified 05/31/24 09:45 amitriptyline Allergy Unknown Verified 05/31/24 09:45 lisinopril Allergy ADR-Cough Verified 05/31/24 09:45 peanut Allergy ALGY-Anaphy Verified 05/31/24 09:45 laxis PFSH Acute PFSH: Medical History Sinus node dysfunction Pacemaker Dementia History of stress test (12/11/20) 1. Small size perfusion abnormality of mild severity of apical loredo with subtle reversibility in apical septal wall on stress images. 2. This may represent old myocardial infarction or scarring in left anterior descending artery territory with minimal uche-infarct ischemia. 3. Overall left ventricular systolic function is normal with apical hypokinesis 4. The left ventricular ejection fraction is normal with a value of 63%. Bradycardia Depression Anxiety Mesenteric cyst Chronic kidney disease by history Closed fracture of right hip Surgical History Hx of sinus surgery History of reduction of closed fracture (~11/2020) History of laminectomy History of laparotomy Family History Father CAD (coronary artery disease) Alcoholism Mother CAD (coronary artery disease) Brother CAD (coronary artery disease) Social History (Updated 01/01/25 @ 03:56 by Justin Monroy MD) Smoking and tobacco/nicotine status: former use of tobacco/nicotine Quit status (tobacco/nicotine): has quit using Year quit tobacco: 2004 Former quit date comment: Patient was unable to be specific on when she quit this is an estimate Alcohol intake: current Alcohol intake frequency: holidays/special occasions only Substance/Drug Use: never Additional social history: Patient lives in the basement apartment of her daughter's home patient wants full CODE STATUS Vitals/I&O/Wt Last Vital Signs Temp 96.4 F L 01/01/25 00:56 Pulse 60 01/01/25 02:50 Resp 16 01/01/25 02:50 BP 145/85 01/01/25 02:50 Pulse Ox 98 01/01/25 02:50 O2 Del Method Nasal Cannula 01/01/25 02:46 O2 Flow Rate 4 01/01/25 02:50 12/31/24 12/31/24 01/01/25 14:59 22:59 06:59 Intake Total 0 / 0 Balance 0 / 0 Physical Exam Narrative: General Well-developed well-nourished overweight female in no acute cardiopulmonary distress. She has intermittent periods of obvious pain with her right wrist CV regular rate and rhythm Lungs clear to auscultation bilaterally Neck no bruits Abdomen positive bowel sounds soft nontender Calves trace ankle edema equal bilaterally. Musculoskeletal right wrist is in a splint and Kamari wrapped. Mood and affect normal Data 01/01/25 03:25 01/01/25 03:25 A&P Assessment and plan (1) Right wrist fracture: Patient is admitted to the hospital with IV antibiotics due to n.p.o. status for surgery and a comminuted fracture. Plavix and aspirin are held. Lovenox low-dose prophylaxis is given (2) Dementia: Patient was started to month thought it was April then guessed March. She also did not know the year but she did know that Mr. Chinchilla was president. She is not agitated and is cooperative (3) Pacemaker: Listed as being for sinus node dysfunction. Will place her on telemetry to look for any signs of arrhythmia that could have precipitated her fall. Patient does not recall her fall but daughter gave the history when she was in earlier (4) Hypertension: Stable meds continued PDMP PDMP Reviewed: Not Reviewed Attestations Medical Necessity Statement*: Patient mid to the hospital for IV antibiotics, supportive care and surgery in the morning Time Spent in Patient Care: 55 minutes spent in evaluation and coordination of care for this patient today Coding Level of Care Code 79581 Diagnoses Right wrist fracture S62.101A Dementia F03.90 Pacemaker Z95.0 Primary hypertension I10 Hypertension type: primary hypertension
[2025-01-01 04:43] LABS: INR 0.91 (0.8-1.2)
[2025-01-01 04:44] LABS: Partial Thromboplastin Time 27.7 SECONDS (23.9-36.7)
[2025-01-01 04:54] LABS: Alanine Aminotransferase 11 U/L (0-33); Albumin Level 3.9 g/dL (3.5-5.2); Alkaline Phosphatase 107 U/L (35-105); Blood Urea Nitrogen 23 mg/dL (8-23); Calcium 8.4 mg/dL (8.5-10.5); Carbon Dioxide 21 mmol/L (22-29); Chloride 106 mmol/L (98-107); Glucose 99 mg/dL (65-115); Magnesium 2.1 mg/dL (1.7-2.3); Osmolality Calculated 298 mOsm/kg (285-295); Sodium 142 mmol/L (136-145); Total Bilirubin 0.3 mg/dL (0.15-1.2); Total Protein 5.9 g/dL (6.6-8.7)
[2025-01-01 04:56] LABS: Aspartate Amino Transferase 19 U/L (0-32)
[2025-01-01] MEDS: sodium chlor 0.9% + KCl 20 mEq 20 MEQ/1,000 ML BAG 100 MEQ IV ×2 (05:54→17:35)
[2025-01-01] MEDS: enoxaparin 40 mg/0.4 mL Syringe SUBCUT (05:54)
--- NOTE | 2025-01-01 08:14 | PC.PHAR ---
Pt stated her daughter sets up her medications. Daughter, Sil [phone], verified all pt medications and stated pt took her medications yesterday.
--- NOTE | 2025-01-01 08:17 | PM.CONSULT ---
Providers/Reason For Consult Consulting Physician/Specialty*: Willem Vargas MD Orthopedic surgery Reason for Consult*: Possible open fracture right wrist Attending Physician: Justin Monroy MD Primary Care Provider: Miguel Arrieta DO History of Present Illness History of Present Illness Narcisa Valle is a 79 year old female Review of Systems Narrative: General No fevers chills Cardiovascular positive for pacemaker no chest pain no palpitations or leg edema Lungs no shortness of breath cough wheezing GI no nausea vomiting diarrhea constipation she has 1-2 bowel movements a day negative Neuro she admits to some memory loss but denies confusion Medications/Allergies Home Medications ?Medication ?Instructions ?Recorded ?Confirmed ?Last Taken ?Type acetaminophen 500 mg tablet 500 - 1,000 mg PO Q12H PRN Pain 04/29/22 01/01/25 04/12/23 History quetiapine 25 mg tablet 50 mg PO BEDTIME 12/04/22 01/01/25 12/31/24 History atorvastatin 40 mg tablet 40 mg PO BEDTIME 30 days #30 tabs 12/06/22 01/01/25 12/31/24 Rx clopidogrel 75 mg tablet 75 mg PO DAILY 30 days #30 tabs 12/06/22 01/01/25 12/31/24 Rx pantoprazole 40 mg tablet,delayed 40 mg PO DAILY 12 months #90 tabs 05/11/23 01/01/25 12/31/24 Rx release (Protonix) aspirin 81 mg tablet,delayed 81 mg PO DAILY #30 tabs 05/21/23 01/01/25 12/31/24 Rx release night splint #1 ea 10/21/23 01/01/25 Unknown Rx gabapentin 100 mg capsule 100 mg PO BEDTIME 01/12/24 01/01/25 12/31/24 History memantine 5 mg tablet 5 mg PO BID 01/12/24 01/01/25 12/31/24 History kmxigmfczm-ihnklynqeivdt-mmjiblpp 1 tab PO Q4H PRN Migraine Headache 01/01/25 01/01/25 Unknown History 50 mg-325 mg-40 mg tablet citalopram 10 mg tablet 10 mg PO BEDTIME 01/01/25 01/01/25 12/31/24 History famotidine 20 mg tablet 20 mg PO BID 01/01/25 01/01/25 12/31/24 History Allergies Allergy/AdvReac Type Severity Reaction Status Date / Time codeine Allergy Intermediate ALGY-Rash Verified 05/31/24 09:45 amitriptyline Allergy Unknown Verified 05/31/24 09:45 lisinopril Allergy ADR-Cough Verified 05/31/24 09:45 peanut Allergy ALGY-Anaphy Verified 05/31/24 09:45 laxis Current Medications Generic Name Dose Route Start Last Admin Trade Name Freq PRN Reason Stop Dose Admin Enoxaparin Sodium 40 mg 01/01/25 04:57 01/01/25 05:54 Enoxaparin 40 Mg/0.4 Ml Syringe SUBCUT 40 mg Q24H ALAINA Administration Potassium Chloride/Sodium Chloride 20 meq in 1,000 mls @ 100 mls/hr 01/01/25 04:57 01/01/25 05:54 Sodium Chlor 0.9% + Kcl 20 Meq IV 100 mls/hr .Q10H ALAINA Administration PFSH Acute PFSH: Medical History Sinus node dysfunction Pacemaker Dementia History of stress test (12/11/20) 1. Small size perfusion abnormality of mild severity of apical loredo with subtle reversibility in apical septal wall on stress images. 2. This may represent old myocardial infarction or scarring in left anterior descending artery territory with minimal uche-infarct ischemia. 3. Overall left ventricular systolic function is normal with apical hypokinesis 4. The left ventricular ejection fraction is normal with a value of 63%. Bradycardia Depression Anxiety Mesenteric cyst Chronic kidney disease by history Closed fracture of right hip Surgical History Hx of sinus surgery History of reduction of closed fracture (~11/2020) History of laminectomy History of laparotomy Family History Father CAD (coronary artery disease) Alcoholism Mother CAD (coronary artery disease) Brother CAD (coronary artery disease) Social History (Updated 01/01/25 @ 03:56 by Justin Monroy MD) Smoking and tobacco/nicotine status: former use of tobacco/nicotine Quit status (tobacco/nicotine): has quit using Year quit tobacco: 2004 Former quit date comment: Patient was unable to be specific on when she quit this is an estimate Alcohol intake: current Alcohol intake frequency: holidays/special occasions only Substance/Drug Use: never Additional social history: Patient lives in the basement apartment of her daughter's home patient wants full CODE STATUS Dietary Habits: Current diet type/program: regular Caffeine: Yes Vitals/I&O/Wt Last Vital Signs Temp 97.6 F 01/01/25 08:12 Pulse 73 01/01/25 08:12 Resp 18 01/01/25 08:12 BP 166/94 01/01/25 08:12 Pulse Ox 95 01/01/25 08:12 O2 Del Method Room Air 01/01/25 08:12 O2 Flow Rate 4 01/01/25 02:50 12/31/24 01/01/25 01/01/25 22:59 06:59 14:59 Intake Total 0 / 0 Balance 0 / 0 Weight last 48 hrs Weight 199 lb 2 oz Weight 199 lb 11.2 oz Physical Exam Narrative: Orthopedic exam today. Patient is laying in bed with a splint on her arm and in a elevation sock, hanging from a IV pole. Patient is awake and alert. No signs of bleeding through the splint. She is neurovascular intact and distal to the fingertips. No other injuries she reports. Data 01/01/25 03:25 01/01/25 04:30 Other data: X-rays were reviewed by myself. She has a comminuted distal radius fracture displaced and angulated. She also has distal ulnar fracture wrist transverse fracture of this. A&P Assessment and plan (1) Right wrist fracture: Possible open fracture distal radius and ulna of the right wrist. Plan Plan at this time is for surgical intervention for irrigation debridement of the wounds. Also possible pinning of the distal radius versus plating. Possible plating of distal ulnar fracture. I had a lengthy discussion with the patient and her daughter about the findings. Daughter confirms that there is functional wounds that were bleeding after the injury. This was also reported by ER staff. Therefore, at this time of indicated that this needs to be washed out to prevent infection. Then the fracture needs to be repaired so that she can return back to normal wrist function. All risk benefits treatment alternatives were discussed with the All questions were answered. They are agreeable to proceed with surgical intervention today. PDMP PDMP Reviewed: Not Reviewed Coding Level of Care Code Acute Code for g Fwd Diagnoses Open fracture of right wrist, initial encounter S62.101B Encounter type: initial encounter Fracture type: open
[2025-01-01] MEDS: oxyCODONE 5 mg IR Tab/Cap PO (08:47)
[2025-01-01] MEDS: meloxicam 7.5 mg tablet 15 MG PO (08:48)
[2025-01-01] MEDS: pantoprazole DR 40 mg Tablet PO (08:48)
[2025-01-01] MEDS: gabapentin 100 mg Capsule PO (08:48)
[2025-01-01] MEDS: memantine 5 mg tablet PO ×2 (08:48→17:35)
[2025-01-01] MEDS: amlodipine 10 mg Tablet PO (08:48)
[2025-01-01] MEDS: docusate sodium 100 mg Capsule PO ×2 (08:48→17:35)
--- NOTE | 2025-01-01 10:53 | ANES.PREANE2 ---
Pre-Anesthetic Assessment Height/Weight: Height 5 ft 2 in Weight 199 lb 2 oz Temp Pulse Resp BP Pulse Ox O2 Del Method O2 Flow Rate 97.6 F 69 16 145/71 91 Room Air 4 01/01/25 08:12 01/01/25 08:12 01/01/25 08:12 01/01/25 08:12 01/01/25 08:12 01/01/25 08:12 01/01/25 02:50 Preop Diagnosis: Wrist fracture Operation Date: 01/01/25 12:10 Proposed Procedures p ORIF Wrist(Right) - Willem Vargas MD s Incision & Drainage Upper Extremity(Right) - Willem Vargas MD Was Beta Giselle taken within 24 hours: N/A Was Clonidine taken within 24 hours: N/A Social No alcohol and No tobacco Exam alert, clear to auscultation bilaterally and regular rate & rhythm alert to self and situation but does seem confused Airway Submandibular: within normal limits Cervical ROM: within normal limits Mallampati: Class III Dentition: full Anesthetic Plan ASA status: 3 Anesthesia: General and Regional (specify below) Other: No prior issues with anesthesia NPO since yesterday Patient has a history of dementia, daughter POA is at bedside Patient attempted to walk in the dark without her walker and tripped and fell History of GERD on Pepcid and Protonix Prior CVA, on chronic Plavix. Last taken yesterday Pacemaker in place Plan for general anesthesia. Unable to offer PNB due to Plavix but will ask surgeon if he can infiltrate with local anesthetic Medications/Allergies Home Medications ?Medication ?Instructions ?Recorded ?Confirmed ?Last Taken ?Type acetaminophen 500 mg tablet 500 - 1,000 mg PO Q12H PRN Pain 04/29/22 01/01/25 04/12/23 History quetiapine 25 mg tablet 50 mg PO BEDTIME 12/04/22 01/01/25 12/31/24 History atorvastatin 40 mg tablet 40 mg PO BEDTIME 30 days #30 tabs 12/06/22 01/01/25 12/31/24 Rx clopidogrel 75 mg tablet 75 mg PO DAILY 30 days #30 tabs 12/06/22 01/01/25 12/31/24 Rx pantoprazole 40 mg tablet,delayed 40 mg PO DAILY 12 months #90 tabs 05/11/23 01/01/25 12/31/24 Rx release (Protonix) aspirin 81 mg tablet,delayed 81 mg PO DAILY #30 tabs 05/21/23 01/01/25 12/31/24 Rx release night splint #1 ea 10/21/23 01/01/25 Unknown Rx gabapentin 100 mg capsule 100 mg PO BEDTIME 01/12/24 01/01/25 12/31/24 History memantine 5 mg tablet 5 mg PO BID 01/12/24 01/01/25 12/31/24 History ndtknckxmb-rkkkohvcqkvmx-dewyanma 1 tab PO Q4H PRN Migraine Headache 01/01/25 01/01/25 Unknown History 50 mg-325 mg-40 mg tablet citalopram 10 mg tablet 10 mg PO BEDTIME 01/01/25 01/01/25 12/31/24 History famotidine 20 mg tablet 20 mg PO BID 01/01/25 01/01/25 12/31/24 History Allergies Allergy/AdvReac Type Severity Reaction Status Date / Time codeine Allergy Intermediate ALGY-Rash Verified 05/31/24 09:45 amitriptyline Allergy Unknown Verified 05/31/24 09:45 lisinopril Allergy ADR-Cough Verified 05/31/24 09:45 peanut Allergy ALGY-Anaphy Verified 05/31/24 09:45 laxis Current Medications Generic Name Dose Route Start Last Admin Trade Name Freq PRN Reason Stop Dose Admin Amlodipine Besylate 10 mg 01/01/25 09:00 01/01/25 08:48 Amlodipine 10 Mg Tablet PO 10 mg DAILY ALAINA Administration Docusate Sodium 100 mg 01/01/25 09:00 01/01/25 08:48 Docusate Sodium 100 Mg Capsule PO 100 mg BID ALAINA Administration Enoxaparin Sodium 40 mg 01/01/25 04:57 01/01/25 05:54 Enoxaparin 40 Mg/0.4 Ml Syringe SUBCUT 40 mg Q24H ALAINA Administration Gabapentin 100 mg 01/01/25 09:00 01/01/25 08:48 Gabapentin 100 Mg Capsule PO 100 mg DAILY ALAINA Administration Potassium Chloride/Sodium Chloride 20 meq in 1,000 mls @ 100 mls/hr 01/01/25 04:57 01/01/25 05:54 Sodium Chlor 0.9% + Kcl 20 Meq IV 100 mls/hr .Q10H ALAINA Administration Meloxicam 15 mg 01/01/25 09:00 01/01/25 08:48 Meloxicam 7.5 Mg Tablet PO 15 mg DAILY ALAINA Administration Memantine 5 mg 01/01/25 09:00 01/01/25 08:48 Memantine 5 Mg Tablet PO 5 mg BID ALAINA Administration Oxycodone HCl 5 mg 01/01/25 04:57 01/01/25 08:47 Oxycodone 5 Mg Ir Tab/Cap PO 5 mg Q6H PRN Administration SEVERE PAIN Pantoprazole Sodium 40 mg 01/01/25 09:00 01/01/25 08:[address] 40 Mg Tablet PO 40 mg DAILY ALAINA Administration PFS Anesthesia Medical History Sinus node dysfunction Pacemaker Dementia History of stress test (12/11/20) 1. Small size perfusion abnormality of mild severity of apical loredo with subtle reversibility in apical septal wall on stress images. 2. This may represent old myocardial infarction or scarring in left anterior descending artery territory with minimal uche-infarct ischemia. 3. Overall left ventricular systolic function is normal with apical hypokinesis 4. The left ventricular ejection fraction is normal with a value of 63%. Bradycardia Depression Anxiety Mesenteric cyst Chronic kidney disease by history Closed fracture of right hip Surgical History Hx of sinus surgery History of reduction of closed fracture (~11/2020) History of laminectomy History of laparotomy Family History Father CAD (coronary artery disease) Alcoholism Mother CAD (coronary artery disease) Brother CAD (coronary artery disease) Social History (Updated 01/01/25 @ 03:56 by Justin Monroy MD) Smoking and tobacco/nicotine status: former use of tobacco/nicotine Quit status (tobacco/nicotine): has quit using Year quit tobacco: 2004 Former quit date comment: Patient was unable to be specific on when she quit this is an estimate Alcohol intake: current Alcohol intake frequency: holidays/special occasions only Substance/Drug Use: never Additional social history: Patient lives in the basement apartment of her daughter's home patient wants full CODE STATUS Data Anesthesia 01/01/25 03:25 01/01/25 04:30 Short CBC 01/01/25 Range/Units 03:25 WBC 9.01 (3.29-11.43) 10^3/uL Hgb 11.20 L (11.27-16.99) g/dL Hct 35.7 L (36-47) % MCV 102.3 H (85-98) fl Plt Count 129 L (157-399) 10^3/cmm Neut % (Auto) 78.7 % Neut # (Auto) 7.09 (1.8-7.7) 10^3/uL BMP 01/01/25 01/01/25 03:25 04:30 Sodium Cancelled 142 Potassium Cancelled 4.0 Chloride Cancelled 106 Carbon Dioxide Cancelled 21 L BUN Cancelled 23 Creatinine Cancelled 1.2 H Glucose Cancelled 99 Calcium Cancelled 8.4 L Liver Function 01/01/25 01/01/25 Range/Units 03:25 04:30 Total Bilirubin Cancelled 0.3 AST Cancelled 19 ALT Cancelled 11 Alkaline Phosphatase Cancelled 107 H Albumin Cancelled 3.9 Coags 01/01/25 04:30 PT 12.90 INR 0.91 APTT 27.7 Cardiac Studies: Echocardiogram 04/29/22 Echocardiogram Ultrasound 12/08/20 Sestamibi Stress Test (Cardiology) 05/28/23 Cardiac Event Monitor 05/01/22
[2025-01-01] MEDS: sodium chloride 0.9% 1,000 ML 30 ML IV (12:02)
[2025-01-01] MEDS: ceFAZolin 2,000 mg SDV 2000 MG IVP ×2 (12:12→17:35)
--- NOTE | 2025-01-01 13:11 | P.PN_ITS ---
Subjective 2 Subjective: 79 yo F with wrist fx awaiting surgery pain controlled family at bedside Vitals/I&O/Wt Last Vital Signs Temp 97.6 F 01/01/25 11:18 Pulse 61 01/01/25 11:18 Resp 18 01/01/25 11:18 BP 146/79 01/01/25 11:18 Pulse Ox 100 01/01/25 11:18 O2 Del Method Room Air 01/01/25 11:18 O2 Flow Rate 4 01/01/25 02:50 12/31/24 01/01/25 01/01/25 22:59 06:59 14:59 Intake Total 0 / 0 960 / 960 Balance 0 / 0 960 / 960 Weight last 48 hrs Weight 199 lb 2 oz Weight 199 lb 11.2 oz Physical Exam 2 Narrative: General Well-developed well-nourished overweight female in no acute cardiopulmonary distress. She has intermittent periods of obvious pain with her right wrist CV regular rate and rhythm Lungs clear to auscultation bilaterally Neck no bruits Abdomen positive bowel sounds soft nontender Calves trace ankle edema equal bilaterally. Musculoskeletal right wrist is in a splint and Kamari wrapped. Mood and affect normal Data 01/01/25 03:25 01/01/25 04:30 A&P Assessment and plan (1) Right wrist fracture: (2) Hypertension: (3) Chronic GERD: Plan (1) Right wrist fracture: Patient is admitted to the hospital with IV antibiotics due to n.p.o. status for surgery and a comminuted fracture. Plavix and aspirin are held. Lovenox low- dose prophylaxis is given plan for OR today, abx continued (2) Dementia: Patient was started to month thought it was April then guessed March. monitor (3) Pacemaker: Listed as being for sinus node dysfunction. Will place her on telemetry to look for any signs of arrhythmia that could have precipitated her fall. Patient does not recall her fall but daughter gave the history when she was in earlier (4) Hypertension: Stable meds continued PDMP PDMP Reviewed: Not Reviewed Attestations 2 Medical Necessity Statement*: fracture, needs surgery and abx Coding Level of Care Code 08412 Diagnoses Open fracture of right wrist, initial encounter S62.101B Encounter type: initial encounter Fracture type: open Primary hypertension I10 Hypertension type: primary hypertension Chronic GERD K21.9
[2025-01-01] MEDS: fentaNYL 50 mcg/mL INJ 2mL IVP ×2 (13:48→14:13)
[2025-01-01] MEDS: acetaminophen 1,000 MG/100 ML PIGGYBACK 400 MG IV (14:01)
--- NOTE | 2025-01-01 14:13 | P.OP_ITS ---
Operative Report Date of procedure: January 01, 2025 Surgeon: Willem Vargas MD Procedure: Preoperative diagnosis: Distal radius and ulnar fractures of the right wrist, open fracture via puncture wounds volar surface Postoperative diagnosis: Same Procedure: Irrigation debridement of puncture wound soft tissues. Close reduction percutaneous pinning of the distal radius fracture. Open reduction internal fixation of the distal ulnar fracture. Surgeon: Willem Vargas MD Anesthesia: General EBL: Minimal Tourniquet time: 55 minutes at 250 mmHg Indications: Narcisa is a 79-year-old white female who fell landing on outstretched hand late yesterday evening. She is seen at [facility] emergency room where x-rays demonstrated a comminuted distal radius fracture as well as a fracture distal ulna. There is also reported that she had puncture wounds on the volar surface at the level of the fractures that continued to bleed indicating a open fracture. Patient was splinted and admitted to the hospital under the hospitalist service and orthopedic consultation was obtained. Patient was seen within hours of being admitted and placed on the surgery schedule for irrigation debridement of the tract of the fracture puncturing the skin as well as closed or open reduction with internal fixation of the fractures themselves. All risk benefits treatment alternatives were discussed with she and her daughter and both are agreeable to this at this time. Procedure: After obtaining written consent patient was taken her [facility] to the operating room and while still on her [facility] had general anesthetic administered. Once good anesthesia was achieved patient's right arm was placed out on a armboard. Pneumatic cuffs placed on the proximal right arm. Right arm was prepped and draped usual fashion. After surgical timeout longitudinal incision was made over the volar surface at the level of the pinpoint puncture wounds. These were still bleeding at the time of surgery. Dissection was taken on down to the soft tissues to palpate where the edges of the fracture were. This was washed with copious amounts of irrigation at this time. Once this is completed gentle manipulation and traction was applied to the hand and wrist. Reduction of the radius was then managed. Subsequently using 0.045 K wires these were driven distal to proximal radial to ulna side of the distal radius through the fracture and anchored it into the cortical bone proximal to the fracture. A total of 3 K wires were placed like this at various positions. Interoperative fluoroscopy demonstrated adequate reduction of all of these. However at this time the ulna was not reduced well and there was concerns that this may collapse further causing collapse of the distal radius. Subsequently, a longitudinal incision made along the lateral border of the ulna at the fracture site level. Sharp dissection taken on down to subcutaneous tissues and then in blunt and sharp fashion with tenotomy scissors soft tissues were raised to way down to periosteum. Periosteum was then raised with #15 blade as well as a foley elevator until fracture line was identified. Fracture could be reduced with traction and manipulation as well as use of a freer elevator to hold the fragments at length and up against each other. A 4-hole one third tubular plate was then positioned on the lateral side of the ulna and pinned in place with K wires. Interoperative fluoroscopy demonstrated adequate reduction. Subsequently four 3.5 screws were placed 2 distal and 2 proximal to the fracture line. Interoperative fluoroscopy again demonstrated adequate reduction and fixation of the fracture. There was quite a bit of comminution at the fracture site and therefore difficult to control these 2 fragments until all 4 screws were in. Subsequently interoperative fluoroscopy demonstrated there have been a slight collapse of the ulnar side of the distal radius while manipulating the ulna. Therefore traction was applied to the wrist again and demonstrating redu ction of this a transverse pin through the distal ulna and into the distal radius was placed demonstrating good fixation of the ulnar side fragment of the distal radius. At this point all wounds are washed and dried. 3-0 Vicryl subcutaneous sutures were used to reapproximate the skin edges of both of the incisions. Skin was closed with skin feli. Pin balls were applied to all the pins the pins were cut off the appropriate length. Patient was placed in a sugar-tong cast with appropriate molding and Kamari wrap for compression. Patient was then awakened transferred recovery room in stable condition
--- NOTE | 2025-01-01 14:53 | ANE.PACU2 ---
Inpatient post-anesthesia follow up: Airway intact: Yes Vital signs: Temperature 98.2 F Pulse Rate 63 Respiratory Rate 18 Blood Pressure 143/73 Pulse Oximetry 91 Oxygen Delivery Me thod Room Air Oxygen Flow Rate 3 Fraction of Inspir ed Oxygen Hydration adequate: Yes Nausea and vomiting: No Pain level: 1 Mental status: Baseline
[2025-01-01] MEDS: oxyCODONE-APAP 5-325 mg Tablet PO (17:34)
--- NOTE | 2025-01-01 19:11 | PC.NURSE ---
Glasses unable to be located in room. Daughter, Sil, states that she took them home. She will bring them when she returns to hospital tomorrow.
[2025-01-01] MEDS: quetiapine 25 mg Tablet PO (20:56)
[2025-01-01] MEDS: citalopram 20 mg Tablet PO (20:56)
[2025-01-01] MEDS: atorvastatin 40 mg Tablet PO (20:56)
[2025-01-02] VITALS (13 sets, daily range): BP systolic 132–157; BP diastolic 54–86; PULSE 60–88; RESP 16–18; TEMP 36.5–37.2; O2SAT 90–94
[2025-01-02] MEDS: sodium chlor 0.9% + KCl 20 mEq 20 MEQ/1,000 ML BAG 100 MEQ IV ×2 (01:48→11:46)
[2025-01-02] MEDS: ceFAZolin 2,000 mg SDV 2000 MG IVP ×2 (01:48→10:52)
[2025-01-02] MEDS: enoxaparin 40 mg/0.4 mL Syringe SUBCUT (05:17)
[2025-01-02] MEDS: oxyCODONE-APAP 5-325 mg Tablet PO ×2 (09:01→18:29)
[2025-01-02] MEDS: meloxicam 7.5 mg tablet 15 MG PO (09:02)
[2025-01-02] MEDS: gabapentin 100 mg Capsule PO (09:02)
[2025-01-02] MEDS: memantine 5 mg tablet PO ×2 (09:02→17:03)
[2025-01-02] MEDS: pantoprazole DR 40 mg Tablet PO (09:02)
[2025-01-02] MEDS: docusate sodium 100 mg Capsule PO ×2 (09:02→17:03)
[2025-01-02] MEDS: amlodipine 10 mg Tablet PO (09:02)
--- NOTE | 2025-01-02 10:32 | PC.CHAP ---
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 fisheries technician visit [] Patient/Family/Request visit [] Outpatient visit [] Follow-up visit [] Physician referral [] Code/Alert [x] Routine visit [] Staff referral [] Actively dying [] Patient sleeping [] Family support [] [] Out of room [] Palliative care [] [] Receiving care in room [] Pre-surgical visit [] Trauma [] Long length of stay [] ICU visit [] Other: Relational/Emotional Strength [x] Patient feels connected with others/family/visitors/staff [] Distress [] Loneliness/isolation [] Abandonment Spirituality of Patient [x] Person of Unique [] Attends Yarsanism of their Unique [x] Believes in Prayer [] Reads Bible or Latter Day materials [] There are Spiritual issues to be addressed 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 Interventions [x] Prayer [x] Active listening [x] Non-anxious presence [x] Spiritual/emotional support [] Crisis/trauma care [] Spiritual counseling [] Bereavement support [] Provided bereavement packet [] Provided Bible/devotional materials [] Provided toy/stuffed animal, coloring book to patient or family member [] Provided Communion [] Anointing/[place] [] Salvation [x] Completed spiritual assessment [] Other: Impact on Illness or Injury [] Angry [] Fearful [] Anxious [] Often cries [] Exhaustion [] Unable to work [] Unable to attend protestant [] Unable to walk/stand [] Unable to read [] Unable to drive [] Unable to eat/drink [] Unable to sleep [] Unable to be with family [] Patient intubated [] Other: Summary Time spent with patient 5 min
--- NOTE | 2025-01-02 14:14 | P.PN_ITS ---
Subjective 2 Subjective: s/p Irrigation debridement of puncture wound soft tissues. Close reduction percutaneous pinning of the distal radius fracture. Open reduction internal fixation of the distal ulnar fracture. reports some discomfort afebrile vitals stable Vitals/I&O/Wt Last Vital Signs Temp 98.2 F 01/02/25 11:38 Pulse 60 01/02/25 11:38 Resp 18 01/02/25 11:38 BP 143/73 01/02/25 11:38 Pulse Ox 91 01/02/25 11:38 O2 Del Method Room Air 01/02/25 11:38 O2 Flow Rate 3 01/01/25 16:45 01/01/25 01/02/25 01/02/25 22:59 06:59 14:59 Intake Total 580 / 1590 1061.667 / 2651.667 2076.667 / 2076.667 Balance 580 / 1570 1061.667 / 2631.667 2076.667 / 2076.667 Weight last 48 hrs Weight 199 lb Weight 199 lb 2 oz Weight 199 lb 11.2 oz Physical Exam 2 Narrative: General Well-developed well-nourished overweight female in no acute cardiopulmonary distress. She has intermittent periods of obvious pain with her right wrist CV regular rate and rhythm Lungs clear to auscultation bilaterally Neck no bruits Abdomen positive bowel sounds soft nontender Calves trace ankle edema equal bilaterally. Musculoskeletal right wrist is in a splint and Kamari wrapped. Mood and affect normal Data 01/01/25 03:25 01/01/25 04:30 A&P Assessment and plan (1) Right wrist fracture: Plan (1) Right wrist fracture: s/p ORIF fracture. Plavix and aspirin are held. Lovenox low-dose prophylaxis is given plan to restart home meds, prn analgesics PT OT , Orthopedic followup (2) Dementia: mild (3) Pacemaker: Listed as being for sinus node dysfunction. (4) Hypertension: Stable meds continued PDMP PDMP Reviewed: Not Reviewed Attestations 2 Medical Necessity Statement*: PT pain control Coding Level of Care Code 58876 Diagnoses Open fracture of right wrist, initial encounter S62.101B Encounter type: initial encounter Fracture type: open
[2025-01-02] MEDS: atorvastatin 40 mg Tablet PO (21:12)
[2025-01-02] MEDS: quetiapine 25 mg Tablet PO (21:12)
[2025-01-02] MEDS: citalopram 20 mg Tablet PO (21:13)
[2025-01-02] MEDS: LORazepam 0.5 mg Tablet PO (21:16)
[2025-01-03 01:34] VITALS: RESP 16
[2025-01-03] MEDS: oxyCODONE-APAP 5-325 mg Tablet PO (01:34)
[2025-01-03] MEDS: hyDROXYzine 25 mg Capsule PO (01:34)
[2025-01-03 03:54] VITALS: BP 132/69; PULSE 69; RESP 17; TEMP 36.8; O2SAT 95
[2025-01-03] MEDS: enoxaparin 40 mg/0.4 mL Syringe SUBCUT (03:57)
[2025-01-03] MEDS: sodium chlor 0.9% + KCl 20 mEq 20 MEQ/1,000 ML BAG 100 MEQ IV ×2 (03:57→11:57)
[2025-01-03 07:39] VITALS: BP 119/73; PULSE 61; RESP 15; TEMP 36.9; O2SAT 91
[2025-01-03 11:47] VITALS: BP 137/68; PULSE 61; RESP 15; TEMP 36.7; O2SAT 92
[2025-01-03] MEDS: docusate sodium 100 mg Capsule PO (11:56)
[2025-01-03] MEDS: meloxicam 7.5 mg tablet 15 MG PO (11:56)
[2025-01-03] MEDS: pantoprazole DR 40 mg Tablet PO (11:57)
[2025-01-03] MEDS: amlodipine 10 mg Tablet PO (11:57)
[2025-01-03] MEDS: memantine 5 mg tablet PO (11:57)
[2025-01-03] MEDS: gabapentin 100 mg Capsule PO (11:57)
--- NOTE | 2025-01-03 12:19 | PC.SOCIAL ---
IMM Update Pg 2 of IMM updated, copy provided at bedside.
--- NOTE | 2025-01-03 14:40 | PM.DCS ---
Discharge Providers Date of Admission: 01/01/25 03:07 Date of Discharge: January 03, 2025 Attending Provider at Admission: Justin Monroy MD Attending Provider at Discharge: Ru August MD Consults: orthopedics Primary Care Provider: Miguel Arrieta DO Diagnoses at Discharge Discharge Diagnosis (1) Right wrist fracture: Status: Acute Qualifiers: Encounter type: initial encounter Fracture type: open Qualified Code(s): S62.101B - Fracture of unspecified carpal bone, right wrist, initial encounter for open fracture Reason for Visit Reason for Visit: FALL, WEAKNESS Hospital Course Hospital Course Narcisa Valle is a 79 year old female was at home and got up without her walker between the foot of the bed and the bureau and fell protecting her self with her right arm and broke her radius and ulna. She was sedated with propofol and partially reduced in the emergency department by Dr. Khan but this is an open comminuted fracture based on 2 pinhole bleeding skin breaks. She was referred to Dr. Vargas orthopedic surgery who will see the patient in the morning and plan for surgery. Patient has a pacemaker and a history of CVA so is on aspirin and Plavix which are now held. She does not recall ever having a heart attack. She denies clots in the legs or lungs. Patient denies chest pain lightheadedness or nausea. course: (1) Right wrist fracture: Patient is admitted to the hospital with IV antibiotics due to n.p.o. status for surgery and a comminuted fracture. Plavix and aspirin are held. -- We continue antibiotics. Orthopedic evaluated patient patient underwent surgery had fixation done. Eval by physical therapy. Discharged with walker. In stable condition. Outpatient follow-up with orthopedics and PCP. (2) Dementia: Patient was started to month thought it was April then guessed March. monitor (3) Pacemaker: Listed as being for sinus node dysfunction. Will place her on telemetry to look for any signs of arrhythmia that could have precipitated her fall. Patient does not recall her fall but daughter gave the history when she was in earlier (4) Hypertension: Stable meds continued Physical Exam Narrative: General Well-developed well-nourished overweight female in no acute cardiopulmonary distress. She has intermittent periods of obvious pain with her right wrist CV regular rate and rhythm Lungs clear to auscultation bilaterally Neck no bruits Abdomen positive bowel sounds soft nontender Calves trace ankle edema equal bilaterally. Musculoskeletal right wrist is in a splint and Kamari wrapped. Mood and affect normal Discharge Data Studies Completed and Pending Completed Studies During Hospitalization Category Date Time Status XR chest 1V portable [id number] Stat Exams 01/01/25 03:06 Completed XR forearm RT 2V [id number] Routine Exams 01/01/25 00:00 Completed XR forearm RT 2V [id number] Stat Exams 01/01/25 01:29 Completed XR forearm RT 2V [id number] Stat Exams 01/01/25 02:42 Completed Radiology Impressions Forearm X-Ray 01/01/25 02:42 IMPRESSION: Right wrist fractures are partially reduced. Chest X-Ray 01/01/25 03:06 IMPRESSION: Negative for acute chest pathology. Laboratory Results WBC 9.01 10^3/uL (3.29-11.43) 01/01/25 03:25 RBC 3.49 10^6/uL (3.85-5.65) L 01/01/25 03:25 Hgb 11.20 g/dL (11.27-16.99) L 01/01/25 03:25 Hct 35.7 % (36-47) L 01/01/25 03:25 MCV 102.3 fl (85-98) H 01/01/25 03:25 MCH 32.1 pg (27-33) 01/01/25 03:25 MCHC 31.4 g/dL (30-55) 01/01/25 03:25 RDW 13.6 % (12.1-15.1) 01/01/25 03:25 Plt Count 129 10^3/cmm (157-399) L 01/01/25 03:25 MPV 11.1 fL (7.4-10.4) H 01/01/25 03:25 Neut % (Auto) 78.7 % 01/01/25 03:25 Lymph % (Auto) 13.7 % 01/01/25 03:25 Dickenson % (Auto) 6.5 % 01/01/25 03:25 Eos % (Auto) 0.2 % 01/01/25 03:25 Baso % (Auto) 0.6 % 01/01/25 03:25 Neut # (Auto) 7.09 10^3/uL (1.8-7.7) 01/01/25 03:25 Lymph # (Auto) 1.2 10^3/uL (0.8-4.8) 01/01/25 03:25 Dickenson # (Auto) 0.6 10^3/uL (0.2-0.9) 01/01/25 03:25 Eos # (Auto) 0.0 10^3/uL (0.0-0.8) 01/01/25 03:25 Baso # (Auto) 0.1 10^3/uL (0.0-0.1) 01/01/25 03:25 Nucleated RBC % (auto) 0 % 01/01/25 03:25 Nucleated RBCs # 0.0 /100WBC 01/01/25 03:25 PT 12.90 SECONDS (12.1-14.9) 01/01/25 04:30 INR 0.91 (0.8-1.2) 01/01/25 04:30 APTT 27.7 SECONDS (23.9-36.7) 01/01/25 04:30 Sodium 142 mmol/L (136-145) 01/01/25 04:30 Potassium 4.0 mmol/L (3.5-5.1) 01/01/25 04:30 Chloride 106 mmol/L (98-107) 01/01/25 04:30 Carbon Dioxide 21 mmol/L (22-29) L 01/01/25 04:30 Anion Gap 19.0 (5-19) 01/01/25 04:30 BUN 23 mg/dL (8-23) 01/01/25 04:30 Creatinine 1.2 mg/dL (0.5-0.9) H 01/01/25 04:30 GFR Calculation Not Reportable 01/01/25 04:30 Glucose 99 mg/dL (65-115) 01/01/25 04:30 Calculated Osmolality 298 mOsm/kg (285-295) H 01/01/25 04:30 Calcium 8.4 mg/dL (8.5-10.5) L 01/01/25 04:30 Magnesium 2.1 mg/dL (1.7-2.3) 01/01/25 04:30 Total Bilirubin 0.3 mg/dL (0.15-1.2) 01/01/25 04:30 AST 19 U/L (0-32) 01/01/25 04:30 ALT 11 U/L (0-33) 01/01/25 04:30 Alkaline Phosphatase 107 U/L (35-105) H 01/01/25 04:30 Total Protein 5.9 g/dL (6.6-8.7) L 01/01/25 04:30 Albumin 3.9 g/dL (3.5-5.2) 01/01/25 04:30 Globulin 2.0 g/dL (1.3-4.6) 01/01/25 04:30 Vitals Last Vital Signs Temp 98.0 F 01/03/25 11:47 Pulse 61 01/03/25 11:47 Resp 15 01/03/25 11:47 BP 137/68 01/03/25 11:47 Pulse Ox 92 01/03/25 11:47 O2 Del Method Room Air 01/03/25 11:47 O2 Flow Rate 1 01/03/25 07:39 Discharge Plan Discharge Patient Disposition: Home Health Service Condition: Stable Prescriptions: New oxycodone-acetaminophen 5-325 mg Tablet 1 - 2 tab PO Q4H PRN (Reason: Breakthrough Pain) Qty: 9 0RF amlodipine 10 mg Tablet 10 mg PO DAILY Qty: 30 0RF citalopram 20 mg Tablet 20 mg PO BEDTIME Qty: 30 0RF meloxicam 7.5 mg Tablet 15 mg PO DAILY Qty: 30 0RF doxycycline monohydrate 100 mg Tablet 100 mg PO BID Qty: 10 0RF Continued pantoprazole [Protonix] 40 mg tablet,delayed release (DR/EC) 40 mg PO DAILY 360 Days Qty: 90 3RF (DME) night splint See Rx Instructions .Route .MEDSUPPLY Qty: 1 0RF Rx Instructions: As directed memantine 5 mg tablet 5 mg PO BID gabapentin 100 mg capsule 100 mg PO BEDTIME acetaminophen 500 mg Tablet 500 - 1,000 mg PO Q12H PRN (Reason: Pain) quetiapine 25 mg tablet 50 mg PO BEDTIME aspirin 81 mg tablet,delayed release (DR/EC) 81 mg PO DAILY Qty: 30 0RF citalopram 10 mg tablet 10 mg PO BEDTIME esldvmrspl-jwykfkuhefjvg-jenf 50-325-40 mg tablet 1 tab PO Q4H PRN (Reason: Migraine Headache) famotidine 20 mg tablet 20 mg PO BID atorvastatin 40 mg tablet 40 mg PO BEDTIME 30 Days Qty: 30 0RF clopidogrel 75 mg tablet 75 mg PO DAILY 30 Days Qty: 30 0RF Discharge Orders: Discharge Order (Routine); Ordered 01/03/25 Ordered By: Ru August Other Ambulatory Orders: DME: Walker (Order) Location: None Selected Ordered By: Ru August Physical Therapy Outpatient in Home Eval and Treat Other (Order) Facility: [facility] - Location: Physical Therapy Ordered By: uR uAgust Referrals: [facility] [Outside] Willem Vargas MD [Physician, Orthopedics] Referral Note: We have notified your physician's clinic of the need for a follow-up appointment to be scheduled. If you have not heard from them within the next 2 business days, please call them directly. Miguel Arrieta DO [Primary Care Provider] - 01/08/25 1:40 pm Discharge Diet: Cardiac Discharge Activity: Increase activity as tolerated Patient Instructions: Doxycycline (By mouth), Oxycodone/Acetaminophen (By mouth), Amlodipine (By mouth), Citalopram (By mouth), Meloxicam (By mouth), Acute Wound Care (DC), ORIF of a Wrist Fracture (GEN), Opioid Safety, Post Anesthesia Care Plan of Treatment: take medications as prescribed followup with surgery in one week Discharge Attestations Time Spent in Discharge Care*: greater than 30 min Status at Discharge: Cognitive status at discharge: cognitively intact, Behavioral status at discharge: cooperative, Quality Metrics Clinical Quality Measures [ No reported AMI, CVA or VTE this stay] Coding Level of Care Code Acute Code for Chg Fwd Diagnoses Open fracture of right wrist, initial encounter S62.101B Encounter type: initial encounter Fracture type: open
[2025-01-03 15:18] VITALS: BP 121/75; PULSE 59; RESP 16; TEMP 36.6; O2SAT 92
--- NOTE | 2025-01-03 16:12 | P.PN_ITS ---
Subjective 2 Subjective: Patient postop day 2 from closed reduction and pinning of distal radius fracture and open reduction with internal fixation distal ulna fracture on the right Medications: Reviewed: Yes Vitals/I&O/Wt Last Vital Signs Temp 97.9 F 01/03/25 15:18 Pulse 59 L 01/03/25 15:18 Resp 16 01/03/25 15:18 BP 121/75 01/03/25 15:18 Pulse Ox 92 01/03/25 15:18 O2 Del Method Room Air 01/03/25 15:18 O2 Flow Rate 1 01/03/25 07:39 01/03/25 01/03/25 01/03/25 06:59 14:59 22:59 Intake Total 1240 / 5956.667 1280 / 1280 Balance 1240 / 5956.667 1280 / 1280 Weight last 48 hrs Weight 223 lb 5 oz Weight 199 lb Physical Exam 2 Narrative: On exam today the patient is in her splint and sling. Fingers are ecchymotic however she has good sensation and motor function of her hand. Patient not complaining of hand pain Data 01/01/25 03:25 01/01/25 04:30 A&P Assessment and plan (1) Right wrist fracture: 2 days status post reduction and pinning as well as open reduction internal fixation of right wrist radius and ulnar fracture Plan Plan at this time after discussing with the hospitalist for care. His plan the patient will be discharged home. Nothing further is necessary from orthopedics at this time. I will follow-up with her in the next 2 weeks for repeat evaluation and casting. Continue on with ice elevation as needed. Wiggle fingers daily PDMP PDMP Reviewed: Not Reviewed Attestations 2 Medical Necessity Statement*: Patient being discharged today Coding Level of Care Code Critical Care >/= 30 minutes Diagnoses Open fracture of right wrist, initial encounter S62.101B Encounter type: initial encounter Fracture type: open
== END 2025-01-03 17:15 | disposition home or self-care (01) | DRG 511 ==
LOC: ER 03:12 → MEDSURG 04:31
PROVIDERS: Orthopaedic Surgery; Admitting Provider Internal Medicine; Emergency Provider Emergency Medicine; PCP Family Medicine; Visit Provider Internal Medicine
PROC: 0PSH04Z Reposition Right Radius with Internal Fixation Device, Open Approach (ICD-10-PCS; principal; 2025-01-01 12:00)
DX: S52.501A Unspecified fracture of the lower end of right radius, initial encounter for closed fracture (principal); F03.93 Unspecified dementia, unspecified severity, with mood disturbance; F03.94 Unspecified dementia, unspecified severity, with anxiety; S52.601A Unspecified fracture of lower end of right ulna, initial encounter for closed fracture; W06.XXXA Fall from bed, initial encounter; Z86.73 Personal history of transient ischemic attack (TIA), and cerebral infarction without residual deficits; I49.5 Sick sinus syndrome; Z95.0 Presence of cardiac pacemaker; Z79.899 Other long term (current) drug therapy; Z88.8 Allergy status to other drugs, medicaments and biological substances; Z88.5 Allergy status to narcotic agent; Z91.010 Allergy to peanuts; I10 Essential (primary) hypertension
CPT/HCPCS: 36415; 71045; 73090; 76000; 80053; 83735; 85025; 85610; 85730; 93005; 96372; 96374; 96375; 97116; 97161; 97165; 97535; 99285; A4216; C1713; J0131; J0690; J1100; J1650; J2270; J2405; J2704; J3010; J3480; J7030; J9999

== ENCOUNTER 2025-01-04 10:08 | Emergency (ER) | payer MEDICARE, BC, SELFPAY ==
--- NOTE | 2025-01-04 10:58 | W.ED.EXTPRO ---
HPI - Extremity Problem General: Chief complaint: Extremity Injury, Upper Stated complaint: post op arm complications Time Seen by Provider: 01/04/25 10:51 Source: patient Mode of arrival: ambulatory Limitations: no limitations History of Present Illness: Patient is a nice 79-year-old female who presents to the ED today for evaluation of a surgical site. She is 3 days postop from ORIF right distal radial/ulnar fractures by Dr. Vargas. She was released from the hospital yesterday. Individual that accompanies patient states this morning she noticed that her dressing was saturated in blood thus prompting her medical evaluation. Patient states she seems to be doing well postop. She feels like her pain is managed well. She has been taking her oxycodone every 4-6 hours. She states she was only prescribed 8 to 9 tablets so is almost out of this medication. Denies fevers. Reports ecchymosis to her hand that was present during her hospital stay and is not worsening. Follow-up with Dr. Vargas is scheduled for 01/12 MD Complaint: other (drainage to surgical site) Onset (ago): hour(s) Location: right and upper extremity Radiation: none Associated symptoms: Reports no associated symptoms; Deny fever(s) Context: recent surgery/procedure Related Data Home Medications ?Medication ?Instructions ?Recorded ?Confirmed acetaminophen 500 mg tablet 500 - 1,000 mg PO Q12H PRN Pain 04/29/22 01/04/25 quetiapine 25 mg tablet 50 mg PO BEDTIME 12/04/22 01/04/25 gabapentin 100 mg capsule 100 mg PO BEDTIME 01/12/24 01/04/25 memantine 5 mg tablet 5 mg PO BID 01/12/24 01/04/25 jfbclurayt-yhtpqbtrptwte-bnpeilqh 1 tab PO Q4H PRN Migraine Headache 01/01/25 01/04/25 50 mg-325 mg-40 mg tablet citalopram 10 mg tablet 10 mg PO BEDTIME 01/01/25 01/04/25 famotidine 20 mg tablet 20 mg PO BID 01/01/25 01/04/25 meloxicam 7.5 mg tablet 7.5 mg PO DAILY 01/04/25 01/04/25 Previous Rx's ?Medication ?Instructions ?Recorded atorvastatin 40 mg tablet 40 mg PO BEDTIME 30 days #30 tabs 12/06/22 clopidogrel 75 mg tablet 75 mg PO DAILY 30 days #30 tabs 12/06/22 pantoprazole 40 mg tablet,delayed 40 mg PO DAILY 12 months #90 tabs 05/11/23 release (Protonix) aspirin 81 mg tablet,delayed 81 mg PO DAILY #30 tabs 05/21/23 release amlodipine 10 mg tablet 10 mg PO DAILY #30 tabs 01/03/25 citalopram 20 mg tablet 20 mg PO BEDTIME #30 tabs 01/03/25 doxycycline monohydrate 100 mg 100 mg PO BID #10 tabs 01/03/25 tablet oxycodone-acetaminophen 5 mg-325 1 - 2 tab PO Q4H PRN Breakthrough 01/03/25 mg tablet Pain #9 tabs hydrocodone 5 mg-acetaminophen 325 1 tab PO .q 4-6 PRN pain #20 tabs 01/04/25 mg tablet Allergies Allergy/AdvReac Type Severity Reaction Status Date / Time codeine Allergy Intermediate ALGY-Rash Verified 05/31/24 09:45 amitriptyline Allergy Unknown Verified 05/31/24 09:45 lisinopril Allergy ADR-Cough Verified 05/31/24 09:45 peanut Allergy ALGY-Anaphy Verified 05/31/24 09:45 laxis Review of Systems Const: Denies: fever(s) Musc: Reports: extremity pain (recent surgery-pain controlled; no worsening pain since surgery) and extremity swelling (post op surgery); Denies: joint swelling or joint redness Skin/Breast: Denies: erythema Neuro: Denies: numbness in extremities or sensory changes PFS ED PFSH: Medical History Sinus node dysfunction Pacemaker Dementia History of stress test (12/11/20) 1. Small size perfusion abnormality of mild severity of apical loredo with subtle reversibility in apical septal wall on stress images. 2. This may represent old myocardial infarction or scarring in left anterior descending artery territory with minimal uche-infarct ischemia. 3. Overall left ventricular systolic function is normal with apical hypokinesis 4. The left ventricular ejection fraction is normal with a value of 63%. Bradycardia Depression Anxiety Mesenteric cyst Chronic kidney disease by history Closed fracture of right hip Surgical History Hx of sinus surgery History of reduction of closed fracture (~11/2020) History of laminectomy History of laparotomy Family History Father CAD (coronary artery disease) Alcoholism Mother CAD (coronary artery disease) Brother CAD (coronary artery disease) Social History Smoking and tobacco/nicotine status: former use of tobacco/nicotine Quit status (tobacco/nicotine): has quit using Year quit tobacco: 2004 Former quit date comment: Patient was unable to be specific on when she quit this is an estimate Alcohol intake: current Alcohol intake frequency: holidays/special occasions only Substance/Drug Use: never Additional social history: Patient lives in the basement apartment of her daughter's home patient wants full CODE STATUS Physical Exam Const: COMMON NORMALS: no acute distress, average body habitus, patient oriented x3, no limitations, healthy appearing, alert and well nourished Extremity: GENERAL: Yes normal exam except as noted RIGHT UPPER EXTREMITY: Yes wrist and Yes hand & digits OTHER: surgical dressing/splint removed for visualization; she has intact surgical sites to R distal wrist with intact feli and several surgical pins; normal post op edema and ecchymosis present; no active bleeding/drainage; she does have dried blood saturated on padding/JOJO bandage; no purulent or odorous drainage; she has no erythema, warmth, streaking, or other findings to suggest infection; she has diffuse ecchymosis to R hand that she states has been present since surgery and non-worsening; radial pulse normal; she can move/wiggle fingers; pain not out of proportion to day 3 post op expectations Neuro: COMMON NORMALS: patient oriented x3, moves all extremities, no focal motor deficits and no sensory deficits noted SENSORIUM/ORIENTATION: Yes alert Course Vital Signs: Vital signs: Vital Signs Temperature 98.0 F 01/04/25 11:03 Pulse Rate 62 01/04/25 11:07 Respiratory Rate 19 H 01/04/25 11:03 Blood Pressure 176/81 01/04/25 11:03 Pulse Oximetry 95 01/04/25 11:07 Oxygen Delivery Me thod Room Air 01/04/25 11:07 MDM - Extremity (Nontraumatic) Medical Decision Making At this point there is nothing to suggest infection. Recommend she continue to follow-up with orthopedic surgeon as scheduled. Return precautions discussed. Medical Records I reviewed the patient's medical records. No radiology studies performed this visit Discharge Plan Discharge Patient Disposition: Home Clinical Impression: Encounter for examination of surgical site Condition: Stable Prescriptions: New hydrocodone-acetaminophen 5-325 mg tablet 1 tab PO .q 4-6 PRN (Reason: pain) Qty: 20 0RF No Action pantoprazole [Protonix] 40 mg tablet,delayed release (DR/EC) 40 mg PO DAILY 360 Days Qty: 90 3RF memantine 5 mg tablet 5 mg PO BID gabapentin 100 mg capsule 100 mg PO BEDTIME acetaminophen 500 mg Tablet 500 - 1,000 mg PO Q12H PRN (Reason: Pain) quetiapine 25 mg tablet 50 mg PO BEDTIME aspirin 81 mg tablet,delayed release (DR/EC) 81 mg PO DAILY Qty: 30 0RF citalopram 10 mg tablet 10 mg PO BEDTIME pnehziwjnj-azxaxnesnklel-khsu 50-325-40 mg tablet 1 tab PO Q4H PRN (Reason: Migraine Headache) famotidine 20 mg tablet 20 mg PO BID amlodipine 10 mg Tablet 10 mg PO DAILY Qty: 30 0RF citalopram 20 mg Tablet 20 mg PO BEDTIME Qty: 30 0RF doxycycline monohydrate 100 mg Tablet 100 mg PO BID Qty: 10 0RF oxycodone-acetaminophen 5-325 mg Tablet 1 - 2 tab PO Q4H PRN (Reason: Breakthrough Pain) Qty: 9 0RF atorvastatin 40 mg tablet 40 mg PO BEDTIME 30 Days Qty: 30 0RF clopidogrel 75 mg tablet 75 mg PO DAILY 30 Days Qty: 30 0RF meloxicam 7.5 mg tablet 7.5 mg PO DAILY Discharge Orders: Discharge ED (Routine); Ordered 01/04/25 Ordered By: Ting Enriquez Referrals: Miguel Arrieta DO [Primary Care Provider] Activity Restrictions/Additional Instructions: As we discussed, continue to ice and elevate the extremity to help with swelling. You may take your pain medications as needed for significant discomfort. You may reach out to orthopedics early next week if you feel you need a sooner appointment. Otherwise keep currently scheduled appointment on 01/12 for follow-up with your surgeon. He may return to the emergency department for worsening pain, swelling, fevers, purulent or odorous drainage, streaking up your arm, or any other concerns you may have. Print Language: Guyanese Coding Level of Care Code ED Technology Sales Consultant for Darshan Perez
[2025-01-04 11:03] VITALS: BP 176/81; PULSE 84; RESP 19; TEMP 36.7; O2SAT 92; BMI 34.7
[2025-01-04 11:07] VITALS: PULSE 62; O2SAT 95
[2025-01-04 11:47] VITALS: BP 160/84; PULSE 64; O2SAT 94
== END 2025-01-04 11:48 | disposition home or self-care (01) ==
PROVIDERS: Emergency Provider Physician Assistant; PCP Family Medicine
DX: Z47.89 Encounter for other orthopedic aftercare (principal); Z95.0 Presence of cardiac pacemaker; N18.9 Chronic kidney disease, unspecified; Z87.891 Personal history of nicotine dependence; Z79.82 Long term (current) use of aspirin; Z79.02 Long term (current) use of antithrombotics/antiplatelets
CPT/HCPCS: 99283

== ENCOUNTER → 2025-01-12 08:45 | Outpatient (BNVA) | payer MEDICARE, BC, SELFPAY | PROVIDERS: PCP Family Medicine; Visit Provider Nurse Practitioner | DX: Z98.890 Other specified postprocedural states (principal) | CPT/HCPCS: 29065; 73110; 99024 ==

== ENCOUNTER → 2025-01-23 08:48 | Outpatient (BNVA) | payer MEDICARE, BC, SELFPAY | PROVIDERS: PCP Family Medicine; Visit Provider Orthopaedic Surgery | DX: Z98.890 Other specified postprocedural states (principal); S52.501E Unspecified fracture of the lower end of right radius, subsequent encounter for open fracture type I or II with routine healing; S52.601E Unspecified fracture of lower end of right ulna, subsequent encounter for open fracture type I or II with routine healing; X58.XXXD Exposure to other specified factors, subsequent encounter | CPT/HCPCS: 73110; 99024 ==

== ENCOUNTER 2025-01-27 15:50 | Emergency (ER) | payer MEDICARE, BC, SELFPAY ==
[2025-01-27 15:57] VITALS: BP 153/75; PULSE 80; RESP 18; TEMP 36.4; O2SAT 97
--- NOTE | 2025-01-27 16:33 | XRR_ITS ---
PROCEDURE INFORMATION: Exam: XR Right Forearm Exam date and time: 01/27/2025 4:49 PM Age: 79 years old Clinical indication: Lower or forearm; Right; Prior surgery; Surgery date: 1-6 months; Surgery type: RT wrist orif; Increased pain/swelling to RT forearm after cast change (ortho) x 3 days ago TECHNIQUE: Imaging protocol: Radiologic exam of the right forearm. Views: 2 views. COMPARISON: OT XR forearm RT 2V [id number] 01/01/2025 12:48 PM FINDINGS: Tubes, catheters and devices: Bones/joints: There are displaced fractures of the distal radius and ulna, similar to 01/23/2025. There is an intact plate and screws in the distal ulna. The 2nd to proximal screw is backed out by 4 mm, similar to the prior. There are multiple pins traversing the distal radial fracture site. Wrist alignment is grossly normal. There is a mildly displaced ulnar styloid process fracture. Soft tissues: Soft tissues are obscured by the cast. XR/XR forearm RT 2V [id number] IMPRESSION: Distal radial and ulnar fractures with fixation plate, screws and pins are stable since 01/23/2025.
[2025-01-27 18:01] VITALS: O2SAT 96
[2025-01-27 18:57] VITALS: RESP 18; O2SAT 95
[2025-01-27] MEDS: morphine 4 mg/mL SDV 1 mL 6 MG IM (18:57)
[2025-01-27] MEDS: ondansetron hcl ODT 4 mg Tab PO (18:58)
--- NOTE | 2025-01-27 20:39 | W.ED.EXTPRO ---
HPI - Extremity Problem General: Chief complaint: Extremity Injury, Upper Stated complaint: right arm swelling extensive pain Time Seen by Provider: 01/27/25 16:27 History of Present Illness: This patient is an 79-year-old white female who presents to the emergency department with pain and swelling of the right hand. Patient sustained fractures of the distal radius and ulna couple of weeks ago which she had surgically repaired. There was concern earlier this week that one of the screws and the plate may have been coming loose. She states she had followed up with her orthopedist who had made an adjustment and then placed her in a cast. Since she has been placed in the cast she has developed swelling in the hand and worsening pain. Related Data Home Medications ?Medication ?Instructions ?Recorded ?Confirmed acetaminophen 500 mg tablet 500 - 1,000 mg PO Q12H PRN Pain 04/29/22 01/23/25 quetiapine 25 mg tablet 50 mg PO BEDTIME 12/04/22 01/23/25 gabapentin 100 mg capsule 100 mg PO BEDTIME 01/12/24 01/23/25 memantine 5 mg tablet 5 mg PO BID 01/12/24 01/23/25 nmsllidhlm-bdhkgisfqaarz-xifgidxl 1 tab PO Q4H PRN Migraine Headache 01/01/25 01/23/25 50 mg-325 mg-40 mg tablet citalopram 10 mg tablet 10 mg PO BEDTIME 01/01/25 01/23/25 famotidine 20 mg tablet 20 mg PO BID 01/01/25 01/23/25 meloxicam 7.5 mg tablet 7.5 mg PO DAILY 01/04/25 01/23/25 doxepin 10 mg capsule 10 mg PO DAILY 01/12/25 01/23/25 oxcarbazepine 150 mg tablet 150 mg PO BID 01/12/25 01/23/25 Previous Rx's ?Medication ?Instructions ?Recorded atorvastatin 40 mg tablet 40 mg PO BEDTIME 30 days #30 tabs 12/06/22 clopidogrel 75 mg tablet 75 mg PO DAILY 30 days #30 tabs 12/06/22 pantoprazole 40 mg tablet,delayed 40 mg PO DAILY 12 months #90 tabs 05/11/23 release (Protonix) aspirin 81 mg tablet,delayed 81 mg PO DAILY #30 tabs 05/21/23 release amlodipine 10 mg tablet 10 mg PO DAILY #30 tabs 01/03/25 citalopram 20 mg tablet 20 mg PO BEDTIME #30 tabs 01/03/25 doxycycline monohydrate 100 mg 100 mg PO BID #10 tabs 01/03/25 tablet hydrocodone 7.5 mg-acetaminophen 1 tab PO Q6H PRN pain 5 days #20 01/27/25 325 mg tablet tabs Allergies Allergy/AdvReac Type Severity Reaction Status Date / Time codeine Allergy Intermediate ALGY-Rash Verified 01/23/25 08:35 amitriptyline Allergy Unknown Verified 01/23/25 08:35 lisinopril Allergy ADR-Cough Verified 01/23/25 08:35 peanut Allergy ALGY-Anaphy Verified 01/23/25 08:35 laxis Review of Systems General: Reports: 10 or more systems reviewed and unremarkable except in HPI and below Musc: Reports: extremity pain and extremity swelling PFSH ED PFSH: Medical History Fracture of distal end of radius and ulna Sinus node dysfunction Pacemaker Dementia History of stress test (12/11/20) 1. Small size perfusion abnormality of mild severity of apical loredo with subtle reversibility in apical septal wall on stress images. 2. This may represent old myocardial infarction or scarring in left anterior descending artery territory with minimal uche-infarct ischemia. 3. Overall left ventricular systolic function is normal with apical hypokinesis 4. The left ventricular ejection fraction is normal with a value of 63%. Bradycardia Depression Anxiety Mesenteric cyst Chronic kidney disease by history Closed fracture of right hip Surgical History H/O right wrist surgery Date of procedure: January 01, 2025 Surgeon: Willem Vargas MD Preoperative diagnosis: Distal radius and ulnar fractures of the right wrist, open fracture via puncture wounds volar surface Procedure: Irrigation debridement of puncture wound soft tissues. Close reduction percutaneous pinning of the distal radius fracture. Open reduction internal fixation of the distal ulnar fracture. Hx of sinus surgery History of reduction of closed fracture (~11/2020) History of laminectomy History of laparotomy Family History Father CAD (coronary artery disease) Alcoholism Mother CAD (coronary artery disease) Brother CAD (coronary artery disease) Social History (Reviewed 05/27/25 @ 08:18 by FELICITA Soto Smoking and tobacco/nicotine status: former use of tobacco/nicotine Quit status (tobacco/nicotine): has quit using Year quit tobacco: 2004 Former quit date comment: Patient was unable to be specific on when she quit this is an estimate Alcohol intake: current Alcohol intake frequency: holidays/special occasions only Substance/Drug Use: never Additional social history: Patient lives in the basement apartment of her daughter's home patient wants full CODE STATUS Physical Exam Const: COMMON NORMALS: no acute distress, patient oriented x3 and no limitations GENERAL APPEARANCE: cooperative and comfortable HENMT: COMMON NORMALS: normocephalic, atraumatic, Normal nasal mucous membranes and turbinates present, moist oral mucous membranes and oropharynx normal HEAD & SCALP: normal to inspection, normocephalic and atraumatic FACE & SINUS: normal facial exam NOSE: Normal nasal mucous membranes and turbinates present Eye: COMMON NORMALS: Equal, round and reactive pupils present, EOMs intact bilaterally and conjunctivae normal GENERAL EYE: appearance normal, both eyes and all related structures CONJUNCTIVA: Yes conjunctivae normal PUPIL: Yes Equal, round and reactive pupils present Neck/C-Spine: COMMON NORMALS: supple and no JVD Chest: COMMONS NORMALS: normal inspection of the chest Resp: COMMON NORMALS: normal respiratory effort and clear to auscultation bilaterally AUSCULTATION: clear to auscultation bilaterally Cardio: COMMON NORMALS: no JVD, regular rate, regular rhythm, No gallops present (Cardio), No murmurs present (Cardio) and No rub (Cardio) RATE: regular rate RHYTHM: regular rhythm GI: COMMON NORMALS: Normal to inspection, nondistended, normoactive bowel sounds present, Soft to palpation and non-tender AUSCULTATION: Yes normoactive bowel sounds PALPATION: Yes Soft to palpation : COMMON NORMALS: Yes no CVA tenderness BLADDER/KIDNEY EXAM: Yes no CVA tenderness Back/Pelvis: COMMON NORMALS: no CVA tenderness and thoracic and lumbar spine normal to inspection Extremity: NARRATIVE EXTREMITY EXAM: There is a short arm cast on the right forearm. There is diffuse swelling of the digits of the right hand. Patient complains of pain in all the digits. Slight purple discoloration. Brisk capillary refill. Neuro: COMMON NORMALS: patient oriented x3 and CN's II-XII intact bilaterally Psych: COMMON NORMALS: mental status grossly normal, Normal thought process present and cooperative THOUGHT PROCESS: Normal thought process present Skin: COMMON NORMALS: no rashes or lesions noted, turgor normal and no jaundice GENERAL SKIN EXAM: no rashes or lesions noted and turgor normal Course Vital Signs: Vital signs: Vital Signs Temperature 97.6 F 01/27/25 15:57 Pulse Rate 80 01/27/25 15:57 Respiratory Rate 18 01/27/25 18:57 Blood Pressure 153/75 01/27/25 15:57 Pulse Oximetry 95 01/27/25 18:57 Oxygen Delivery Me thod Room Air 01/27/25 18:01 MDM - Extremity (Nontraumatic) Medical Decision Making X-rays of the right forearm were read by the radiologist. No change from most recent x-rays. I discussed this case with Dr. Jarvis, orthopedic surgeon on-call. He does agree that we should remove the cast and place her in a sugar-tong splint. Patient is to follow-up with her orthopedic surgeon as soon as possible for further evaluation. She was discharged in stable condition. Lab Data Radiology Impressions Forearm X-Ray 01/27/25 16:33 IMPRESSION: Distal radial and ulnar fractures with fixation plate, screws and pins are stable since 01/23/2025. All radiology interpretation(s) finalized by discharge Discharge Plan Discharge Patient Disposition: Home Clinical Impression: Encounter for cast removal Condition: Stable Prescriptions: No Action pantoprazole [Protonix] 40 mg tablet,delayed release (DR/EC) 40 mg PO DAILY 360 Days Qty: 90 3RF memantine 5 mg tablet 5 mg PO BID gabapentin 100 mg capsule 100 mg PO BEDTIME oxcarbazepine 150 mg tablet 150 mg PO BID doxepin 10 mg capsule 10 mg PO DAILY hydrocodone-acetaminophen 7.5-325 mg tablet 1 tab PO Q6H PRN (Reason: pain) 5 Days Qty: 20 0RF acetaminophen 500 mg Tablet 500 - 1,000 mg PO Q12H PRN (Reason: Pain) quetiapine 25 mg tablet 50 mg PO BEDTIME aspirin 81 mg tablet,delayed release (DR/EC) 81 mg PO DAILY Qty: 30 0RF citalopram 10 mg tablet 10 mg PO BEDTIME ssxxzgzkzi-xujvifklbjqau-rtju 50-325-40 mg tablet 1 tab PO Q4H PRN (Reason: Migraine Headache) famotidine 20 mg tablet 20 mg PO BID amlodipine 10 mg Tablet 10 mg PO DAILY Qty: 30 0RF citalopram 20 mg Tablet 20 mg PO BEDTIME Qty: 30 0RF doxycycline monohydrate 100 mg Tablet 100 mg PO BID Qty: 10 0RF atorvastatin 40 mg tablet 40 mg PO BEDTIME 30 Days Qty: 30 0RF clopidogrel 75 mg tablet 75 mg PO DAILY 30 Days Qty: 30 0RF meloxicam 7.5 mg tablet 7.5 mg PO DAILY Discharge Orders: Discharge ED (Routine); Ordered 01/27/25 Ordered By: Yeison Quiroz Referrals: Miguel Arrieta DO [Primary Care Provider] Activity Restrictions/Additional Instructions: Schedule an appointment with your orthopedic surgeon as soon as possible. Print Language: Armenian Coding Level of Care Code ED Corn Sheller Operator for Darshan Perez
== END 2025-01-27 21:35 | disposition home or self-care (01) ==
PROVIDERS: Emergency Provider Emergency Medicine; PCP Family Medicine
DX: Z47.89 Encounter for other orthopedic aftercare (principal); Z79.82 Long term (current) use of aspirin; Z87.891 Personal history of nicotine dependence; Z95.0 Presence of cardiac pacemaker; N18.9 Chronic kidney disease, unspecified
CPT/HCPCS: 73090; 96372; 99284; J2270; Q0162

== ENCOUNTER → 2025-02-01 08:46 | Outpatient (BNVA) | payer MEDICARE, BC, SELFPAY | PROVIDERS: PCP Family Medicine; Visit Provider Orthopaedic Surgery | DX: S52.501E Unspecified fracture of the lower end of right radius, subsequent encounter for open fracture type I or II with routine healing (principal); S52.601E Unspecified fracture of lower end of right ulna, subsequent encounter for open fracture type I or II with routine healing; Z98.890 Other specified postprocedural states; X58.XXXA Exposure to other specified factors, initial encounter | CPT/HCPCS: 73110; 99024 ==

== ENCOUNTER → 2025-02-12 14:14 | Outpatient (BNVA) | payer MEDICARE, BC, SELFPAY | PROVIDERS: PCP Family Medicine; Visit Provider Orthopaedic Surgery | DX: Z98.890 Other specified postprocedural states (principal); S62.101B Fracture of unspecified carpal bone, right wrist, initial encounter for open fracture; X58.XXXA Exposure to other specified factors, initial encounter | CPT/HCPCS: 73110 ==

== ENCOUNTER 2025-02-12 15:08 | Outpatient (CLI) | payer MEDICARE, BC, SELFPAY | END 2025-02-12 15:09 | disposition home or self-care (01) | LOC: SPT 15:09 | PROVIDERS: PCP Family Medicine; Visit Provider Orthopaedic Surgery | DX: Z47.89 Encounter for other orthopedic aftercare (principal); S52.591D Other fractures of lower end of right radius, subsequent encounter for closed fracture with routine healing; X58.XXXD Exposure to other specified factors, subsequent encounter | CPT/HCPCS: 97760; 99024; L3982 ==

== ENCOUNTER 2025-02-21 14:50 | Outpatient (CLI) | payer MEDICARE, BC, SELFPAY ==
--- NOTE | 2025-02-21 14:56 | XR_ITS ---
WS: [id number] DEXA (DUAL ENERGY X-RAY ABSORPTIOMETRY) Bone mineral density was performed using a [employer] machine. HISTORY: AGE RELATED OSTEOPOROSIS W/O CURRENT FX COMPARISON: None available. Lumbar spine BMD (L1-L4): 1.023 g/cm2 T score: -1.3 Z score: -0.4 Total hip BMD: Left: 0.699 (g/cm2). T score: -2.4 (no units) Z score: -1.1 (no units) Left forearm BMD: 0.607 g/cm2. T score: -3.1 Z score: -0.3 10 year probability of a major osteoporotic fracture is 25.7%. XR/XR DEXA axial skeleton* [id number] IMPRESSION: OSTEOPOROSIS based upon the WHO classification for females.
== END 2025-02-21 14:51 | disposition home or self-care (01) ==
LOC: RAD 14:51
PROVIDERS: PCP Family Medicine; Visit Provider Family Medicine
DX: M81.0 Age-related osteoporosis without current pathological fracture (principal)
CPT/HCPCS: 77080

== ENCOUNTER → 2025-03-08 08:01 | Outpatient (BNVA) | payer MEDICARE, BC, SELFPAY | PROVIDERS: PCP Family Medicine; Visit Provider Orthopaedic Surgery | DX: S52.501E Unspecified fracture of the lower end of right radius, subsequent encounter for open fracture type I or II with routine healing (principal); S52.601E Unspecified fracture of lower end of right ulna, subsequent encounter for open fracture type I or II with routine healing; Z98.890 Other specified postprocedural states; X58.XXXD Exposure to other specified factors, subsequent encounter | CPT/HCPCS: 73110; 99024 ==

== ENCOUNTER → 2025-04-10 08:00 | Outpatient (BNVA) | payer MEDICARE, BC, SELFPAY | PROVIDERS: PCP Family Medicine; Visit Provider Orthopaedic Surgery | DX: S52.501E Unspecified fracture of the lower end of right radius, subsequent encounter for open fracture type I or II with routine healing (principal); S52.601E Unspecified fracture of lower end of right ulna, subsequent encounter for open fracture type I or II with routine healing; X58.XXXD Exposure to other specified factors, subsequent encounter | CPT/HCPCS: 99024 ==

== ENCOUNTER → 2025-06-28 13:34 | Outpatient (BNVA) | payer MEDICARE, BC, SELFPAY | PROVIDERS: PCP Family Medicine; Visit Provider Orthopaedic Surgery | DX: Z47.89 Encounter for other orthopedic aftercare (principal); Z98.890 Other specified postprocedural states | CPT/HCPCS: 73110; 99213 ==

== ENCOUNTER → 2025-07-18 08:29 | Day surgery (SDC) | payer MEDICARE, BC, SELFPAY ==
[2025-07-18] VITALS (7 sets, daily range): BP systolic 127–169; BP diastolic 70–93; PULSE 60–66; RESP 18; TEMP 36.3–36.8; O2SAT 93–99; BMI 36.2
--- NOTE | 2025-07-18 10:02 | ANES.PREANE2 ---
Pre-Anesthetic Assessment Height/Weight: Height 5 ft 1 in Weight 192 lb Temp Pulse Resp BP Pulse Ox O2 Del Method 98.2 F 66 18 169/93 99 Room Air 07/18/25 08:41 07/18/25 08:41 07/18/25 08:41 07/18/25 08:41 07/18/25 08:41 07/18/25 08:41 Preop Diagnosis: Painful hardware Operation Date: 07/18/25 10:45 Proposed Procedures p Hardware Removal Wrist(Right) - Willem Vargas MD Was Beta Giselle taken within 24 hours: N/A Was Clonidine taken within 24 hours: N/A Last intake: Intake Last Liquid Date 07/17/25 Last Liquid Time 21:30 Last Solid Date 07/17/25 Last Solid Time 18:30 Social No alcohol and No tobacco Exam alert, oriented x 3, clear to auscultation bilaterally and regular rate & rhythm Airway Submandibular: within normal limits Cervical ROM: within normal limits Mallampati: Class II Dentition: full Anesthetic Plan ASA status: 3 Anesthesia: MAC and Regional (specify below) Other: Patient had an episode of significant postop delirium that progressed to her Alzheimer's after previous anesthetic NPO since yesterday evening History of hypertension on amlodipine GERD on Protonix ICD in place, s/p stents. On chronic Plavix. Last taken 07/12/2025 Patient has Alzheimer's Plan for peripheral nerve block with MAC anesthesia Medications/Allergies Home Medications ?Medication ?Instructions ?Recorded ?Confirmed ?Last Taken ?Type acetaminophen 500 mg tablet 500 - 1,000 mg PO Q12H PRN Pain 04/29/22 07/17/25 07/15/25 History quetiapine 25 mg tablet 50 mg PO BEDTIME 12/04/22 07/17/25 07/17/25 History atorvastatin 40 mg tablet 40 mg PO BEDTIME 30 days #30 tabs 12/06/22 07/17/25 07/17/25 Rx clopidogrel 75 mg tablet 75 mg PO DAILY 30 days #30 tabs 12/06/22 07/17/25 07/12/25 Rx pantoprazole 40 mg tablet,delayed 40 mg PO DAILY 12 months #90 tabs 05/11/23 07/17/25 07/17/25 Rx release (Protonix) aspirin 81 mg tablet,delayed 81 mg PO DAILY #30 tabs 0907/17/25 07/10/25 Rx release gabapentin 100 mg capsule 100 mg PO BEDTIME 01/12/24 07/17/25 12/31/24 History ckfjjobqqw-gudfwquhrhfmd-nkmczfnr 1 tab PO Q4H PRN Migraine Headache 01/01/25 07/17/25 Unknown History 50 mg-325 mg-40 mg tablet famotidine 20 mg tablet 20 mg PO BID 01/01/25 07/17/25 07/17/25 History amlodipine 10 mg tablet 10 mg PO DAILY #30 tabs 01/03/25 07/17/25 07/17/25 Rx citalopram 20 mg tablet 20 mg PO BEDTIME #30 tabs 01/03/25 07/17/25 07/17/25 Rx meloxicam 7.5 mg tablet 7.5 mg PO DAILY 01/04/25 07/17/25 07/16/25 History doxepin 10 mg capsule 10 mg PO DAILY 01/12/25 07/17/25 07/17/25 History oxcarbazepine 150 mg tablet 150 mg PO BID 01/12/25 07/17/25 07/17/25 History Right fast form #1 ea 02/12/25 06/28/25 Unknown Rx memantine 10 mg tablet (Namenda) 10 mg PO BID 04/10/25 07/17/25 07/17/25 History Allergies Allergy/AdvReac Type Severity Reaction Status Date / Time codeine Allergy Intermediate ALGY-Rash Verified 07/18/25 08:38 amitriptyline Allergy Unknown Verified 07/18/25 08:38 lisinopril Allergy ADR-Cough Verified 07/18/25 08:38 peanut Allergy ALGY-Anaphy Verified 07/18/25 08:38 laxis Current Medications Generic Name Dose Route Start Last Admin Trade Name Freq PRN Reason Stop Dose Admin Sodium Chloride 1,000 mls @ 30 mls/hr 07/18/25 08:45 07/18/25 09:06 Sodium Chloride 0.9% IV 07/19/25 08:44 30 mls/hr .Q24H ALAINA Administration PFSH Anesthesia Medical History Fracture of distal end of radius and ulna Sinus node dysfunction Pacemaker Dementia History of stress test (12/11/20) 1. Small size perfusion abnormality of mild severity of apical loredo with subtle reversibility in apical septal wall on stress images. 2. This may represent old myocardial infarction or scarring in left anterior descending artery territory with minimal uche-infarct ischemia. 3. Overall left ventricular systolic function is normal with apical hypokinesis 4. The left ventricular ejection fraction is normal with a value of 63%. Bradycardia Depression Anxiety Mesenteric cyst Chronic kidney disease by history Closed fracture of right hip Surgical History H/O right wrist surgery Date of procedure: January 01, 2025 Surgeon: Willem Vargas MD Preoperative diagnosis: Distal radius and ulnar fractures of the right wrist, open fracture via puncture wounds volar surface Procedure: Irrigation debridement of puncture wound soft tissues. Close reduction percutaneous pinning of the distal radius fracture. Open reduction internal fixation of the distal ulnar fracture. Hx of sinus surgery History of reduction of closed fracture (~11/2020) History of laminectomy History of laparotomy Family History Father CAD (coronary artery disease) Alcoholism Mother CAD (coronary artery disease) Brother CAD (coronary artery disease) Social History Smoking and tobacco/nicotine status: never used tobacco/nicotine Quit status (tobacco/nicotine): has quit using Year quit tobacco: 2004 Former quit date comment: Patient was unable to be specific on when she quit this is an estimate Alcohol intake: current Alcohol intake frequency: holidays/special occasions only Substance/Drug Use: never Additional social history: Patient lives in the basement apartment of her daughter's home patient wants full CODE STATUS Data Anesthesia Cardiac Studies: Echocardiogram 04/29/22 Echocardiogram Ultrasound 12/08/20 Sestamibi Stress Test (Cardiology) 05/28/23 Cardiac Event Monitor 05/01/22
--- NOTE | 2025-07-18 10:08 | W.PM.OPSUD ---
Surgery/Procedure H&P Update DATE OF PROCEDURE: July 18, 2025 DATE H&P PERFORMED: 06/28/25 H&P UPDATE INFORMATION: I have reviewed H&P completed within last 30 days, I have examined patient prior to procedure and No changes to prior documentation PREOP DIAGNOSIS: Painful hardware PLANNED PROCEDURE: Operation Date: 07/18/25 10:45 Proposed Procedures p Hardware Removal Wrist(Right) - Willem Vargas MD
--- NOTE | 2025-07-18 10:28 | ANES.PROC ---
Anesthesia Procedures Procedure/Date: 07/18/25 Right supraclavicular nerve block for postoperative pain control Nerve Block ^: Nerve Block 1: Main Anesthesia: other (100 mcg fentanyl) Time Out Performed: Yes Consent: requested by attending/covering physician and from patient Laterality: Right Nerve block location: supraclavicular Anesthesia monitors applied: pulse oximetry, EKG, BP cuff and oxygen Nerve block position: supine Anesthetic Used: ropivicaine 0.5% Amount of anesthesia used (mL): 30 Ultrasound used to: recognize landmarks Nerve Stimulator Used?: Yes Interscalene/Femoral BLK: other needle (pjunk 4inch) Injection: neg aspiration of heme Patient Tolerated Procedure: well Complications: none Additional Comments: Decadron 4 mg added to block
[2025-07-18] MEDS: ceFAZolin 2,000 mg SDV 2000 MG IVP (11:41)
[2025-07-18] MEDS: BUPivacaine 0.5% INJ 30 mL INJECTION (12:07)
--- NOTE | 2025-07-18 12:25 | PM.OP ---
Operative Report Date of procedure: July 18, 2025 Surgeon: Willem Vargas MD Procedure: Preoperative diagnosis: Retained hardware right wrist Postoperative diagnosis: Same Procedure: Removal of retaine orthopedic hardware right wrist Surgeon: Willem Vargas MD Anesthesia: Regional block with IV sedation, local anesthetic Tourniquet time: 16 minutes at 250 mmHg Indications Narcisa is a 79-year-old white female who previously had a close reduction and pinning distal radius fracture with open reduction with screw and plate fixation distal ulnar fracture of the right wrist. Patient went on to finally heal fractures somewhat as a malunion however wrist is functional now and patient does not have any complaints other than retained hardware. Hardware is very prominent underneath the subcutaneous tissues of the distal ulna on the ulnar aspect of the wrist. Screw heads are palpable on clinical exam. Therefore after confirming fracture had healed she is offered hardware removal. Her daughter who is her power of securities attorney had all risk benefits and treatment alternatives discussed with her and she was agreeable to this. Procedure: After obtaining her consent regional block was administered right upper extremity. Patient was then taken to the operating room placed operative table supine position IV sedation was administered. Pneumatic cuffs placed on proximal right arm and right arm was prepped and draped usual fashion. After surgical timeout pneumatic cuff was inflated to 250 mmHg. Incision was made through the previous surgical incision on the ulnar side of the distal forearm at the level of the hardware that is prominent. Sharp dissecting down to subcutaneous tissue. Patient again reacted as if she could feel this and therefore 6 cc of half percent plain Marcaine were placed around the incision line and allowed to set up. From that point forward further dissection did not aggravate the patient in any way. Sharp dissecting on down the plate and screws and one by one the screws were identified and removed in a stepwise fashion. Subsequent plate was also removed once all 4 screws were out. Areas washed with sterile irrigation. Deep fascia was reapproximated 3-0 Vicryl [id number] sutures. Skin was closed with running horizontal mattress suture of 3-0 Prolene. Wounds are cleaned and dried dressed with Xeroform gauze sterile gauze dressing Kerlix wrap and Kamari wrap for compression. Should be noted at the time of wound closure pneumatic cuffs deflated after 16 minutes total tourniquet time. Patient was then awakened transferred cover in stable condition
--- NOTE | 2025-07-18 12:45 | ANE.PACU2 ---
Inpatient post-anesthesia follow up: Airway intact: Yes Vital signs: Temperature 97.6 F Pulse Rate 62 Respiratory Rate 18 Blood Pressure 152/83 Pulse Oximetry 95 Oxygen Delivery Me thod Room Air Oxygen Flow Rate Fraction of Inspir ed Oxygen Hydration adequate: Yes Nausea and vomiting: No Pain level: 1 Mental status: Baseline
== END | disposition home or self-care (01) ==
PROVIDERS: PCP Family Medicine; Visit Provider Orthopaedic Surgery
PROC: (CPT 64415; principal; 2025-07-18 10:45)
DX: T84.84XA Pain due to internal orthopedic prosthetic devices, implants and grafts, initial encounter (principal); Y70.2 Prosthetic and other implants, materials and accessory anesthesiology devices associated with adverse incidents; K21.9 Gastro-esophageal reflux disease without esophagitis; Z95.5 Presence of coronary angioplasty implant and graft; G30.9 Alzheimer's disease, unspecified; F02.80 Dementia in other diseases classified elsewhere, unspecified severity, without behavioral disturbance, psychotic disturbance, mood disturbance, and anxiety; Z79.02 Long term (current) use of antithrombotics/antiplatelets; Z95.0 Presence of cardiac pacemaker; F41.8 Other specified anxiety disorders; I12.9 Hypertensive chronic kidney disease with stage 1 through stage 4 chronic kidney disease, or unspecified chronic kidney disease; N18.9 Chronic kidney disease, unspecified; Z87.891 Personal history of nicotine dependence; Z79.82 Long term (current) use of aspirin
CPT/HCPCS: 64415; 20680; J0690; J2704; J3010; J3490; J7030

== ENCOUNTER → 2025-08-02 14:20 | Outpatient (BNVA) | payer MEDICARE, BC, SELFPAY | PROVIDERS: PCP Family Medicine; Visit Provider Orthopaedic Surgery | DX: Z98.890 Other specified postprocedural states (principal); S52.601P Unspecified fracture of lower end of right ulna, subsequent encounter for closed fracture with malunion; X58.XXXD Exposure to other specified factors, subsequent encounter | CPT/HCPCS: 73110; 99024 ==